=== PATIENT | male | born 1950 | race Caucasian/White ===

== ENCOUNTER → 2017-12-03 09:04 | Outpatient (CLI) | payer MEDICARE, OTHER, SELFPAY ==
[2016-10-19 14:48] VITALS: BMI 30.6
[2017-12-03 10:29] LABS: Anion Gap 6 (5-15); BUN 19 mg/dL (7-18); BUN/Creat Ratio 17.4 RATIO (10-20); Calcium,Total 9.1 mg/dL (8.5-10.1); Chloride 105 mmol/L (98-107); Cholesterol 129 mg/dL (200); Creatinine, Serum 1.09 mg/dL (0.70-1.30); EST Glomerular Filtration Rate 72 mL/min (>60); Est Glom Filt Rate - Afr Amer 87 mL/min (>60); Glucose 88 mg/dL (74-106); High Density Lipoprotein 33 mg/dL; Potassium 3.9 mmol/L (3.5-5.1); Sodium Level 140 mmol/L (136-145); Triglycerides 195 mg/dL; Very Low Density Lipoprotein 39 mg/dL (5-40)
[2017-12-03 10:37] LABS: Vitamin D,25 Hydroxy 19.6 ng/mL (29.95-100.01)
== END ==
PROVIDERS: Family Provider Family Medicine; PCP Family Medicine; Visit Provider Family Medicine
DX: I10 Essential (primary) hypertension (principal); E78.00 Pure hypercholesterolemia, unspecified; E55.9 Vitamin D deficiency, unspecified
CPT/HCPCS: 36415; 80048; 80061; 82306

== ENCOUNTER → 2018-05-27 07:05 | Outpatient (CLI) | payer MEDICARE, OTHER, SELFPAY ==
[2016-10-19 14:48] VITALS: BMI 30.6
--- NOTE | 2018-05-27 07:31 | MRI_ITS ---
STUDY: MRI BRAIN WITH AND WITHOUT CONTRAST (ATTENTION INTERNAL AUDITORY CANALS - I.A.C.'s) REASON FOR EXAM: Male, 68 years old. Left-sided tinnitus TECHNIQUE: Standardized multiplanar fat and water weighted pulse sequences were obtained. 10 ml of Gadavist contrast material was administered intravenously for the contrast portion of the examination. COMPARISON: None. FINDINGS: Normal bilateral temporal bones. Normal bilateral internal auditory canals. There is no demonstrated intracanalicular or cisternal vestibular schwannoma (acoustic neuroma). There is no enhancement of the bilateral VIIth or VIIIth cranial nerves. Normal bilateral cochlea, vestibules and semicircular canals. Normal size of the ventricles and extra-axial spaces for the patient's age. Normal white matter tracts of the supratentorial brain. 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 No acute associated hemorrhage is seen. Normal bilateral basal ganglia. Normal thalami. Normal flow voids within the major intracranial circulation suggesting patency by spin echo criteria. Normal venous enhancement. There is no extra-axial fluid accumulation. Normal sella turcica, pituitary gland, infundibular stalk, optic chiasm and hypothalamus. Normal tectal plate and pineal gland. Normal midbrain, carlos and medulla. Normal cerebellum. Normal basal cisterns. No demonstrated orbital abnormality, within the constraints of a routine brain study. Cyst in the right maxillary sinus. Bilateral sphenoid and ethmoid sinus disease. Normal calvarium and skull base. Normal visualized soft tissue structures. Normal visualized upper cervical spine. MRI/Brain W/WO Contrast IMPRESSION: No evidence of vestibulocochlear schwannoma. No evidence of left temporal bone pathology. No cerebellopontine angle lesions are seen. 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 No acute associated hemorrhage is seen. Electronically Signed: Darwin Laurent MD at 9:31 EST Tel , Service support ,
[2018-05-27 09:36] LABS: CREATININE FINGERSTICK 1.1 mg/dL (0.70-1.30); EGFR FINGERSTICK > 60.0000 mL/min (>60)
== END ==
PROVIDERS: Family Provider Family Medicine; PCP Family Medicine; Referring Provider Otolaryngology Otolaryngology/Facial Plastic Surgery; Visit Provider Otolaryngology Otolaryngology/Facial Plastic Surgery
DX: H93.12 Tinnitus, left ear (principal)
CPT/HCPCS: 70553; A9585

== ENCOUNTER → 2018-06-03 09:52 | Outpatient (CLI) | payer MEDICARE, OTHER, SELFPAY ==
[2016-10-19 14:48] VITALS: BMI 30.6
[2018-06-03 12:12] LABS: Prothrombin Time (Protime)PT. 13.1 SECONDS (11.7-14.9)
[2018-06-03 12:13] LABS: Partial Thromboplast Time 30.5 Seconds (24.1-36.2)
[2018-06-03 12:16] LABS: Absolute Lymphocyte Count 1.49 X10^3/ul (0.83-4.51); Absolute Neutrophil Count 3.1 X10^3/uL (2.0-7.7); Basophil# 0.03 X10^3/uL; Basophil% 0.6 % (0-1); Eosinophil# 0.27 X10^3/uL; Eosinophils% 5.3 % (0-5); Hematocrit 45.1 % (40-54); Lymphocyte # 1.49 X10^3/ul (4.0); Lymphocyte % 29.2 % (19-41); Mean Corp Hgb Conc 33.3 g/gl (32-36); Mean Corpuscular Hgb 29.6 pg (27.0-32.0); Mean Platelet Vol. 9.8 fl (6.2-12.0); Monocyte# 0.27 X10^3/uL; Monocyte% 5.3 % (0-10); Neutrophil # 3.05 X10^3/uL (2.7-7.7); Neutrophil % 59.6 % (47-70); Platelet Count 190 K/mm3 (150-450); RBC Distribution Width CV 12.4 % (11.6-14.6); RBC Distribution Width SD 39.2 fl (35.1-43.9); Red Blood Count 5.07 M/mm3 (4.6-6.2); White Blood Count 5.1 K/mm3 (4.4-11.0)
[2018-06-03 12:26] LABS: POSITIVE COUNT NO; POSITIVE DIFFERENTIAL NO; POSITIVE MORPHOLOGY NO
[2018-06-03 12:36] LABS: Anion Gap 6 (5-15); BUN 21 mg/dL (7-18); BUN/Creat Ratio 19.6 RATIO (10-20); Calcium,Total 8.9 mg/dL (8.5-10.1); Chloride 102 mmol/L (98-107); Creatinine, Serum 1.07 mg/dL (0.70-1.30); EST Glomerular Filtration Rate 74 mL/min (>60); Est Glom Filt Rate - Afr Amer 89 mL/min (>60); Glucose 88 mg/dL (74-106); Potassium 3.9 mmol/L (3.5-5.1); Sodium Level 137 mmol/L (136-145)
[2018-06-03 14:52] LABS: Vitamin D,25 Hydroxy 27.6 ng/mL (29.95-100.01)
== END ==
PROVIDERS: Family Provider Family Medicine; PCP Family Medicine; Visit Provider Family Medicine
DX: R23.8 Other skin changes (principal); E55.9 Vitamin D deficiency, unspecified; E34.9 Endocrine disorder, unspecified; I10 Essential (primary) hypertension
CPT/HCPCS: 36415; 80048; 82306; 84403; 85025; 85610; 85730

== ENCOUNTER → 2018-12-04 | Outpatient (CLI) | payer MEDICARE, OTHER, SELFPAY ==
[2016-10-19 14:48] VITALS: BMI 30.6
[2018-08-06 07:50] VITALS: BMI 31.1
[2018-12-04 12:32] LABS: AST(SGOT) 19 U/L (15-37); Alanine Aminotransfer ALT/SGPT 27 U/L (16-61); Cholesterol 149 mg/dL (200); High Density Lipoprotein 38 mg/dL; Triglycerides 138 mg/dL; Very Low Density Lipoprotein 28 mg/dL (5-40)
== END | disposition home or self-care (01) ==
LOC: MFPLAB 10:01
PROVIDERS: Family Provider Family Medicine; PCP Family Medicine; Referring Provider Family Medicine; Visit Provider Family Medicine
DX: E78.00 Pure hypercholesterolemia, unspecified (principal)
CPT/HCPCS: 36415; 80061; 84450; 84460

== ENCOUNTER 2018-12-17 06:57 | Day surgery (SDC) | payer MEDICARE, OTHER, SELFPAY ==
[2016-10-19 14:48] VITALS: BMI 30.6
--- NOTE | 2018-11-29 11:34 | EKG12_ITS ---
Test Reason : PREOP Blood Pressure : / mmHG Vent. Rate : 054 BPM Atrial Rate : 054 BPM P-R Int : 172 ms QRS Dur : 084 ms QT Int : 422 ms P-R-T Axes : 044 059 040 degrees QTc Int : 400 ms Sinus bradycardia Septal infarct , age undetermined Abnormal ECG Confirmed by HUONG KATHLEEN ([id number]), order editor JUAN JONES ([id number]) on 12/02/2018 2:01:38 PM Referred By: Jhony Romero Confirmed By:HOUNG KATHLEEN
[2018-11-29 11:54] LABS: Hematocrit 43.5 % (40-54); Hemoglobin 14.9 g/dl (13.0-16.5); Mean Corp Hgb Conc 34.3 g/gl (32-36); Mean Corpuscular Hgb 29.7 pg (27.0-32.0); Mean Corpuscular Volume 86.7 fL (80-94); Mean Platelet Vol. 9.6 fl (6.2-12.0); Platelet Count 179 K/mm3 (150-450); RBC Distribution Width CV 12.4 % (11.6-14.6); RBC Distribution Width SD 39.5 fl (35.1-43.9); Red Blood Count 5.02 M/mm3 (4.6-6.2); Scan Indicated on CBC? Y/N NO; White Blood Count 5.6 K/mm3 (4.4-11.0)
[2018-11-29 12:15] LABS: Anion Gap 5 (5-15); BUN 23 mg/dL (7-18); BUN/Creat Ratio 20.5 RATIO (10-20); Chloride 106 mmol/L (98-107); Creatinine, Serum 1.12 mg/dL (0.70-1.30); EST Glomerular Filtration Rate 70 mL/min (>60); Est Glom Filt Rate - Afr Amer 84 mL/min (>60); Glucose 80 mg/dL (74-106); Potassium 3.9 mmol/L (3.5-5.1); Sodium Level 138 mmol/L (136-145)
[2018-12-17 07:13] VITALS: BP 124/78; PULSE 56; RESP 16; TEMP 36.3; O2SAT 97; BMI 31.0
[2018-12-17] MEDS: Ciprofloxacin 0.3% 2.5ml Bottle 1 DRP (08:17)
[2018-12-17] MEDS: Oxymetazoline 0.05% 1 SPRAY SPRAY.BTL 15 SPRAY (08:41)
[2018-12-17] MEDS: BACITRACIN/POLYMYXIN B 15 GM Tube 1 APPLIC (09:20)
--- NOTE | 2018-12-17 09:40 | DCINST_ITS ---
You will use the following diet at home:: No restrictions Your food should be the consistency of: Regular Call your doctor if your incision/area has: Increased Pain/ Swelling Additional Dressing/Incision Instructions:: keep water out of left ear. replace the cotton ball in the left ear as needed for drainage. Allergies/Adverse Reactions: Allergies metoprolol tartrate [From Lopressor] Allergy (Verified 12/10/18 09:58) Nausea WEAKNESS, severe drop in bp propranolol HCl [From Inderal LA] Allergy (Verified 12/10/18 09:58) Nausea venlafaxine HCl [From Effexor] Allergy (Verified 12/10/18 09:58) Unknown does not tolereate well paroxetine HCl [From Paxil] Adverse Reaction (Verified 12/10/18 09:58) Unknown does not tolereate well Medications to take at Discharge Atorvastatin Calcium [Lipitor] 10 mg PO QHS 04/24/13 Lisinopril [Zestril] 10 mg PO BID 04/24/13 Hydrochlorothiazide [Hctz] 25 mg PO DAILY 08/13/14 aspirin 81 mg tablet,delayed release 81 mg PO MOWEFR 07/30/17 Budesonide/Formoterol 160/4.5 [Symbicort 160/4.5 Mcg Inhaler (SP)] 2 puff INHALATION BID 12/10/18 Primary Care Physician: Clinton Buck MD [Primary Care Provider] - Test Results: Test results from this visit will be discussed in further detail at your follow- up appointment, if applicable. Please Follow Up With: Alejandro Romero MD When: 1 month
[2018-12-17 09:44] VITALS: BP 121/80; BP 124/78; PULSE 74; RESP 16; TEMP 36.1; O2SAT 93
[2018-12-17 10:00] VITALS: BP 124/78; BP 125/83; PULSE 70; RESP 18; O2SAT 94
[2018-12-17 10:14] VITALS: BP 124/78; BP 130/88; PULSE 66; RESP 16; O2SAT 96
[2018-12-17 10:16] VITALS: BP 124/78; BP 130/88; PULSE 68; RESP 14; TEMP 36.2; O2SAT 93
[2018-12-17] MEDS: Acetaminophen/Codeine #3 Tablet 1 TABLET PO (10:40)
[2018-12-17 10:50] VITALS: BP 124/78; BP 133/76; PULSE 65; RESP 16; TEMP 36.2; O2SAT 96
--- NOTE | 2018-12-17 14:41 | PCM.OPRPT ---
Problem List (1) Eustachian tube dysfunction Status: Chronic Qualifiers: Laterality: bilateral Qualified Code(s): H69.83 - Other specified disorders of Eustachian tube, bilateral (2) Tympanic membrane perforation Status: Chronic Qualifiers: Laterality: left Qualified Code(s): H72.92 - Unspecified perforation of tympanic membrane, left ear Report of Operation Date of Procedure: 12/17/18 Pre-Operative Diagnosis: 1. eustachian tube dysfunction. 2. tympanic membrane perforation, left Post-Operative Diagnosis: 1. eustachian tube dysfunction. 2. tympanic membrane perforation, left Surgery/Procedure Performed:: 1. eustachian tube dilation, right and left. 2. cartilage tympanoplasty, left ear. 3. cartilage graft harvest, left ear cartilage Type of Anesthesia:: General Description of Procedure: on the day of the procedure, after appropriate informed consent was obtained, the patient was brought to the operating room and placed in supine position on the operating table. he was placed under general endotracheal anesthesia by the anesthesiologist. the endotracheal tube was secured, the eyes were taped. the bilateral nasal cavities were decongested with oxymetazoline soaked pledgets. the 30 degree endoscope was inserted into the left nasal cavity. the eustachian tube orifice was visualized. taking care to advance the AERA system to avoid a soft tissue false passage and risk injury to the eustachian tube or internal carotid artery, the catheter was advanced to a soft stop. the balloon was dilated to 12 berenice for 2 minutes and removed. the 30 degree endoscope was inserted into the right nasal cavity. the eustachian tube orifice was visualized. taking care to advance the AERA system to avoid a soft tissue false passage and risk injury to the eustachian tube or internal carotid artery, the catheter was advanced to a soft stop. the balloon was dilated to 12 berenice for 2 minutes and removed. the table was rotated 90 degrees toward the surgeon. the ear canal and postauricular areas were injected with lidocaine/epinephrine. the ear was prepped and draped in sterile fashion. a speculum was placed and the ear canal was examined with the microscope. the tympanic membrane defect was measured to be 4x4 mm. the defect was postage-stamped. an incision was made posteriorly along the tragus with a 15 blade. the tragal cartilage was dissected and the graft was removed using an iris scizzor. the graft site was bipolared and closed with 5-0 fast gut. the graft was meticulously shaped into a butterfly cartilage graft. this was inset into the defect. gelfoam was placed lateral to the graft, and bacitracin lateral to that. the table was rotated 90 degrees toward the anesthesiologist and subsequently extubated. he was transferred to the PACU in stable condition.
== END 2018-12-17 11:24 | disposition home or self-care (01) ==
LOC: SDC 06:57 → AC 06:57
PROVIDERS: Family Provider Family Medicine; PCP Family Medicine; Referring Provider Otolaryngology; Visit Provider Otolaryngology
PROC: (CPT 21235; principal; 2018-12-17 08:00)
PROC: (CPT 21235; 2018-12-17 08:00)
DX: H69.83 Other specified disorders of Eustachian tube, bilateral (principal); H72.92 Unspecified perforation of tympanic membrane, left ear; H90.0 Conductive hearing loss, bilateral; E78.00 Pure hypercholesterolemia, unspecified; Z79.899 Other long term (current) drug therapy; Z79.82 Long term (current) use of aspirin; I10 Essential (primary) hypertension; R00.1 Bradycardia, unspecified
CPT/HCPCS: 00120; 21235; 69631; C9745; 36415; 80048; 85027; 93005; J7120; J2405

== ENCOUNTER → 2019-08-21 09:43 | Outpatient (CLI) | payer MEDICARE, OTHER, SELFPAY ==
[2016-10-19 14:48] VITALS: BMI 30.6
[2019-08-06 06:07] VITALS: BMI 31.9
[2019-08-21 12:22] LABS: Absolute Lymphocyte Count 1.27 X10^3/uL (0.83-4.51); Absolute Neutrophil Count 3.7 X10^3/uL (2.0-7.7); Basophil# 0.03 X10^3/uL; Basophil% 0.5 % (0-1); Eosinophil# 0.23 X10^3/uL; Eosinophils% 4.1 % (0-5); Hemoglobin 15.1 g/dL (13.0-16.5); Lymphocyte # 1.27 X10^3/ul (4.0); Lymphocyte % 22.6 % (19-41); Mean Corp Hgb Conc 33.6 g/dL (32-36); Mean Corpuscular Volume 86.5 fL (80-94); Mean Platelet Vol. 9.9 fl (6.2-12.0); Monocyte% 7.1 % (0-10); NRBC Flagged by Analyzer 0 % (0-5); Neutrophil # 3.69 X10^3/uL (2.7-7.7); Neutrophil % 65.5 % (47-70); Platelet Count 198 K/mm3 (150-450); RBC Distribution Width SD 37.9 fl (35.1-43.9); White Blood Count 5.6 K/mm3 (4.4-11.0)
[2019-08-23 12:07] LABS: Alternaria alternata <0.10 kU/L (Class 0); Aspergillus fumigatus <0.10 kU/L (Class 0); Bahia Grass <0.10 kU/L (Class 0); Bermuda Grass <0.10 kU/L (Class 0); Bluegrass, Kentucky <0.10 kU/L (Class 0); Cat Hair/Dander, Standard <0.10 kU/L (Class 0); Cedar, Mountain <0.10 kU/L (Class 0); Cladosporium herbarum <0.10 kU/L (Class 0); Cockroach, American <0.10 kU/L (Class 0); D farinae Mite <0.10 kU/L (Class 0); D pteronyssinus <0.10 kU/L (Class 0); Dog Epithelia <0.10 kU/L (Class 0); Elm, American White <0.10 kU/L (Class 0); Hazelnut Tree <0.10 kU/L (Class 0); Hickory, White <0.10 kU/L (Class 0); Johnson Grass <0.10 kU/L (Class 0); Maple/Box Elder <0.10 kU/L (Class 0); Mucor racemosus <0.10 kU/L (Class 0); Mugwort <0.10 kU/L (Class 0); Mulberry, White <0.10 kU/L (Class 0); Oak, White <0.10 kU/L (Class 0); Penicillium chrysogen <0.10 kU/L (Class 0); Pigweed, Rough <0.10 kU/L (Class 0); Plantain, English <0.10 kU/L (Class 0); Ragweed, Short/Common <0.10 kU/L (Class 0); Sheep Sorrel(Dock) <0.10 kU/L (Class 0); Stemphylium herbarum <0.10 kU/L (Class 0); Sweet Gum <0.10 kU/L (Class 0); Sycamore, American <0.10 kU/L (Class 0)
[2019-08-23 17:44] LABS: Nettle <0.10 kU/L (Class 0)
[2019-08-24 12:07] LABS: Aspirgillus flavus Negative (Neg:<1:1); Aspirgillus fumigatus Negative (Neg:<1:1); Aspirgillus niger Negative (Neg:<1:1)
[2019-08-24 15:10] LABS: Immunoglobulin E 49 IU/mL (6-495)
== END ==
PROVIDERS: PCP Family Medicine; Referring Provider Internal Medicine Critical Care Medicine; Visit Provider Internal Medicine Critical Care Medicine
DX: J45.909 Unspecified asthma, uncomplicated (principal)
CPT/HCPCS: 36415; 82785; 85025; 86003; 86606

== ENCOUNTER → 2019-09-05 14:00 | Outpatient (CLI) | payer MEDICARE, OTHER, SELFPAY ==
[2016-10-19 14:48] VITALS: BMI 30.6
[2019-08-06 06:07] VITALS: BMI 31.9
--- NOTE | 2019-09-05 14:04 | RAD_ITS ---
HISTORY: back ache TECHNIQUE: Lumbar spine 5 views Number of images including paperwork: 5 COMPARISON: None FINDINGS: VERTEBRAE: No acute fracture. VERTEBRAL ALIGNMENT: No traumatic subluxation. DISKS AND JOINTS: Minimal lumbar discogenic degenerative changes. Facet arthropathy. SOFT TISSUES: Unremarkable paraspinous soft tissues. Moderate to large amount of colonic stool. RAD/L/S Spine Min 4 Views IMPRESSION: No acute osseous abnormality. Lumbar spondylosis. at 0407 Reported and signed by: Anita Avina MD Electronically Signed: Anita Avina MD at 4:06 EST Tel , Service support ,
== END ==
PROVIDERS: PCP Family Medicine; Referring Provider Family Medicine; Visit Provider Family Medicine
DX: M54.9 Dorsalgia, unspecified (principal)
CPT/HCPCS: 72110

== ENCOUNTER → 2019-09-30 12:50 | Outpatient (CLI) | payer MEDICARE, OTHER, SELFPAY ==
[2016-10-19 14:48] VITALS: BMI 30.6
[2019-08-06 06:07] VITALS: BMI 31.9
[2019-09-30] MEDS: Benralizumab 30 MG/ML Syringe SQ (13:07)
[2019-09-30 13:11] VITALS: BP 157/77; PULSE 64; RESP 16; TEMP 36.6; O2SAT 99; BMI 30.9
== END ==
PROVIDERS: PCP Family Medicine; Referring Provider Internal Medicine Critical Care Medicine; Visit Provider Internal Medicine Critical Care Medicine
DX: J45.50 Severe persistent asthma, uncomplicated (principal)
CPT/HCPCS: 96372; J0517

== ENCOUNTER 2019-10-10 12:00 | Outpatient (RCR) | payer MEDICARE, OTHER, SELFPAY ==
[2016-10-19 14:48] VITALS: BMI 30.6
[2019-08-06 06:07] VITALS: BMI 31.9
--- NOTE | 2019-09-11 10:55 | HP.PTEVAL_ITS ---
Patient's Visit Information HUONG LOVING is a 69 year old M referred to Physical Therapy by Duarte Mitchell MD with a diagnosis of BACK PAIN. Date of Evaluation: 09/11/19 Physical Therapist: Komal Mejia PT, Cert MDT - Visit Plan Frequency: 2-3x /Week Duration: 4-6 Weeks Plan: AQUATIC THERAPY FOR PAIN RELIEF, POSTURE CORRECTION/STRENGTHENING, INSTRUCTION IN APPROPRIATE BODY MECHANICS AND ACTIVITY MODIFICATIONS. DLS STARTING WITH A NEUTRAL SPINE PROGRESSING ROM TOLERATED. RYLAN LE ROM, STRETCHING AND STRENGTHENING. WRITTEN HEP INSTRUCTION. WRITTEN GYM EX PROGRAM IF APPROPRIATE. - Subjective Findings: Work/Leisure: RETIRED. Disability: NO. Present symptoms: RIGHT LOW BACK PAIN AND PAIN AT THE TOP OF THE RIGHT PELVIS. RYLAN THIGH PAIN WITH PROLONGED WALKING. NO SX'S BELOW THE KNEES RYLAN. Present since: ABOUT 30 YEARS AGO. Pain Scale: WORST 7/10, LEAST 2/10. Currently: 4/10 - GETTING WORSE. Commenced as a result of: NO APPARENT REASON FOR WORSENING. Symptoms at onset: RIGHT LOW BACK. Worse: SITTING, WALKING ON TREADMIL, LIFTING HEAVY OBJECTS OFF THE FLOOR. Better: STANDING, LYING FLAT ON BACK, MOTRIN/MALOXACAM. Disturbed sleep: NO. Previous history/Previous treatment: NO LOW BACK SURGERY. NO INJECTIONS. NO PHYSICAL THERAPY. NO CHIROPRACTIC. Treatment this episode: MALOXACAM, PT CONSULT. Coughing/sneezing/straining: NEGATIVE. Gait: VERY TIME LIMITED DUE TO LOW BACK PAIN. TOPS OF THIGHS GET HOT AND FEEL LIKE 10,000 NEEDLES IN THEM. Difficulty initiating urinatin: NO. Accidents: NO. Unexplained weight loss: NO. Imaging: RECENT LOW BACK X-RAY NORMAL PER [facility] REPORT. [facility] EMR: Minimal lumbar discogenic degenerative changes. Facet. arthropathy. PMH: HTN. H/O NECK SURGERY. Recent major surgery: LEFT EAR DRUM REPLACEMENT. - Objective Sitting/Standing Posture: POOR. PATIENT VERY SLOUCHED THROUGHOUT SUBJECTIVE PORTION OF EVAL. Lordosis: REDUCED. Lateral shift: NO. Relevant shift: N/A. Other Observations: INDEP GAIT AND TRANSFERS. Motor deficit: RYLAN LE'S 5/5 WITH MMT'ING EXCEPT RIGHT HIP 4-/5 AND LEFT 4/5. Sensory deficit: RYLAN LE LIGHT TOUCH SENSATION INTACT AND SYMMETRICAL. ROM deficit: TIGHT AND PAINFUL RIGHT HIP FLEX, EXT, IR AND ER. RYLAN HIP ROM TESTING RESULTS IN C/O INCREASED LOW BACK PAIN. Reflexes: NT. Dural Signs: NEGATIVE RYLAN LE'S. Lumbar mvmt loss: flex - NIL. ext - KELLY. R SG - KELLY. L SG - MOD. PATIENT WITH C/O INCREASED LOW BACK PAIN WITH LUMBAR ROM TESTING ALL PLANES BUT ESPECIALLY LEFT SG TESTING. Core strength: POOR. Palpation: TENDERNESS WITH PALPATION OF THE L345S1 R EGIONS AND OVER THE SACRUM. NO ACUTE PARASPINAL, HIP OR PELVIC TENDERNESS. TREATMENT: NEUROMUSCULAR REEDUCATION - RETRAINING OF MVMT AND POSTURE FOR SITTING, LYING AND STANDING ACTIVITIES. OTHER: POSITIVE RIGHT VANESSA TEST. - Goals Goal 1:: DECREASE C/O LOW BACK PAIN Goal Time Frame: 4-6 Weeks Goal 2:: IMPROVE LIFTING, WALKING, SITTING, STANDING, SOCIAL LIFE, TRAVEL AND WORK FUNCTION Goal Time Frame: 4-6 Weeks Goal 3:: INSTRUCT IN PROPHYLAXIS Goal Time Frame: 4-6 Weeks - Rehabilitation Potential Rehabilitation Potential: Fair - Anticipated Interventions Patient/Client Instruction: Educate patient on: Condition, Plan of Care, Risk Factors, Benefits of Fitness Program For the Purpose of:: To improve self management Therapeutic Exercise to Include: Strength training, Body mechanics, Postural training, Flexibilty training, Neuromotor development, In an aquatic setting, Dynamic Lumbar Stabilization For the Purpose of:: To decrease pain, To improve muscle performance and motor function, To increase tolerance to activity/condition/position, To improve ability of physical actions for home/community/work/leisure Cryotherapy (ice pack, ice massage): Yes Thermo therapy (hot pack): Yes Ultrasound (thermal/non thermal): Yes For the Purpose of:: To decrease pain, To increase ROM, To improve nutrient delivery to tissue Thank you for the opportunity to evaluate your patient. For Medicare and Medicare HMO plans, please review the plan of care and approve it. It will need to be FAXED BACK to us at [phone] for Medicare purposes. For Medicare only, by signing this I certify the plan of care. Please let me know if there are questions or concerns regarding this plan of care. Physician Signature: Date:
--- NOTE | 2019-10-06 12:09 | HP.PTREVAL ---
Duarte Mitchell MD, It has been my pleasure to treat HUONG LOVING over the last 8 visits for BACK PAIN. Please see the progress note below for an update on the physical therapy plan of care! Subjective: MY LOWER BACK AND MY HIP ARE BETTER. PATIENT REPORTS HE CAN WALK BETTER AND SIT BETTER. ABOUT EVERYTHING IS BETTER. PATIENT REPORTS HE IS STILL HAVING NUMBNESS IN THE BOTTOM OF HIS FEET WHEN HE SITS TOO LONG AND WHEN HE STANDS TOO LONG. PATIENT REPORTS THE NUMBNESS COMES AND GOES AND HASN'T CHANGED MUCH. PATIENT REPORTS HE IS REALLY GLAD HE DID THE POOL. PATIENT REPORTS HE IS STILL GETING NAUSEATED AFTER THE POOL SESSIONS - SOMETIMES WORSE THAN OTHERS. Objective/Function: PATIENT WAS SEEN TODAY FOR RE-ASSESSMENT OF PROGRESS TOWARD THE SET PT GOALS AND THE NEED FOR FURTHER PHYSICAL THERAPY VS READINESS FOR DISCHARGE. PATIENT HAS MADE GREAT PROGRESS WITH PHYSICAL THERAPY IN TERMS OF PAIN REDUCTION AND FUNCTION. UPON EXAM TODAY: THIS PATIENT AMBULATES INDEP'LY INTO PT WITHOUT ANY ASSISTIVE DEVICES OR LOB. HE IS ABLE TO TRANSFER INDEP'LY FROM SIT TO STAND WITHOUT UE ASSIST. Motor deficit: RYLAN LE'S 5/5 WITH MMT'ING AND PATIENT DENIES PAIN WITH TESTING. Sensory deficit: RYLAN LE LIGHT TOUCH SENSATION INTACT AND SYMMETRICAL. ROM deficit: RYLAN LE'S WFL. HIP ROM TESTING IS NO LONGER PAINFUL. Reflexes: NT. Dural Signs: NEGATIVE RYLAN LE'S. Lumbar mvmt loss: flex - NIL. ext - MOD. R SG - MOD. L SG - MIN. PATIENT DENIES INCREASED PAIN WITH LUMBAR ROM TESTING ALL PLANES TODAY. Core strength: POOR. Palpation: MILD TENDERNESS WITH PALPATION OF THE L345S1 REGIONS. NO ACUTE PARASPINAL, HIP OR PELVIC TENDERNESS. OTHER: RYLAN LE VANESSA TESTING IS NEGATIVE TODAY. Plan Plan: CONT DLS INCREASING ROM TOLERATED AND RYLAN LE ROM, STRETCHING AND STRENGTHENING TOLERATED ONE TIME A WK IN THE POOL AND TWO TIMES A WEEK ON LAND. PLEASE GIVE WRITTEN POOL, GYM AND HEP'S. PATIENT IS PLANNING TO RE-NEW HIS [employer] PT. Goals Goal 1:: DECREASE C/O LOW BACK PAIN Goal Time Frame: 4-6 Weeks Goal Progress: Progressing Goal 2:: IMPROVE LIFTING, WALKING, SITTING, STANDING, SOCIAL LIFE, TRAVEL AND WORK FUNCTION Goal Time Frame: 4-6 Weeks Goal Progress: Progressing Goal 3:: INSTRUCT IN PROPHYLAXIS Goal Time Frame: 4-6 Weeks Goal Progress: Progressing Anticipated Interventions Patient/Client Instruction: Educate patient on: Condition, Plan of Care, Risk Factors, Benefits of Fitness Program For the Purpose of:: To improve self management Therapeutic Exercise to Include: Strength training, Body mechanics, Postural training, Flexibilty training, Neuromotor development, In an aquatic setting, Dynamic Lumbar Stabilization For the Purpose of:: To decrease pain, To improve muscle performance and motor function, To increase tolerance to activity/condition/position, To improve ability of physical actions for home/community/work/leisure Cryotherapy (ice pack, ice massage): Yes Thermo therapy (hot pack): Yes Ultrasound (thermal/non thermal): Yes For the Purpose of:: To decrease pain, To increase ROM, To improve nutrient delivery to tissue Please do not hesitate to contact me at [phone] by phone or if you have questions or concerns regarding this new plan of care! Sincerely, Komal Mejia, PT, Cert MDT
== END 2019-10-10 17:00 | disposition home or self-care (01) ==
LOC: PT 12:00
PROVIDERS: PCP Family Medicine; Visit Provider Family Medicine
DX: M54.9 Dorsalgia, unspecified (principal)
CPT/HCPCS: 97110; 97112; 97113; 97162; 97164

== ENCOUNTER → 2019-10-28 12:53 | Outpatient (CLI) | payer MEDICARE, OTHER, SELFPAY ==
[2016-10-19 14:48] VITALS: BMI 30.6
[2019-08-06 06:07] VITALS: BMI 31.9
[2019-09-30 13:11] VITALS: BMI 30.9
[2019-10-28 13:30] VITALS: BP 138/81; PULSE 61; RESP 16; TEMP 36.4; O2SAT 96; BMI 30.9
[2019-10-28] MEDS: Benralizumab 30 MG/ML Syringe SQ (13:35)
[2019-10-28 14:12] VITALS: BP 126/75; PULSE 78; RESP 16; TEMP 36.6; O2SAT 98
== END ==
PROVIDERS: PCP Family Medicine; Referring Provider Internal Medicine Critical Care Medicine; Visit Provider Internal Medicine Critical Care Medicine
DX: J45.50 Severe persistent asthma, uncomplicated (principal)
CPT/HCPCS: 96372; J0517

== ENCOUNTER → 2019-11-25 12:48 | Outpatient (CLI) | payer MEDICARE, OTHER, SELFPAY ==
[2016-10-19 14:48] VITALS: BMI 30.6
[2019-09-30 13:11] VITALS: BMI 30.9
[2019-11-13 07:49] VITALS: BMI 30.9
[2019-11-25 13:06] VITALS: BP 116/80; PULSE 59; RESP 18; TEMP 36.3; O2SAT 97; BMI 30.4
[2019-11-25] MEDS: Benralizumab 30 MG/ML Syringe SQ (13:08)
[2019-11-25 13:37] VITALS: BP 136/81; PULSE 66; RESP 16; O2SAT 98
== END ==
PROVIDERS: PCP Family Medicine; Referring Provider Internal Medicine Critical Care Medicine; Visit Provider Internal Medicine Critical Care Medicine
DX: J45.50 Severe persistent asthma, uncomplicated (principal)
CPT/HCPCS: 96372; J0517

== ENCOUNTER → 2019-12-01 10:21 | Outpatient (CLI) | payer MEDICARE, OTHER, SELFPAY ==
[2016-10-19 14:48] VITALS: BMI 30.6
[2019-11-25 13:06] VITALS: BMI 30.4
[2019-12-01 12:25] LABS: Anion Gap 6 (5-15); BUN 19 mg/dL (7-18); BUN/Creat Ratio 17.8 RATIO (10-20); Chloride 106 mmol/L (98-107); Cholesterol 125 mg/dL (200); Creatinine, Serum 1.07 mg/dL (0.70-1.30); EST Glomerular Filtration Rate 73 mL/min (>60); Est Glom Filt Rate - Afr Amer 89 mL/min (>60); Glucose 87 mg/dL (74-106); High Density Lipoprotein 35 mg/dL; Potassium 3.9 mmol/L (3.5-5.1); Sodium Level 139 mmol/L (136-145); Triglycerides 98 mg/dL; Very Low Density Lipoprotein 20 mg/dL (5-40)
== END ==
PROVIDERS: PCP Family Medicine; Referring Provider Family Medicine; Visit Provider Family Medicine
DX: I10 Essential (primary) hypertension (principal)
CPT/HCPCS: 36415; 80048; 80061

== ENCOUNTER → 2020-01-20 12:54 | Outpatient (CLI) | payer MEDICARE, OTHER, SELFPAY ==
[2016-10-19 14:48] VITALS: BMI 30.6
[2019-11-13 07:49] VITALS: BMI 30.9
[2019-11-25 13:06] VITALS: BMI 30.4
[2020-01-20 13:02] VITALS: BP 126/76; PULSE 59; RESP 16; TEMP 36.2; O2SAT 100; BMI 28.0
[2020-01-20] MEDS: Benralizumab 30 MG/ML Syringe SQ (13:12)
== END ==
PROVIDERS: PCP Family Medicine; Referring Provider Internal Medicine Critical Care Medicine; Visit Provider Internal Medicine Critical Care Medicine
DX: J45.50 Severe persistent asthma, uncomplicated (principal)
CPT/HCPCS: 96372; J0517

== ENCOUNTER → 2020-03-01 09:49 | Outpatient (CLI) | payer MEDICARE, OTHER, SELFPAY ==
[2016-10-19 14:48] VITALS: BMI 30.6
[2020-03-01 09:06] VITALS: BMI 28.0
[2020-03-01 13:28] LABS: Anion Gap 9 (5-15); BUN 25 mg/dL (7-18); BUN/Creat Ratio 22.7 RATIO (10-20); Calcium,Total 9.5 mg/dL (8.5-10.1); Chloride 101 mmol/L (98-107); EST Glomerular Filtration Rate 71 mL/min (>60); Est Glom Filt Rate - Afr Amer 86 mL/min (>60); Glucose 82 mg/dL (74-106); PSA,Total - Annual Screen 1.21 ng/mL (0.00-4.00); Potassium 3.5 mmol/L (3.5-5.1); Sodium Level 138 mmol/L (136-145)
== END ==
PROVIDERS: PCP Family Medicine; Referring Provider Family Medicine; Visit Provider Family Medicine
DX: Z00.00 Encounter for general adult medical examination without abnormal findings (principal); I10 Essential (primary) hypertension
CPT/HCPCS: 36415; 80048; 84153; G0103

== ENCOUNTER → 2020-03-16 12:49 | Outpatient (CLI) | payer MEDICARE, OTHER, SELFPAY ==
[2016-10-19 14:48] VITALS: BMI 30.6
[2019-11-25 13:06] VITALS: BMI 30.4
[2020-03-01 11:38] VITALS: BMI 27.3
[2020-03-16] MEDS: Benralizumab 30 MG/ML Syringe SQ (13:18)
[2020-03-16 13:26] VITALS: BP 135/71; PULSE 57; RESP 16; TEMP 36.2; O2SAT 99; BMI 27.0
[2020-03-16 14:01] VITALS: BP 131/69; PULSE 57; RESP 16; TEMP 36.4
== END ==
PROVIDERS: PCP Family Medicine; Referring Provider Internal Medicine Critical Care Medicine; Visit Provider Internal Medicine Critical Care Medicine
DX: J45.50 Severe persistent asthma, uncomplicated (principal)
CPT/HCPCS: 96372; J0517

== ENCOUNTER → 2020-05-11 07:54 | Outpatient (CLI) | payer MEDICARE, OTHER, SELFPAY ==
[2016-10-19 14:48] VITALS: BMI 30.6
[2020-03-01 11:38] VITALS: BMI 27.3
[2020-03-16 13:26] VITALS: BMI 27.0
[2020-05-11 08:03] VITALS: BP 130/76; PULSE 60; RESP 18; TEMP 36.1; O2SAT 98; BMI 26.9
[2020-05-11] MEDS: Benralizumab 30 MG/ML Syringe SQ (08:07)
[2020-05-11 08:46] VITALS: BP 118/81; PULSE 55; RESP 18; TEMP 36.2
== END ==
PROVIDERS: PCP Family Medicine; Referring Provider Internal Medicine Critical Care Medicine; Visit Provider Internal Medicine Critical Care Medicine
DX: J45.50 Severe persistent asthma, uncomplicated (principal)
CPT/HCPCS: 96372; J0517

== ENCOUNTER → 2020-07-06 07:57 | Outpatient (CLI) | payer MEDICARE, OTHER, SELFPAY ==
[2016-10-19 14:48] VITALS: BMI 30.6
[2020-03-16 13:26] VITALS: BMI 27.0
[2020-05-26 07:33] VITALS: BMI 26.9
[2020-07-06 08:09] VITALS: BP 135/74; PULSE 58; RESP 16; TEMP 35.8; O2SAT 100; BMI 12.2
[2020-07-06] MEDS: Benralizumab 30 MG/ML Syringe SQ (08:19)
[2020-07-06 08:50] VITALS: BP 133/77; PULSE 63
== END ==
PROVIDERS: PCP Family Medicine; Referring Provider Internal Medicine Critical Care Medicine; Visit Provider Internal Medicine Critical Care Medicine
DX: J45.50 Severe persistent asthma, uncomplicated (principal)
CPT/HCPCS: 96372; J0517

== ENCOUNTER → 2020-08-10 11:03 | Outpatient (CLI) | payer MEDICARE, OTHER, SELFPAY ==
[2016-10-19 14:48] VITALS: BMI 30.6
[2020-07-06 08:09] VITALS: BMI 12.2
--- NOTE | 2020-08-10 11:07 | RAD_ITS ---
STUDY: X-RAY - THORACIC SPINE REASON FOR EXAM: Male, 70 years old. pain between shoulder blades TECHNIQUE: 3 view(s) of the thoracic spine were obtained. COMPARISON: None. FINDINGS: Normal kyphosis of the thoracic spine. Mild S-shaped scoliosis with mild levoscoliosis of the upper thoracic spine and mild dextroscoliosis of the lower thoracic spine. There is multilevel endplate spondylosis of the thoracic vertebrae. There is multilevel disc space narrowing of the thoracic spine. The soft tissue structures are unremarkable. RAD/Thoracic Spine 3 Views IMPRESSION: Mild S-shaped scoliosis with mild degenerative disc disease per Electronically Signed: Torsten Cummings MD at 16:49 EST Tel , Service support ,
--- NOTE | 2020-08-10 11:07 | RAD_ITS ---
STUDY: X-RAY - LUMBAR SPINE REASON FOR EXAM: Male, 70 years old. strain of thoracic back region, sometimes pain in low back TECHNIQUE: 5 view(s) of the lumbar spine were obtained. COMPARISON: FINDINGS: Normal lumbar lordosis. There is no substantial scoliosis. There is a normal alignment of the vertebrae. There is multilevel endplate spondylosis of the lumbar vertebrae. Normal disc space heights. The soft tissue structures are unremarkable. RAD/L/S Spine Min 4 Views IMPRESSION: Mild degenerative disc disease. Electronically Signed: Torsten Cummings MD at 16:53 EST Tel , Service support ,
== END ==
PROVIDERS: PCP Family Medicine; Referring Provider Family Medicine; Visit Provider Family Medicine
DX: S29.012A Strain of muscle and tendon of back wall of thorax, initial encounter (principal); X58.XXXA Exposure to other specified factors, initial encounter; Y93.9 Activity, unspecified; Y92.9 Unspecified place or not applicable; Y99.9 Unspecified external cause status
CPT/HCPCS: 72072; 72110

== ENCOUNTER 2020-08-12 09:00 | Outpatient (RCR) | payer MEDICARE, OTHER, SELFPAY ==
[2016-10-19 14:48] VITALS: BMI 30.6
[2020-07-06 08:09] VITALS: BMI 12.2
== END 2020-08-12 23:59 ==
LOC: IMMUN 09:00
PROVIDERS: PCP Family Medicine; Visit Provider Family Medicine
DX: Z23 Encounter for immunization (principal)
CPT/HCPCS: 0011A; 0012A; 91301

== ENCOUNTER 2020-08-16 09:30 | Outpatient (RCR) | payer MEDICARE, OTHER, SELFPAY ==
[2016-10-19 14:48] VITALS: BMI 30.6
[2020-07-06 08:09] VITALS: BMI 12.2
--- NOTE | 2020-08-11 15:05 | HP.PTEVAL ---
Patient's Visit Information HUONG LOVING is a 70 year old M referred to Physical Therapy by Dr. Trinh Vogt MD with a diagnosis of Thoracic spine pain. Date of Evaluation: 08/11/20 Physical Therapist: Francisco Escobar, PT, ATC - Visit Plan Frequency: 1x/Week Duration: 1 Week Plan: Referred pt for a consult with Komal Mejia PT, T next Rx. - Subjective DOI: 07/27/19. Pt reports he was taking down [place] lights. When he picked up his extension ladder, he suddenly experienced severe mid thoracic spine pain. Pt reports the pain has progressively become worse since that injury. Pt reports no tingling or nmbness throughout his body. Pt reports he is unable to sleep secondary to pain. Pt reports moist heat helps with his back. Pt reports he has attempted taking pain meds to decrease his pain, but they have not helped at all. Pt reports turning his head increases his pain. Pt notes he is unable to bend forwaud secondary to pain. Pt reports he has had pain like this in the past, but only in his LB. Pt currently rates his pain at 8/10 at rest, but notes his pain increases to 10/10 at worst. - Pain T/S Pain Intensity (Out of 10): 8 Pain Intensity Range: 10 - Objective Neuro: B UE sensation is WNL to light touch. B bicepital reflex= 1/3. Palpation: Mild pain inferior to the scapulae bilaterally. No obvious deformity. MMT: B UE is grossly 3+/5 throughout and limited by pain in the spine. ROM: C/S is moderately to severely limited in all planes. Repeated movements: Both flex and ext peripheralized sx's into L back and flank - Goals Goal 1:: Decrease T/S pain x 50% to aid with sleep Goal Time Frame: 4-6 Weeks Goal 2:: Decrease the frequency and intensity of T/s radiculopathy x 50% to aid with IADL's Goal Time Frame: 4-6 Weeks Goal 3:: I with HEP Goal Time Frame: 4-6 Weeks - Rehabilitation Potential Physical Therapy Diagnosis: Pt has thoracic spine pain, limited ROM, and difficulty with IADL's secondary to T/S pathology Rehabilitation Potential: Good - Anticipated Interventions Patient/Client Instruction: Educate patient on: Condition, Plan of Care For the Purpose of:: To decrease pain, To increase ROM, To improve muscle performance and motor function Therapeutic Exercise to Include: Body mechanics, Postural training, Dynamic Lumbar Stabilization, Tomi Exercises For the Purpose of:: To decrease pain, To increase ROM, To improve muscle performance and motor function IF ES: Yes Thermo therapy (hot pack): Yes Ultrasound (thermal/non thermal): Yes For the Purpose of:: To decrease pain, To increase ROM, To improve muscle performance and motor function Thank you for the opportunity to evaluate your patient. For Medicare and Medicare HMO plans, please review the plan of care and approve it. It will need to be FAXED BACK to us at [phone] for Medicare purposes. For Medicare only, by signing this I certify the plan of care. Please let me know if there are questions or concerns regarding this plan of care. Physician Signature: Date:
--- NOTE | 2020-10-13 09:44 | HP.PT.NRP ---
HUONG LOVING was seen in my office for initial evaluation on 08/11/20. The following Plan of Care was established for this patient: Initial Frequency: 1x/Week Initial Duration: 1 Week Patient/Client Instruction: Educate patient on: Condition, Plan of Care For the Purpose of:: To decrease pain, To increase ROM, To improve muscle performance and motor function Therapeutic Exercise to Include: Body mechanics, Postural training, Dynamic Lumbar Stabilization, Tomi Exercises For the Purpose of:: To decrease pain, To increase ROM, To improve muscle performance and motor function IF ES: Yes Thermo therapy (hot pack): Yes Ultrasound (thermal/non thermal): Yes For the Purpose of:: To decrease pain, To increase ROM, To improve muscle performance and motor function This patient was last seen in our office . Pertinent comments regarding their Physical therapy will appear below: Pt was treated for 3 PT visits for back pain through the date of 08/16/20. Pt did not return after that date and is discontinued at this time. At this point I will be discontinuing this patient from physical therapy. I would be happy to see this patient again in the future if found appropriate by the physician. Thank you! Francisco Escobar, PT, ATC
== END 2020-08-16 19:00 | disposition home or self-care (01) ==
LOC: PT 09:30
PROVIDERS: PCP Family Medicine; Referring Provider Family Medicine; Visit Provider Family Medicine
DX: S29.012A Strain of muscle and tendon of back wall of thorax, initial encounter (principal)
CPT/HCPCS: 97035; 97161; 97530

== ENCOUNTER → 2020-08-24 13:44 | Outpatient (CLI) | payer MEDICARE, OTHER, SELFPAY ==
[2016-10-19 14:48] VITALS: BMI 30.6
[2020-07-06 08:09] VITALS: BMI 12.2
--- NOTE | 2020-08-24 13:58 | MRI_ITS ---
STUDY: MRI THORACIC SPINE WITHOUT CONTRAST REASON FOR EXAM: Male, 70 years old. back pain, mid thoracic x 1 month, injury TECHNIQUE: Standardized fat and water weighted pulse sequences were obtained in the sagittal and axial planes. COMPARISON: X-ray 08/10/2020 FINDINGS: Normal kyphosis of the thoracic spine. Mild levoscoliosis of the upper thoracic spine and mild dextroscoliosis lower thoracic spine. T1-2, T2-3, T3-4, T4-5, T5-6, T6-7, T7-8, T8-9, T9-10, T10-11, T11-12: At T8/T9, there is a small (4 mm) of the right paracentral disc extrusion which produces mild spinal stenosis but no cord compression. Normal visualized thoracic cord. Normal conus medullaris that terminates at the L1.. The soft tissue structures are unremarkable. MRI/Spine Thoracic (Routine) IMPRESSION: Mild S-shaped scoliosis with a small right paracentral disc extrusion at T8/T9 producing mild spinal stenosis but no cord compression. Electronically Signed: Torsten Cummings MD at 14:52 EST Tel , Service support ,
== END ==
PROVIDERS: PCP Family Medicine; Referring Provider Family Medicine; Visit Provider Family Medicine
DX: M54.9 Dorsalgia, unspecified (principal)
CPT/HCPCS: 72146

== ENCOUNTER → 2020-08-31 07:52 | Outpatient (CLI) | payer MEDICARE, OTHER, SELFPAY ==
[2016-10-19 14:48] VITALS: BMI 30.6
[2020-05-26 07:33] VITALS: BMI 26.9
[2020-08-30 14:13] VITALS: BMI 27.8
[2020-08-31] MEDS: Benralizumab 30 MG/ML Syringe SQ (08:03)
[2020-08-31 08:06] VITALS: BP 151/90; PULSE 68; RESP 16; TEMP 35.7; O2SAT 99; BMI 27.8
== END ==
PROVIDERS: PCP Family Medicine; Referring Provider Internal Medicine Critical Care Medicine; Visit Provider Internal Medicine Critical Care Medicine
DX: J45.50 Severe persistent asthma, uncomplicated (principal)
CPT/HCPCS: 96372; J0517

== ENCOUNTER 2020-10-26 07:30 | Outpatient (CLI) | payer MEDICARE, OTHER, SELFPAY ==
[2016-10-19 14:48] VITALS: BMI 30.6
[2020-08-26 08:36] VITALS: BMI 28.8
[2020-08-31 08:06] VITALS: BMI 27.8
[2020-10-26 07:48] VITALS: BP 141/78; PULSE 59; RESP 16; TEMP 36.3; O2SAT 99; BMI 28.8
[2020-10-26] MEDS: Benralizumab 30 MG/ML Syringe SC (07:59)
== END 2020-10-26 09:00 | disposition home or self-care (01) ==
LOC: MEDOUTP 07:31
PROVIDERS: PCP Family Medicine; Referring Provider Internal Medicine Critical Care Medicine; Visit Provider Internal Medicine Critical Care Medicine
DX: J45.50 Severe persistent asthma, uncomplicated (principal)
CPT/HCPCS: 96372; J0517

== ENCOUNTER → 2020-12-21 07:57 | Outpatient (CLI) | payer MEDICARE, OTHER, SELFPAY ==
[2016-10-19 14:48] VITALS: BMI 30.6
[2020-08-31 08:06] VITALS: BMI 27.8
[2020-12-21 08:06] VITALS: BP 137/81; PULSE 60; RESP 16; TEMP 36.6; O2SAT 98; BMI 29.0
== END ==
PROVIDERS: PCP Family Medicine; Referring Provider Internal Medicine Critical Care Medicine; Visit Provider Internal Medicine Critical Care Medicine
DX: J45.50 Severe persistent asthma, uncomplicated (principal)

== ENCOUNTER → 2021-01-10 16:31 | Outpatient (CLI) | payer MEDICARE, OTHER, SELFPAY ==
[2016-10-19 14:48] VITALS: BMI 30.6
[2020-12-21 08:41] VITALS: BMI 29.0
--- NOTE | 2021-01-10 16:34 | RAD_ITS ---
STUDY: X-RAY - RIGHT WRIST REASON FOR EXAM: Male, 70 years old. Wrist pain. TECHNIQUE: 3 view(s) of the wrist were obtained. COMPARISON: None. FINDINGS: Mild generalized osteopenia. Mild arthrosis of the radiocarpal articulation. Mild arthrosis of the radial carpal row. Mild arthrosis of the first CMC joint. The soft tissue structures are unremarkable. RAD/Wrist min 3 Views IMPRESSION: Osteopenia with mild osteoarthritic changes. Electronically Signed: Martell Herrera MD at 12:26 EDT , Service support ,
== END ==
PROVIDERS: PCP Family Medicine; Referring Provider Family Medicine; Visit Provider Family Medicine
DX: M25.531 Pain in right wrist (principal)
CPT/HCPCS: 73110

== ENCOUNTER → 2021-01-26 08:57 | Outpatient (CLI) | payer MEDICARE, OTHER, SELFPAY ==
[2016-10-19 14:48] VITALS: BMI 30.6
[2020-12-21 08:41] VITALS: BMI 29.0
[2021-01-26 10:52] LABS: Uric Acid 4.5 mg/dL (3.5-7.2)
== END ==
PROVIDERS: PCP Family Medicine; Visit Provider Family Medicine
DX: M25.539 Pain in unspecified wrist (principal)
CPT/HCPCS: 36415; 84550

== ENCOUNTER → 2021-02-08 07:13 | Outpatient (CLI) | payer MEDICARE, OTHER, SELFPAY ==
[2016-10-19 14:48] VITALS: BMI 30.6
[2020-12-21 08:41] VITALS: BMI 29.0
--- NOTE | 2021-02-08 07:24 | MRI_ITS ---
STUDY: MRI RIGHT WRIST WITHOUT CONTRAST REASON FOR EXAM: Right wrist pain for 2.5 months. TECHNIQUE: Standardized fat and water weighted pulse sequences were obtained in all 3 orthogonal planes. COMPARISON: Radiographs 01/10/2021. FINDINGS: Normal visualized distal radius. There is mild arthrosis of the distal radioulnar joint with mild chondral thinning and mild subchondral cystic change/bone edema of the ulna (inversion recovery axial image 23). Normal triangular fibrocartilaginous complex (TFCC). There is mild arthrosis of the radiocarpal compartment of the wrist with chondral thinning (gradient coronal image 22). There is arthrosis of the lunate-capitate articulation with chondral thinning (T2 sagittal image 18). There is bone edema of the lunate, capitate and hamate (inversion recovery coronal images 10-13). There are small effusions of the radiocarpal and midcarpal compartments of the wrist (inversion recovery axial images 15-19). There are intra-articular bodies in the proximal recess of the pisotriquetral articulation (T2 sagittal images 7-9; inversion recovery coronal images 15-17). Normal visualized interosseous scapholunate ligament. Normal extensor tendons. Normal flexor tendons. Normal carpal tunnel with a normal median nerve. There is arthrosis of the carpometacarpal articulation of the thumb with chondral thinning (gradient coronal image 29). Normal second through fifth carpometacarpal articulations. There is a small cyst in the third metacarpal head (inversion recovery coronal images 8, 9). There is no demonstrated soft tissue abnormality. 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 Mild arthrosis of the radiocarpal compartment of the wrist and distal radioulnar joint. Intra-articular bodies in the proximal recess of the pisotriquetral articulation. Bone edema in the lunate, capitate and hamate. Small effusions of the radiocarpal and midcarpal compartments of the wrist. Electronically Signed: Bran Fairbanks MD at 13:00 EDT Tel , Service support ,
== END ==
PROVIDERS: PCP Family Medicine; Referring Provider Family Medicine; Visit Provider Family Medicine
DX: M25.532 Pain in left wrist (principal)
CPT/HCPCS: 73221

== ENCOUNTER → 2021-02-15 07:47 | Outpatient (CLI) | payer MEDICARE, OTHER, SELFPAY ==
[2016-10-19 14:48] VITALS: BMI 30.6
[2020-12-21 08:41] VITALS: BMI 29.0
[2021-02-15] MEDS: Benralizumab 30 MG/ML Syringe SC (07:55)
[2021-02-15 07:58] VITALS: BP 154/85; PULSE 62; RESP 16; TEMP 36.2; O2SAT 98
== END ==
PROVIDERS: PCP Family Medicine; Referring Provider Internal Medicine Critical Care Medicine; Visit Provider Internal Medicine Critical Care Medicine
DX: J45.50 Severe persistent asthma, uncomplicated (principal)
CPT/HCPCS: 96372; J0517

== ENCOUNTER → 2021-03-01 07:41 | Outpatient (CLI) | payer MEDICARE, OTHER, SELFPAY ==
[2016-10-19 14:48] VITALS: BMI 30.6
[2021-03-01 05:31] VITALS: BMI 30.4
[2021-03-01 08:07] LABS: Erythrocyte Sedimentation Rate 18 mm/hr (0-20)
[2021-03-01 08:24] LABS: CRP 6.13 mg/L (0.0-3.0); Rheumatoid Factor < 10.0 IU/mL (<15)
[2021-03-03 03:07] LABS: Cytoplasmic Ab (C-ANCA) <1:20 titer (Neg:<1:20)
[2021-03-03 07:49] LABS: CCP IgG Antibodies 6 units (0-19); Perinuclear Ab (P-ANCA) <1:20 titer (Neg:<1:20)
[2021-03-03 13:28] LABS: ANTINUCLEAR ANTIBODIES DIRECT Negative (Negative)
== END ==
PROVIDERS: PCP Family Medicine; Referring Provider Internal Medicine Critical Care Medicine; Visit Provider Internal Medicine Critical Care Medicine
DX: M25.439 Effusion, unspecified wrist (principal)
CPT/HCPCS: 36415; 85652; 86038; 86140; 86200; 86225; 86235; 86256; 86431

== ENCOUNTER → 2021-03-02 09:11 | Outpatient (CLI) | payer MEDICARE, OTHER, SELFPAY ==
[2016-10-19 14:48] VITALS: BMI 30.6
[2021-03-01 05:31] VITALS: BMI 30.4
[2021-03-02 10:47] LABS: Anion Gap 7 (5-15); BUN 24 mg/dL (7-18); BUN/Creat Ratio 26.6 RATIO (10-20); Calcium,Total 8.8 mg/dL (8.5-10.1); Chloride 105 mmol/L (98-107); Cholesterol 187 mg/dL (200); EST Glomerular Filtration Rate 89 mL/min (>60); Est Glom Filt Rate - Afr Amer 107 mL/min (>60); Glucose 87 mg/dL (74-106); High Density Lipoprotein 45 mg/dL; Potassium 3.8 mmol/L (3.5-5.1); Sodium Level 139 mmol/L (136-145); Triglycerides 129 mg/dL; Very Low Density Lipoprotein 26 mg/dL (5-40)
== END ==
PROVIDERS: PCP Family Medicine; Referring Provider Family Medicine; Visit Provider Family Medicine
DX: I10 Essential (primary) hypertension (principal)
CPT/HCPCS: 36415; 80048; 80061

== ENCOUNTER 2021-03-10 09:00 | Outpatient (RCR) | payer MEDICARE, OTHER, SELFPAY ==
[2016-10-19 14:48] VITALS: BMI 30.6
[2020-12-21 08:41] VITALS: BMI 29.0
--- NOTE | 2021-01-19 13:45 | HP.OTEVAL ---
Patient's Visit Information HUONG LOVING is a 70 year old M, referred to Occupational Therapy by Dr. 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 Date of Evaluation: 01/14/21 Occupational Therapist: Carmen Resendiz, OTR/L, CHT - Subjective This 70/M was seen today for OT evaluation for R wrist pain, arthritis, and wrist osteopenia. 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 He stated that his ADLs are going well, but certain movements exacerbate his thumb pain. - Pain R wrist/thumb 6 Pain Intensity Range: 5, 8 - Objective Pt arrived wearing a commercial splint prescribed by his doctor. - ROM Forearm: Right sup/pro 20/WFL left sup/pro WFL/WFL Wrist: Right 35/20 Left 50/50 ROM Comments: Unable to oppose thumb to fingers due to pain. - Strength Railroad Watchman: Right unable Left 90# Lateral Pinch: Right 8# Left 20# Tripod Pinch: Right 4# Left 12# Strength Comments: Pt experienced pain with lateral and 3-jaw esperanza pinch. - Quick DASH-Disab of Arm,Shoulder& Hand Quick DASH Score: 54.5450 - Goals Goal:: pt will demonstrate an increase in R fresh meat grader strength without pain by 75# or greater by d/c. pt will demonstrate an increase in R lateral/3-jaw esperanza pinch strength without pain by 10#/6# or greater by d/c. Goal:: pt will demonstrate an increase in R wrist ext/flex by 20*/20* to be more independent in ADLs and IADLs by d/c. pt will demonstrate R wrist supination without pain WFL to accept change and take care of pets by d/c. Goal:: pt will self-report pain with use of R wrist a 0/10 by d/c. pt will self-report pain during the night a 0/10 by d/c. - Rehabilitation General Assessment: Pt demonstrated a limited ROM, strength and pain in his R wrist, thumb CMC joint and center of the palm. Pt would benefit from skilled OT services 2-3 x a week for 4 weeks to decrease pain and increase strength and ROM to return to PLOF in ADLs and IADLs. Today therapist performed US to on CMC joint and palm to decrease pain, educated pt on joint protection and fabricated orthosis to stabilize R thumb. Pt demonstrated understanding and agrees with POC. Therapy session was directly supervised and doc. approved by Carmen LE/Emmanuel, CHT. Rehabilitation Potential: Good - Anticipated Interventions A/AAROM/PROM, Strengthening, Triggerpoint Release, Modalities, Orthoses, Joint Protection/Energy Conservation - Visit Plan Frequency: 2-3x /Week Duration: 4 Weeks General Plan: Educating pt on joint protection, use of new orthosis, strengthening/ROM exercises, and US to decrease pain. TEXT: Thank you for the opportunity to evaluate your patient. For Medicare and Medicare HMO plans, please review the plan of care and approve it. It will need to be FAXED BACK to us at [phone] for Medicare purposes. Please let me know if there are questions or concerns regarding this plan of care. Physician Signature: Date:
--- NOTE | 2021-01-25 13:50 | OTREVAL_ITS ---
Dr. 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 Please see the progress note below for an update on the occupational therapy plan of care! Subjective: Pt arrived stating he hasn't done much over the long weekend. Fingers are stiff today d/t increased pain all weekend. Took pain meds which helps. waking pt up at night. Objective/Function: US causing zapping over carpal bones ulnar arnold side, increased pain having to end US 5 min early Plan Plan: contact Dr for further evaluation , no improvement, getting worse. Cancel last appt Goals - Goals Patient Goals: Regain Mobility, Regain Strength, Decrease Pain, Use Hand/Wrist/Arm Normally Again, Sleep Better, Increase ROM, Be More Independent in ADLS Goal:: pt will demonstrate an increase in R wellness program coordinator strength without pain by 75# or greater by d/c. pt will demonstrate an increase in R lateral/3-jaw esperanza pinch strength without pain by 10#/6# or greater by d/c. Goal:: pt will demonstrate an increase in R wrist ext/flex by 20*/20* to be more independent in ADLs and IADLs by d/c. pt will demonstrate R wrist supination without pain WFL to accept change and take care of pets by d/c. Goal:: pt will self-report pain with use of R wrist a 0/10 by d/c. pt will self-report pain during the night a 0/10 by d/c. Anticipated Interventions Anticipated Interventions: A/AAROM/PROM, Strengthening, Triggerpoint Release, Modalities, Orthoses, Joint Protection/Energy Conservation Please do not hesitate to contact me at [phone] by phone or if you have questions or concerns regarding this new plan of care! Sincerely, Carmen Resendiz, OTR/L, CHT
--- NOTE | 2021-03-11 09:18 | HP.OTDCSUM ---
It has been my pleasure to treat HUNOG LOVING under orders from Dr. 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 Please see the following information for a summary of their discharge status. % Improvement: 0 Objective/Function: US causing zapping over carpal bones ulnar arnold side, increased pain having to end US 5 min early Patient Goals: Regain Mobility, Regain Strength, Decrease Pain, Use Hand/Wrist/Arm Normally Again, Sleep Better, Increase ROM, Be More Independent in ADLS Goal:: pt will demonstrate an increase in R studio data analyst strength without pain by 75# or greater by d/c. pt will demonstrate an increase in R lateral/3-jaw esperanza pinch strength without pain by 10#/6# or greater by d/c. Goal:: pt will demonstrate an increase in R wrist ext/flex by 20*/20* to be more independent in ADLs and IADLs by d/c. pt will demonstrate R wrist supination without pain WFL to accept change and take care of pets by d/c. Goal:: pt will self-report pain with use of R wrist a 0/10 by d/c. pt will self-report pain during the night a 0/10 by d/c. Plan: D/c Discharge Comments: This pt was seen for 6 visit for R thumb and wrist pain. This pt has made no changes and has gotten worse, so he is seeking hand surgery at this time. Pt agrees and understands d/c. Therapy session was directly supervised and doc. approved by Carmen LE/DEDRA Benitez If there are questions or concerns regarding this patient's occupational therapy, please fell free to call me at [phone]. Thank you for the referral of this patient. Sincerely, MIMI Allan/Emmanuel, DEDRA
== END 2021-03-11 15:25 | disposition home or self-care (01) ==
LOC: OT 09:00
PROVIDERS: PCP Family Medicine; Referring Provider Family Medicine; Visit Provider Family Medicine
DX: M19.039 Primary osteoarthritis, unspecified wrist (principal); M85.88 Other specified disorders of bone density and structure, other site
CPT/HCPCS: 97035; 97110; 97140; 97166; 97530; 97763

== ENCOUNTER 2021-04-05 15:35 | Observation (INO) | payer MEDICARE, OTHER, SELFPAY ==
[2016-10-19 14:48] VITALS: BMI 30.6
[2021-04-05] VITALS (12 sets, daily range): BP systolic 120–150; BP diastolic 74–91; PULSE 60–72; RESP 15–20; TEMP 36.5–37.1; O2SAT 96–100; BMI 30.4
--- NOTE | 2021-04-05 15:44 | CT_ITS ---
We are attempting to reach an attending provider to discuss findings. An addendum with communication details will be sent when the communication is complete. STUDY: CT HEAD STROKE PROTOCOL W/O CONTRAST INJECTION REASON FOR EXAM: Male, 70 years old. Neuro deficit, acute, stroke suspected RADIATION DOSAGE (If Supplied By Facility): CTDIvol = ( ) mGy, DLP = ( ) mGycm TECHNIQUE: Transaxial CT imaging of the brain was performed without administration of intravenous contrast material. Individualized dose optimization techniques were used for this CT. COMPARISON: No relevant priors. FINDINGS: Normal soft tissue structures. Normal calvarium. Normal size ventricles and extra-axial spaces for the patient''s age. Normal white matter tracts of the cerebral hemispheres. Normal basal ganglia and thalami. Normal brainstem. Normal cerebellum. 1 cm area of increased attenuation within the paravertebral white matter of the right occipital lobe corresponds to the cavernous angioma seen on MRI from 05/27/2018. There are no findings of an acute ischemic infarction. Normal visualized paranasal sinuses. ASPECT score: CT/STROKE Brain/Head without Cont IMPRESSION: No acute abnormality. 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 Electronically Signed: Torsten Cummings MD at 16:18 EDT Tel , Service support ,
--- NOTE | 2021-04-05 15:44 | EKG12_ITS ---
Test Reason : DIZZINESS Blood Pressure : / mmHG Vent. Rate : 063 BPM Atrial Rate : 063 BPM P-R Int : 190 ms QRS Dur : 070 ms QT Int : 394 ms P-R-T Axes : 047 046 041 degrees QTc Int : 403 ms Normal sinus rhythm Septal infarct , age undetermined Abnormal ECG Confirmed by NIKOS WILLARD, CON ([id number]), commercial production editor JUAN JONES ([id number]) on 04/06/2021 1:23:25 PM Referred By: MR Confirmed By:CON KNOTT MD
--- NOTE | 2021-04-05 15:49 | RAD_ITS ---
STUDY: X-RAY CHEST REASON FOR EXAM: Male, 70 years old. Neuro deficit, acute, stroke suspected TECHNIQUE: Single AP portable view of the chest. COMPARISON: 04/01/2013 FINDINGS: The lungs are clear and expanded. There is no demonstrated pleural abnormality. Normal size heart. Normal mediastinum and iona. Normal visualized pulmonary arteries. Normal visualized aortic arch and descending thoracic aorta. Normal visualized thoracic spine. Normal visualized ribs, clavicles, and shoulders. There is no demonstrated abnormality of the visualized soft tissue structures of the upper abdomen. RAD/Chest 1 View IMPRESSION: Normal x-ray examination of the chest. Electronically Signed: Torsten Cummings MD at 16:08 EDT Tel , Service support ,
[2021-04-05 15:54] LABS: Absolute Lymphocyte Count 1.59 X10^3/uL (0.83-4.51); Absolute Neutrophil Count 4.6 X10^3/uL (2.0-7.7); Basophil# 0.02 X10^3/uL; Basophil% 0.3 % (0-1); Hematocrit 45.9 % (40-54); Hemoglobin 15.7 g/dL (13.0-16.5); Lymphocyte # 1.59 X10^3/ul (0.83-4.51); Lymphocyte % 23.4 % (19-41); Mean Corp Hgb Conc 34.2 g/dL (32-36); Mean Corpuscular Hgb 29.9 pg (27.0-32.0); Mean Corpuscular Volume 87.4 fL (80-94); Mean Platelet Vol. 9.2 fl (6.2-12.0); Monocyte# 0.58 X10^3/uL; Monocyte% 8.5 % (0-10); NRBC Flagged by Analyzer 0 % (0-5); Neutrophil # 4.59 X10^3/uL (2.7-7.7); Neutrophil % 67.5 % (47-70); Platelet Count 243 K/mm3 (150-450); RBC Distribution Width CV 12.5 % (11.6-14.6); RBC Distribution Width SD 39.8 fl (35.1-43.9); Red Blood Count 5.25 M/mm3 (4.6-6.2); White Blood Count 6.8 K/mm3 (4.4-11.0)
[2021-04-05 15:59] LABS: Prothrombin Time (Protime)PT. 12.3 SECONDS (11.7-14.9)
[2021-04-05 16:00] LABS: Partial Thromboplast Time 29.8 Seconds (24.1-36.2)
[2021-04-05] MEDS: Ondansetron 4 MG/2 ML Vial IV ×2 (16:01→22:43)
[2021-04-05 16:23] LABS: Anion Gap 8 (5-15); BUN 28 mg/dL (7-18); BUN/Creat Ratio 23.7 RATIO (10-20); Chloride 103 mmol/L (98-107); Creatinine, Serum 1.18 mg/dL (0.70-1.30); EST Glomerular Filtration Rate 65 mL/min (>60); Est Glom Filt Rate - Afr Amer 79 mL/min (>60); Estimated Creatinine Clearance 69.66 ml/min; Glucose 85 mg/dL (74-106); Potassium 4.1 mmol/L (3.5-5.1); Sodium Level 139 mmol/L (136-145); Troponin-I HS 8 pg/mL (3.0-78.0)
--- NOTE | 2021-04-05 17:04 | PCM.HP.STD ---
HPI - General HPI Narrative HUONG LOVING, is a 70 M who presents [facility] Medical History (Updated 03/01/21 @ 07:[address] Norm Duenas MD) Asthma blood transfusion at [facility] (dyspnea on exertion) HTN (hypertension) Hyperlipidemia nonhealing surgical wound right frontal temporal scalp CIERA (obstructive sleep apnea) Severe persistent asthma, uncomplicated Tinnitus, left ear Home Medications atorvastatin 10 mg PO QHS 04/24/13 [History Last Taken 08/26/14] lisinopril 10 mg PO BID 04/24/13 [History Last Taken 12/17/18 06:00] linaclotide 145 mcg capsule 145 mcg PO DAILY 03/01/20 [History Last Taken Unknown] budesonide-formoterol HFA 80 mcg-4.5 mcg/actuation aerosol inhaler 2 puff INHALATION Q12H #10.2 g 05/26/20 [Rx Last Taken Unknown] benralizumab 30 mg/mL subcutaneous syringe 30 mg SC Q8W 08/26/20 [History Last Taken Unknown] amlodipine 5 mg PO DAILY 04/05/21 [History Last Taken Unknown] meloxicam 15 mg PO DAILY 04/05/21 [History Last Taken Unknown] Allergy/AdvReac Type Severity Reaction Status Date / Time metoprolol tartrate Allergy Nausea Verified 04/05/21 15:42 [From Lopressor] propranolol HCl Allergy Nausea Verified 04/05/21 15:42 [From Inderal LA] venlafaxine HCl Allergy Unknown Verified 04/05/21 15:42 [From Effexor] paroxetine HCl [From Paxil] AdvReac Unknown Verified 04/05/21 15:42 Family History Mother Hypertension emphysema Father emphysema Alcoholic Surgical History Bilateral ear tubes cervical disectomy with bone graft H/O inguinal hernia repair History of carpal tunnel surgery of right wrist History of cholecystectomy Social History household members: spouse housing: house Smoking Status: Never smoker second hand exposure: No alcohol intake: never substance use type: does not use what type of physical activity do you participate in: walking frequency: 3-4 times per week do you feel safe at home: Yes Vital Signs Vital Signs Vital Signs: 04/05/21 15:36 04/05/21 15:40 04/05/21 15:59 Temperature 98.7 F Temperature Source Oral Pulse Rate 72 70 Respiratory Rate 20 H 18 Blood Pressure 150/74 H 150/74 H Blood Pressure Mean 99 99 Pulse Ox 100 98 Oxygen Delivery Method Room Air Room Air Room Air 04/05/21 16:10 04/05/21 16:30 04/05/21 16:36 Temperature Temperature Source Pulse Rate 61 62 64 Respiratory Rate 18 15 Blood Pressure 139/81 H 122/77 H Blood Pressure Mean 100 92 Pulse Ox 98 96 Oxygen Delivery Method Room Air Room Air Weight Weight: 107.8 kg Body Mass Index (BMI) 30.4 Results Lab / Micro Data Result Diagrams: 04/05/21 15:40 04/05/21 15:40 Labs: Laboratory Results - last 24 hr 04/05/21 15:40: WBC 6.8, RBC 5.25, Hgb 15.7, Hct 45.9, MCV 87.4, MCH 29.9, MCHC 34.2, RDW Std Deviation 39.8, RDW Coeff of Maribell 12.5, Plt Count 243, MPV 9.2, Immature Gran % (Auto) 0.300, Neut % (Auto) 67.5, Lymph % (Auto) 23.4, [place] % (Auto) 8.5, Eos % (Auto) 0.0, Baso % (Auto) 0.3, Absolute Neuts (auto) 4.6, Absolute Lymphs (auto) 1.59, Nucleated RBC % 0 04/05/21 15:40: PT 12.3, INR 1.0, APTT 29.8 04/05/21 15:40: Sodium 139, Potassium 4.1, Chloride 103, Carbon Dioxide 28.0, Anion Gap 8, BUN 28 H, Creatinine 1.18, Estim Creat Clear Calc 69.66, Est GFR (MDRD) Af Amer 79, Est GFR (MDRD) Non-Af 65, BUN/Creatinine Ratio 23.7 H, Glucose 85, Calcium 10.0, Troponin I High Sens [address] 04/05/21 15:44 IMPRESSION: No acute abnormality. 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 Electronically Signed: Torsten Cummings MD at 16:18 EDT Tel , Service support , ADDENDUM: 04/05/21 1626 IMPRESSION: No acute abnormality. 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 N.B. : The above Results were Read Back by Torsten Cummings MD to Dr. Henri Santoro MD, and understanding confirmed on 04/05/2021 16:19:09 (ET). Electronically Signed: Torsten Cummings MD at 16:18 EDT Tel , Service support , Chest X-Ray 04/05/21 15:49 IMPRESSION: Normal x-ray examination of the chest. Electronically Signed: Torsten Cummings MD at 16:08 EDT Tel , Service support ,
--- NOTE | 2021-04-05 17:07 | ED.VIS.STROK ---
HPI History of Present Illness Chief Complaint: Neuro S/Sx Narrative Narrative: Patient presenting for evaluation due to concern for altered sensorium and altered mental status. Patient states that he was outdoors at a baseball game today, had been drinking water and eating normally. He was driving home had been in the car for around 15 to 20 minutes and had a sudden onset of abnormal symptoms. He tells me that the buildings seemed tilted and he felt generally weak. He denies that there is any laterality to his weakness. No vision changes. No numbness associated with this. No speech difficulty associated with this. His got him up and got him out of the car, he was basically a full assist while he was walking. He was then brought to the emergency department. Patient denies that there is any sort of chest pain or palpitations associated with this. No recent illnesses associated with it. Patient states that he has had some issues with heat intolerance recently, but he was not overheated at the time and had been in the car for around 20 minutes. He does have a history of some hypertension hyperlipidemia. [facility] Medical History Asthma blood transfusion at [facility] (dyspnea on exertion) HTN (hypertension) Hyperlipidemia nonhealing surgical wound right frontal temporal scalp CIERA (obstructive sleep apnea) Severe persistent asthma, uncomplicated Tinnitus, left ear Home Medications atorvastatin 10 mg PO QHS 04/24/13 [History Last Taken 08/26/14] lisinopril 10 mg PO BID 04/24/13 [History Last Taken 12/17/18 06:00] linaclotide 145 mcg capsule 145 mcg PO DAILY 03/01/20 [History Last Taken Unknown] budesonide-formoterol HFA 80 mcg-4.5 mcg/actuation aerosol inhaler 2 puff INHALATION Q12H #10.2 g 05/26/20 [Rx Last Taken Unknown] benralizumab 30 mg/mL subcutaneous syringe 30 mg SC Q8W 08/26/20 [History Last Taken Unknown] amlodipine 5 mg PO DAILY 04/05/21 [History Last Taken Unknown] meloxicam 15 mg PO DAILY 04/05/21 [History Last Taken Unknown] Allergy/AdvReac Type Severity Reaction Status Date / Time metoprolol tartrate Allergy Nausea Verified 04/05/21 15:42 [From Lopressor] propranolol HCl Allergy Nausea Verified 04/05/21 15:42 [From Inderal LA] venlafaxine HCl Allergy Unknown Verified 04/05/21 15:42 [From Effexor] paroxetine HCl [From Paxil] AdvReac Unknown Verified 04/05/21 15:42 Family History Mother Hypertension emphysema Father emphysema Alcoholic Surgical History Bilateral ear tubes cervical disectomy with bone graft H/O inguinal hernia repair History of carpal tunnel surgery of right wrist History of cholecystectomy Social History household members: spouse housing: house Smoking Status: Never smoker second hand exposure: No alcohol intake: never substance use type: does not use what type of physical activity do you participate in: walking frequency: 3-4 times per week do you feel safe at home: Yes ROS ROS ED Constitutional Constitutional ED: Reports weakness Eyes Eyes: Reports change in vision ENT ENT ED: Denies rhinorrhea Cardiovascular Cardiovascular: Denies chest pain Respiratory/Chest Respiratory/Chest: Denies cough or dyspnea Gastrointestinal Gastrointestinal: Denies abdominal pain, diarrhea, nausea or vomiting Genitourinary Genitourinary ED: Denies dysuria or hematuria Musculoskeletal Musculoskeletal: Denies back pain Integumentary Denies rash Neurologic Neurologic: Denies paresthesias or weakness Psychiatric Psychiatric: Denies depression Endocrine Endocrinology: Denies fatigue Allergic/Immunologic Allergic/Immunologic ED: Denies urticaria EXAM Physical Exam Const Vital Signs: 04/05/21 15:36 04/05/21 15:40 04/05/21 15:59 Temperature 98.7 F Temperature Source Oral Pulse Rate 72 70 Respiratory Rate 20 H 18 Blood Pressure 150/74 H 150/74 H Blood Pressure Mean 99 99 Pulse Ox 100 98 Oxygen Delivery Method Room Air Room Air Room Air 04/05/21 16:10 04/05/21 16:30 04/05/21 16:36 Temperature Temperature Source Pulse Rate 61 62 64 Respiratory Rate 18 15 Blood Pressure 139/81 H 122/77 H Blood Pressure Mean 100 92 Pulse Ox 98 96 Oxygen Delivery Method Room Air Room Air Positive well nourished and well developed General Appearance ED: well developed and NAD HEENT Reports moist mucous membranes Negative for trauma or tenderness Eyes Eyes Narrative: Patient has disconjugate gaze at baseline. The visual an are normal on testing Neck no lymphadenopathy, supple and no JVD Chest Wall inspection of chest normal Resp normal respiratory effort and clear to auscultation bilaterally Cardio regular rate, regular rhythm, no murmurs and peripheral pulses 2+ throughout GI normal to inspection, nondistended, normoactive bowel sounds, non-tender and no masses Palpation: soft Back/Spine normal to inspection Extremity normal to inspection General Extremety ED: Negative for tenderness Neuro oriented x3 Neuro Narrative: Of numbness isolated to his right foot. NIH stroke scale is 1 Sensorium / Orientation: alert Motor Exam: strength 5/5 throughout Psych mental status grossly normal Skin no rashes or lesions noted Skin Narrative: Diaphoretic STROKE Vital Signs/Narrative: Vital Signs Temp Pulse Resp BP Pulse Ox 04/05/21 16:36 64 04/05/21 16:30 62 15 122/77 H 96 04/05/21 16:10 61 18 139/81 H 98 04/05/21 15:40 70 18 150/74 H 98 04/05/21 15:36 98.7 F 72 20 H 150/74 H 100 MDM MDM MDM Narrative Medical decision making narrative: Patient presented secondary to altered mental status. His exam upon arrival showed only some isolated numbness of his right foot, his NIH stroke scale was 1 I did not feel that he met stroke team criteria as isolated foot numbness really does not seem to be consistent with that of a stroke. Stroke team was not activated. CT imaging the patient's brain was obtained which demonstrates a known angioma that is unchanged. Chest x-ray by my personal review was unremarkable. CBC chemistry and troponin were unremarkable, EKG shows no abnormal signs. Repeat evaluation of the patient he has improvement of his diaphoresis and resolution of his symptoms completely. This point patient potentially had an element of a TIA versus a syncopal or presyncopal event. I do believe that he requires admission for further work-up. I discussed with the hospitalist. Lab Data Labs: Laboratory Results - last 24 hr 04/05/21 04/05/21 04/05/21 15:40 15:40 15:40 WBC 6.8 RBC 5.25 Hgb 15.7 Hct 45.9 MCV 87.4 MCH 29.9 MCHC 34.2 RDW Std Deviation 39.8 RDW Coeff of Maribell 12.5 Plt Count 243 MPV 9.2 Immature Gran % (Auto) 0.300 Neut % (Auto) 67.5 Lymph % (Auto) 23.4 [place] % (Auto) 8.5 Eos % (Auto) 0.0 Baso % (Auto) 0.3 Absolute Neuts (auto) 4.6 Absolute Lymphs (auto) 1.59 Nucleated RBC % 0 PT 12.3 INR 1.0 APTT 29.8 Sodium 139 Potassium 4.1 Chloride 103 Carbon Dioxide 28.0 Anion Gap 8 BUN 28 H Creatinine 1.18 Estim Creat Clear Calc 69.66 Est GFR (MDRD) Af Amer 79 Est GFR (MDRD) Non-Af 65 BUN/Creatinine Ratio 23.7 H Glucose 85 Calcium 10.0 Troponin I High Sens 8 Radiography Diagnostic Testing: Radiology Impression Brain CT 04/05/21 15:44 IMPRESSION: No acute abnormality. 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 Electronically Signed: Torsten Cummings MD at 16:18 EDT Tel , Service support , ADDENDUM: 04/05/21 1626 IMPRESSION: No acute abnormality. 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 N.B. : The above Results were Read Back by Torsten Cummings MD to Dr. Henri Santoro MD, and understanding confirmed on 04/05/2021 16:19:09 (ET). Electronically Signed: Torsten Cummings MD at 16:18 EDT Tel , Service support , Chest X-Ray 04/05/21 15:49 IMPRESSION: Normal x-ray examination of the chest. Electronically Signed: Torsten Cummings MD at 16:08 EDT Tel , Service support , EKG Initial EKG: Attestation: I personally reviewed and interpreted this EKG as follows: (Sinus rhythm at [address] segments normal T waves normal [place] and QTc intervals no evidence acute ischemia or arrhythmia) Stroke Documentation Questions Stroke Team Activated: No Discharge Plan Triage Chief Complaint: Neuro S/Sx ED Provider: Henri Santoro Dx/Rx/DC Orders Clinical Impression: Brain TIA Prescriptions: No Action Linzess 145 mcg capsule 145 mcg PO DAILY RF: 0 budesonide-formoterol [Symbicort] 80-4.5 mcg/actuation HFA aerosol inhaler 2 puff INHALATION Q12H Qty: 10.2 RF: 5 Fasenra 30 mg/mL syringe 30 mg SC Q8W RF: 0 atorvastatin 10 MG tablet 10 mg PO QHS RF: 0 lisinopril 10 MG tablet 10 mg PO BID RF: 0 meloxicam 15 mg tablet 15 mg PO DAILY RF: 0 amlodipine 5 mg tablet 5 mg PO DAILY RF: 0 Primary Care Provider: Duarte Mitchell Referrals: Duarte Mitchell MD [Primary Care Provider] - Disposition Disposition: Acute Care Hospital [facility]
--- NOTE | 2021-04-05 17:21 | NURSING ---
pcu tia counts include 234 beds at the [facility]
--- NOTE | 2021-04-05 17:29 | HP.PCM.HOS_ITS ---
Documented by User: Lian Costa NP, STRUCTURAL IRON WORKER-C 04/05/21 17:47 HPI - General HPI Narrative HUONG LOVING, is a 70 M who presents to the emergency room due to transient episode of weakness and confusion. Patient states he and his went to a baseball game in [place]. He was driving on the way home when he developed sudden onset weakness and felt like both cars and buildings were crooked. He told his he needed to harness puller as something was wrong. His helped him get out of the car and states he required significant assistance and could not remember how to walk or had to sit down in the passenger seat. She states she had to direct him on what to do. He denies unilateral weakness. Denies speech changes. He states he felt disoriented. He denies chest pain, shortness of breath, palpitations during that time. He does report some blurred vision during that time. After a few minutes, he states symptoms subsided however he intermittently felt terrible on the way to [facility] emergency room. Upon arrival to the emergency room he states he felt nauseated and diaphoretic, felt like he was going to pass out. His symptoms have since resolved. He reports a past medical history of hypertension, hyperlipidemia, asthma, CIERA. FORMERLY [facility], 1928–1983 Medical History Asthma blood transfusion at [facility] (dyspnea on exertion) HTN (hypertension) Hyperlipidemia nonhealing surgical wound right frontal temporal scalp CIERA (obstructive sleep apnea) Severe persistent asthma, uncomplicated Tinnitus, left ear Home Medications atorvastatin 10 mg PO QHS 04/24/13 [History Last Taken 08/26/14] lisinopril 10 mg PO BID 04/24/13 [History Last Taken 12/17/18 06:00] linaclotide 145 mcg capsule 290 mcg PO DAILY 03/01/20 [History Last Taken Unknown] budesonide-formoterol HFA 80 mcg-4.5 mcg/actuation aerosol inhaler 2 puff INHALATION Q12H #10.2 g 05/26/20 [Rx Last Taken Unknown] benralizumab 30 mg/mL subcutaneous syringe 30 mg SC Q8W 08/26/20 [History Last Taken Unknown] amlodipine 5 mg PO DAILY 04/05/21 [History Last Taken Unknown] meloxicam 15 mg PO DAILY 04/05/21 [History Last Taken Unknown] Allergy/AdvReac Type Severity Reaction Status Date / Time metoprolol tartrate Allergy Nausea Verified 04/05/21 15:42 [From Lopressor] propranolol HCl Allergy Nausea Verified 04/05/21 15:42 [From Inderal LA] venlafaxine HCl Allergy Unknown Verified 04/05/21 15:42 [From Effexor] paroxetine HCl [From Paxil] AdvReac Unknown Verified 04/05/21 15:42 Family History Mother Hypertension emphysema Father emphysema Alcoholic Surgical History Bilateral ear tubes cervical disectomy with bone graft H/O inguinal hernia repair History of carpal tunnel surgery of right wrist History of cholecystectomy History of surgical removal of skin lesion Social History household members: spouse housing: house Smoking Status: Never smoker second hand exposure: No alcohol intake: never substance use type: does not use what type of physical activity do you participate in: walking frequency: 3-4 times per week do you feel safe at home: Yes ROS Constitutional Constitutional: Reports weakness and other Details: Diaphoretic ; Denies change in weight, chills, fatigue or fever(s) Eyes Eyes: Reports blurry vision bilateral (Transient) Cardiovascular Cardiovascular: Denies chest pain, edema, lightheadedness, palpitations or syncope Respiratory/Chest Respiratory/Chest: Denies cough, dyspnea, productive cough, shortness of breath at rest, shortness of breath with exertion or wheezing Gastrointestinal Gastrointestinal: Reports nausea; Denies abdominal pain, constipation, diarrhea or vomiting Genitourinary Genitourinary: Denies burning urination, difficulty urinating, dysuria, hematuria, urinary frequency, urinary incontinence or urinary urgency Musculoskeletal Musculoskeletal: Denies back pain, joint pain or muscle weakness Integumentary Integumentary: Denies erythema, lesions, rash or wounds Neurologic Neurologic: Reports confusion; Denies abnormal speech, dizziness, focal weakness, numbness, paresthesias, seizure-like activity or syncope Psychiatric Psychiatric: Denies anxiety or depression Hematologic/Lymphatic Hematologic/Lymphatic: Denies anemia, easy bleeding or easy bruising Allergic/Immunologic Allergic/Immunologic: Denies hives or asthma Vital Signs Vital Signs Vital Signs: 04/05/21 15:36 04/05/21 15:40 04/05/21 15:59 Temperature 98.7 F Temperature Source Oral Pulse Rate 72 70 Respiratory Rate 20 H 18 Blood Pressure 150/74 H 150/74 H Blood Pressure Mean 99 99 Pulse Ox 100 98 Oxygen Delivery Method Room Air Room Air Room Air 04/05/21 16:10 04/05/21 16:30 04/05/21 16:36 Temperature Temperature Source Pulse Rate 61 62 64 Respiratory Rate 18 15 Blood Pressure 139/81 H 122/77 H Blood Pressure Mean 100 92 Pulse Ox 98 96 Oxygen Delivery Method Room Air Room Air Weight Weight: 237 lb 10.533 oz Body Mass Index (BMI) 30.4 Physical Exam Const alert, oriented x3 and no apparent distress Orientation / Consciousness: awake, oriented to person, oriented to place and oriented to time HEENT normocephalic and moist oral mucous membranes Eyes PERRL, EOMs intact bilaterally and conjunctivae normal Neck no lymphadenopathy Resp normal respiratory effort and clear to auscultation bilaterally Cardio regular rate, regular rhythm and no murmurs Peripheral Pulses: pulses 2+ throughout GI normal to inspection, nondistended, normoactive bowel sounds, non-tender and non-distended Extremity normal to inspection Skin no rashes or lesions noted Lesions: no lesions Rashes: no rashes Trauma: no lacerations or abrasions Neuro CN's II-XII intact bilaterally, no focal motor deficits, no sensory deficits noted and deep tendon reflexes 2+ bilaterally Psych mental status grossly normal and affect normal Results Lab / Micro Data Result Diagrams: 04/05/21 15:40 04/05/21 15:40 Labs: Laboratory Results - last 24 hr 04/05/21 15:40: WBC 6.8, RBC 5.25, Hgb 15.7, Hct 45.9, MCV 87.4, MCH 29.9, MCHC 34.2, RDW Std Deviation 39.8, RDW Coeff of Maribell 12.5, Plt Count 243, MPV 9.2, Immature Gran % (Auto) 0.300, Neut % (Auto) 67.5, Lymph % (Auto) 23.4, Bureau % (Auto) 8.5, Eos % (Auto) 0.0, Baso % (Auto) 0.3, Absolute Neuts (auto) 4.6, Absolute Lymphs (auto) 1.59, Nucleated RBC % 0 04/05/21 15:40: PT 12.3, INR 1.0, APTT 29.8 04/05/21 15:40: Sodium 139, Potassium 4.1, Chloride 103, Carbon Dioxide 28.0, Anion Gap 8, BUN 28 H, Creatinine 1.18, Estim Creat Clear Calc 69.66, Est GFR (MDRD) Af Amer 79, Est GFR (MDRD) Non-Af 65, BUN/Creatinine Ratio 23.7 H, Glucose 85, Calcium 10.0, Troponin I High Sens [address] 04/05/21 15:44 IMPRESSION: No acute abnormality. 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 Electronically Signed: Torsten Cummings MD at 16:18 EDT Tel , Service support , ADDENDUM: 04/05/21 1626 IMPRESSION: No acute abnormality. 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 N.B. : The above Results were Read Back by Torsten Cummings MD to Dr. Henri Santoro MD, and understanding confirmed on 04/05/2021 16:19:09 (ET). Electronically Signed: Torsten Cummings MD at 16:18 EDT Tel , Service support , Chest X-Ray 04/05/21 15:49 IMPRESSION: Normal x-ray examination of the chest. Electronically Signed: Torsten Cummings MD at 16:08 EDT Tel , Service support , Assessment & Plan Assessment/Plan (1) Brain TIA: PLAN: 1. Transient weakness, confusion-concerning for TIA. Brain CT unremarkable. MRI of brain, MRA of head and neck. PT/OT/ST. Aspirin, statin. Obtain echo. Monitor telemetry. Trend enzymes. 2. Hypertension-stable, on amlodipine, lisinopril. 3. Hyperlipidemia-continue statin. Patient had recent lipid profile, will not r epeat. 4. CIERA-on BiPAP. 5. Chronic asthma-no exacerbation. 6. IBS-on Linzess. DVT prophylaxis-Lovenox subcu This patient was seen by COLIN Larkin under the supervision of Dr. Nayak. Documented by User: Dr. Katia Nayak MD 04/05/21 20:38 HPI - General General Date of Admission: 04/05/21 PFSH Medical History Asthma blood transfusion at [facility] (dyspnea on exertion) HTN (hypertension) Hyperlipidemia nonhealing surgical wound right frontal temporal scalp CIERA (obstructive sleep apnea) Severe persistent asthma, uncomplicated Tinnitus, left ear Home Medications atorvastatin 10 mg PO QHS 04/24/13 [History Last Taken 08/26/14] lisinopril 10 mg PO BID 04/24/13 [History Last Taken 12/17/18 06:00] linaclotide 145 mcg capsule 290 mcg PO DAILY 03/01/20 [History Last Taken Unknown] budesonide-formoterol HFA 80 mcg-4.5 mcg/actuation aerosol inhaler 2 puff INHALATION Q12H #10.2 g 05/26/20 [Rx Last Taken Unknown] benralizumab 30 mg/mL subcutaneous syringe 30 mg SC Q8W 08/26/20 [History Last Taken Unknown] amlodipine 5 mg PO DAILY 04/05/21 [History Last Taken Unknown] meloxicam 15 mg PO DAILY 04/05/21 [History Last Taken Unknown] Allergy/AdvReac Type Severity Reaction Status Date / Time metoprolol tartrate Allergy Nausea Verified 04/05/21 15:42 [From Lopressor] propranolol HCl Allergy Nausea Verified 04/05/21 15:42 [From Inderal LA] venlafaxine HCl Allergy Unknown Verified 04/05/21 15:42 [From Effexor] paroxetine HCl [From Paxil] AdvReac Unknown Verified 04/05/21 15:42 Family History Mother Hypertension emphysema Father emphysema Alcoholic Surgical History Bilateral ear tubes cervical disectomy with bone graft H/O inguinal hernia repair History of carpal tunnel surgery of right wrist History of cholecystectomy History of surgical removal of skin lesion Social History household members: spouse housing: house Smoking Status: Never smoker second hand exposure: No alcohol intake: never substance use type: does not use what type of physical activity do you participate in: walking frequency: 3-4 times per week do you feel safe at home: Yes Results Lab / Micro Data Result Diagrams: 04/05/21 15:40 04/05/21 15:40 Charges/Coding Addendum Addendum: This patient was seen in conjunction with Lian Costa. I have independently interviewed and examined the patient and reviewed pertinent h istorical, laboratory, and other data. I have reviewed her note and concur with her documentation 70-year-old male past medical history of hypertension, hyperlipidemia who comes in with complaints of weakness and confusion that was transient. Patient was on his way home driving for baseball game when he developed sudden onset of weakness and felt like passing buildings around him with tilted. Patient did not seem to be able to coordinate and walk or sit down the passenger seat. This lasted for few minutes. He was resolved by the time he got to the emergency room. At the time of being seen, he denied any new complaint. Denied any weakness in her extremity. Denied any numbness or tingling. He has right eye deviation at baseline. 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 Acute TIA versus CVA 2. Hypertension 3. Hyperlipidemia 4. CIERA 5. Asthma not in acute exacerbation 6. IBS Plan: Admit to PCU for stroke work-up Continue on aspirin, statin MRI brain, MRA head and neck Visit Charges Inpatient E&M: 98334 Init Hosp L3 Procedures Hospitalists Procedures: 00839 Advncd Care Plan 30 Min
--- NOTE | 2021-04-05 18:35 | ECHOD_ITS ---
Reason For Study: TIA/CVA Procedure This was a 2D Doppler, Color Flow transthoracic echocardiogram. Bubble study defferred due to previous Negative Bubble on echo in 2010. Exam performed portable in patient room. Left Ventricle Normal LV size. Left ventricular systolic function is normal. The estimated ejection fraction is 65 %. Stage 1 diastolic dysfunction. No regional wall motion abnormalities noted. Right Ventricle Normal RV size. Normal systolic function. Atria Normal left atrium. Normal right atrium. Mitral Valve Normal mitral valve. Mild (1+) eccentric mitral valve insufficiency. Tricuspid Valve Normal tricuspid valve. Unable to estimate RV systolic pressure due to insufficient tricuspid regurgitant envelope. Aortic Valve Trisinus/trileaflet aortic valve. Mild (1+) aortic valve insufficiency. Pulmonic Valve Normal pulmonic valve. Great Vessels Normal aortic root. The pulmonary artery is normal size. Normal inferior vena cava. Pericardium/Pleural No pericardial effusion. MMode/2D Measurements & Calculations LVIDd: 4.8 cm IVSd: 0.99 cm Ao root diam: 4.3 cm LVIDs: 2.5 cm LVPWd: 1.0 cm LA dimension: 3.4 cm FS: 47.1 % LAV(MOD-bp): 42.6 ml LA A4 area: 13.9 cm2 RA A4 area: 14.9 cm2 LAV(MOD-bp) Indexed: 18.6 ml/m2 LAV(MOD-sp2): 42.2 ml LAV(MOD-sp4): 36.6 ml Time Measurements MV dec time: 0.34 sec Doppler Measurements & Calculations MV E max donte: 49.8 cm/sec Lat Peak E' Donte: 7.7 cm/sec Med Peak E' Donte: 5.8 cm/sec MV A max donte: 82.3 cm/sec E/E' lat: 6.4 E/E' med: 8.6 MV E/A: 0.61 MV V2 max: 91.2 cm/sec MV P1/2t max donte: 80.9 cm/sec Ao V2 max: 115.6 cm/sec MV max P.3 mmHg MV P1/2t: 57.3 msec Ao max P.3 mmHg MV V2 mean: 44.6 cm/sec MV dec slope: 413.5 cm/sec2 MV mean P.96 mmHg MVA(P1/2t): 3.8 cm2 MV V2 VTI: 26.8 cm AI max donte: 389.6 cm/sec LV V1 max: 107.3 cm/sec PA V2 max: 90.5 cm/sec AI max P.7 mmHg LV V1 max P.6 mmHg AI dec slope: 190.7 cm/sec2 AI P1/2t: 598.4 msec ECHO/Echo Complete Interpretation Summary Normal LV size. Left ventricular systolic function is normal. The estimated ejection fraction is 65 %. Mild (1+) aortic valve insufficiency. Mild (1+) eccentric mitral valve insufficiency. Stage 1 diastolic dysfunction. Ordering Physician: Lian Costa Referring Physician: Duarte Mitchell Performed By: Channing Gerard RCS
--- NOTE | 2021-04-05 18:35 | MRI_ITS ---
STUDY: MRA NECK WITH AND WITHOUT CONTRAST REASON FOR EXAM: Male, 70 years old. Neurodeficits, acute stroke TECHNIQUE: 3-D hjol-sx-ziyopt (TOF) imaging was performed in an 1.5 T MRI scanner. 20ml DOtarem via IV was administered for the contrast enhanced images. COMPARISON: None. FINDINGS: RIGHT CAROTID ARTERIES: Normal right common carotid artery (CCA). Normal right common carotid bulb. Normal origin of the right internal carotid (ICA) artery without a hemodynamically significant stenosis. Normal visualized cervical portion of the right internal carotid artery. Normal origin of the right external carotid artery (ECA). LEFT CAROTID ARTERIES: Normal left common carotid artery (CCA). Normal left common carotid bulb. Normal origin of the left internal carotid (ICA) artery without a hemodynamically significant stenosis. Normal visualized cervical portion of the left internal carotid artery. Normal origin of the left external carotid artery (ECA). VERTEBRAL ARTERIES: Normal antegrade flow within the bilateral vertebral artery without a hemodynamically significant stenosis. MRI/MRA Neck WITH and W/O Contrast IMPRESSION: Normal bilateral cervical carotid and vertebral arteries. Electronically Signed: Randal Waters MD at 23:00 EDT , Service support ,
--- NOTE | 2021-04-05 18:35 | MRI_ITS ---
STUDY: MRI BRAIN WITH AND WITHOUT CONTRAST REASON FOR EXAM: Male, 70 years old. neurodeficits, acute stroke TECHNIQUE: Standardized multiplanar fat and water weighted pulse sequences were obtained. 20ml DOtarem was administered for the contrast portion of the examination. COMPARISON: CT of the brain 04/05/2021 FINDINGS: Normal size of the ventricles and extra-axial spaces for the patient''s age. Normal white matter tracts of the supratentorial brain. Normal bilateral basal ganglia. Normal thalami. There is no extra-axial fluid accumulation. There is a small focus of hemosiderin in the right occipital lobe which demonstrates vascular enhancement following contrast administration may be on the basis of cavernous angioma which has previously bled Normal flow voids within the major intracranial circulation suggesting patency by spin echo criteria. Normal venous enhancement. There is no enhancing intra-axial or extra-axial abnormality. Normal sella turcica, pituitary gland, infundibular stalk, optic chiasm and hypothalamus. Normal tectal plate and pineal gland. Normal midbrain, carlos and medulla. Normal cerebellum. Normal basal cisterns. Normal bilateral temporal bones. Normal bilateral internal auditory canals. No demonstrated orbital abnormality, within the constraints of a routine brain study. Large mucous retention cyst in right maxillary sinus and smaller in the left. Mild mucosal thickening in the ethmoid air cells and sphenoid sinuses. Normal calvarium and skull base. Normal visualized soft tissue structures. Normal visualized upper cervical spine. MRI/Brain W/WO Contrast IMPRESSION: Probable cavernous angioma in the right occipital lobe which has previously bled. Electronically Signed: Randal Waters MD at 22:58 EDT , Service support ,
--- NOTE | 2021-04-05 18:35 | MRI_ITS ---
STUDY: MRA OF THE HEAD WITHOUT CONTRAST REASON FOR EXAM: Male, 70 years old. neurodeficits, acute stroke recommended TECHNIQUE: 3-D dque-rs-nwomku (TOF) imaging was performed with MIPs. The study was performed unenhanced. COMPARISON: None. FINDINGS: Normal bilateral petrous carotid arteries. Normal right cavernous carotid artery with a normal supraclinoid bifurcation. Normal left cavernous carotid artery with a normal supraclinoid bifurcation. Normal right A1 segments of the anterior cerebral artery. Normal left A1 segments of the anterior cerebral artery. Anterior communicating artery not visualized consistent with normal variant.). Normal bilateral A2 segments of the anterior cerebral arteries. Normal right M1 and M2 segments of the middle cerebral arteries, with a normal M1 bifurcation. Normal left M1 and M2 segments of the middle cerebral arteries, with a normal M1 bifurcation. Normal right posterior communicating artery (PCOM). Left posterior communicating artery not visualized consistent with normal variant. Normal bilateral vertebral arteries. Normal basilar artery with a normal basilar bifurcation. The visualized bilateral superior cerebellar (SCA) arteries are normal. Normal left posterior cerebral artery. The right posterior cerebral artery is hypoplastic and the bulk of the vascular distribution is supplied by the posterior communicating artery There is no demonstrated aneurysm of the [place]. There is no major vessel occlusion or hemodynamically significant stenosis. There is no demonstrated abnormality of the visualized brain. MRI/MRA Head ONLY without Contrast IMPRESSION: Normal MRA of the head Electronically Signed: Randal Waters MD at 23:00 EDT , Service support ,
--- NOTE | 2021-04-05 19:33 | PCS.PANDOC ---
PANDEMIC DOCUMENTATION INITIATED: Date: 03/07/2021 Time: 190
[2021-04-05 19:48] LABS: Troponin-I HS 10 pg/mL (3.0-78.0)
[2021-04-05] MEDS: 0.9% Normal Saline 1,000 ML 75 ML IV (20:52)
[2021-04-05] MEDS: Enoxaparin 40 MG/0.4 ML Syringe SC (20:53)
[2021-04-05] MEDS: Atorvastatin Calcium 80 MG Tablet PO (21:01)
[2021-04-05] MEDS: Famotidine 20 MG Tablet PO (21:01)
[2021-04-05 21:20] LABS: Bedside Glucose 84 mg/dL (70-110)
[2021-04-05 22:08] LABS: Troponin-I HS 10 pg/mL (3.0-78.0)
[2021-04-05] MEDS: Budesonide Respules 0.5 MG/2 ML AMPUL.NEB. INHALATION (22:15)
[2021-04-05] MEDS: Albuterol 2.5 MG/3 ML VIAL.NEB. INHALATION (22:16)
--- NOTE | 2021-04-05 22:44 | CPS ---
Pt has own bipap and it is hooked up and ready to go.
[2021-04-06] VITALS (11 sets, daily range): BP systolic 126–137; BP diastolic 79–86; PULSE 56–78; RESP 16–18; TEMP 36.6; O2SAT 96–98
[2021-04-06 05:56] LABS: Absolute Lymphocyte Count 1.24 X10^3/uL (0.83-4.51); Absolute Neutrophil Count 3.4 X10^3/uL (2.0-7.7); Basophil# 0.01 X10^3/uL; Basophil% 0.2 % (0-1); Hematocrit 42.5 % (40-54); Lymphocyte # 1.24 X10^3/ul (0.83-4.51); Lymphocyte % 24.6 % (19-41); Mean Corp Hgb Conc 32.9 g/dL (32-36); Mean Corpuscular Hgb 29.1 pg (27.0-32.0); Mean Corpuscular Volume 88.4 fL (80-94); Mean Platelet Vol. 9.5 fl (6.2-12.0); Monocyte# 0.37 X10^3/uL; Monocyte% 7.3 % (0-10); NRBC Flagged by Analyzer 0 % (0-5); Neutrophil # 3.42 X10^3/uL (2.7-7.7); Neutrophil % 67.7 % (47-70); Platelet Count 204 K/mm3 (150-450); RBC Distribution Width CV 12.5 % (11.6-14.6); RBC Distribution Width SD 40.5 fl (35.1-43.9); Red Blood Count 4.81 M/mm3 (4.6-6.2); White Blood Count 5.1 K/mm3 (4.4-11.0)
[2021-04-06 06:28] LABS: ALB/GLOB Ratio 1.1 RATIO (0.9-2.4); AST(SGOT) 20 U/L (15-37); Alanine Aminotransfer ALT/SGPT 24 U/L (16-61); Albumin, Serum 3.5 g/dL (3.2-5.0); Alkaline Phosphatase 77 U/L (45-117); Anion Gap 6 (5-15); BUN 23 mg/dL (7-18); BUN/Creat Ratio 24.4 RATIO (10-20); Calcium,Total 8.6 mg/dL (8.5-10.1); Chloride 107 mmol/L (98-107); Creatinine, Serum 0.94 mg/dL (0.70-1.30); EST Glomerular Filtration Rate 84 mL/min (>60); Est Glom Filt Rate - Afr Amer 102 mL/min (>60); Globulin 3.3 g/dL (2.2-4.2); Glucose 93 mg/dL (74-106); Potassium 3.7 mmol/L (3.5-5.1); Protein, Total 6.8 g/dL (6.4-8.2); Sodium Level 139 mmol/L (136-145)
[2021-04-06 07:16] LABS: Bedside Glucose 97 mg/dL (70-110)
[2021-04-06] MEDS: Albuterol 2.5 MG/3 ML VIAL.NEB. INHALATION ×2 (07:26→13:13)
[2021-04-06] MEDS: Budesonide Respules 0.5 MG/2 ML AMPUL.NEB. INHALATION (07:26)
[2021-04-06] MEDS: Aspirin E.C. 81 MG Tablet PO (08:23)
[2021-04-06] MEDS: Famotidine 20 MG Tablet PO (08:23)
[2021-04-06] MEDS: Enoxaparin 40 MG/0.4 ML Syringe SC (08:23)
--- NOTE | 2021-04-06 11:21 | CASEMGMT ---
SW completed a PHQ9 with patient as he may have had a TIA. He scored a 1 which indicates minimal depression. Melody NATHAN
--- NOTE | 2021-04-06 11:56 | PCM.DC ---
Discharge Instructions Diet Discharge Diet: No restrictions Activity Discharge Activity: Return to Normal Activity Dressing / Incision Call your doctor if you observe: Shortness of breath, Dizziness and Chest pain Follow Up Care Test Results: Test results from this visit will be discussed in further detail at your follow-up appointment, if applicable. Discharge Plan Admission Admit Date/Time: 04/05/21 17:00 Primary Reason for Your Visit: Suspected TIA Attending Provider: Katia Nayak Primary Care Provider: Duarte Mitchell Discharge Orders/Prescriptions Prescriptions: New aspirin 81 mg Tablet,Delayed Release (Dr/Ec) 81 mg PO BREAKFAST Qty: 30 RF: 0 Continued Linzess 145 mcg capsule 290 mcg PO DAILY RF: 0 budesonide-formoterol [Symbicort] 80-4.5 mcg/actuation HFA aerosol inhaler 2 puff INHALATION Q12H Qty: 10.2 RF: 5 Fasenra 30 mg/mL syringe 30 mg SC Q8W RF: 0 atorvastatin 10 MG tablet 10 mg PO QHS RF: 0 lisinopril 10 MG tablet 10 mg PO BID RF: 0 meloxicam 15 mg tablet 15 mg PO DAILY RF: 0 amlodipine 5 mg tablet 5 mg PO DAILY RF: 0 Referrals / Follow Up: Duarte Mitchell MD [Primary Care Provider] - In 1 Week Wes Hallman MD [STAFF PHYSICIAN] - Within 1 Month (Follow up for TIA and routine monitoring of cavernous angioma) Disposition Disposition (needs filled in before D/C Order can be placed): Home, Self Care
--- NOTE | 2021-04-06 13:25 | DS.PCM_ITS ---
Documented by User: Lian Costa NP, PULP SCREEN OPERATOR-C 04/06/21 13:43 Providers Date of Admission: 04/05/21 Date of Discharge: 04/06/21 Primary Care Physician: Dr. Duarte Mitchell MD Reason For Visit: TIA/CVA Diagnosis Discharge Diagnosis (1) Brain TIA: Status: Acute Code(s): G45.9 - Transient cerebral ischemic attack, unspecified Medications at Discharge Home Medications atorvastatin 10 mg PO QHS 04/24/13 lisinopril 10 mg PO BID 04/24/13 linaclotide 145 mcg capsule 290 mcg PO DAILY 03/01/20 budesonide-formoterol HFA 80 mcg-4.5 mcg/actuation aerosol inhaler 2 puff INHALATION Q12H #10.2 g 05/26/20 benralizumab 30 mg/mL subcutaneous syringe 30 mg SC Q8W 08/26/20 amlodipine 5 mg PO DAILY 04/05/21 meloxicam 15 mg PO DAILY 04/05/21 aspirin 81 mg PO BREAKFAST #30 tab 04/06/21 Hospital Course Operations None Procedures 2-D Echocardiogram Summary of Care Provided Minutes Spent on Discharge: 35 Hospital Course: Patient is a 70-year-old male admitted 04/05/2021 due to transient episode of weakness, confusion. 1. Transient weakness, confusion-probable TIA. Brain CT unremarkable. 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 Telemetry with mild bradycardia overnight. No evidence of A. fib or other arrhythmia. Echocardiogram demonstrates an EF of 65%, mild aortic valve insufficiency, mild mitral valve insufficiency, stage I diastolic dysfunction. EKG without ST-T changes. Troponin negative. Continue aspirin, statin at discharge. Recommend routine follow-up with neurology for surveillance of cavernous angioma. Follow-up with PCP in 1 week. 2. Hypertension-stable, on amlodipine, lisinopril. 3. Hyperlipidemia-continue statin. Patient had recent lipid profile, will not repeat. 4. CIERA-on BiPAP. 5. Chronic asthma-no exacerbation. 6. IBS-on Linzess. Physical Exam Const alert, oriented x3 and no apparent distress Orientation / Consciousness: awake, oriented to person, oriented to place and oriented to time HEENT normocephalic and moist oral mucous membranes Eyes PERRL, EOMs intact bilaterally and conjunctivae normal Neck no lymphadenopathy Resp normal respiratory effort and clear to auscultation bilaterally Cardio regular rate, regular rhythm and no murmurs Peripheral Pulses: pulses 2+ throughout GI normal to inspection, nondistended, normoactive bowel sounds, non-tender and non-distended Extremity normal to inspection Skin no rashes or lesions noted Lesions: no lesions Rashes: no rashes Trauma: no lacerations or abrasions Neuro CN's II-XII intact bilaterally, no focal motor deficits, no sensory deficits noted and deep tendon reflexes 2+ bilaterally Psych mental status grossly normal and affect normal Patient seen and examined prior to discharge. Physical assessment as noted above. Patient is stable for discharge with follow up recommendations as noted above. This patient was seen by COLIN Larkin under the supervision of Dr. Nayak. Weight / BMI Weight Weight: 229 lb 0.964 oz Body Mass Index (BMI) 30.0 ABG / Lab / Microbiology Data Result Diagrams: 04/06/21 05:26 04/06/21 05:26 Laboratory: Laboratory Results - last 24 hr 04/05/21 15:35: POC Glucose 97 04/05/21 15:40: WBC 6.8, RBC 5.25, Hgb 15.7, Hct 45.9, MCV 87.4, MCH 29.9, MCHC 34.2, RDW Std Deviation 39.8, RDW Coeff of Maribell 12.5, Plt Count 243, MPV 9.2, Immature Gran % (Auto) 0.300, Neut % (Auto) 67.5, Lymph % (Auto) 23.4, [place] % (Auto) 8.5, Eos % (Auto) 0.0, Baso % (Auto) 0.3, Absolute Neuts (auto) 4.6, Absolute Lymphs (auto) 1.59, Nucleated RBC % 0 04/05/21 15:40: PT 12.3, INR 1.0, APTT 29.8 04/05/21 15:40: Sodium 139, Potassium 4.1, Chloride 103, Carbon Dioxide 28.0, Anion Gap 8, BUN 28 H, Creatinine 1.18, Estim Creat Clear Calc 69.66, Est GFR (MDRD) Af Amer 79, Est GFR (MDRD) Non-Af 65, BUN/Creatinine Ratio 23.7 H, Glucose 85, Calcium 10.0, Troponin I High Sens 8 04/05/21 19:16: Troponin I High Sens 10 04/05/21 21:14: POC Glucose 84 04/05/21 21:33: Troponin I High Sens 10 04/06/21 05:26: WBC 5.1, RBC 4.81, Hgb 14.0, Hct 42.5, MCV 88.4, MCH 29.1, MCHC 32.9, RDW Std Deviation 40.5, RDW Coeff of Maribell 12.5, Plt Count 204, MPV 9.5, Immature Gran % (Auto) 0.200, Neut % (Auto) 67.7, Lymph % (Auto) 24.6, [place] % (Auto) 7.3, Eos % (Auto) 0.0, Baso % (Auto) 0.2, Absolute Neuts (auto) 3.4, Absolute Lymphs (auto) 1.24, Nucleated RBC % 0 04/06/21 05:26: Sodium 139, Potassium 3.7, Chloride 107, Carbon Dioxide 26.0, Anion Gap 6, BUN 23 H, Creatinine 0.94, Estim Creat Clear Calc 85.00, Est GFR (MDRD) Af Amer 102, Est GFR (MDRD) Non-Af 84, BUN/Creatinine Ratio 24.4 H, Glucose 93, Calcium 8.6, Total Bilirubin 0.60, AST 20, ALT 24, Alkaline Phosphatase 77, Total Protein 6.8, Albumin 3.5, Globulin 3.3, Albumin/Globulin Ratio 1.1 Radiography Diagnostic Testing: Radiology Impression Brain CT 04/05/21 15:44 IMPRESSION: No acute abnormality. 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 Electronically Signed: Torsten Cummings MD at 16:18 EDT Tel , Service support , ADDENDUM: 04/05/21 1808 IMPRESSION: No acute abnormality. 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 N.B. : The above Results were Read Back by Torsten Cummings MD to Dr. Henri Santoro MD, and understanding confirmed on 04/05/2021 16:19:09 (ET). Electronically Signed: Torsten Cummings MD at 16:18 EDT Tel , Service support , Chest X-Ray 04/05/21 15:49 IMPRESSION: Normal x-ray examination of the chest. Electronically Signed: Torsten Cummings MD at 16:08 EDT Tel , Service support , Brain MRI 04/05/21 18:35 IMPRESSION: Probable cavernous angioma in the right occipital lobe which has previously bled. Electronically Signed: Randal Waters MD at 22:58 EDT , Service support , Echocardiogram 04/05/21 18:35 Interpretation Summary Normal LV size. Left ventricular systolic function is normal. The estimated ejection fraction is 65 %. Mild (1+) aortic valve insufficiency. Mild (1+) eccentric mitral valve insufficiency. Stage 1 diastolic dysfunction. Ordering Physician: Lian Costa Referring Physician: Duarte Mitchell Performed By: Channing Gerard RCS Head MRA 04/05/21 18:35 IMPRESSION: Normal MRA of the head Electronically Signed: Randal Waters MD at 23:00 EDT , Service support , Neck MRA 04/05/21 18:35 IMPRESSION: Normal bilateral cervical carotid and vertebral arteries. Electronically Signed: Randal Waters MD at 23:00 EDT , Service support , D/C Instructions Discharge Diet: No restrictions Call your doctor if you observe: Shortness of breath, Dizziness and Chest pain Meaningful Use Info Meaningful Use Diagnoses (Choose all that apply): None applicable Discharge Plan Admission Admit Date/Time: 04/05/21 17:00 Primary Reason for Your Visit: Suspected TIA Attending Provider: Katia Nayak Primary Care Provider: Duarte Mitchell Discharge Orders/Prescriptions Prescriptions: New aspirin 81 mg Tablet,Delayed Release (Dr/Ec) 81 mg PO BREAKFAST Qty: 30 RF: 0 Continued Linzess 145 mcg capsule 290 mcg PO DAILY RF: 0 budesonide-formoterol [Symbicort] 80-4.5 mcg/actuation HFA aerosol inhaler 2 puff INHALATION Q12H Qty: 10.2 RF: 5 Fasenra 30 mg/mL syringe 30 mg SC Q8W RF: 0 atorvastatin 10 MG tablet 10 mg PO QHS RF: 0 lisinopril 10 MG tablet 10 mg PO BID RF: 0 meloxicam 15 mg tablet 15 mg PO DAILY RF: 0 amlodipine 5 mg tablet 5 mg PO DAILY RF: 0 Referrals / Follow Up: Duarte Mitchell MD [Primary Care Provider] - In 1 Week Wes Hallman MD [STAFF PHYSICIAN] - Within 1 Month (Follow up for TIA and routine monitoring of cavernous angioma) Disposition Disposition (needs filled in before D/C Order can be placed): Home, Self Care Documented by User: Dr. Katia Nayak MD 04/06/21 16:02 Providers Date of Admission: 04/05/21 Reason For Visit: TIA/CVA Medications at Discharge Home Medications atorvastatin 10 mg PO QHS 04/24/13 lisinopril 10 mg PO BID 04/24/13 linaclotide 145 mcg capsule 290 mcg PO DAILY 03/01/20 budesonide-formoterol HFA 80 mcg-4.5 mcg/actuation aerosol inhaler 2 puff INHALATION Q12H #10.2 g 05/26/20 benralizumab 30 mg/mL subcutaneous syringe 30 mg SC Q8W 08/26/20 amlodipine 5 mg PO DAILY 04/05/21 meloxicam 15 mg PO DAILY 04/05/21 aspirin 81 mg PO BREAKFAST #30 tab 04/06/21 ABG / Lab / Microbiology Data Result Diagrams: 04/06/21 05:26 04/06/21 05:26 Discharge Plan Admission Admit Date/Time: 04/05/21 17:00 Primary Reason for Your Visit: Suspected TIA Attending Provider: Katia Nayak Primary Care Provider: Duarte Mitchell Discharge Orders/Prescriptions Prescriptions: New aspirin 81 mg Tablet,Delayed Release (Dr/Ec) 81 mg PO BREAKFAST Qty: 30 RF: 0 Continued Linzess 145 mcg capsule 290 mcg PO DAILY RF: 0 budesonide-formoterol [Symbicort] 80-4.5 mcg/actuation HFA aerosol inhaler 2 puff INHALATION Q12H Qty: 10.2 RF: 5 Fasenra 30 mg/mL syringe 30 mg SC Q8W RF: 0 atorvastatin 10 MG tablet 10 mg PO QHS RF: 0 lisinopril 10 MG tablet 10 mg PO BID RF: 0 meloxicam 15 mg tablet 15 mg PO DAILY RF: 0 amlodipine 5 mg tablet 5 mg PO DAILY RF: 0 Referrals / Follow Up: Duarte Mitchell MD [Primary Care Provider] - In 1 Week Wes Hallman MD [STAFF PHYSICIAN] - Within 1 Month (Follow up for TIA and routine monitoring of cavernous angioma) Disposition Disposition (needs filled in before D/C Order can be placed): Home, Self Care Charges/Coding Addendum Addendum: This patient was seen in conjunction with Lian Costa. I have independently interviewed and examined the patient and reviewed pertinent historical, laboratory, and other data. I have reviewed her note and concur with her documentation 70-year-old male past medical history of hypertension, hyperlipidemia who comes in with complaints of weakness and confusion that was transient. Patient was on his way home driving for baseball game when he developed sudden onset of weakness and felt like passing buildings around him with tilted. Patient did not seem to be able to coordinate and walk or sit down the passenger seat. This lasted for few minutes. He was resolved by the time he got to the emergency room. At the time of being seen, he denied any new complaint. Denied any weakness in her extremity. Denied any numbness or tingling. He has right eye deviation at baseline. Patient was admitted to telemetry floor. MRI of the brain did not show acute stroke, showed probable cavernous angioma in the right occipital lobe which has previously bled. MRA of the head and neck was unremarkable. 2D echo shows EF of 55%, stage I diastolic dysfunction. Patient had no acute events overnight. He was discharged to follow-up with his primary care doctor as well as neurology. Physical Exam: Gen: Comfortable, not pale, not jaundiced CVS:HS I +II, regular, no murmurs RESP: Diminished at lung bases GI: BS present and normal, soft, nontender, no palpable organs EXT:No edema TECHNICAL DOCUMENT WRITER: Right eye deviation to the lateral aspect, otherwise no other cranial abnormality, power in both extremities 5/5, normal tone, no loss of sensation ASSESSMENT: 1. Acute TIA versus CVA 2. Hypertension 3. Hyperlipidemia 4. CIERA 5. Asthma not in acute exacerbation 6. IBS Visit Charges OBSV E&M: 12677 Observation care discharge
--- NOTE | 2021-04-06 13:30 | CASEMGMT ---
Per therapy, pt is independent in room and no further therapy needed. SStaten RN CM
--- NOTE | 2021-04-06 14:20 | PHA.DC.MC ---
Pharmacy Service has performed discharge medication reconciliation and counseling for this patient. 1. ASPIRIN 81MG PO BREAKFAST The patient's discharge medication list was reviewed for discrepancies and discrepancies were resolved. Home Medications atorvastatin 10 mg PO QHS 04/24/13 lisinopril 10 mg PO BID 04/24/13 linaclotide 145 mcg capsule 290 mcg PO DAILY 03/01/20 budesonide-formoterol HFA 80 mcg-4.5 mcg/actuation aerosol inhaler 2 puff INHALATION Q12H #10.2 g 05/26/20 benralizumab 30 mg/mL subcutaneous syringe 30 mg SC Q8W 08/26/20 amlodipine 5 mg PO DAILY 04/05/21 meloxicam 15 mg PO DAILY 04/05/21 aspirin 81 mg PO BREAKFAST #30 tab 04/06/21 The patient was counseled on the following discharge medications and changes in medications for homegoing were reviewed. The Reason for Use, instructions for use, and potential side effects were reviewed for all new medications. The patient's questions regarding all of their medications were answered. The patient was able to verbally demonstrate an understanding of their discharge medications.
== END 2021-04-06 11:56 | disposition home or self-care (01) ==
LOC: ED 17:11 → PCU 18:02
PROVIDERS: Admitting Provider Internal Medicine; Emergency Provider Emergency Medicine; PCP Family Medicine; Visit Provider Internal Medicine
DX: G45.9 Transient cerebral ischemic attack, unspecified (principal); I10 Essential (primary) hypertension; E78.5 Hyperlipidemia, unspecified; J45.50 Severe persistent asthma, uncomplicated; G47.33 Obstructive sleep apnea (adult) (pediatric); H93.12 Tinnitus, left ear; Z79.899 Other long term (current) drug therapy; R29.701 NIHSS score 1; R53.1 Weakness; H53.8 Other visual disturbances; K58.9 Irritable bowel syndrome, unspecified; I08.0 Rheumatic disorders of both mitral and aortic valves; D18.09 Hemangioma of other sites
CPT/HCPCS: 36415; 70450; 70544; 70549; 70553; 71045; 80048; 80053; 82962; 84484; 85025; 85610; 85730; 92610; 93005; 93306; 94640; 96361; 96372; 96374; 96376; 99218; 99284; A9575; J7030; A4216; G0378; J2405

== ENCOUNTER → 2021-04-12 09:13 | Outpatient (CLI) | payer MEDICARE, OTHER, SELFPAY ==
[2016-10-19 14:48] VITALS: BMI 30.6
[2020-12-21 08:41] VITALS: BMI 29.0
[2021-04-12 09:20] VITALS: BP 148/86; PULSE 65; RESP 16; O2SAT 99
[2021-04-12] MEDS: Benralizumab 30 MG/ML Syringe SC (09:23)
== END ==
PROVIDERS: PCP Family Medicine; Referring Provider Internal Medicine Critical Care Medicine; Visit Provider Internal Medicine Critical Care Medicine
DX: J45.50 Severe persistent asthma, uncomplicated (principal)
CPT/HCPCS: 96372; J0517

== ENCOUNTER → 2021-06-07 | Outpatient (CLI) | payer MEDICARE, OTHER, SELFPAY ==
[2016-10-19 14:48] VITALS: BMI 30.6
[2021-06-07] MEDS: Benralizumab 30 MG/ML Syringe SC (08:00)
[2021-06-07 08:05] VITALS: BP 140/85; PULSE 59; RESP 16; TEMP 36.6; O2SAT 100
== END | disposition home or self-care (01) ==
LOC: MEDOUTP 07:54
PROVIDERS: PCP Family Medicine; Referring Provider Internal Medicine Critical Care Medicine; Visit Provider Internal Medicine Critical Care Medicine
DX: J45.50 Severe persistent asthma, uncomplicated (principal)
CPT/HCPCS: 96372; J0517

== ENCOUNTER 2021-08-02 07:56 | Outpatient (CLI) | payer MEDICARE, OTHER, SELFPAY ==
[2016-10-19 14:48] VITALS: BMI 30.6
[2021-08-02 08:04] VITALS: BP 148/77; PULSE 56; RESP 16; TEMP 36.5; O2SAT 98
[2021-08-02] MEDS: Benralizumab 30 MG/ML Syringe SC (08:19)
== END 2021-08-02 23:59 | disposition short-term general hospital (02) ==
PROVIDERS: PCP Family Medicine; Referring Provider Internal Medicine Critical Care Medicine; Visit Provider Internal Medicine Critical Care Medicine
DX: J45.50 Severe persistent asthma, uncomplicated (principal)
CPT/HCPCS: 96372; J0517

== ENCOUNTER 2021-08-03 15:00 | Outpatient (RCR) | payer MEDICARE, OTHER, SELFPAY ==
[2016-10-19 14:48] VITALS: BMI 30.6
--- NOTE | 2021-06-09 08:52 | HP.OTEVAL_ITS ---
Patient's Visit Information HUONG LOVING is a 71 year old M, referred to Occupational Therapy by Dr. Gretta Martinez MD, with a diagnosis of bilateral primary OA 1st cmcJ. OA right wrist [place]. 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 IN neuroma excision and burying of nerve and muscle; caphoid excision 4 corner fusion with autograft. pt arrives to session to establish therapy and initiate rehabilitation. - Pain right wrist/hand 6 Pain Intensity Range: 4, 6 - ROM Forearm: right N Wrist: right 15/0 left left 75/ 65 CMC: right 0 left 5 MP: right 30 left 50 IP: right 50 left 65 - Strength Coil Winding Machines Set Up Mechanic: right NT left 80# Lateral Pinch: right NT left 16# Tripod Pinch: right NT left 12# - Sensation Sensation Comments: slight distal to thumb incision but denies any sensation changed to finger or thumb tips. - Quick DASH-Disab of Arm,Shoulder& Hand Quick DASH Score: 59.0900 - Goals Goal:100% adherence to protocol: Yes Comment: 4 corner fusion/ Dr. Martinez CMC arthroplasty protocol Goal:Daily scar massage when approriate: Yes Goal:ROM equal to unaffected hand: Yes Comment: 60% or unaffected side Goal:Coil Winding Machines Set Up Mechanic/Pinch strength at least 75% of unaffected hand: Yes Comment: 40# checkout operator at 50% less than unaffected side Goal:No pain with affected hand use: Yes Goal:Full use of affected hand in daily activities including: Yes - Rehabilitation General Assessment: pt arrives to OT 3 weeks s/p right cmc thumb arthroplasty ligament reconstruction tendon interposition - DeQuervain's Tenosynovectomy- Thumb adductor release. IN neuroma excision and burying of nerve and muscle; caphoid excision 4 corner fusion with autograft. Pt demo with healing structures and limited ability to use right hand/wrist at this time. Pt demo need for skilled OT services 1x week for 6 weeks to return pt to PLOF. Rehabilitation Potential: Excellent - Anticipated Interventions A/AAROM/PROM, Strengthening, Scar Care, Modalities, Orthoses, Joint Protection/Energy Conservation, Ergonomic Education, Fine Motor Coord/Josue, Education re assistive Equipment, Education re Diagnosis - Visit Plan Frequency: 1x/Week Duration: 6 Weeks TEXT: Thank you for the opportunity to evaluate your patient. For Medicare and Medicare HMO plans, please review the plan of care and approve it. It will need to be FAXED BACK to us at [phone] for Medicare purposes. Please let me know if there are questions or concerns regarding this plan of care. Physician Signature: Date:
--- NOTE | 2021-08-03 15:22 | HP.OTREVAL ---
Dr. Gretta Martinez MD, It has been my pleasure to treat HUONG LOVING over the last 8 visits for bilateral primary OA 1st cmcJ. OA right wrist [place]. Please see the progress note below for an update on the occupational therapy plan of care! Subjective: pt states he has returned to performing his bathing and dressing and has returned to cooking without pain. pt states he does drop items that are to heavy. pt states he does use his orthosis for outside task- pt does have comfort cool thumb brace but this does cause wrist to be painful. pt continues to sleep in orthosis as if he sleeps wrong his wrist will hurt. Objective/Function: right wrist 50/30. right RD 0. right UD 25. right fishing tackle repairer strength 50#. right lateral pinch 6#. right tripod pinch 6#. pt is making gains with his strength and has returned to using his hand with ADLs and IADLs. pt reports no pain when he is performing his bathing/ dressing. Plan Plan: strengthen as pt tolerates and return to ADLs and IADls as gianluca. let pain limit use. Goals - Goals Patient Goals: Decrease Pain, Use Hand/Wrist/Arm Normally Again Goal:100% adherence to protocol: Yes Goal:Daily scar massage when approriate: Yes Goal:ROM equal to unaffected hand: Yes Goal:Casting Machine Operator/Pinch strength at least 75% of unaffected hand: Yes Goal:No pain with affected hand use: Yes Goal:Full use of affected hand in daily activities including: Yes Anticipated Interventions Anticipated Interventions: A/AAROM/PROM, Strengthening, Scar Care, Modalities, Orthoses, Joint Protection/Energy Conservation, Ergonomic Education, Fine Motor Coord/Josue, Education re assistive Equipment, Education re Diagnosis Please do not hesitate to contact me at [phone] by phone or if you have questions or concerns regarding this new plan of care! Sincerely, Carmen Resendiz, AMYR/L, CHT
--- NOTE | 2021-12-01 16:03 | HP.OT.NRP ---
HUONG LOVING was seen in my office for initial evaluation on 06/09/21. The following Plan of Care was established for this patient: Initial Frequency: 1x/Week Initial Duration: 6 Weeks Plan: strengthen as pt tolerates and return to ADLs and IADls as gianluca. let pain limit use. Anticipated Interventions: A/AAROM/PROM, Strengthening, Scar Care, Modalities, Orthoses, Joint Protection/Energy Conservation, Ergonomic Education, Fine Motor Coord/Josue, Education re assistive Equipment, Education re Diagnosis This patient was last seen in our office 08/03/21. Pertinent comments regarding their Occupational therapy will appear below: pt was last seen 08/03/21 and due to time laps in services pt d/c at this time. At this point I will be discontinuing this patient from occupational therapy. I would be happy to see this patient again in the future if found appropriate by the physician. Thank you! Carmen Resendiz, OTR/L, CHT
== END 2021-08-03 19:00 | disposition home or self-care (01) ==
LOC: OT 15:00
PROVIDERS: PCP Family Medicine; Referring Provider Orthopaedic Surgery Hand Surgery; Visit Provider Orthopaedic Surgery Hand Surgery
DX: M18.0 Bilateral primary osteoarthritis of first carpometacarpal joints (principal); M19.031 Primary osteoarthritis, right wrist
CPT/HCPCS: 97110; 97140; 97166; 97530

== ENCOUNTER 2021-09-05 08:38 | Outpatient (CLI) | payer MEDICARE, OTHER, SELFPAY ==
[2016-10-19 14:48] VITALS: BMI 30.6
[2021-09-05 15:33] LABS: Anion Gap 9 (5-15); BUN 25 mg/dL (7-18); BUN/Creat Ratio 26.5 RATIO (10-20); Calcium,Total 9.3 mg/dL (8.5-10.1); Chloride 105 mmol/L (98-107); Cholesterol 151 mg/dL (200); Creatinine, Serum 0.94 mg/dL (0.70-1.30); EST Glomerular Filtration Rate 84 mL/min (>60); Est Glom Filt Rate - Afr Amer 102 mL/min (>60); Glucose 84 mg/dL (74-106); High Density Lipoprotein 37 mg/dL; PSA,Total - Annual Screen 1.42 ng/mL (0.00-4.00); Potassium 3.7 mmol/L (3.5-5.1); Sodium Level 138 mmol/L (136-145); Triglycerides 173 mg/dL; Very Low Density Lipoprotein 35 mg/dL (5-40)
== END 2021-09-05 23:59 | disposition home or self-care (01) ==
LOC: MFPLAB 08:39
PROVIDERS: PCP Family Medicine; Visit Provider Family Medicine
DX: Z00.00 Encounter for general adult medical examination without abnormal findings (principal); E78.00 Pure hypercholesterolemia, unspecified; E66.9 Obesity, unspecified; N52.9 Male erectile dysfunction, unspecified; Z12.5 Encounter for screening for malignant neoplasm of prostate
CPT/HCPCS: 36415; 80048; 80061; 84153; 84443; G0103

== ENCOUNTER 2021-09-14 08:50 | Outpatient (CLI) | payer MEDICARE, OTHER, SELFPAY ==
[2016-10-19 14:48] VITALS: BMI 30.6
--- NOTE | 2021-09-14 08:58 | BD_ITS ---
STUDY: DUAL ENERGY X-RAY ABSORPTIOMETRY / DXA REASON FOR EXAM: Male, 71 years old. E55.9. TECHNIQUE: Bone Mineral Density (BMD) measurements of lumbar spine and bilateral hips were obtained. COMPARISON: None. FINDINGS: Lumbar Spine (L1-L4): g/cm2 (1.035) / T-score (-0.5) / Z-score (0.4) Findings are suggestive of normal bone density with a low fracture risk. Left Femur Total: g/cm2 (1.039) / T-score (0.0) / Z-score (0.7) Left Femoral Neck: g/cm2 (0.737) / T-score (-1.4) / Z-score (-0.3) Right Femur Total: g/cm2 (1.035) / T-score (0.0) / Z-score (0.6) Right Femoral Neck: g/cm2 (0.765) / T-score (-1.2) / Z-score (-0.1) BD/Dexa Bone Density Study IMPRESSION: The patient is considered osteopenic as outlined below according to World [place] Organization (WHO) criteria with a low fracture risk. Reference Information: The T-score is the number of standard deviations above or below the standard which is normal for young adults at their peak bone mineral density. The World Health Organization (WHO) interprets the T-scores as follows: Above -1 Normal bone density Between -1 and -2.5 Osteopenia Equal to / or below -2.5 Osteoporosis As a practical clinical guideline, osteopenia may be graded as follows: Mild -1 through -1.5 Moderate -1.6 through -2.0 Severe -2.1 through -2.4 The Z-score is the number of standard deviations above or below age-matched controls. A Z-score of less than -1.5 would be considered abnormal. References: 1. NIH Osteoporosis and Related Bone Diseases www osteo.org 2. International Society for Clinical Densitometry www iscd.org 3. National Osteoporosis Foundation www nof.org Electronically Signed: Malcom Reno MD at 15:01 EST ,
== END 2021-09-14 23:59 | disposition home or self-care (01) ==
LOC: OPBD 08:50
PROVIDERS: PCP Family Medicine; Visit Provider Family Medicine
DX: M85.88 Other specified disorders of bone density and structure, other site (principal); E55.9 Vitamin D deficiency, unspecified
CPT/HCPCS: 77080

== ENCOUNTER 2021-09-27 07:54 | Outpatient (CLI) | payer MEDICARE, OTHER, SELFPAY ==
[2016-10-19 14:48] VITALS: BMI 30.6
[2021-09-27 08:12] VITALS: BP 136/77; PULSE 58; RESP 16; TEMP 36; O2SAT 100; BMI 30.6
[2021-09-27] MEDS: Benralizumab 30 MG/ML Syringe SC (08:21)
== END 2021-09-27 23:59 | disposition home or self-care (01) ==
LOC: MEDOUTP 07:54
PROVIDERS: PCP Family Medicine; Referring Provider Internal Medicine Critical Care Medicine; Visit Provider Internal Medicine Critical Care Medicine
DX: J45.50 Severe persistent asthma, uncomplicated (principal)
CPT/HCPCS: 96372; J0517

== ENCOUNTER → 2021-11-25 | Outpatient (CLI) | payer MEDICARE, OTHER, SELFPAY ==
[2016-10-19 14:48] VITALS: BMI 30.6
[2021-11-25 08:01] VITALS: BP 134/80; PULSE 65; RESP 16; TEMP 36.1; O2SAT 98
[2021-11-25] MEDS: Benralizumab 30 MG/ML Syringe SC (08:02)
== END | disposition home or self-care (01) ==
LOC: MEDOUTP 07:53
PROVIDERS: PCP Family Medicine; Referring Provider Internal Medicine Critical Care Medicine; Visit Provider Internal Medicine Critical Care Medicine
DX: J45.50 Severe persistent asthma, uncomplicated (principal)
CPT/HCPCS: 96372; J0517

== ENCOUNTER → 2022-01-20 | Outpatient (CLI) | payer MEDICARE, OTHER, SELFPAY ==
[2016-10-19 14:48] VITALS: BMI 30.6
[2022-01-20 08:04] VITALS: BP 143/84; PULSE 60; RESP 16; TEMP 35.9; O2SAT 98; BMI 29.7
[2022-01-20] MEDS: Benralizumab 30 MG/ML Syringe SC (08:10)
== END | disposition home or self-care (01) ==
LOC: MEDOUTP 07:58
PROVIDERS: PCP Family Medicine; Referring Provider Internal Medicine Critical Care Medicine; Visit Provider Internal Medicine Critical Care Medicine
DX: J45.50 Severe persistent asthma, uncomplicated (principal)
CPT/HCPCS: 96372; J0517

== ENCOUNTER → 2022-02-23 | Outpatient (CLI) | payer MEDICARE, OTHER, SELFPAY ==
[2016-10-19 14:48] VITALS: BMI 30.6
== END | disposition home or self-care (01) ==
LOC: SL 21:35
PROVIDERS: PCP Family Medicine; Referring Provider Internal Medicine Critical Care Medicine; Visit Provider Internal Medicine Critical Care Medicine
DX: G47.33 Obstructive sleep apnea (adult) (pediatric) (principal)
CPT/HCPCS: 95811

== ENCOUNTER → 2022-03-17 | Outpatient (CLI) | payer MEDICARE, OTHER, SELFPAY ==
[2016-10-19 14:48] VITALS: BMI 30.6
[2022-03-17 08:49] VITALS: BP 144/70; PULSE 69; RESP 16; TEMP 35.5; O2SAT 98; BMI 30.3
[2022-03-17] MEDS: Benralizumab 30 MG/ML Syringe SC (08:59)
== END | disposition home or self-care (01) ==
LOC: MEDOUTP 08:39
PROVIDERS: PCP Family Medicine; Referring Provider Internal Medicine Critical Care Medicine; Visit Provider Internal Medicine Critical Care Medicine
DX: J45.50 Severe persistent asthma, uncomplicated (principal)
CPT/HCPCS: 96372; J0517

== ENCOUNTER → 2022-05-26 | Outpatient (CLI) | payer MEDICARE, OTHER, SELFPAY ==
[2016-10-19 14:48] VITALS: BMI 30.6
[2022-05-26 08:06] VITALS: BP 137/78; PULSE 59; O2SAT 99
[2022-05-26] MEDS: Benralizumab 30 MG/ML Syringe SC (08:09)
== END | disposition home or self-care (01) ==
LOC: MEDOUTP 07:58
PROVIDERS: PCP Family Medicine; Referring Provider Internal Medicine Critical Care Medicine; Visit Provider Internal Medicine Critical Care Medicine
DX: J45.50 Severe persistent asthma, uncomplicated (principal)
CPT/HCPCS: 96372; J0517

== ENCOUNTER → 2022-06-21 | Outpatient (CLI) | payer MEDICARE, OTHER, SELFPAY ==
[2016-10-19 14:48] VITALS: BMI 30.6
--- NOTE | 2022-06-21 11:58 | EKG12_ITS ---
Test Reason : PRE-OP Blood Pressure : / mmHG Vent. Rate : 057 BPM Atrial Rate : 057 BPM P-R Int : 190 ms QRS Dur : 074 ms QT Int : 416 ms P-R-T Axes : 051 053 058 degrees QTc Int : 404 ms Sinus bradycardia Nonspecific ST abnormality Abnormal ECG Confirmed by TRACY WILLARD, LEANNA ([id number]), order editor JUAN JONES ([id number]) on 06/22/2022 10:05:25 AM Referred By: ORLY Confirmed By:LEANNA MOLINA MD
[2022-06-21 12:30] LABS: Hematocrit 43.3 % (40-54); Hemoglobin 14.7 g/dL (13.0-16.5); Mean Corp Hgb Conc 33.9 g/dL (32-36); Mean Corpuscular Hgb 30.4 pg (27.0-32.0); Mean Corpuscular Volume 89.5 fL (80-94); Mean Platelet Vol. 8.8 fl (6.2-12.0); Platelet Count 187 K/mm3 (150-450); RBC Distribution Width CV 11.9 % (11.6-14.6); RBC Distribution Width SD 39.6 fl (35.1-43.9); Red Blood Count 4.84 M/mm3 (4.6-6.2); White Blood Count 5.1 K/mm3 (4.4-11.0)
[2022-06-21 13:03] LABS: Glucose 90 mg/dL (74-106)
[2022-06-21 13:04] LABS: Anion Gap 4 (5-15); BUN 16 mg/dL (7-18); BUN/Creat Ratio 16.8 RATIO (10-20); Calcium,Total 8.8 mg/dL (8.5-10.1); Chloride 107 mmol/L (98-107); Creatinine, Serum 0.95 mg/dL (0.70-1.30); EST Glomerular Filtration Rate 83 mL/min (>60); Est Glom Filt Rate - Afr Amer 101 mL/min (>60); Potassium 3.9 mmol/L (3.5-5.1); Sodium Level 140 mmol/L (136-145)
== END | disposition home or self-care (01) ==
LOC: PSN 11:57
PROVIDERS: PCP Family Medicine; Visit Provider Otolaryngology
DX: Z01.818 Encounter for other preprocedural examination (principal); R00.1 Bradycardia, unspecified
CPT/HCPCS: 36415; 80048; 85027; 93005

== ENCOUNTER → 2022-07-21 | Outpatient (CLI) | payer MEDICARE, OTHER, SELFPAY ==
[2016-10-19 14:48] VITALS: BMI 30.6
[2022-07-21 08:03] VITALS: BP 136/83; PULSE 61; TEMP 36.2; O2SAT 96
[2022-07-21] MEDS: Benralizumab 30 MG/ML Syringe SC (08:12)
== END | disposition home or self-care (01) ==
LOC: MEDOUTP 07:53
PROVIDERS: PCP Family Medicine; Referring Provider Internal Medicine Critical Care Medicine; Visit Provider Internal Medicine Critical Care Medicine
DX: J45.50 Severe persistent asthma, uncomplicated (principal)
CPT/HCPCS: 96372; J0517

== ENCOUNTER → 2022-09-15 | Outpatient (CLI) | payer MEDICARE, OTHER, SELFPAY ==
[2016-10-19 14:48] VITALS: BMI 30.6
[2022-09-15 09:39] VITALS: BP 127/71; PULSE 62; RESP 16; TEMP 36.2; O2SAT 97; BMI 30.3
[2022-09-15] MEDS: Benralizumab 30 MG/ML Syringe SC (09:44)
== END | disposition home or self-care (01) ==
LOC: MEDOUTP 09:17
PROVIDERS: PCP Family Medicine; Referring Provider Internal Medicine Critical Care Medicine; Visit Provider Internal Medicine Critical Care Medicine
DX: J45.50 Severe persistent asthma, uncomplicated (principal)
CPT/HCPCS: 96372; J0517

== ENCOUNTER → 2022-10-02 | Outpatient (CLI) | payer MEDICARE, OTHER, SELFPAY ==
[2016-10-19 14:48] VITALS: BMI 30.6
[2022-10-02 18:30] LABS: Anion Gap 6 (5-15); BUN 26 mg/dL (7-18); BUN/Creat Ratio 23.9 RATIO (10-20); Calcium,Total 9.3 mg/dL (8.5-10.1); Chloride 103 mmol/L (98-107); Cholesterol 139 mg/dL (200); Creatinine, Serum 1.09 mg/dL (0.70-1.30); EST Glomerular Filtration Rate 71 mL/min (>60); Est Glom Filt Rate - Afr Amer 86 mL/min (>60); Glucose 83 mg/dL (74-106); High Density Lipoprotein 34 mg/dL; PSA,Total - Annual Screen 1.94 ng/mL (0.00-4.00); Sodium Level 138 mmol/L (136-145); Triglycerides 153 mg/dL; Very Low Density Lipoprotein 31 mg/dL (5-40)
== END | disposition home or self-care (01) ==
LOC: MFPLAB 15:28
PROVIDERS: PCP Family Medicine; Visit Provider Family Medicine
DX: I10 Essential (primary) hypertension (principal); Z12.5 Encounter for screening for malignant neoplasm of prostate
CPT/HCPCS: 36415; 80048; 80061; 84153; G0103

== ENCOUNTER 2022-11-17 07:59 | Outpatient (CLI) | payer MEDICARE, OTHER, SELFPAY ==
[2016-10-19 14:48] VITALS: BMI 30.6
[2022-11-17 08:04] VITALS: BP 132/75; PULSE 55; RESP 16; TEMP 36.2; O2SAT 99
[2022-11-17] MEDS: Benralizumab 30 MG/ML Syringe SC (08:26)
== END 2022-11-17 08:00 | disposition home or self-care (01) ==
PROVIDERS: PCP Family Medicine; Referring Provider Internal Medicine Critical Care Medicine; Visit Provider Internal Medicine Critical Care Medicine
DX: J45.50 Severe persistent asthma, uncomplicated (principal)
CPT/HCPCS: 96372; J0517

== ENCOUNTER → 2022-11-20 | Outpatient (CLI) | payer MEDICARE, OTHER, SELFPAY ==
[2016-10-19 14:48] VITALS: BMI 30.6
== END | disposition home or self-care (01) ==
LOC: LABSPEC 15:54
PROVIDERS: PCP Family Medicine; Referring Provider Otolaryngology; Visit Provider Otolaryngology
DX: L03.811 Cellulitis of head [any part, except face] (principal)
CPT/HCPCS: 87070; 87077; 87186; 87205

== ENCOUNTER 2023-01-19 10:48 | Outpatient (CLI) | payer MEDICARE, OTHER, SELFPAY ==
[2016-10-19 14:48] VITALS: BMI 30.6
[2023-01-19 11:00] VITALS: BP 139/80; PULSE 64; RESP 16; TEMP 36.1; O2SAT 98
[2023-01-19] MEDS: Benralizumab 30 MG/ML Syringe SC (11:01)
== END 2023-01-19 10:49 | disposition home or self-care (01) ==
LOC: MEDOUTP 10:48
PROVIDERS: PCP Family Medicine; Referring Provider Internal Medicine Critical Care Medicine; Visit Provider Internal Medicine Critical Care Medicine
DX: J45.50 Severe persistent asthma, uncomplicated (principal)
CPT/HCPCS: 96372; J0517

== ENCOUNTER 2023-03-16 11:10 | Outpatient (CLI) | payer MEDICARE, OTHER, SELFPAY ==
[2016-10-19 14:48] VITALS: BMI 30.6
[2023-03-16 11:21] VITALS: BP 145/79; PULSE 60; RESP 16; TEMP 36.4; O2SAT 99; BMI 30.3
[2023-03-16] MEDS: Benralizumab 30 MG/ML Syringe SC (11:28)
== END 2023-03-16 11:11 | disposition home or self-care (01) ==
LOC: MEDOUTP 11:11
PROVIDERS: PCP Family Medicine; Referring Provider Internal Medicine Critical Care Medicine; Visit Provider Internal Medicine Critical Care Medicine
DX: J45.50 Severe persistent asthma, uncomplicated (principal)
CPT/HCPCS: 96372; J0517

== ENCOUNTER → 2023-04-04 | Outpatient (CLI) | payer MEDICARE, OTHER, SELFPAY ==
[2016-10-19 14:48] VITALS: BMI 30.6
[2023-04-04 18:21] LABS: Anion Gap 5 (5-15); BUN 20 mg/dL (7-18); Calcium,Total 8.9 mg/dL (8.5-10.1); Chloride 105 mmol/L (98-107); Cholesterol 147 mg/dL (200); EST Glomerular Filtration Rate 78 mL/min (>60); Est Glom Filt Rate - Afr Amer 95 mL/min (>60); Glucose 88 mg/dL (74-106); High Density Lipoprotein 33 mg/dL; Potassium 3.9 mmol/L (3.5-5.1); Sodium Level 138 mmol/L (136-145); Triglycerides 176 mg/dL; Very Low Density Lipoprotein 35 mg/dL (5-40)
== END | disposition home or self-care (01) ==
LOC: MFPLAB 14:29
PROVIDERS: PCP Family Medicine; Visit Provider Family Medicine
DX: I10 Essential (primary) hypertension (principal)
CPT/HCPCS: 36415; 80048; 80061

== ENCOUNTER 2023-05-18 10:55 | Outpatient (CLI) | payer MEDICARE, OTHER, SELFPAY ==
[2016-10-19 14:48] VITALS: BMI 30.6
[2023-05-18 11:08] VITALS: BP 143/84; PULSE 69; RESP 16; TEMP 36.3; O2SAT 99
[2023-05-18] MEDS: Benralizumab 30 MG/ML Syringe SC (11:12)
== END 2023-05-18 10:56 | disposition home or self-care (01) ==
LOC: MEDOUTP 10:55
PROVIDERS: PCP Family Medicine; Referring Provider Internal Medicine Critical Care Medicine; Visit Provider Internal Medicine Critical Care Medicine
DX: J45.50 Severe persistent asthma, uncomplicated (principal)
CPT/HCPCS: 96372; J0517

== ENCOUNTER 2023-07-13 10:49 | Outpatient (CLI) | payer MEDICARE, OTHER, SELFPAY ==
[2016-10-19 14:48] VITALS: BMI 30.6
[2023-07-13 11:14] VITALS: BP 142/81; PULSE 57; RESP 16; TEMP 36.1; O2SAT 99; BMI 30.3
[2023-07-13] MEDS: Benralizumab 30 MG/ML Syringe SC (11:16)
== END 2023-07-13 10:50 | disposition home or self-care (01) ==
LOC: MEDOUTP 10:50
PROVIDERS: PCP Family Medicine; Referring Provider Internal Medicine Critical Care Medicine; Visit Provider Internal Medicine Critical Care Medicine
DX: J45.50 Severe persistent asthma, uncomplicated (principal)
CPT/HCPCS: 96372; J0517

== ENCOUNTER 2023-09-07 10:58 | Outpatient (CLI) | payer MEDICARE, OTHER, SELFPAY ==
[2016-10-19 14:48] VITALS: BMI 30.6
[2023-09-07 11:07] VITALS: BP 154/89; PULSE 53; RESP 16; TEMP 35.9; O2SAT 100
[2023-09-07] MEDS: Benralizumab 30 MG/ML Syringe SC (11:11)
== END 2023-09-07 10:59 | disposition home or self-care (01) ==
LOC: MEDOUTP 10:59
PROVIDERS: PCP Family Medicine; Referring Provider Internal Medicine Critical Care Medicine; Visit Provider Internal Medicine Critical Care Medicine
DX: J45.50 Severe persistent asthma, uncomplicated (principal)
CPT/HCPCS: 96372; J0517

== ENCOUNTER 2023-11-02 10:53 | Outpatient (CLI) | payer MEDICARE, OTHER, SELFPAY ==
[2016-10-19 14:48] VITALS: BMI 30.6
[2023-11-02 11:11] VITALS: BP 150/84; PULSE 61; RESP 16; TEMP 36; O2SAT 98
[2023-11-02] MEDS: Benralizumab 30 MG/ML Syringe SC (11:44)
== END 2023-11-02 10:54 | disposition home or self-care (01) ==
PROVIDERS: PCP Family Medicine; Referring Provider Nurse Practitioner Acute Care; Visit Provider Nurse Practitioner Acute Care
DX: J45.50 Severe persistent asthma, uncomplicated (principal)
CPT/HCPCS: 96372; J0517

== ENCOUNTER 2023-12-28 10:53 | Outpatient (CLI) | payer MEDICARE, OTHER, SELFPAY ==
[2016-10-19 14:48] VITALS: BMI 30.6
[2023-12-28 11:00] VITALS: BP 139/83; PULSE 62; RESP 16; TEMP 36.4; O2SAT 98
[2023-12-28] MEDS: Benralizumab 30 MG/ML Syringe SC (11:03)
== END 2023-12-28 23:59 | disposition home or self-care (01) ==
LOC: MEDOUTP 10:53
PROVIDERS: PCP Family Medicine; Referring Provider Nurse Practitioner Acute Care; Visit Provider Nurse Practitioner Acute Care
DX: J45.50 Severe persistent asthma, uncomplicated (principal)
CPT/HCPCS: 96372; J0517

== ENCOUNTER 2024-02-22 08:56 | Outpatient (CLI) | payer MEDICARE, OTHER, SELFPAY ==
[2016-10-19 14:48] VITALS: BMI 30.6
[2024-02-22 09:03] VITALS: BP 143/76; PULSE 66; RESP 16; TEMP 35.7; O2SAT 97
[2024-02-22] MEDS: Benralizumab 30 MG/ML Syringe SC (09:07)
== END 2024-02-22 23:59 | disposition home or self-care (01) ==
LOC: MEDOUTP 08:57
PROVIDERS: PCP Family Medicine; Referring Provider Nurse Practitioner Acute Care; Visit Provider Nurse Practitioner Acute Care
DX: J45.50 Severe persistent asthma, uncomplicated (principal)
CPT/HCPCS: 96372; J0517

== ENCOUNTER → 2024-04-28 | Outpatient (CLI) | payer MEDICARE, OTHER, SELFPAY ==
[2016-10-19 14:48] VITALS: BMI 30.6
[2024-04-28 12:35] LABS: ALB/GLOB Ratio 1.5 RATIO (0.9-2.4); AST(SGOT) 20 U/L (15-37); Alanine Aminotransfer ALT/SGPT 28 U/L (16-61); Albumin, Serum 4.3 g/dL (3.2-5.0); Alkaline Phosphatase 102 U/L (45-117); Anion Gap 8 (5-15); BUN 19 mg/dL (7-18); BUN/Creat Ratio 18.6 RATIO (10-20); Calcium,Total 9.9 mg/dL (8.5-10.1); Chloride 105 mmol/L (98-107); Cholesterol 176 mg/dL (200); Creatinine, Serum 1.02 mg/dL (0.70-1.30); EST Glomerular Filtration Rate 76 mL/min (>60); Est Glom Filt Rate - Afr Amer 92 mL/min (>60); Globulin 2.8 g/dL (2.2-4.2); Glucose 83 mg/dL (74-106); High Density Lipoprotein 41 mg/dL; PSA,Total - Annual Screen 5.13 ng/mL (0.00-4.00); Potassium 3.8 mmol/L (3.5-5.1); Protein, Total 7.1 g/dL (6.4-8.2); Sodium Level 139 mmol/L (136-145); Triglycerides 144 mg/dL; Very Low Density Lipoprotein 29 mg/dL (5-40)
== END | disposition home or self-care (01) ==
PROVIDERS: PCP Family Medicine; Referring Provider Family Medicine; Visit Provider Family Medicine
DX: Z12.5 Encounter for screening for malignant neoplasm of prostate (principal); I10 Essential (primary) hypertension
CPT/HCPCS: 36415; 80053; 80061; 84153; G0103

== ENCOUNTER 2024-05-02 08:46 | Outpatient (CLI) | payer MEDICARE, OTHER, SELFPAY ==
[2016-10-19 14:48] VITALS: BMI 30.6
[2024-05-02 08:55] VITALS: BP 146/76; PULSE 61; RESP 16; TEMP 36; O2SAT 99; BMI 31.8
[2024-05-02] MEDS: Benralizumab 30 MG/ML Syringe SC (09:03)
== END 2024-05-02 23:59 | disposition home or self-care (01) ==
LOC: MEDOUTP 08:46
PROVIDERS: PCP Family Medicine; Referring Provider Internal Medicine Critical Care Medicine; Visit Provider Internal Medicine Critical Care Medicine
DX: J45.50 Severe persistent asthma, uncomplicated (principal)
CPT/HCPCS: 96372; J0517

== ENCOUNTER 2024-06-27 08:55 | Outpatient (CLI) | payer MEDICARE, OTHER, SELFPAY ==
[2016-10-19 14:48] VITALS: BMI 30.6
[2024-06-27 09:10] VITALS: BP 118/67; PULSE 55; RESP 16; TEMP 35.9; O2SAT 98; BMI 30.3
[2024-06-27] MEDS: Benralizumab 30 MG/ML Syringe SC (09:32)
== END 2024-06-27 23:59 | disposition home or self-care (01) ==
LOC: MEDOUTP 08:55
PROVIDERS: PCP Family Medicine; Referring Provider Internal Medicine Critical Care Medicine; Visit Provider Internal Medicine Critical Care Medicine
DX: J45.50 Severe persistent asthma, uncomplicated (principal)
CPT/HCPCS: 96372; J0517

== ENCOUNTER 2024-08-22 09:01 | Outpatient (CLI) | payer MEDICARE, OTHER, SELFPAY ==
[2016-10-19 14:48] VITALS: BMI 30.6
[2024-08-22 09:00] VITALS: BP 128/70; PULSE 65; RESP 16; TEMP 36.2; O2SAT 98
[2024-08-22] MEDS: Benralizumab 30 MG/ML Syringe SC (09:16)
== END 2024-08-22 23:59 | disposition home or self-care (01) ==
LOC: MEDOUTP 09:02
PROVIDERS: PCP Family Medicine; Referring Provider Internal Medicine Critical Care Medicine; Visit Provider Internal Medicine Critical Care Medicine
DX: J45.50 Severe persistent asthma, uncomplicated (principal)
CPT/HCPCS: 96372; J0517

== ENCOUNTER 2024-10-17 08:54 | Outpatient (CLI) | payer MEDICARE, OTHER, SELFPAY ==
[2016-10-19 14:48] VITALS: BMI 30.6
[2024-10-17 09:01] VITALS: BP 128/73; PULSE 65; RESP 16; TEMP 36.1; O2SAT 97; BMI 30.9
[2024-10-17] MEDS: Benralizumab 30 MG/ML Syringe SC (09:15)
== END 2024-10-17 23:59 | disposition home or self-care (01) ==
PROVIDERS: PCP Family Medicine; Referring Provider Internal Medicine Critical Care Medicine; Visit Provider Internal Medicine Critical Care Medicine
DX: J45.50 Severe persistent asthma, uncomplicated (principal)
CPT/HCPCS: 96372; J0517

== ENCOUNTER → 2024-11-07 | Outpatient (CLI) | payer MEDICARE, OTHER, SELFPAY ==
[2016-10-19 14:48] VITALS: BMI 30.6
[2024-11-07 10:31] LABS: ALB/GLOB Ratio 1.7 RATIO (0.9-2.4); AST(SGOT) 19 U/L (<=37); Alanine Aminotransfer ALT/SGPT 16 U/L (<=46); Albumin, Serum 4.3 g/dL (3.4-4.8); Alkaline Phosphatase 93 U/L (40-129); Anion Gap 12 (5-15); BUN 19 mg/dL (4-19); BUN/Creat Ratio 19.2 RATIO (10-20); Calcium,Total 9.2 mg/dL (7.6-11.0); Carbon Dioxide 21.6 mmol/L (21.0-32.0); Chloride 106 mmol/L (98-108); Cholesterol 138 mg/dL (<=200); Creatinine, Serum 0.99 mg/dL (0.70-1.20); EST Glomerular Filtration Rate 81 (>60); Globulin 2.6 g/dL (2.2-4.2); Glucose 92 mg/dL (70-99); High Density Lipoprotein 35 mg/dL; Low Density Lipoprotein Calc. 81 mg/dL; PSA,Total- Diagnostic 4.87 ng/mL (0.00-4.00); Potassium 3.7 mmol/L (3.3-5.1); Protein, Total 6.9 g/dL (5.9-8.4); Sodium Level 139 mmol/L (133-145); Total Bilirubin 0.55 mg/dL (0.00-1.30); Triglycerides 113 mg/dL; Very Low Density Lipoprotein 23 mg/dL (5-40); cholesterol:hdl ratio screen 3.97
== END | disposition home or self-care (01) ==
LOC: MTLAB 08:47
PROVIDERS: PCP Family Medicine; Referring Provider Family Medicine; Visit Provider Family Medicine
DX: I10 Essential (primary) hypertension (principal); R97.20 Elevated prostate specific antigen [PSA]
CPT/HCPCS: 36415; 80053; 80061; 84153

== ENCOUNTER 2024-12-12 08:47 | Outpatient (CLI) | payer MEDICARE, OTHER, SELFPAY ==
[2016-10-19 14:48] VITALS: BMI 30.6
[2024-12-12 08:59] VITALS: BP 142/75; PULSE 65; RESP 16; TEMP 35.7; O2SAT 100; BMI 30.3
[2024-12-12] MEDS: Benralizumab 30 MG/ML Syringe SC (09:02)
== END 2024-12-12 23:59 | disposition home or self-care (01) ==
LOC: MEDOUTP 08:48
PROVIDERS: PCP Family Medicine; Referring Provider Internal Medicine Critical Care Medicine; Visit Provider Internal Medicine Critical Care Medicine
DX: J45.50 Severe persistent asthma, uncomplicated (principal)
CPT/HCPCS: 96372; J0517

== ENCOUNTER 2025-02-06 08:56 | Outpatient (CLI) | payer MEDICARE, OTHER, SELFPAY ==
[2016-10-19 14:48] VITALS: BMI 30.6
[2025-02-06 09:01] VITALS: BP 135/87; PULSE 59; RESP 16; TEMP 35.5; O2SAT 98; BMI 30.3
== END 2025-02-06 23:59 | disposition home or self-care (01) ==
LOC: MEDOUTP 08:56
PROVIDERS: PCP Family Medicine; Referring Provider Internal Medicine Critical Care Medicine; Visit Provider Internal Medicine Critical Care Medicine
DX: J45.50 Severe persistent asthma, uncomplicated (principal)
CPT/HCPCS: 96372; J0517

== ENCOUNTER 2025-02-13 06:06 | Emergency (ER) | payer MEDICARE, OTHER, SELFPAY ==
[2016-10-19 14:48] VITALS: BMI 30.6
[2025-02-13 06:07] VITALS: BP 175/96; PULSE 65; RESP 18; TEMP 37.4; O2SAT 99; BMI 31.6
--- NOTE | 2025-02-13 06:35 | CT_ITS ---
PROCEDURE: ABDOMEN/PELVIS W IV CONT ONLY 02/13/2025 REASON FOR EXAM: ABD DISTENSION, CONSTIPATION TECHNIQUE: ABDOMEN/PELVIS W IV CONT ONLY Coronal and Sagittal reconstruction series were provided. CONTRAST: 100 mL of Isovue 370 One or more dose reduction techniques were used (e.g., Automated exposure control, adjustment of the mA and/or kV according to patient size, use of iterative reconstruction technique. RADIATION DOSE SUMMARY: DLP: 1162 mGycm COMPARISON: None FINDINGS: Limited sections of the lung bases demonstrate no focal pulmonary mass or consolidations. The liver, spleen, pancreas, and both adrenal glands demonstrate no acute findings. The gallbladder is surgically removed. Stomach is unremarkable. The small bowel loops are not dilated. The appendix is normal. Diffuse colonic fluid inflammation may reflect colitis. No bowel obstruction. There is no free air or significant free fluid. The kidneys are unremarkable. The urinary bladder is partially distended. The pelvic structures are intact. Prostatomegaly to 6.5 cm in transverse dimension. No significant lymphadenopathy. The aorta and IVC demonstrate no acute findings. Visualized osseous structures demonstrate no acute abnormality. CT/Abdomen/Pelvis W IV Cont ONLY IMPRESSION: Diffuse colonic fluid inflammation may reflect colitis. No bowel obstruction. Prostatomegaly. Reading Location: [id number]
--- OUTSIDE RECORDS SUMMARY | 2025-02-13 06:39 | XMS RPT_ITS | CCD ---
Author Organization [facility] CliniSyct Care Team Providers Care Director Dermatology Name Role Phone Lian Aldana Unavailable Unavailable Yensho ENGINEER THIRD ASSISTANT, Mely A Unavailable Unavailab le Yensho ENGINEER THIRD ASSISTANT, Mely A Unavailable Unavailab le Yensho ENGINEER THIRD ASSISTANT, Mely A Unavailable Unavailab le Yensho ENGINEER THIRD ASSISTANT, Mely A Unavailable Unavailab Norm Borja Unavailable Gustavo CAMERON, Franca Seymour Unavailable [phone] Elizabeth WILLARD, Isacc Easton Unavailable Luna Fitch Unavailable Unavailable Norm Duenas Unavailable Yensho ENGINEER THIRD ASSISTANT, Mely A Unavailable Unavailab le Senior ENGINEER THIRD ASSISTANT, Lian Debra Unavailable Unavaila ble Dr. Duarte Martin Primary Care Provider [phone] Duarte Martin Referring Provider [phone] Mayda SEED PRODUCTION FIELD SUPERVISOR, SEED PRODUCTION FIELD SUPERVISOR-C Carolyn Attending Provider [phone] Dr. Duarte Martin Primary Care Provider [phone] Duarte Martin Referring Provider Dr. Norm Duenas Attending Provider [phone] Duarte Martin Primary Care Provider Dr. Duarte Martin Referring Provider Mayda CAMERON, SEED PRODUCTION FIELD SUPERVISOR-C Carolyn Attending Provider [phone] Dr. Norm Duenas Attending Provider [phone] Duarte Martin Primary Care Provider Dr. Kuldeep Lockwood Attending Provider Dr. Vargas Romero Referring Provider Stephen, Dr. Ramachandran Referring Provider Mayda SEED PRODUCTION FIELD SUPERVISOR, SEED PRODUCTION FIELD SUPERVISOR-C Carolyn Attending Provider [phone] Stephen, Dr. Ramachandran Primary Care Provider Dr. Kuldeep Lockwood Attending Provider Dr. Vargas Romero Referring Provider [phone] Stephen, Dr. Ramachandran Referring Provider Dr. Norm Duenas Attending Provider Mayda SEED PRODUCTION FIELD SUPERVISOR, SEED PRODUCTION FIELD SUPERVISOR-C Carolyn Attending Provider [phone] Stephen, Dr. Ramachandran Primary Care Provider Stephen, Dr. Ramachandran Referring Provider Stephen, Dr. Ramachandran Primary Care Provider Stephen, Dr. Ramachandran Referring Provider Mayda SEED PRODUCTION FIELD SUPERVISOR, SEED PRODUCTION FIELD SUPERVISOR-C Carolyn Attending Provider [phone] Unknown, Referring Provider Unavailable Unav ailable Unavailable Unavailable Dr. Adam Rodriguez Attending Unav ailable UNKNOWN, UNKNOWN Referring Unavailable UNKNOWN, PCP Primary Care Unavailable Dr. Adam Rodriguez Attending Unav ailable UNKNOWN, PCP Primary Care Unavailable Self, Referral Referring Unavailable Duarte Martin MD Primary Care Provider Duarte Martin MD Primary Care Provider Un available Dr. Duarte Martin Primary Care Provider Dr. Duarte Martin Referring Provider Wade ROSS PAIsabella Nixon Attending Provider Dr. Norm Duenas Attending Provider Duarte Martin MD Primary Care Provider [phone] THANH HERNANDEZ Attending Unavailable DUARTE MARTIN Primary Care Unavailable Dr. Duarte Martin Primary Care Provider Dr. Duarte Martin Referring Provider Dr. Norm Duenas Attending Provider RUTHANN SAL Attending Unavailable ALONSO, MAROUN T Referring Unavailable MARTIN, DUARTE XIONG Primary Care Unavailable MARTIN, DUARTE XIONG Primary Care Unavailable DEBBIE CHRISTENSEN Attending Unavailable MARTIN, DUARTE XIONG Primary Care Unavailable STRANGE-BREONNAERTHALIA SERNA Attending Unavai lable ALONSO, MAROUN T Referring Unavailable MARTIN, DUARTE XIONG Primary Care Unavailable SAMANTHAE-SHAMA, THALIA Seymoru Attending Unavai lable MARTIN, DUARTE XIONG Primary Care Unavailable ALONSO, MAROUN T Admitting Unavailable ALONSO, MAROUN T Attending Unavailable MARTIN, DUARTE XIONG Primary Care Unavailable MARTIN, DUARTE XIONG Primary Care Unavailable ALONSO, MAROUN T Admitting Unavailable ALONSO, MAROUN T Attending Unavailable MARTIN, DUARTE XIONG Primary Care Unavailable DUBOIS, DARRIN Montiel Referring Unavailable MARTIN, DUARTE XIONG Primary Care Unavailable Stephen WILLARD, Duarte Xiong Primary Care Provider [phone] ALONSO, MAROUN T Attending Unavailable MARTIN, DUARTE XIONG Primary Care Unavailable ALONSO, MAROUN T Attending Unavailable MARTIN, DUARTE XIONG Primary Care Unavailable ALONSO, MAROUN T Attending Unavailable MARTIN, DUARTE XIONG Primary Care Unavailable ALONSO, MAROUN T Attending Unavailable MARTIN, DUARTE XIONG Primary Care Unavailable DUBOIS, DARRIN Montiel Attending Unavailable MARTIN, DUARTE XIONG Primary Care Unavailable DUBOIS, DARRIN Montiel Attending Unavailable MARTIN, DUARTE XIONG Primary Care Unavailable Martin , Dr. Ramachandran Primary Care Provider Dr. Gibson Torrez DO Attending Provider [phone] Dr. Gibson Torrez DO Referring Provider Dr. Duarte Martin MD Primary Care Provider Dr. Gibson Torrez DO Attending Provider Dr. Gibson Torrez DO Referring Provider Dr. Duarte Martin MD Attending Provider Dr. Duarte Martin MD Referring Provider Stephen WILLARD, Dr. Ramachandran Primary Care Provider Dr. Gibson Torrez DO Attending Provider Dr. Gibson Torrez DO Referring Provider Mayda CAMERON-Carolyn Smith Attending Provider Martin, Duarte Primary Care Unavailable Brown, Gibson Referring Unavailable Brown, Gibson Attending Unavailable Martin, Duarte Primary Care Unavailable Brown, Gibson Referring Unavailable Brown, Gibson Attending Unavailable Martin, Duarte Primary Care Unavailable Brown, Gibson Referring Unavailable Brown, Gibson Attending Unavailable Ohara SEED PRODUCTION FIELD SUPERVISOR, Carolyn Attending Unavailable Mayda SEED PRODUCTION FIELD SUPERVISOR, Carolyn Referring Unavailable Martin, Duarte Primary Care Unavailable Martin, Duarte Primary Care Unavailable Brown, Gibson Attending Unavailable Brown, Gibson Referring Unavailable Martin, Duarte Primary Care Unavailable Martin, Duarte Attending Unavailable Martin, Duarte Referring Unavailable Brown, Gibson Attending Unavailable Martin, Duarte Primary Care Unavailable Brown, Gibson Referring Unavailable Ohara SEED PRODUCTION FIELD SUPERVISOR, Carolyn Attending Unavailable Martin, Duarte Primary Care Unavailable Martin, Udarte Referring Unavailable Ohara SEED PRODUCTION FIELD SUPERVISOR, Carolyn Attending Unavailable Martin, Duarte Referring Unavailable Martin, Duarte Primary Care Unavailable Martin, Duarte Primary Care Unavailable Brown, Gibson Referring Unavailable Brown, Gibson Attending Unavailable Martin, Duarte Attending Unavailable Martin, Duarte Referring Unavailable Martin, Duarte Primary Care Unavailable Allergies Allergy Classification Reported Allergen(s) Allergy Type Date of Onset Reaction(s) Facility (20 sources) metoprolol drug allergy 3 vomitting [facility] Work Phone: (20 sources) PARoxetine drug allergy 3 made him "spacey" [facility] Work Phone: (14 sources) propranolol drug allergy 3 vomitting [facility] Work Phone: (14 sources) propranolol drug allergy 3 [facility] Work Phone: (14 sources) venlafaxine drug allergy 3 unknown [facility] Work Phone: (14 sources) venlafaxine drug allergy 3 [facility] Work Phone: (20 sources) Metoprolol; Translations: [metoprolol tartrate] Drug Allergy 2 Nausea [facility] [place] Comment on above: WEAKNESS, severe shikha p in bp (20 sources) PARoxetine; Translations: [paroxetine HCl] Drug Allergy 2 Unknown [facility] [place] Comment on above: does not tolereate w ell (20 sources) Propranolol; Translations: [propranolol HCl] Drug Allergy 2 Nausea [facility] [place] (20 sources) venlafaxine; Translations: [venlafaxine HCl] Drug Allergy 2 Unknown [facility] [place] Comment on above: does not tolereate w ell (13 sources) fluticasone; Translations: [fluticasone furoate] Drug Allergy 3 Other [facility] [place] Comment on above: Thrush (20 sources) vilanterol; Translations: [VILANTEROL] Drug Allergy 3 Other [facility] [place] Comment on above: Thrush (8 sources) fluticasone; Translations: [FLUTICASONE] Drug Allergy 3 Other [facility] (8 sources) PARoxetine; Translations: [PAROXETINE] Drug Allergy 3 Hallucinations, Unknown [facility] Work Phone: (8 sources) Propranolol; Translations: [PROPRANOLOL] Drug Allergy 3 Nausea/vomiting [facility] Work Phone: (8 sources) venlafaxine; Translations: [VENLAFAXINE] Drug Allergy 3 Unknown [facility] Work Phone: (1 source) ALLERGIES NOT ON FILE; Translations: [ALLERGIES NOT ON FILE] Propensity to adverse reactions (disorder) [facility] Repository (1 source) vilanterol Drug Allergy 5 [facility] [place] Repository Medications Current Medications Medication Drug Class(es) Dates Sig (Normalized) Sig (Original) acetaminophen 325 mg oral tablet (1 source) Start: 06-07-2023 take 2 tablets by mouth every six hours for pain acetaminophen (Tylenol) 325 mg tablet Indications: BAHA cochlear implant bone infection (CMS/HCC) Take 2 tablets (650 mg) by mouth every 6 hours if needed for mild pain (1 - 3) for up to 20 doses. 20 tablet 0 06/07/2023 Active Start: 06-07-2023 take 2 tablets by mo ut every six hours for pain acetaminophen (Tylenol) 325 mg tablet Indications: BAHA cochlear implant bone infection (CMS/HCC) Take 2 tablets (650 mg) by mouth every 6 hours if needed for mild pain (1 - 3) for up to 20 doses. 20 tablet 0 06/07/2023 Active [id number] actuat albuterol 0.09 mg/actuat metered dose inhaler (20 sources) beta2-Adrenergic Agonist Start: 08-31-2021 take 1 puff(s) by inhalation every four hours Albuterol Sulfate (Ventolin Hfa) 90 mcg/actuation HFA aerosol inhaler Active 2 PUFF INHALATION Q4H August 31, 2021 8:57am Start: 08-31-2021 End: 11-19-2024 Albuterol Sulfate (Ventolin Hfa) 90 mcg/actuation HFA aerosol inhaler Active 2 NMA INHALATION Q4H as needed for shortness of breath or wheezing 07 01November 19, 2024 1:07pm Start: 08-31-2021 take 1 puff(s) by in halation every four hours Albuterol Sulfate (Ventolin Hfa) 90 mcg/actuation HFA aerosol inhaler Active 2 PUFF INHALATION Q4H August 31, 2021 1:00am Start: 03-01-2020 End: 08-30-2020 Albuterol Sulfate 90 mcg/act uation HFA aerosol inhaler Discontinued 2 NMA INHALATION EVERY 6 HOURS as needed for shortness of breath or wheezing 18 March 01, 2020 12:00am August 30, 2020 3:22pm Start: 03-01-2020 End: 08-30-2020 take 1 puff(s) by inhalation every six hours Albuterol Sulfate Discontinued 2 PUFF INHALATION EVERY 6 HOURS March 01, 2020 12:00am August 30, 2020 3:22pm amLODIPine 10 mg oral tablet (20 sources) Dihydropyridine Calcium Channel Lisa Start: 05-22-2024 take 1 tablet by mouth once daily Amlodipine 10 mg tablet Active 10 mg PO daily May 22, 2024 12:00am Start: 04-05-2021 End: 05-22-2024 take 2 tablets by mouth once daily Amlodipine 5 mg tablet Discontinued 10 mg PO DAILY April 05, 2021 12:00am May 22, 2024 2:32pm Start: 09-14-2021 amLODIPine (No rvasc) 5 mg tablet 12/27/2022 Active take 1 tablet by destiny th once daily amLODIPine Besylate 10 MG Oral Tablet TAKE 1 TABLET DAILY. Quantity: 30 Refills: 2 Ordered: 20-Mar-2023 DO Active atorvastatin 10 mg oral tablet (20 sources) HMG-CoA Reductase Inhibitor Start: 02-24-2010 End: 05-16-2016 take 1 tablet by mouth at bedtime Atorvastatin 10 MG tablet Active 10 mg PO AT BEDTIME April 24, 2013 12:00am 1 ml benralizumab 30 mg/ml prefilled syringe (20 sources) Interleukin-5 Receptor alpha-directed Cytolytic Antibody Start: 08-26-2020 Benralizumab (Fasenra) 30 mg/mL syringe Active 30 mg SC every 8 weeks August 26, 2020 1:00am Fasenra Pen 30 M G/ML Subcutaneous Solution Auto-injector Inject subcutaneously bimonthy=ly Quantity: 0 Refills: 0 Ordered: 20-Mar-2023 DO Active benralizumab (FASENRA SUBQ) (9 sources) inject 1 dose by subcutaneous injection every month benralizumab (FASENRA SUBQ) Inject under the skin. Pt. States that he receives fasenra bi monthly; last dose 05/24/23 Active inject 1 dose by sub cutaneous injection every month benralizumab (FASENRA SUBQ) Inject under the skin. Pt. States that he receives fasenra bi monthly; last dose 05/24/23 0 Active inject 1 dose by sub cutaneous injection every month benralizumab (FASENRA SUBQ) Inject under the skin. Pt. States that he receives fasenra bi monthly; last dose 05/24/23 0 Suspended cephalexin 500 mg oral capsule (8 sources) Cephalosporin Antibacterial Start: 10-02-2023 End: 10-07-2023 take 1 capsule by mouth four times daily cephalexin (Keflex) 500 mg capsule Indications: Mixed conductive and sensorineural hearing loss, bilateral , BAHA cochlear implant bone infection (CMS/HCC) Take 1 capsule (500 mg) by mouth 4 times a day for 5 days. 20 capsule 0 10/02/2023 10/07/2023 Active Start: 06-07-2023 End: 06-12-2023 take 1 capsule by mouth three times daily cephalexin (Keflex) 500 mg capsule Indications: BAHA cochlear implant bone infection (CMS/HCC) Take 1 capsule (500 mg) by mouth 3 times a day for 5 days. 15 capsule 0 06/07/2023 06/12/2023 Active Start: 05-24-2023 End: 05-29-2023 take 1 capsule by mouth twice daily Cephalexin 500 mg capsule Discontinued 500 mg PO TWICE A DAY 10 5 0 May 24, 2023 12:00am May 28, 2023 1:00am May 29, 2023 1:05am docusate sodium 100 mg oral tablet (1 source) Start: 06-07-2023 End: 06-12-2023 take 1 tablet by mouth twice daily for pain docusate sodium (Colace) 100 mg tablet Indications: BAHA cochlear implant bone infection (CMS/HCC) Take 1 tablet (100 mg) by mouth 2 times a day for 10 doses. Take while using narcotics for pain control 20 tablet 0 06/07/2023 06/12/2023 Active 60 actuat formoterol fumarate 0.005 mg/actuat / mometasone furoate 0.2 mg/actuat metered dose inhaler (7 sources) Corticosteroid, beta2-Adrenergi c Agonist Start: 12-27-2022 End: 09-13-2023 Dulera 200-5 mcg/actuation inhaler take 2 puff(s) by inhalation twi ce daily Dulera 100-5 MCG/ACT Inhalation Aerosol INHALE 2 PUFFS TWICE DAILY. Quantity: 0 Refills: 0 Ordered: 20-Mar-2023 DO Active linaclotide 0.29 mg oral capsule (20 sources) Guanylate Cyclase-C Agonist Start: 01-04-2022 take 1 capsule by mouth once daily as needed Linaclotide (Linzess) 290 mcg capsule Active 290 ug PO DAILY as needed for as needed January 04, 2022 12:00am Start: 03-01-2020 End: 01-04-2022 take 1 capsule by mouth once daily Linaclotide (Linzess) 145 mcg capsule Discontinued 290 ug PO DAILY March 01, 2020 12:00am January 04, 2022 7:10am lisinopril 40 mg oral tablet (20 sources) Angiotensin Converting Enzyme Inhibitor Start: 05-22-2024 take 1 tablet by mouth once daily Lisinopril 40 mg tablet Active 40 mg PO daily May 22, 2024 12:00am Start: 07-18-2023 End: 05-22-2024 take 4 tablets by mouth once daily Lisinopril 10 mg tablet Discontinued 40 mg PO DAILY July 18, 2023 11:41am May 22, 2024 2:32pm Start: 07-18-2023 take 20 mg by mouth once daily Lisinopril Active 20 MG PO DAILY July 18, 2023 11:41am Start: 03-05-2023 lisinopril 20 mg tablet 03/05/2023 Active Start: 02-24-2010 End: 07-18-2023 take 1 tablet by mouth twice daily Lisinopril 10 MG tablet Discontinued 10 mg PO TWICE A DAY April 24, 2013 12:00am July 18, 2023 11:41am Mometasone-Formoterol (Duler a) 200-5 mcg/actuation HFA aerosol inhaler (19 sources) Start: 11-19-2024 Mometasone-For moterol (Dulera) 200-5 mcg/actuation HFA aerosol inhaler Active 2 NMA INHALATION TWICE A DAY 13 November 19, 2024 1:07pm Start: 01-22-2024 End: 11-19-2024 Mometasone-Formoterol (Duler a) 200-5 mcg/actuation HFA aerosol inhaler Discontinued 2 NMA INHALATION TWICE A DAY 13 January 22, 2024 3:10pm November 19, 2024 1:07pm Start: 01-22-2024 Mometasone-For moterol (Dulera) 200-5 mcg/actuation HFA aerosol inhaler Active 2 NMA INHALATION TWICE A DAY January 22, 2024 3:10pm Start: 01-22-2024 End: 01-22-2024 Mometasone-Formoterol (Duler a) 200-5 mcg/actuation HFA aerosol inhaler Discontinued 2 NMA INHALATION TWICE A DAY January 22, 2024 12:00am January 22, 2024 3:11pm Start: 10-02-2022 End: 09-07-2023 Mometasone-Formoterol (Duler a) 200-5 mcg/actuation HFA aerosol inhaler Discontinued 2 NMA INHALATION TWICE A DAY 13 October 02, 2022 12:00am September 07, 2023 12:07pm Start: 10-02-2022 End: 09-07-2023 Mometasone-Formoterol (Duler a) 200-5 mcg/actuation HFA aerosol inhaler Discontinued 2 NMA INHALATION TWICE A DAY October 02, 2022 12:00am September 07, 2023 12:07pm Start: 10-02-2022 End: 09-07-2023 take 1 puff(s) by inhalation twice daily Mometasone-Formoterol (Dulera) 200-5 mcg/actuation HFA aerosol inhaler Discontinued 2 PUFF INHALATION TWICE A DAY October 02, 2022 12:00am September 07, 2023 12:07pm Start: 10-02-2022 End: 09-07-2023 take 1 puff(s) by inhalation twice daily Mometasone-Formoterol (Dulera) 200-5 mcg/actuation HFA aerosol inhaler Discontinued 2 PUFF INHALATION TWICE A DAY October 01, 2022 11:00pm September 07, 2023 11:07am Start: 10-02-2022 take 1 puff(s) by in halation twice daily Mometasone-Formoterol (Dulera) 200-5 mcg/actuation HFA aerosol inhaler Active 2 PUFF INHALATION TWICE A DAY October 01, 2022 11:00pm Start: 10-02-2022 take 1 puff(s) by in halation twice daily Mometasone-Formoterol (Dulera) 200-5 mcg/actuation HFA aerosol inhaler Active 2 PUFF INHALATION TWICE A DAY October 02, 2022 12:00am 2 ml ondansetron 2 mg/ml injection (1 source) Serotonin-3 Receptor Antagonist Start: 06-07-2023 ondansetron (Zofran) injection 4 mg oxygen (O2) therapy (1 source) Start: 06-07-2023 oxygen (O2) th erapy spacer (12 sources) Start: 10-02-2022 spacer Active 0 .ROUTE .MEDSUPPLY 1 0 October 02, 2022 12:00am As directed Start: 10-02-2022 spacer Active 0 .ROUTE .MEDSUPPLY 1 October 01, 2022 11:00pm As directed Start: 10-02-2022 spacer Active 0 .ROUTE .MEDSUPPLY October 02, 2022 12:00am As directed Completed/Discontinued Medications Medication Drug Class(es) Dates Sig (Normalized) Sig (Original) acetaminophen 300 mg / codeine phosphate 30 mg oral tablet (20 sources) Opioid Agonist Start: 12-17-2018 End: 08-30-2020 Acetaminophen-Codei ne 1 TABLET tablet Discontinued 1 {tbl} PO EVERY 6 HOURS NEEDED as needed for Pain December 17, 2018 12:00am August 30, 2020 3:23pm Start: 12-17-2018 End: 08-30-2020 take 1 tablet by mouth every six hours as needed Acetaminophen-Codeine Discontinued 1 TABLET PO EVERY 6 HOURS NEEDED December 17, 2018 12:00am August 30, 2020 3:23pm aspirin 81 mg delayed release oral tablet (20 sources) Nonsteroidal Anti-inflammatory Drug Start: 04-06-2021 End: 07-13-2023 take 1 tablet by mouth at breakfast Aspirin 81 mg Tablet,Delayed Release (Dr/Ec) Discontinued 81 mg PO WITH BREAKFAST 30 April 06, 2021 12:00am July 13, 2023 12:13pm Start: 07-30-2017 End: 08-30-2020 Aspirin 81 mg tablet,delayed release (DR/EC) Discontinued 81 mg PO MOWEJuly 30, 2017 1:00am August 30, 2020 3:22pm Start: 09-06-2016 ASPIRIN LOW DO SE 81 MG [facility] ASPIRIN [id number] Laura Morales Start: 04-24-2013 End: 10-31-2016 take 1 tablet by mouth once daily Aspirin 81 MG Tab.Chew Discontinued 81 mg PO DAILY@0800 April 24, 2013 12:00am October 31, 2016 12:47pm Start: 04-23-2013 End: 05-16-2016 take 1 tablet by mouth once daily ASPIRIN 81 MG TABS One tablet by mouth daily ASPIRIN [id number] Raven Robertson RN Start: 04-23-2013 End: 05-16-2016 take 1 tablet by mouth once daily ASPIRIN 81 MG TABS One tablet by mouth daily ASPIRIN [id number] Mely A Yensho ENGINEER THIRD ASSISTANT bisacodyl 5 mg rectal suppository (20 sources) Stimulant Laxative Start: 10-17-2016 End: 11-16-2016 DULCOLAX 5 MG TBEC 1-2 tabs daily as needed BISACODYL [id number] Lian Senior ENGINEER THIRD ASSISTANT Start: 10-17-2016 End: 11-16-2016 DULCOLAX 5 MG TBEC 1-2 tabs daily as needed BISACODYL [id number] Anabel Quispe Budesonide-Formoterol (20 sources) Corticosteroid, beta2-Adrenergic Agonist Start: 05-03-2022 End: 09-22-2022 Budesonide-Formoterol (Symbicort) 160-4.5 mcg/actuation HFA aerosol inhaler Discontinued 2 NMA INHALATION TWICE A DAY 07 25May 03, 2022 12:00am September 22, 2022 11:29am administer with spacer, rinse mouth after each use Start: 05-03-2022 End: 09-22-2022 Budesonide-Formoterol (Symbi moe) 160-4.5 mcg/actuation HFA aerosol inhaler Discontinued 2 NMA INHALATION TWICE A DAY May 03, 2022 12:00am September 22, 2022 11:29am administer with spacer, rinse mouth after each use Start: 05-03-2022 End: 09-22-2022 take 1 puff(s) by mouth twice daily Budesonide-Formoterol (Symbicort) 160-4.5 mcg/actuation HFA aerosol inhaler Discontinued 2 PUFF INHALATION TWICE A DAY May 03, 2022 12:00am September 22, 2022 11:29am administer with spacer, rinse mouth after each use Start: 05-03-2022 End: 09-22-2022 take 1 puff(s) by mouth twice daily Budesonide-Formoterol (Symbicort) 160-4.5 mcg/actuation HFA aerosol inhaler Discontinued 2 PUFF INHALATION TWICE A DAY May 02, 2022 11:00pm September 22, 2022 10:29am administer with spacer, rinse mouth after each use Start: 05-03-2022 take 1 puff(s) by mo [facility] twice daily Budesonide-Formoterol (Symbicort) 160-4.5 mcg/actuation HFA aerosol inhaler Active 2 PUFF INHALATION TWICE A DAY 1 May 02, 2022 11:00pm administer with spacer, rinse mouth after each use Start: 06-10-2021 End: 05-03-2022 Budesonide-Formoterol (Symbi moe) 80-4.5 mcg/actuation HFA aerosol inhaler Discontinued 2 NMA INHALATION Q12H 10.2 5 June 10, 2021 1:01pm May 03, 2022 8:32am Start: 06-10-2021 End: 05-03-2022 Budesonide-Formoterol (Symbi moe) 80-4.5 mcg/actuation HFA aerosol inhaler Discontinued 2 NMA INHALATION Q12H 10.2 June 10, 2021 1:01pm May 03, 2022 8:32am Start: 06-10-2021 End: 05-03-2022 take 1 puff(s) by inhalation every twelve hours Budesonide-Formoterol (Symbicort) 80-4.5 mcg/actuation HFA aerosol inhaler Discontinued 2 PUFF INHALATION Q12H 10.2 June 10, 2021 1:01pm May 03, 2022 8:32am Start: 06-10-2021 End: 05-03-2022 take 1 puff(s) by inhalation every twelve hours Budesonide-Formoterol (Symbicort) 80-4.5 mcg/actuation HFA aerosol inhaler Discontinued 2 PUFF INHALATION Q12H 10.2 June 10, 2021 12:01pm May 03, 2022 7:32am Start: 06-10-2021 take 1 puff(s) by in halation every twelve hours Budesonide-Formoterol (Symbicort) 80-4.5 mcg/actuation HFA aerosol inhaler Active 2 PUFF INHALATION Q12H 10.2 June 10, 2021 1:01pm Start: 05-26-2020 End: 06-10-2021 take 1 puff(s) by inhalation every twelve hours Budesonide-Formoterol (Symbicort) 80-4.5 mcg/actuation HFA aerosol inhaler Discontinued 2 PUFF INHALATION Q12H 10.2 May 26, 2020 8:57am June 10, 2021 1:01pm Start: 05-26-2020 End: 05-26-2020 take 1 puff(s) by inhalation twice daily Budesonide-Formoterol (Symbicort) 160-4.5 mcg/actuation HFA aerosol inhaler Discontinued 2 PUFF INHALATION TWICE A DAY May 26, 2020 8:49am May 26, 2020 8:57am Start: 05-26-2020 End: 06-10-2021 Budesonide-Formoterol (Symbi moe) 80-4.5 mcg/actuation HFA aerosol inhaler Discontinued 2 NMA INHALATION Q12H 10.2 5 May 26, 2020 1:00am June 10, 2021 1:01pm Start: 05-26-2020 End: 05-26-2020 Budesonide-Formoterol (Symbi moe) 160-4.5 mcg/actuation HFA aerosol inhaler Discontinued 2 NMA INHALATION TWICE A DAY May 26, 2020 1:00am May 26, 2020 8:57am Start: 05-26-2020 End: 06-10-2021 Budesonide-Formoterol (Symbi moe) 80-4.5 mcg/actuation HFA aerosol inhaler Discontinued 2 NMA INHALATION Q12H 10.2 May 26, 2020 1:00am June 10, 2021 1:01pm Start: 05-26-2020 End: 05-26-2020 take 1 puff(s) by inhalation twice daily Budesonide-Formoterol (Symbicort) 160-4.5 mcg/actuation HFA aerosol inhaler Discontinued 2 PUFF INHALATION TWICE A DAY May 26, 2020 12:00am May 26, 2020 7:57am Start: 05-26-2020 End: 06-10-2021 take 1 puff(s) by inhalation every twelve hours Budesonide-Formoterol (Symbicort) 80-4.5 mcg/actuation HFA aerosol inhaler Discontinued 2 PUFF INHALATION Q12H 10.2 May 26, 2020 12:00am June 10, 2021 12:01pm Start: 05-26-2020 End: 05-26-2020 take 1 puff(s) by inhalation twice daily Budesonide-Formoterol (Symbicort) 160-4.5 mcg/actuation HFA aerosol inhaler Discontinued 2 PUFF INHALATION TWICE A DAY May 26, 2020 1:00am May 26, 2020 8:57am Start: 05-26-2020 End: 06-10-2021 take 1 puff(s) by inhalation every twelve hours Budesonide-Formoterol (Symbicort) 80-4.5 mcg/actuation HFA aerosol inhaler Discontinued 2 PUFF INHALATION Q12H 10.2 May 26, 2020 1:00am June 10, 2021 1:01pm Start: 11-13-2019 End: 03-01-2020 Budesonide-Formoterol (Symbi moe) 80-4.5 mcg/actuation HFA aerosol inhaler Discontinued 2 NMA INHALATION TWICE A DAY 10.2 6 November 13, 2019 12:00am March 01, 2020 10:47am Start: 11-13-2019 End: 03-01-2020 take 1 puff(s) by inhalation twice daily Budesonide-Formoterol (Symbicort) 80-4.5 mcg/actuation HFA aerosol inhaler Discontinued 2 PUFF INHALATION TWICE A DAY 10.2 November 13, 2019 12:00am March 01, 2020 10:47am Start: 10-09-2019 End: 11-13-2019 Budesonide-Formoterol (Symbi moe) 160-4.5 mcg/actuation HFA aerosol inhaler Discontinued 2 NMA INHALATION TWICE A DAY 1 3 October 09, 2019 12:00am November 13, 2019 9:08am administer with spacer, rinse mouth after each use Start: 10-09-2019 End: 11-13-2019 take 1 puff(s) by mouth twice daily Budesonide-Formoterol (Symbicort) 160-4.5 mcg/actuation HFA aerosol inhaler Discontinued 2 PUFF INHALATION TWICE A DAY 1 October 09, 2019 12:00am November 13, 2019 9:08am administer with spacer, rinse mouth after each use Start: 12-10-2018 End: 08-06-2019 Budesonide-Formoterol 1 INHA LER inhaler Discontinued 2 NMA INHALATION TWICE A DAY December 10, 2018 9:59am August 06, 2019 11:39am Start: 12-10-2018 End: 08-06-2019 take 1 puff(s) by inhalation twice daily Budesonide-Formoterol Discontinued 2 PUFF INHALATION TWICE A DAY December 10, 2018 9:59am August 06, 2019 11:39am Start: 07-30-2017 End: 12-10-2018 Budesonide-Formoterol (Symbi moe) 160-4.5 mcg/actuation HFA aerosol inhaler Discontinued 2 NMA INHALATION Q12H 10.2 5 January 28, 2018 1:41pm December 10, 2018 9:59am Unspecified asthma, uncomplicated Start: 07-30-2017 End: 12-10-2018 take 1 puff(s) by inhalation every twelve hours Budesonide-Formoterol (Symbicort) 160-4.5 mcg/actuation HFA aerosol inhaler Discontinued 2 PUFF INHALATION Q12H 10.2 January 28, 2018 1:41pm December 10, 2018 9:59am Start: 03-02-2017 take 2 puff(s) by in halation twice daily SYMBICORT 160-4.5 MCG/ACT AERO 2 puffs INH Twice daily BUDESONIDE-FORMOTEROL FUMARATE [id number] Carolyn Ohara CNP calcium chloride 0.0014 meq/ ml / potassium chloride 0.004 meq/ml / sodium chloride 0.103 meq/ml / sodium lactate 0.028 meq/ml injectable solution (2 sources) Start: 10-02-2023 End: 10-02-2023 lactated Ringer's infusion Start: 06-07-2023 lactated Ringe r's infusion cholecalciferol 2000 unt oral tablet (20 sources) Vitamin D Start: 05-16-2016 End: 11-16-2016 take 1 tablet by mouth once daily VITAMIN D 2000 UNIT TABS One tablet by mouth daily CHOLECALCIFEROL [id number] Mely Shetty LPN ciprofloxacin 500 mg oral tablet (20 sources) Quinolone Antimicrobial Start: 12-17-2018 End: 08-26-2020 take 1 tablet by mouth twice daily Ciprofloxacin Hcl 500 MG tablet Discontinued 500 mg PO TWICE A DAY 6 0 December 17, 2018 12:00am August 26, 2020 9:29am doxycycline hyclate 100 mg oral capsule (16 sources) Tetracycline-class Drug Start: 03-20-2023 take 1 capsule by mouth twice daily Doxycycline Hyclate 100 MG Oral Capsule Take 1 capsule twice daily Quantity: 42 Refills: 1 Ordered: 20-Mar-2023 Adam Rodriguez MD Start : 20-Mar-2023 Active Start: 09-05-2022 End: 01-10-2023 take 1 tablet by mouth once daily Doxycycline Hyclate 100 mg tablet Discontinued 100 mg PO DAILY September 05, 2022 1:00am January 10, 2023 10:11am flunisolide (20 sources) Corticosteroid Start: 04-23-2013 FLUNISOLIDE 29 MCG/ACT SOLN Take as directed FLUNISOLIDE [id number] Raven Robertson RN Start: 04-23-2013 End: 04-23-2013 FLUNISOLIDE 29 MCG/ACT SOLN Take as directed FLUNISOLIDE [id number] Raven Robertson RN 30 actuat fluticasone furoate 0.2 mg/actuat / vilanterol 0.025 mg/actuat dry powder inhaler (20 sources) Corticosteroid, beta2-Adrenergic Agonist Start: 09-22-2022 End: 10-02-2022 Fluticasone Furoate-Vilanterol (Breo Ellipta) 200-25 mcg/dose blister with device Discontinued 1 NMA INHALATION daily 60 September 22, 2022 1:00am October 02, 2022 9:27am after inhalation, rinse mouth with water and spit out; do not swallow Start: 09-22-2022 End: 10-02-2022 Fluticasone Furoate-Vilanter ol (Breo Ellipta) 200-25 mcg/dose blister with device Discontinued 1 INH INHALATION daily September 22, 2022 1:00am October 02, 2022 9:27am after inhalation, rinse mouth with water and spit out; do not swallow Start: 10-27-2016 End: 01-28-2018 Fluticasone Furoate-Vilanter ol Discontinued 1 EACH IH DAILY October 27, 2016 1:04pm January 28, 2018 1:41pm Start: 10-27-2016 End: 01-28-2018 take 1 dose by inhalation once daily Fluticasone Furoate-Vilanterol 1 EACH blister with device Discontinued 1 NMA IH DAILY October 27, 2016 12:00am January 28, 2018 1:41pm Start: 10-27-2016 End: 01-28-2018 Fluticasone Furoate-Vilanter ol Discontinued 1 EACH IH DAILY October 26, 2016 11:00pm January 28, 2018 12:41pm Start: 10-27-2016 End: 01-28-2018 Fluticasone Furoate-Vilanter ol Discontinued 1 EACH IH DAILY October 27, 2016 12:00am January 28, 2018 1:41pm Start: 05-18-2016 take 1 puff(s) by in halation once daily BREO ELLIPTA 200-25 MCG/INH AEPB One puff INH every day FLUTICASONE FUROATE-VILANTEROL [id number] Norm Duenas Start: 05-18-2016 take 1 puff(s) by in halation once daily BREO ELLIPTA 200-25 MCG/INH AEPB One puff INH every day FLUTICASONE FUROATE-VILANTEROL [id number] Norm Duenas gadoterate meglumine (Dotarem) 0.5 mmol/mL contrast injection 20 mL (1 source) Start: 05-28-2024 End: 05-28-2024 inject 20 mL intravenously once 20 mL, intravenous, Once in imaging, Starting on Sun05/28/24 at 0933, For 1 dose, Administer undiluted as rapid I.V. bolus injection hydroCHLOROthiazide 25 mg oral tablet (20 sources) Thiazide Diuretic Start: 08-01-2013 End: 08-06-2019 take 1 tablet by mouth once daily Hydrochlorothiazide 25 MG tablet Discontinued 25 mg PO DAILY August 13, 2014 1:00am August 06, 2019 10:00am hydrocortisone (11 sources) Corticosteroid Start: 09-06-2016 ASPIRIN LOW DOSE 81 MG [facility] ASPIRIN [id number] Laura Morales lactobacillus (14 sources) Start: 11-16-2016 take 1 tablet by mouth once daily ACIDOPHILUS 100 MG CAPS One tablet by mouth daily LACTOBACILLUS [id number] Lian Senior LPN levoFLOXacin 750 mg oral tablet (3 sources) Quinolone Antimicrobial Start: 12-06-2022 End: 06-07-2023 levoFLOXacin (Levaquin) 750 mg tablet meloxicam 15 mg oral tablet (20 sources) Nonsteroidal Anti-inflammator y Drug Start: 04-05-2021 End: 05-02-2024 take 1 tablet by mouth once daily Meloxicam 15 mg tablet Discontinued 15 mg PO DAILY April 05, 2021 12:00am May 02, 2024 9:09am predniSONE 20 mg oral tablet (19 sources) Corticosteroid Start: 09-05-2022 End: 01-10-2023 take 3 tablets by mouth once daily at mealtime Prednisone 20 mg tablet Discontinued 60 mg PO daily September 05, 2022 1:00am January 10, 2023 10:10am administer with food or milk Start: 09-05-2022 End: 01-10-2023 take 60 mg by mouth once daily at mealtime Prednisone Discontinued 60 MG PO daily September 05, 2022 1:00am January 10, 2023 10:10am administer with food or milk Start: 02-07-2017 End: 02-12-2017 take 3 tablets by mouth once daily PREDNISONE 20 MG TABS Take 3 tablets by mouth daily for 5 days. PREDNISONE [id number] Norm Duenas psyllium (20 sources) Start: 10-17-2016 End: 11-16-2016 METAMUCIL POWD 2 tsp every m orning in 8 oz of liquid PSYLLIUM POWD [id number] Lian Senior LPN Start: 10-17-2016 METAMUCIL POWD 2 tsp every morning in 8 oz of liquid PSYLLIUM POWD [id number] Anabel Quispe rifAMPin 300 mg oral capsule (3 sources) Rifamycin Antibacterial Start: 03-20-2023 take 2 capsules by mouth once daily rifAMPin 300 MG Oral Capsule TAKE 2 CAPSULES DAILY. Quantity: 42 Refills: 1 Ordered: 20-Mar-2023 Adam Rodriguez MD Start : 20-Mar-2023 Active rOPINIRole 0.5 mg oral tablet (20 sources) Nonergot Dopamine Agonist Start: 10-17-2016 End: 12-19-2016 REQUIP 0.5 MG TABS 1 tab every night for 2 nights, may increase to 2 tabs every night if needed. ROPINIROLE HCL [id number] Franca Chen NP Start: 10-17-2016 End: 12-19-2016 REQUIP 0.5 MG TABS 1 tab gail ry night for 2 nights, may increase to 2 tabs every night if needed. ROPINIROLE HCL [id number] Carolyn Ohara CNP traMADol hydrochloride 50 mg oral tablet (4 sources) Opioid Agonist Start: 06-07-2023 End: 10-11-2023 take 1 tablet by mouth every four hours for pain traMADol (Ultram) 50 mg tablet Indications: BAHA cochlear implant bone infection (CMS/HCC) Take 1 tablet (50 mg) by mouth every 4 hours if needed for severe pain (7 - 10) (pain unrelieved by tylenol/ibuprofen) for up to 10 doses. 10 tablet 0 06/07/2023 10/11/2023 Discontinued (Therapy completed) Problems Active Problems Problem Classification Problem Date Documented Date Episodic/Chronic Asthma (20 sources) Moderate persistent asthma; Translations: [Uncomplicated severe persistent asthma] Onset: 02-07-2017 02-07-2017 Chronic Comment on above: Fasenra On Fasenra Disorders of lipid metabolism (20 sources) Hyperlipidemia; Translations: [Hyperlipidemia, unspecified] Onset: 04-15-2013 04-15-2013 Chronic Essential hypertension (20 sources) Hypertensive disorder; Translations: [Essential (primary) hypertension] Onset: 04-15-2013 04-15-2013 Chronic Genitourinary symptoms and ill-defined conditions (4 sources) Nocturia; Translations: [Nocturia] Onset: 05-07-2024 05-07-2024 Episodic Hyperplasia of prostate (4 sources) Benign prostatic hyperplasia; Translations: [Benign prostatic hyperplasia without lower urinary tract symptoms] Onset: 05-07-2024 05-07-2024 Chronic Other aftercare (1 source) Postoperative visit; Translations: [Encounter for other specified surgical aftercare] 10-11-2023 Episodic Other ear and sense organ disorders (18 sources) Mixed conductive and sensorineural hearing loss, bilateral; Translations: [Mixed conductive and sensorineural hearing loss, bilateral] Onset: 05-17-2023 05-17-2023 Chronic Other ear and sense organ disorders (2 sources) Mixed conductive and sensorineural hearing loss, bilateral; Translations: [Mixed conductive and sensorineural hearing loss, bilateral] Onset: 05-17-2023 Chronic Other ear and sense organ disorders (3 sources) Bone conduction deafness; Translations: [Conductive hearing loss, unspecified] 01-22-2024 Chronic Other ear and sense organ disorders (20 sources) Tinnitus; Translations: [Tinnitus, left ear] 08-06-2019 Episodic Other lower respiratory disease (20 sources) Dyspnea on exertion; Translations: [Dyspnea] Onset: 04-15-2013 04-23-2013 Episodic Other non-traumatic joint disorders (20 sources) Swelling of upper limb; Translations: [Effusion, unspecified wrist] 03-01-2021 Episodic Other nutritional; endocrine; and metabolic disorders (4 sources) Obesity; Translations: [Obesity, unspecified] 05-22-2024 Chronic Other nutritional; endocrine; and metabolic disorders (1 source) Other obesity due to excess calories; Translations: [Other obesity due to excess calories] Onset: 11-26-2024 Chronic Other nutritional; endocrine; and metabolic disorders (1 source) Body mass index (BMI) 32.0-32.9, adult; Translations: [Body mass index [BMI] 32.0-32.9, adult] Onset: 11-26-2024 Chronic Other skin disorders (6 sources) Folliculitis; Translations: [Follicular disorder, unspecified] 05-24-2023 Episodic Other skin disorders (2 sources) Follicular disorder, unspecified; Translations: [Other specified diseases of hair and hair follicles] 05-24-2023 Episodic Otitis media and related conditions (20 sources) Dysfunction of eustachian tube; Translations: [Other specified disorders of Eustachian tube, unspecified ear] 12-17-2018 Episodic Residual codes; unclassified (20 sources) Obstructive sleep apnea (adult) (pediatric); Translations: [Obstructive sleep apnea (adult)(pediatric)] Onset: 11-26-2024 Chronic Residual codes; unclassified (20 sources) Contact with and (suspected) exposure to other hazardous, chiefly nonmedicinal, chemicals; Translations: [Chlorine gas exposure] 03-01-2020 Episodic Skin and subcutaneous tissue infections (3 sources) Cellulitis; Translations: [Cellulitis and abscess of unspecified sites] Episodic Transient cerebral ischemia (20 sources) Transient cerebral ischemia; Translations: [Transient cerebral ischemic attack, unspecified] 04-14-2021 Chronic Unclassified (20 sources) Obstructive sleep apnea syndrome; Translations: [Obstructive sleep apnea (adult) (pediatric)] Onset: 08-11-2016 08-11-2016 Chronic Comment on above: BiPAP 06/29 Unclassified (14 sources) Aftercare ; Translations: [Encounter for other specified surgical aftercare] Onset: 11-08-2016 11-22-2016 Unclassified (2 sources) Post-op Visit; Translations: [Post-op Visit] Onset: 10-26-2023 Unclassified (1 source) Obesity, class 1; Translations: [Obesity, class 1] Onset: 11-26-2024 Past or Other Problems Problem Classification Problem Date Documented Date Episodic/Chronic Complication of device; implant or graft (19 sources) Infection associated with device; Translations: [Infection and inflammatory reaction due to other internal prosthetic device, implant, and graft] Onset: 05-17-2023 05-17-2023 Episodic Complications of surgical procedures or medical care (16 sources) Other complications of procedures, not elsewhere classified, initial encounter; Translations: [Other complications of procedures, not elsewhere classified, subsequent encounter] Onset: 11-22-2016 11-22-2016 Episodic Neoplasms of unspecified nature or uncertain behavior (14 sources) Neoplasm of face; Translations: [Neoplasm of unspecified behavior of bone, soft tissue, and skin] Onset: 09-06-2016 09-17-2016 Episodic Other aftercare (6 sources) Other complications of procedures, not elsewhere classified, subsequent encounter; Translations: [Other complications of procedures, not elsewhere classified, subsequent encounter] Onset: 11-29-2016 01-28-2017 Episodic Other lower respiratory disease (3 sources) Dyspnea; Translations: [Shortness of breath] Onset: 04-15-2013 04-15-2013 Episodic Other nutritional; endocrine; and metabolic disorders (14 sources) Body mass index (BMI) 29.0-29.9, adult; Translations: [Body mass index (BMI) 29.0-29.9, adult] Onset: 04-23-2013 04-23-2013 Episodic Other screening for suspected conditions (not mental disorders or infectious disease) (10 sources) Raised prostate specific antigen; Translations: [Elevated prostate specific antigen [PSA]] Onset: 05-07-2024 05-07-2024 Episodic Other skin disorders (14 sources) Trichilemmal cyst; Translations: [Trichodermal cyst] Onset: 11-08-2016 11-22-2016 Episodic Residual codes; unclassified (6 sources) Hypersomnia; Translations: [Hypersomnia, unspecified] Onset: 05-18-2016 Resolved: 08-11-2016 05-18-2016 Episodic Unclassified (20 sources) Family history of malignant neoplasm of skin; Translations: [Hypersomnia] Onset: 05-18-2016 Resolved: 08-11-2016 09-17-2016 Episodic Unclassified (20 sources) Bilateral ear tubes 02-08-2022 Unclassified (20 sources) cervical disectomy with bone graft 02-08-2022 Unclassified (20 sources) nonhealing surgical wound right frontal temporal scalp 02-08-2022 Unclassified (18 sources) blood transfusion at 02-08-2022 Unclassified (11 sources) Onset: 05-17-2023 Resolved: 03-07-2024 05-17-2023 Results Test Name Value Interpretation Reference Range Facility Pulmonary Visit Reporton Pulmonary Visit Report [facility] [address] [place] [address] OFFICE VISIT Date of Service: 11/19/24 MR#: [id number] Acct: [id number] Name: THANH LOVING Rep #: [id number] : 1950 Provider: COLIN Ohara Age/Sex: 74/M Location: [facility] Status: Signed Assessment and Plan Assessment and Plan (1) CIERA (obstructive sleep apnea): Status: Chronic Comment: BiPAP 06/29 Plan: Recent compliance report noted an AHI that is improved, he is using and benefiting from Pap therapy. No indication for titration study at this time. Contact the office for any new or worsening symptoms in the meantime. Follow-up in 6 months. (2) Asthma: Status: Chronic Qualifiers: Asthma severity: moderate Asthma persistence: unspecified Asthma complication type: uncomplicated Qualified Code(s): J45.909 - Unspecified asthma, uncomplicated Comment: On Fasenra Plan: Stable, no signs of exacerbation of asthma today. No change in maintenance medications, continue Dulera and Fasenra. No additional testing at this time. Contact the office with any signs of new or worsening symptoms. Follow-up in 6 months. (3) Obesity: Status: Chronic Qualifiers: Obesity type: due to excess calories Obesity classification: adult class 1 (BMI 30 - 34.9) Serious obesity comorbidity presence: with serious comorbidity Body mass index: BMI 32.0-32.9 Qualified Code(s): E66.811 - Obesity, class 1; E66.09 - Other obesity due to excess calories; Z68.32 - Body mass index [BMI] 32.0-32.9, adult Plan: Complicates exam, plan, care and prognosis. Continue to encourage weight loss. Medications: Refilled albuterol sulfate 90 mcg/actuation (Ventolin HFA) 2 puffs inhalation Q4H PRN 18 grams 6RF shortness of breath or wheezing mometasone-formoterol 200-5 mcg/actuation (Dulera) 2 puffs inhalation BID 13 grams 11RF Plan Details Additional Comments: This note was generated with [employer] dictation software. It may contain incorrect words, spelling, and punctuation that were not noted in checking the note before signing. Follow Up: 6 Months HPI HPI Comments Details: This patient presents the office today for follow-up of his severe persistent asthma and obstructive sleep apnea. He is ambulatory and currently on room air. He has not recently been seen in the ED or urgent care for any respiratory illness. He has not required any antibiotics or prednisone for any breathing problems. He is compliant with use of Dulera 2 puffs twice daily. He reports rinsing his mouth out after each use. He denies any medication side effect such as sore throat or thrush. He is also compliant with allergy injections. He has not recently used his albuterol rescue inhaler. He continues with Fasenra bimonthly injections. He is having shortness of breath on exertion. He denies any cough, sputum production or hemoptysis. He has not had any wheezing, chest tightness, chest pain or palpitations. He also denies any fever, chills or body aches. Patient reports excellent compliance with his PAP device. He wakes up feeling rested and refreshed. He is not requiring naps. He is not having difficulty with morning headaches or dry mouth. He also denies excessive nocturia. Compliance report for the past 30 days shows 100% compliance with average use of 7 hours and 32 minutes per night. Current setting is BiPAP 12/8 cmH2O with residual AHI of 5.4 events per hour. Leaks do not appear to be problematic. Intake Vital Signs 05/22/24 08:13 11/19/24 07:59 Height 6 ft 6 ft 1 in Weight: 243 lb BMI 32.0 BP 136/85 H Blood Pressure Location Lt brachial Position Sitting Respiration 18 Pulse 66 Pulse Source Monitor Temp 97.3 F L Temperature Source Temporal Artery Pulse Oximetry (%) 97 Oxygen Delivery Method room air Intake Visit Reasons: 6 M FU Chief Complaint: stephanien Kst Operator Required: No DME Vendor: Matilda Accompanied by: Self Allergies metoprolol tartrate (From Lopressor) Allergy (Verified 11/19/24 12:47) Nausea propranolol HCl (From Inderal LA) Allergy (Verified 11/19/24 12:47) Nausea venlafaxine HCl (From Effexor) Allergy (Verified 11/19/24 12:47) Unknown fluticasone furoate (From Breo Ellipta) Adverse Reaction (Verified 11/19/24 12:47) Other paroxetine HCl (From Paxil) Adverse Reaction (Verified 11/19/24 12:47) Unknown vilanterol (From Breo Ellipta) Adverse Reaction (Verified 11/19/24 12:47) Other Medications ???Medication ???Instructions ???Recorded ???Confirmed ???Type atorvastatin 10 mg tablet 10 mg PO QHS 04/24/13 11/19/24 His tory benralizumab 30 mg/mL subcutaneous 30 mg subcut Q8W 08/26/20 History syringe (Blu) linaclotide 290 mcg capsule 290 mcg PO DAILY PRN as needed 11/19/24 History ( (more content not included)... Normal [facility] Anion gap in Serum or Plasma Ordered By: Duarte Martin on 11-07-2024 Anion gap [Moles/Vol] 12 mmol/L - [facility] BUN/creatinine ratioOrdered By: Duarte Martin on 11-07-2024 Urea nitrogen/Creatinine [Mass ratio] 19.2 mg/mg - [facility] Bilirubin, totalOrdered By: Duarte Martin on 11-07-2024 Bilirubin [Mass/Vol] 0.55 mg/dL 0.00-1.30 [facility] Calculated very low density lipoprotein (VLDL) cholesterol measurementOrdered By: Duarte Martin on 11-07-2024 Calculated very low density lipoprotein (VLDL) cholesterol measurement 23 mg/dL 5-40 [facility] VLDL Cholesterol 23 mg/dL -40 [facility] Carbon dioxide, total [Moles /volume] in Central venous bloodOrdered By: Duarte Martin on 11-07-2024 CO2 [Moles/Vol] 21.6 mmol/L 21.0-32.0 [facility] Chloride assayOrdered By: Dimitri Martin on 11-07-2024 Chloride [Moles/Vol] 106 mmol/L 98-108 [facility] Comprehensive Metabolic Prof ilon 11-07-2024 Albumin [Mass/Vol] 4.3 g/dL Normal 3.4-4.8 [facility] Comment on above: Performed By: #### L 501.9940, L500.4050, L500.4100 #### [facility] [address] [place], [address] Albumin/Globulin [Mass ratio] 1.7 {ratio} Normal 0.9-2.4 [facility] Comment on above: Performed By: #### L 501.9940, L500.4050, L500.4100 #### [facility] [address] [place], [address] ALK PHOS 93 U/L Normal 40-129 [facility] Comment on above: Performed By: #### L [id number], [id number], L500.4100 #### [facility] [address] [place], [address] ALT [Catalytic activity/Vol] 16 U/L Normal <=46 [facility] Comment on above: Performed By: #### L [id number], L500.4050, L500.4100 #### [facility] [address] [place], [address] AST [Catalytic activity/Vol] 19 U/L Normal <=37 [facility] Comment on above: Performed By: #### L [id number], [id number], L500.4100 #### [facility] [address] [place], [address] Bilirubin [Mass/Vol] 0.55 mg/dL Normal 0.00-1.30 [facility] Comment on above: Performed By: #### L [id number], [id number], L500.4100 #### [facility] [address] [place], [address] BUN/CRE 19.2 RATIO Normal 10-20 [facility] Comment on above: Performed By: #### L [id number], [id number], L500.4100 #### [facility] [address] [place], [address] Calcium [Mass/Vol] 9.2 mg/dL Normal 7.6-11.0 [facility] Comment on above: Performed By: #### L [id number], [id number], L500.4100 #### [facility] [address] [place], [address] Chloride [Moles/Vol] 106 mmol/L Normal 98-108 [facility] Comment on above: Performed By: #### L [id number], [id number], L500.4100 #### [facility] [address] [place], [address] CO2 [Moles/Vol] 21.6 mmol/L Normal 21.0-32.0 [facility] Comment on above: Performed By: #### L [id number], [id number], L500.4100 #### [facility] [address] [place], [address] Creatinine [Mass/Vol] 0.99 mg/dL Normal 0.70-1.20 [facility] Comment on above: Performed By: #### L 501.9940, L500.4050, L500.4100 #### [facility] [address] [place], [address] GAP 12 Normal 5-15 [facility] Comment on above: Performed By: #### L 501.9940, L500.4050, L500.4100 #### [facility] [address] [place], [address] GFR/1.73 sq M.predicted among non-blacks MDRD (S/P/Bld) [Vol rate/Area] 81 mL/min/{1.73_m2} Normal >60 [facility] Comment on above: Result Comment: mL/m in/1.73m2 CKD-EPI Creatinine Equation (2020) Performed By: #### L 501.9940, L500.4050, L500.4100 #### [facility] [address] [place], [address] Globulin (S) [Mass/Vol] 2.6 g/dL Normal 2.2-4.2 [facility] Comment on above: Performed By: #### L 501.9940, L500.4050, L500.4100 #### [facility] [address] [place], [address] Glucose [Mass/Vol] 92 mg/dL Normal 70-99 [facility] Comment on above: Performed By: #### L 501.9940, L500.4050, L500.4100 #### [facility] [address] [place], [address] Potassium [Moles/Vol] 3.7 mmol/L Normal 3.3-5.1 [facility] Comment on above: Performed By: #### L 501.9940, L500.4050, L500.4100 #### [facility] [address] [place], [address] Sodium [Moles/Vol] 139 mmol/L Normal 133-145 [facility] Comment on above: Performed By: #### L 501.9940, L500.4050, L500.4100 #### [facility] [address] [place], [address] T PROT 6.9 g/dL Normal 5.9-8.4 [facility] Comment on above: Performed By: #### L 501.9940, L500.4050, L500.4100 #### [facility] [address] [place], [address] Urea nitrogen [Mass/Vol] 19 mg/dL Normal 4-19 [facility] Comment on above: Performed By: #### L 501.9940, L500.4050, L500.4100 #### [facility] [address] [place], [address] Diagnostic total prostate sp ecific antigen (PSA) measurementOrdered By: Duarte Martin on 11-07-2024 Prostate Specific Antigen Total 4.87 ng/mL High 0.00-4.00 [facility] Comment on above: This test was perfor med using the [employer] tPSA method. Measured values of a patient sample can vary depending on the testing procedure used. PSA values determined on patient samples by different testing procedures cannot be used interchangeably. If there is a change in PSA assays while monitoring therapy, sequential testing should be performed to confirm baseline values. GFR/1.73 sq M.predicted duyen g non-blacks MDRD (S/P/Bld) [Vol rate/Area]Ordered By: Duarte Martni on 11-07-2024 Estimated GFR (MDRD) Non-Af Amer 81 >60 [facility] Comment on above: mL/min/1.73m2 CKD-EP I Creatinine Equation (2020) Glomerular filtration rate ( GFR) estimation/1.73 sq m using serum, plasma, or whole bOrdered By: Duarte Martin on 11-07-2024 GFR/1.73 sq M.predicted among non-blacks MDRD (S/P/Bld) [Vol rate/Area] 81 mL/min/{1.73_m2} >60 [facility] Comment on above: mL/min/1.73m2 CKD-EP I Creatinine Equation (2020) LDL calc ser/plasOrdered By: Duarte Martin on 11-07-2024 Cholesterol in LDL [Mass/Vol] 81 mg/dL [facility] Comment on above: Lsmetjlzvd=747-275 m g/dL & Higher Ytee=192 mg/dL or greater LDL Cholesterol, Calculated 81 mg/dL [facility] Comment on above: Igkquwgeur=461-564 m g/dL & Higher Mtwr=713 mg/dL or greater Laboratory - Chemistry and C hemistry - challengeOrdered By: Duarte Martin on 11-07-2024 AST [Catalytic activity/Vol] 19 U/L <38 [facility] Lipid Profileon 11-07-2024 CHOL:HDL 3.97 Normal [facility] Comment on above: Performed By: #### L 501.9940, L500.4050, L500.4100 #### [facility] [address] [place], [place], [id number] Cholesterol [Mass/Vol] 138 mg/dL Normal <=200 [facility] Comment on above: Result Comment: Chol esterol level, Desirable <200 mg/dL Borderline high cholesterol 200-239 mg/dL High cholesterol >=240 mg/dL Recommendations of the NCEP Adult Treatment Panel for the following risk-cutoff thresholds for the [place] population. Performed By: #### L 501.9940, L500.4050, L500.4100 #### [facility] [address] [place], [place], [address] Cholesterol in HDL [Mass/Vol] 35 mg/dL Low [facility] Comment on above: Result Comment: Nikole onal Cholesterol Education Program (NCEP) guidelines: <40 mg/dL: Low HDL-cholesterol (major risk factor for CHD) >= 60 mg/dL: High HDL-cholesterol (negative risk factor for CHD) HDL-cholesterol is affected by a number of factors, e.g. smoking, exercise, hormones, sex and age. Performed By: #### L 501.9940, L500.4050, L500.4100 #### [facility] [address] [place], [address] Cholesterol in LDL [Mass/Vol] 81 mg/dL Normal [facility] Comment on above: Result Comment: Bord boeghz=007-952 mg/dL Higher Xdcr=381 mg/dL or greater Performed By: #### L 501.9940, L500.4050, L500.4100 #### [facility] [address] [place], [address] Cholesterol in VLDL [Mass/Vol] 23 mg/dL Normal 5-40 [facility] Comment on above: Performed By: #### L 501.9940, L500.4050, L500.4100 #### [facility] [address] [place], [address] Triglyceride [Mass/Vol] 113 mg/dL Normal [facility] Comment on above: Result Comment: The drugs N-Acetylcysteine and Metamizole may falsely depress this assay. Normal range: <150 mg/dL Borderline High: 150-199 mg/dL High: 200-499 mg/dL Very High: >500 mg/dL Performed By: #### L 501.9940, L500.4050, L500.4100 #### [facility] [address] [place], [address] PSA,Total- Diagnosticon 10-21 PSA, DIAGNOSTIC 4.87 ng/mL High 0.00-4.00 [facility] Comment on above: Result Comment: This test was performed using the [employer] tPSA method. Measured values of a patient??sample can vary depending on the testing procedure used. PSA values determined on patient samples by different testing procedures cannot be used interchangeably. If there is a change in PSA assays while monitoring therapy, sequential testing should be performed to confirm baseline values. Performed By: #### L 501.9940, L500.4050, L500.4100 #### [facility] [address] [place], [address] Potassium (Unsp spec) [Mass/ Vol]Ordered By: Duarte Martin on 11-07-2024 Potassium [Moles/Vol] 3.7 mmol/L 3.3-5.1 [facility] Potassium measurement (mass/ volume)Ordered By: Duarte Martin on 11-07-2024 Potassium (Unsp spec) [Mass/Vol] 3.7 mmol/L 3.3-5.1 [facility] Screening total cholesterol/ high density lipoprotein (HDL) cholesterol ratioOrdered By: Duarte Martin on 11-07-2024 Cholesterol.total/Chol esterol in HDL [Mass ratio] 3.97 {ratio} [facility] Serum creatinine measurement (mass/volume)Ordered By: Duarte Martin on 11-07-2024 Creatinine [Mass/Vol] 0.99 mg/dL 0.70-1.20 [facility] Serum globulin measurementOr dered By: Duarte Martin on 11-07-2024 Globulin (S) [Mass/Vol] 2.6 g/dL 2.2-4.2 [facility] Serum glucose measurement (m ass/volume)Ordered By: Duarte Martin on 11-07-2024 Glucose [Mass/Vol] 92 mg/dL 70-99 [facility] Serum or plasma alanine fowler otransferase (ALT) measurementOrdered By: Duarte Martin on 11-07-2024 ALT [Catalytic activity/Vol] 16 U/L <47 [facility] Serum or plasma albumin juan urement (mass/volume)Ordered By: Duarte Martin on 11-07-2024 Albumin [Mass/Vol] 4.3 g/dL 3.4-4.8 [facility] Serum or plasma albumin/glob ulin mass ratioOrdered By: Duarte Martin on 11-07-2024 Albumin/Globulin [Mass ratio] 1.7 {ratio} 0.9-2.4 [facility] Serum or plasma alkaline suhas sphatase measurementOrdered By: Duarte Martin on 11-07-2024 ALP [Catalytic activity/Vol] 93 U/L 40-129 [facility] Serum or plasma calcium juan urement (mass/volume)Ordered By: Duarte Martin on 11-07-2024 Calcium [Mass/Vol] 9.2 mg/dL 7.6-11.0 [facility] Serum or plasma cholesterol in HDL measurement (mass/volume)Ordered By: Duarte Martin on 11-07-2024 Cholesterol in HDL [Mass/Vol] 35 mg/dL Low >40 [facility] Comment on above: National Cholesterol Education Program (NCEP) guidelines:<40 mg/dL: Low HDL-cholesterol (major risk factor for CHD)>= 60 mg/dL: High HDL-cholesterol (negative risk factor for CHD)HDL-cholesterol is affected by a number of factors, e.g. smoking, exercise, hormones, sex and age. Serum or plasma cholesterol measurement (mass/volume)Ordered By: Duarte Martin on 11-07-2024 Cholesterol [Mass/Vol] 138 mg/dL <201 [facility] Comment on above: Cholesterol level, D esirable <200 mg/dLBorderline high cholesterol 200-239 mg/dLHigh cholesterol >=240 mg/dLRecommendations of the NCEP Adult Treatment Panel for the following risk-cutoff thresholds for the [place] population. Serum or plasma urea nitroge n measurement (mass/volume)Ordered By: Duarte Martin on 11-07-2024 Urea nitrogen [Mass/Vol] 19 mg/dL 4-19 [facility] Sodium levelOrdered By: Duarte Martin on 11-07-2024 Sodium [Moles/Vol] 139 mmol/L 133-145 [facility] Total proteinOrdered By: Roxy Martin on 11-07-2024 Protein [Mass/Vol] 6.9 g/dL 5.9-8.4 [facility] Triglycerides measurementOrd ered By: Duarte Martin on 11-07-2024 Triglyceride [Mass/Vol] 113 mg/dL <199 [facility] Comment on above: The drugs N-Acetylcy steine and Metamizole may falsely depress this assay. Normal range: <150 mg/dLBorderline High: 150-199 mg/dLHigh: 200-499 mg/dLVery High: >500 mg/dL MR PROSTATE WITH JEFE BOUNDAR IES IF PIRADS 3 OR ABOVEon 05-28-2024 MR PROSTATE WITH JEFE BOUNDARIES IF PIRADS 3 OR ABOVE Interpreted By: Darryl Leslie and Ravi Shweta STUDY: MR PROSTATE WITH JEFE BOUNDARIES IF PIRADS 3 OR ABOVE; 05/28/2024 9:32 am INDICATION: Signs/Symptoms:ELEVAT ED PSA. PSA: 5.13 (04/28/2024) ,R97.20 Elevated prostate specific antigen (PSA) COMPARISON: None. ACCESSION NUMBER(S): [id number] ORDERING CLINICIAN: DARRIN DUBOIS TECHNIQUE: Multiplanar MRI of the pelvis was obtained including axial, sagittal and coronal T2 weighted SSFSE, axial and sagittal T2 FSE, axial DWI, pre and post gadolinium dynamic T1 GRE sequences. Multiparametric analysis was performed. 20 ML of Dotarem was administered intravenously without immediate complications. FINDINGS: PROSTATE VOLUME: The prostate measures 5.8 x 4.2 x 5.6 cm in onusy-yl-ipel, anterior-posterior and craniocaudal dimension. Prostate weight is estimated at 71g. PSA density is 0.07 ng/mL/g. PROSTATE PARENCHYMA: There is heterogeneous enlargement of the transition zone, consistent with benign prostatic hyperplasia. The peripheral zone is diffusely heterogenous on T2WI, with bilateral polygonal and wedge-shaped T2-hypointense areas, that show no signs of abnormally restricted diffusion (PI-RADS 2). EXTRACAPSULAR EXTENSION: None. SEMINAL VESICLES: Within normal limits. PELVIC LYMPH NODES: No abnormally enlarged pelvic lymph nodes are identified. PERITONEUM: No free or loculated fluid collections are evident in the pelvis. OTHER ORGANS: Right inguinal hernia repair. The bladder is decompressed, limited for evaluation. BONES: No focal lesions are noted in the bone. Exam Quality: Is T2WI weighted imaging of diagnostic quality: Yes. T2WI assessment: Optimal. Is DWI of diagnostic quality: Yes. DWI assessment: Optimal. Is DCE of diagnostic quality: Yes. DCE assessment: Optimal. PI-QUAL score: All sequences are of optimal diagnostic quality Comments: IMPRESSION: 1. BPH changes of the transition zone. Diffuse non nodular hypointensities within the peripheral zone, without evidence of focally restricted diffusion ( PI-RADS 2). PI-RADS 2 - Low (clinically significant cancer is unlikely to be present). I personally reviewed the images/study and I agree with the findings as stated. This study was interpreted at [place], [place]. MACRO: None Signed by: Darryl Brock 06/04/2024 8:40 PM Dictation workstation: [id number] [facility] Pulmonary Visit Reporton Pulmonary Visit Report [facility] [address] [place] [address] OFFICE VISIT Date of Service: 05/22/24 MR#: [id number] Acct: [id number] Name: THANH LOVING Rep #: [id number] : 1950 Provider: COLIN Ohara Age/Sex: 74/M Location: [facility] Status: Signed Assessment and Plan Assessment and Plan (1) CIERA (obstructive sleep apnea): Status: Chronic Comment: BiPAP 06/29 Plan: Improved, he is using and benefiting from Pap therapy. No indication for titration study at this time. Contact the office for any new or worsening symptoms in the meantime. Follow-up in 6 months. (2) Asthma: Status: Chronic Qualifiers: Asthma severity: moderate Asthma persistence: unspecified Asthma complication type: uncomplicated Qualified Code(s): J45.909 - Unspecified asthma, uncomplicated Comment: On Fasenra Plan: Stable, no signs of exacerbation of asthma today. No change in maintenance medications, continue Dulera and Fasenra. No additional testing at this time. Contact the office with any signs of new or worsening symptoms. Follow-up in 6 months. (3) Obesity: Status: Chronic Qualifiers: Obesity type: due to excess calories Obesity classification: adult class 1 (BMI 30 - 34.9) Serious obesity comorbidity presence: with serious comorbidity Body mass index: BMI 32.0-32.9 Qualified Code(s): E66.811 - Obesity, class 1; E66.09 - Other obesity due to excess calories; Z68.32 - Body mass index [BMI] 32.0-32.9, adult Plan: Continue to encourage weight loss. HPI HPI Comments Details: This patient presents the office today for follow-up of his severe persistent asthma and obstructive sleep apnea. He is ambulatory and currently on room air. He has not recently been seen in the ED or urgent care for any respiratory illness. He has not required any antibiotics or prednisone for any breathing problems. He is compliant with use of Dulera 2 puffs twice daily. He reports rinsing his mouth out after each use. He denies any medication side effect such as sore throat or thrush. He is also compliant with allergy injections. He has not recently used his albuterol rescue inhaler. He continues with Fasenra bimonthly injections. He is having shortness of breath on exertion. He denies any cough, sputum production or hemoptysis. He has not had any wheezing, chest tightness, chest pain or palpitations. He also denies any fever, chills or body aches. Patient reports excellent compliance with his PAP device. He wakes up feeling rested and refreshed. He is not requiring naps. He is not having difficulty with morning headaches or dry mouth. He also denies excessive nocturia. Compliance report for the past 30 days shows 100% compliance with average use of 8 hours and 40 minutes per night. Current setting is BiPAP 12/8 cmH2O with residual AHI of 6.0 events per hour. It is noted that the majority of the AHI is of central nature. Leaks do not appear to be problematic. Intake Vital Signs 01/22/24 11:12 02/22/24 09:03 05/02/24 08:55 05/22/24 08:13 Height 6 ft 1 in 6 ft 1 in 6 ft 6 ft Weight: 240 lb BMI 32.5 BP 133/79 H Blood Pressure Location Lt brachial Position Sitting Respiration 18 Pulse 64 Pulse Source Monitor Temp 97.4 F L Temperature Source Temporal Artery Pulse Oximetry (%) 93 Oxygen Delivery Method room air Intake Visit Reasons: 3 M FU Chief Complaint: CIERA, asthma Kst Operator Required: No DME Vendor: [email or web address] Accompanied by: Self Is patient in pain?: No Allergies metoprolol tartrate (From Lopressor) Allergy (Verified 05/22/24 14:31) Nausea propranolol HCl (From Inderal LA) Allergy (Verified 05/22/24 14:31) Nausea venlafaxine HCl (From Effexor) Allergy (Verified 05/22/24 14:31) Unknown fluticasone furoate (From Breo Ellipta) Adverse Reaction (Verified 05/22/24 14:31) Other paroxetine HCl (From Paxil) Adverse Reaction (Verified 05/22/24 14:31) Unknown vilanterol (From Breo Ellipta) Adverse Reaction (Verified 05/22/24 14:31) Other Medications ???Medication ???Instructions ???Recorded ???Confirmed ???Type atorvastatin 10 mg tablet 10 mg PO QHS 04/24/13 05/22/24 History benralizumab 30 mg/mL subcutaneous 30 mg subcut Q8W 08/26/20 05/22/24 History syringe (Fasenra) albuterol sulfate 90 mcg/actuation 2 puff inhalation Q4H PRN 08/31/21 05/22/24 Rx aerosol inhaler (Ventolin HFA) shortness of breath or wheezing #18 grams linaclotide 290 mcg capsule 290 mcg PO DAILY 01/04/22 05/22/24 History (Linzess) spacer #1 ea 10/02/22 05/22/24 Rx mometasone-formoterol HFA 200 2 puff inhalation BID #13 grams 01/22/24 05/22/24 Rx mcg-5 mcg/actuation aerosol inhaler (Dulera) amlodipine 10 mg tablet 10 mg PO QDAY 05/22/24 05/22/24 History lisinopril 40 mg tablet 4 (more content not included)... Normal [facility] Comprehensive Metabolic Prof ilon 04-28-2024 Albumin [Mass/Vol] 4.3 g/dL Normal 3.2-5.0 [facility] Comment on above: Performed By: #### L 500.4050, L501.9910, L500.4100 #### [facility] [address] [place], [address] Albumin/Globulin [Mass ratio] 1.5 {ratio} Normal 0.9-2.4 [facility] Comment on above: Performed By: #### L 500.4050, L501.9910, L500.4100 #### [facility] [address] [place], [address] ALK P 102 U/L Normal 45-117 [facility] Comment on above: Performed By: #### L 500.4050, L501.9910, L500.4100 #### [facility] [address] [place], [address] ALT [Catalytic activity/Vol] 28 U/L Normal 16-61 [facility] Comment on above: Performed By: #### L 500.4050, L501.9910, L500.4100 #### [facility] [address] [place], [address] AST [Catalytic activity/Vol] 20 U/L Normal 15-37 [facility] Comment on above: Performed By: #### L 500.4050, L501.9910, L500.4100 #### [facility] [address] [place], [address] Bilirubin [Mass/Vol] 1.20 mg/dL High 0.20-1.00 [facility] Comment on above: Result Comment: For patients on eltrombopag therapy, use of Dimension [place] TBIL is not recommended. Performed By: #### L 500.4050, L501.9910, L500.4100 #### [facility] [address] [place], [address] BUN/CRE 18.6 RATIO Normal 10-20 [facility] Comment on above: Performed By: #### L 500.4050, L501.9910, L500.4100 #### [facility] [address] [place], [address] CA,Total 9.9 mg/dL Normal 8.5-10.1 [facility] Comment on above: Performed By: #### L 500.4050, L501.9910, L500.4100 #### [facility] [address] [place], [address] Chloride [Moles/Vol] 105 mmol/L Normal 98-107 [facility] Comment on above: Performed By: #### L 500.4050, L501.9910, L500.4100 #### [facility] [address] [place], [address] CO2 [Moles/Vol] 26.0 mmol/L Normal 21.0-32.0 [facility] Comment on above: Performed By: #### L 500.4050, L501.9910, L500.4100 #### [facility] [address] [place], [address] Creatinine [Mass/Vol] 1.02 mg/dL Normal 0.70-1.30 [facility] Comment on above: Result Comment: The validity of the calculated GFR GFRAA in patients over 70 years has not been determined. Clinical correlation is essential. Performed By: #### L 500.4050, L501.9910, L500.4100 #### [facility] [address] [place], [address] EST GFR - AA 92 mL/min Normal >60 [facility] Comment on above: Result Comment: Afri can English GFR Calc Performed By: #### L 500.4050, L501.9910, L500.4100 #### [facility] [address] [place], [address] GAP 8 Normal 5-15 [facility] Comment on above: Performed By: #### L 500.4050, L501.9910, L500.4100 #### [facility] [address] [place], [address] GFR/1.73 sq M.predicted among non-blacks MDRD (S/P/Bld) [Vol rate/Area] 76 mL/min/{1.73_m2} Normal >60 [facility] Comment on above: Result Comment: Non- GFR Calc Performed By: #### L 500.4050, L501.9910, L500.4100 #### [facility] [address] [place], [address] Globulin (S) [Mass/Vol] 2.8 g/dL Normal 2.2-4.2 [facility] Comment on above: Performed By: #### L 500.4050, L501.9910, L500.4100 #### [facility] [address] [place], [address] Glucose [Mass/Vol] 83 mg/dL Normal 74-106 [facility] Comment on above: Performed By: #### L 500.4050, L501.9910, L500.4100 #### [facility] [address] [place], [address] Potassium [Moles/Vol] 3.8 mmol/L Normal 3.5-5.1 [facility] Comment on above: Performed By: #### L 500.4050, L501.9910, L500.4100 #### [facility] [address] [place], [address] Sodium [Moles/Vol] 139 mmol/L Normal 136-145 [facility] Comment on above: Performed By: #### L 500.4050, L501.9910, L500.4100 #### [facility] [address] [place], [address] T PROT 7.1 g/dL Normal 6.4-8.2 [facility] Comment on above: Performed By: #### L 500.4050, L501.9910, L500.4100 #### [facility] [address] [place], [address] Urea nitrogen [Mass/Vol] 19 mg/dL High 7-18 [facility] Comment on above: Performed By: #### L 500.4050, L501.9910, L500.4100 #### [facility] [address] [place], [address] Lipid Profileon 04-28-2024 Cholesterol [Mass/Vol] 176 mg/dL Normal 200 [facility] Comment on above: Result Comment: <200 mg/dL Desirable 200-240 mg/dL Borderline >240 mg/dL High Risk Performed By: #### L 500.4050, L501.9910, L500.4100 #### [facility] [address] [place], [address] Cholesterol in HDL [Mass/Vol] 41 mg/dL Normal [facility] Comment on above: Result Comment: The drugs N-Acetylcysteine and Metamizole may falsely depress this assay. Reference Range HDL <40 mg/dL Low HDL Cholesterol HDL >or= 60 mg/dL High HDL Cholesterol Performed By: #### L 500.4050, L501.9910, L500.4100 #### [facility] [address] [place], [address] Cholesterol in LDL [Mass/Vol] 106 mg/dL Normal 0-130 [facility] Comment on above: Performed By: #### L 500.4050, L501.9910, L500.4100 #### [facility] [address] [place], [address] Cholesterol in VLDL [Mass/Vol] 29 mg/dL Normal 5-40 [facility] Comment on above: Performed By: #### L 500.4050, L501.9910, L500.4100 #### [facility] [address] [place], [address] Triglyceride [Mass/Vol] 144 mg/dL Normal [facility] Comment on above: Result Comment: The drugs N-Acetylcysteine and Metamizole may falsely depress this assay. Serum Triglycerides Reference Interval Normal <150 mg/dL Borderline high 150 - 199 mg/dL High 200 - 499 mg/dL Very High > or = 500 mg/dL Performed By: #### L 500.4050, L501.9910, L500.4100 #### [facility] [address] [place], [address] PSA,Total - Annual Screenon 04-28-2024 PSA,TOT SCREEN 5.13 ng/mL High 0.00-4.00 [facility] Comment on above: Result Comment: This test was performed using the TPSA assay method for the Net[employer] chemistry system. Values obtained with different assay methods cannot be used interchangably. When changing PSA assays in the course of monitoring a patient, additional sequential testing should be carried out to confirm baseline values. Performed By: #### L 500.4050, L501.9910, L500.4100 #### [facility] [address] [place], [address] CBC panel Auto (Bld)on 09-13 Erythrocyte distribution width (RBC) [Ratio] 12.4 % Normal 11.5-14.5 [facility] Comment on above: Performed By: #### 5 8410-2 #### THANH Benitez ([id number]) [facility] ([facility]) [address] [place] [address] Hematocrit (Bld) [Volume fraction] 46.0 % Normal 41.0-52.0 [facility] Comment on above: Performed By: #### 5 8410-2 #### THANH Benitez ([id number]) [facility] ([facility]) [address] [place] [address] Hemoglobin (Bld) [Mass/Vol] 15.2 g/dL Normal 13.5-17.5 [facility] Comment on above: Performed By: #### 5 8410-2 #### THANH Benitez ([id number]) [facility] ([facility]) [address] [place] [address] 045[address] MCH (RBC) [Entitic mass] 29.3 pg Normal 26.0-34.0 [facility] Comment on above: Performed By: #### 5 8410-2 #### THANH Benitez ([id number]) [facility] ([facility]) [address] [place] [address]46[address] MCHC (RBC) [Mass/Vol] 33.0 g/dL Normal 32.0-36.0 [facility] Comment on above: Performed By: #### 5 8410-2 #### THANH Benitez ([id number]) [facility] ([facility]) [address] [place] [address] MCV (RBC) [Entitic vol] 89 fL Normal 80-100 [facility] Comment on above: Performed By: #### 5 8410-2 #### THANH Benitez ([id number]) [facility] ([facility]) [address] [place] [address] 71416 Nucleated RBC/100 WBC (Bld) [Ratio] 0.0 /100 WBCs Normal 0.0-0.0 [facility] Comment on above: Performed By: #### 5 8410-2 #### THANH Benitez ([id number]) [facility] ([facility]) [address] [place] [address]73 Platelets (Bld) [#/Vol] 192 x10*3/uL Normal 150-450 [facility] Comment on above: Performed By: #### 5 8410-2 #### THANH Benitez ([id number]) [facility] ([facility]) [address] [place] [address] RBC (Bld) [#/Vol] 5.18 x10*6/uL Normal 4.50-5.90 [facility] Comment on above: Performed By: #### 5 8410-2 #### THANH Benitez ([id number]) [facility] ([facility]) [address] [place] [address] 93003 WBC (Bld) [#/Vol] 5.3 x10*3/uL Normal 4.4-11.3 [facility] Comment on above: Performed By: #### 5 8410-2 #### THANH Benitez ([id number]) [facility] ([facility]) [address] [place] [address]287 Comprehensive metabolic 2000 panelon 09-13-2023 Albumin BCP dye [Mass/Vol] 4.2 g/dL Normal 3.4-5.0 [facility] Comment on above: Performed By: #### 2 4323-8 #### THANH Benitez ([id number]) [facility] ([facility]) [address] [place] [address] ALP [Catalytic activity/Vol] 72 U/L Normal 33-136 [facility] Comment on above: Performed By: #### 2 4323-8 #### THANH Benitez ([id number]) [facility] ([facility]) [address] [place] [address] ALT With P-5'-P [Catalytic activity/Vol] 16 U/L Normal 10-52 [facility] Comment on above: Result Comment: Gita ents treated with Sulfasalazine may generate falsely decreased results for ALT. Performed By: #### 2 4323-8 #### THANH Benitez ([id number]) [facility] ([facility]) [address] [place] [address] Anion gap [Moles/Vol] 13 mmol/L Normal 10-20 [facility] Comment on above: Performed By: #### 2 4323-8 #### THANH Bentiez ([id number]) [facility] ([facility]) [address] [place] [address] AST With P-5'-P [Catalytic activity/Vol] 15 U/L Normal 9-39 [facility] Comment on above: Performed By: #### 2 4323-8 #### THANH Benitez ([id number]) [facility] ([facility]) [address] [place] [address] Bilirubin [Mass/Vol] 0.7 mg/dL Normal 0.0-1.2 [facility] Comment on above: Performed By: #### 2 4323-8 #### THANH Benitez ([id number]) [facility] ([facility]) [address] [place] [address] Calcium [Mass/Vol] 9.4 mg/dL Normal 8.6-10.6 [facility] Comment on above: Performed By: #### 2 4323-8 #### THANH Benitez ([id number]) [facility] ([facility]) [address] [place] [address] Chloride [Moles/Vol] 105 mmol/L Normal 98-107 [facility] Comment on above: Performed By: #### 2 4323-8 #### THANH Benitez ([id number]) [facility] ([facility]) [address] [place] [address] CO2 [Moles/Vol] 27 mmol/L Normal 21-32 [facility] Comment on above: Performed By: #### 2 4323-8 #### THANH Benitez ([id number]) [facility] ([facility]) [address] [place] [address] Creatinine [Mass/Vol] 0.95 mg/dL Normal 0.50-1.30 [facility] Comment on above: Performed By: #### 2 4323-8 #### THANH Benitez ([id number]) [facility] ([facility]) [address] [place] [address] Glomerular filtration rate/1.73 sq M.predicted 86 mL/min/1.73m*2 Normal >60 [facility] Comment on above: Result Comment: Calc ulations of estimated GFR are performed using the 2020 CKD-EPI Study Refit equation without the race variable for the IDMS-Traceable creatinine methods. https://jasn.asnjournals.org/content//ASN.77585 54494 Performed By: #### 2 4323-8 #### THANH Benitez ([id number]) [facility] ([facility]) [address] [place] [address]305 Glucose [Mass/Vol] 72 mg/dL Low 74-99 [facility] Comment on above: Performed By: #### 2 4323-8 #### THANH Benitez ([id number]) [facility] ([facility]) [address] [place] [address] Potassium [Moles/Vol] 4.2 mmol/L Normal 3.5-5.3 [facility] Comment on above: Performed By: #### 2 4323-8 #### THANH Benitez ([id number]) [facility] ([facility]) [address] [place] [address] Protein [Mass/Vol] 6.4 g/dL Normal 6.4-8.2 [facility] Comment on above: Performed By: #### 2 4323-8 #### THANH Benitez ([id number]) [facility] ([facility]) [address] [place], [place] [address] Sodium [Moles/Vol] 141 mmol/L Normal 136-145 [facility] Comment on above: Performed By: #### 2 4323-8 #### THANH Benitez ([id number]) [facility] ([facility]) [address] [place], [place] [address] Urea nitrogen [Mass/Vol] 28 mg/dL High 6-23 [facility] Comment on above: Performed By: #### 2 4323-8 #### THANH Benitez ([id number]) [facility] ([facility]) [address] [place], [place] [address] Bacteria identifiedon 2022 Bacteria identified Cx Nom (Unsp spec) Test: Tissue/Wound Culture/Smear Specimen Source: EAR RIGHT Specimen Type: Swab Specimen Date: 06/07/2023 1:08 PM Result Date: 06/10/2023 11:14 AM Result Status: Final result Resulting Lab: [facility] [address] [place] [address] CULTURE (1+) Rare Mixed Skin Microorganisms STAIN No polymorphonuclear leukocytes seen No organisms seen Normal [facility] Comment on above: Performed By: #### 6 463-4 #### THANH Benitez ([id number]) [facility] ([facility]) [address] [place] [address] 15094 ECG 12 LeadOrdered By: Joey Buck on 05-28-2023 Atrial Rate 64 BPM [facility] Work Phone: [phone] P [place] 45 degrees [facility] Work Phone: [phone] P Offset 193 ms [facility] Work Phone: [phone] P Onset 138 ms [facility] Work Phone: [phone] PA Interval 164 ms [facility] Work Phone: [phone] Q Onset 220 ms [facility] Work Phone: [phone] QRS Count 10 beats [facility] Work Phone: [phone] QRS Duration 86 ms [facility] Work Phone: [phone] QT Interval 408 ms [facility] Work Phone: [phone] QTC Calculation(Bazett) 420 ms [facility] Work Phone: [phone] QTC Fredericia 416 ms [facility] Work Phone: [phone] R [place] 53 degrees [facility] Work Phone: [phone] T [place] 25 degrees [facility] Work Phone: [phone] T Offset 424 ms [facility] Work Phone: [phone] Ventricular Rate 64 BPM [facility] Work Phone: [phone] [facility] Work Phone: [phone] ECG 12 Leadon 05-28-2023 Normal sinus rhythm Normal ECG When compared with ECG of 21-MAY-2023 08:53, (unconfirmed) No significant change was found Confirmed by Gilmer Buck ([id number]) on 05/28/2023 2:38:34 PM Gilmer Cunningham MD - 05/28/2023 Normal sinus rhythm Normal ECG When compared with ECG of 21-MAY-2023 08:53, (unconfirmed) No significant change was found Confirmed by Gilmer Buck ([id number]) on 05/28/2023 2:38:34 PM [facility] Work Phone: Basic metabolic 2000 panelon 05-21-2023 Anion gap [Moles/Vol] 11 mmol/L Normal 10-20 [facility] Comment on above: Performed By: #### 2 4321-2 #### JEFFREY PERRY ([id number]) [facility] ([facility]) [address] [place] [address] Calcium [Mass/Vol] 8.7 mg/dL Normal 8.6-10.3 [facility] Comment on above: Performed By: #### 2 4321-2 #### JEFFREY PERRY ([id number]) [facility] ([facility]) [address] [place] [address] 74766 Chloride [Moles/Vol] 107 mmol/L Normal 98-107 [facility] Comment on above: Performed By: #### 2 4321-2 #### JEFFREY PERRY ([id number]) [facility] ([facility]) [address] [place] [address] 42871 CO2 [Moles/Vol] 26 mmol/L Normal 21-32 [facility] Comment on above: Performed By: #### 2 4321-2 #### JEFFREY PERRY ([id number]) [facility] ([facility]) [address] [place] [address] 50081 Creatinine [Mass/Vol] 0.86 mg/dL Normal 0.50-1.30 [facility] Comment on above: Performed By: #### 2 4321-2 #### JEFFREY PERRY ([id number]) [facility] ([facility]) [address] [place] [address] 56110 GFR/1.73 sq M.predicted MDRD (S/P/Bld) [Vol rate/Area] mL/min/{1.73_m2} Normal >60 [facility] Comment on above: Result Comment: Calc ulations of estimated GFR are performed using the 2020 CKD-EPI Study Refit equation without the race variable for the IDMS-Traceable creatinine methods. https://jasn.asnjournals.org/content//ASN.12846 31426 Performed By: #### 2 4321-2 #### JEFFREY PERRY ([id number]) [facility] ([facility]) [address] [place] [address] 57840 Glucose [Mass/Vol] 96 mg/dL Normal 74-99 [facility] Comment on above: Performed By: #### 2 4321-2 #### JEFFREY PERRY ([id number]) [facility] ([facility]) [address] [place] [address] 65113 Potassium [Moles/Vol] 3.8 mmol/L Normal 3.5-5.3 [facility] Comment on above: Performed By: #### 2 4321-2 #### JEFFREY PERRY ([id number]) [facility] ([facility]) [address] [place] [address] 45538 Sodium [Moles/Vol] 140 mmol/L Normal 136-145 [facility] Comment on above: Performed By: #### 2 4321-2 #### JEFFREY PERRY ([id number]) [facility] ([facility]) [address] [place] [address] 93104 Urea nitrogen [Mass/Vol] 25 mg/dL High 6-23 [facility] Comment on above: Performed By: #### 2 4321-2 #### JEFFREY PERRY ([id number]) [facility] ([facility]) [address] [place] [address] 64342 CBC W Auto Differential pane l (Bld)on 05-21-2023 Basophils (Bld) [#/Vol] 0.00 x10*3/uL Normal 0.00-0.10 [facility] Comment on above: Performed By: #### 5 7021-8 #### JEFFREY PERRY ([id number]) [facility] ([facility]) [address] [place] [address] 99744 Basophils/100 WBC (Bld) 0.0 % Normal 0.0-2.0 [facility] Comment on above: Performed By: #### 5 7021-8 #### JEFFREY PERRY ([id number]) [facility] ([facility]) [address] [place] [address] 72116 Eosinophils (Bld) [#/Vol] 0.00 x10*3/uL Normal 0.00-0.40 [facility] Comment on above: Performed By: #### 5 7021-8 #### JEFFREY PERRY ([id number]) [facility] ([facility]) [address] [place] [address] 12448 Eosinophils/100 WBC (Bld) 0.0 % Normal 0.0-6.0 [facility] Comment on above: Performed By: #### 5 7021-8 #### JEFFREY PERRY ([id number]) [facility] ([facility]) [address] [place] [address] 47896 Erythrocyte distribution width (RBC) [Ratio] 12.3 % Normal 11.5-14.5 [facility] Comment on above: Performed By: #### 5 7021-8 #### JEFFREY PERRY ([id number]) [facility] ([facility]) [address] [place] [address] 08646 Hematocrit (Bld) [Volume fraction] 44.4 % Normal 41.0-52.0 [facility] Comment on above: Performed By: #### 5 7021-8 #### JEFFREY PERRY ([id number]) [facility] ([facility]) [address] [place] [address] 52573 Hemoglobin (Bld) [Mass/Vol] 14.8 g/dL Normal 13.5-17.5 [facility] Comment on above: Performed By: #### 5 7021-8 #### JEFFREY PERRY ([id number]) [facility] ([facility]) [address] [place] [address] 14521 Immature granulocytes (Bld) [#/Vol] 0.02 x10*3/uL Normal 0.00-0.50 [facility] Comment on above: Performed By: #### 5 7021-8 #### JEFFREY PERRY ([id number]) [facility] ([facility]) [address] [place] [address] 36410 Immature granulocytes/100 WBC (Bld) 0.3 % Normal 0.0-0.9 [facility] Comment on above: Result Comment: Carolin ture Granulocyte Count (IG) includes promyelocytes, myelocytes and metamyelocytes but does not include bands. Percent differential counts (%) should be interpreted in the context of the absolute cell counts (cells/UL). Performed By: #### 5 7021-8 #### JEFFREY PERRY ([id number]) [facility] ([facility]) [address] [place] [address] 79686 Lymphocytes (Bld) [#/Vol] 1.37 x10*3/uL Normal 0.80-3.00 [facility] Comment on above: Performed By: #### 5 7021-8 #### JEFFREY PERRY ([id number]) [facility] ([facility]) [address] [place], [place] [address] Lymphocytes/100 WBC (Bld) 18.8 % Normal 13.0-44.0 [facility] Comment on above: Performed By: #### 5 7021-8 #### JEFFREY PERRY ([id number]) [facility] ([facility]) [address] [place] [address] 51454 MCH (RBC) [Entitic mass] 29.5 pg Normal 26.0-34.0 [facility] Comment on above: Performed By: #### 5 7021-8 #### JEFFREY PERRY ([id number]) [facility] ([facility]) [address] [place] [address] 37958 MCHC (RBC) [Mass/Vol] 33.3 g/dL Normal 32.0-36.0 [facility] Comment on above: Performed By: #### 5 7021-8 #### JEFFREY PERRY ([id number]) [facility] ([facility]) [address] [place] [address] 67415 MCV (RBC) [Entitic vol] 89 fL Normal 80-100 [facility] Comment on above: Performed By: #### 5 7021-8 #### JEFFREY PERRY ([id number]) [facility] ([facility]) [address] [place] [address] 93512 Monocytes (Bld) [#/Vol] 0.53 x10*3/uL Normal 0.05-0.80 [facility] Comment on above: Performed By: #### 5 7021-8 #### JEFFREY PERRY ([id number]) [facility] ([facility]) [address] [place] [address] 92842 Monocytes/100 WBC (Bld) 7.3 % Normal 2.0-10.0 [facility] Comment on above: Performed By: #### 5 7021-8 #### JEFFREY PERRY ([id number]) [facility] ([facility]) [address] [place] [address] 42751 Neutrophils (Bld) [#/Vol] 5.38 x10*3/uL Normal 1.60-5.50 [facility] Comment on above: Result Comment: Perc ent differential counts (%) should be interpreted in the context of the absolute cell counts (cells/uL). Performed By: #### 5 7021-8 #### JEFFREY PERRY ([id number]) [facility] ([facility]) [address] [place] [address] 29700 Neutrophils/100 WBC (Bld) 73.6 % Normal 40.0-80.0 [facility] Comment on above: Performed By: #### 5 7021-8 #### JEFFREY PERRY ([id number]) [facility] ([facility]) [address] [place] [address] 36549 Nucleated RBC/100 WBC (Bld) [Ratio] 0.0 /100 WBCs Normal 0.0-0.0 [facility] Comment on above: Performed By: #### 5 7021-8 #### JEFFREY PERRY ([id number]) [facility] ([facility]) [address] [place] [address] 71916 Platelet mean volume (Bld) [Entitic vol] 10.0 fL Normal 7.5-11.5 [facility] Comment on above: Performed By: #### 5 7021-8 #### JEFFREY PERRY ([id number]) [facility] ([facility]) [address] [place] [address] 70299 Platelets (Bld) [#/Vol] 191 x10*3/uL Normal 150-450 [facility] Comment on above: Performed By: #### 5 7021-8 #### JEFFREY PERRY ([id number]) [facility] ([facility]) [facility] [place] [address] RBC (Bld) [#/Vol] 5.01 x10*6/uL Normal 4.50-5.90 [facility] Comment on above: Performed By: #### 5 7021-8 #### JEFFREY PERRY ([id number]) [facility] ([facility]) [facility] [place] [address] WBC (Bld) [#/Vol] 7.3 x10*3/uL Normal 4.4-11.3 [facility] Comment on above: Performed By: #### 5 7021-8 #### JEFFREY PERRY ([id number]) [facility] ([facility]) [address] [place] [address] 37582 ID - Follow Upon 04-10-2023 ID - Follow Up Chief Complaint Visit For: Other An interactive audio and video telecommunication system which permits real time communications between the patient (at the originating site) and provider (at the distant site) was utilized to provide this telehealth service. Verbal consent was requested and obtained from THANH LOVING on this date, 04/10/2023 11:20 AM , for a telehealth visit. New patient visit s/p BAHA stud removal. History of Present Illnessupdate April 10, 2023 Patient reports some GI intolerance of rifampin and doxycycline. Otherwise he tolerated medications but is not been easy in terms of GI side effects. He reports no difference in the area of the device behind his ear. Same amount of pain in tenderness. He feels like the medications did not make any difference at all. from 02/2023 Prior to seeing the patient we reviewed data faxed from his ENT physician in [facility]. 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 He has been on a number of antibiotics including cefdinir doxycycline clindamycin and 2 recent courses of levofloxacin. No antibiotics since November. The cyst the episodes are associate with headache and malaise but not fever or chills. 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) Family History Family history of Family history of emphysema (V17.6) (Z82.5) Family history of Family history of emphysema (V17.6) (Z82.5) Family history of colon cancer (V16.0) (Z80.0) Family history of cardiac disorder (V17.49) (Z82.49) Social History Never a smoker Allergies No Known Drug Allergies Recorded By: Crystal Rosa; 03/20/2023 7:51:52 AM Current Meds Doxycycline Hyclate 100 MG Oral Capsule; Take 1 capsule twice daily; Therapy: [id number] to (Evaluate:[id number]) Requested for: [id number]; Last Rx:[id number] Ordered Rx By: Adam Rodriguez; Dispense: 21 Days ; #:42 Capsule; Refill: 1;For: Cellulitis; [place] = N; Verified Transmission to [facility]; Last Updated By: Ministerio [employer]; 03/20/2023 9:12:55 AM rifAMPin 300 MG Oral Capsule; TAKE 2 CAPSULES DAILY; Therapy: [id number] to (Evaluate:05Iez7303) Requested for: [id number]; Last Rx:[id number] Ordered Rx By: Adam Rodriguez; Dispense: 21 Days ; #:42 Capsule; Refill: 1;For: Cellulitis; [place] = N; Verified Transmission to [facility]; Last Updated By: [employer]inMobi; 03/20/2023 9:12:55 AM amLODIPine Besylate 10 MG Oral Tablet; TAKE 1 TABLET DAILY; Therapy: (Recorded:[id number]) to Recorded Dispense: 30 Days ; #:30 Tablet; Refill: 2; [place] = N; Record; Last Updated By: Crystal Rosa; 03/20/2023 7:51:52 AM Atorvastatin Calcium 10 MG Oral Tablet; TAKE 1 TABLET DAILY AT BEDTIME; Therapy: (Recorded:[id number]) to Recorded Dispense: 0 Days ; #:90 Tablet; Refill: 3; [place] = N; Record; Last Updated By: Crystal Rosa; 03/20/2023 7:51:52 AM Dulera 100-5 MCG/ACT Inhalation Aerosol; INHALE 2 PUFFS TWICE DAILY; Therapy: (Recorded:20Mar2023) to Recorded Dispense: 0 Days ; #: Sufficient X 8.8 GM Inhaler; Refill: 0; [place] = N; Record; Last Updated By: Crystal Rosa; 03/20/2023 7:51:52 AM Fasenra Pen 30 MG/ML Subcutaneous Solution Auto-injector; Inject subcutaneously bimonthy=ly; Therapy: (Recorded:20Mar2023) to Recorded Dispense: 0 Days ; #: Sufficient X Milliliter; Refill: 0; [place] = N; Record; Last Updated By: Crystal Rosa; 03/20/2023 7:51:52 AM Lisinopril 20 MG Oral Tablet; TAKE 1 TABLET DAILY DIRECTED; Therapy: (Recorded:20Mar2023) to Recorded Dispense: 90 Days ; #:90 Tablet; Refill: 3; [place] = N; Record; Last Updated By: Crystal Rosa; 03/20/2023 7:51:52 AM Physical Exam Looks well normal mentation normal mood and affect. 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 Patient had already discussed this with his PCP who indicated he thought the device needed to come out. I told him I thought that the doxycycline rifampin would be the ideal antibiotic combination to treat the 1 bacteria that was isolated which of course might of been contaminant we discussed device infections and the role of rifampin and combined therapy with rifampin. At this point there is no other culture data to suggest another antimicrobial approach. He is already leaning toward getting the device out and we recomme (more content not included)... 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) Family History Family history of Family history of emphysema (V17.6) (Z82.5) Family history of Family history of emphysema (V17.6) (Z82.5) Family history of colon cancer (V16.0) (Z80.0) Family history of cardiac disorder (V17.49) (Z82.49) Social History Never a smoker Allergies No Known Drug Allergies Recorded By: Crystal Rosa; 03/20/2023 7:51:52 AM Current Meds Doxycycline Hyclate 100 MG Oral Capsule; Take 1 capsule twice daily; Therapy: [id number] to (Evaluate:[id number]) Requested for: [id number]; Last Rx:[id number] Ordered Rx By: Adam Rodriguez; Dispense: 21 Days ; #:42 Capsule; Refill: 1;For: Cellulitis; [place] = N; Verified Transmission to [facility]; Last Updated By: [employer]; 03/20/2023 9:12:55 AM rifAMPin 300 MG Oral Capsule; TAKE 2 CAPSULES DAILY; Therapy: [id number] to (Evaluate:88Hhz6738) Requested for: [id number]; Last Rx:[id number] Ordered Rx By: Adam Rodriguez; Dispense: 21 Days ; #:42 Capsule; Refill: 1;For: Cellulitis; [place] = N; Verified Transmission to [facility]; Last Updated By: ZinMobi; 03/20/2023 9:12:55 AM amLODIPine Besylate 10 MG Oral Tablet; TAKE 1 TABLET DAILY; Therapy: (Recorded:[id number]) to Recorded Dispense: 30 Days ; #:30 Tablet; Refill: 2; [place] = N; Record; Last Updated By: Crystal Rosa; 03/20/2023 7:51:52 AM Atorvastatin Calcium 10 MG Oral Tablet; TAKE 1 TABLET DAILY AT BEDTIME; Therapy: (Recorded:[id number]) to Recorded Dispense: 0 Days ; #:90 Tablet; Refill: 3; [place] = N; Record; Last Updated By: Crystal Rosa; 03/20/2023 7:51:52 AM Dulera 100-5 MCG/ACT Inhalation Aerosol; INHALE 2 PUFFS TWICE DAILY; Therapy: (Recorded:[id number]) to Recorded Dispense: 0 Days ; #: Sufficient X 8.8 GM Inhaler; Refill: 0; [place] = N; Record; Last Updated By: Crystal Rosa; 03/20/2023 7:51:52 AM Fasenra Pen 30 MG/ML Subcutaneous Solution Auto-injector; Inject subcutaneously bimonthy=ly; Therapy: (Recorded:[id number]) to Recorded Dispense: 0 Days ; #: Sufficient X Milliliter; Refill: 0; [place] = N; Record; Last Updated By: Crystal Rosa; 03/20/2023 7:51:52 AM Lisinopril 20 MG Oral Tablet; TAKE 1 TABLET DAILY DIRECTED; Therapy: (Recorded:[id number]) to Recorded Dispense: 90 Days ; #:90 Tablet; Refill: 3; [place] = N; Record; Last Updated By: Crystal Rosa; 03/20/2023 7:51:52 AM Diagnoses/Problems 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) Signatures Electronically signed by : Adam Rodriguez MD; Apr 10 2023 1:22PM EST (Author) Normal Touchworks Basophil percentageOrdered B y: Duarte Martin on 04-04-2023 Chloride [Moles/Vol] 105 mmol/L 98-107 [facility] Cholesterol [Mass/Vol] 147 mg/dL <200 [facility] Comment on above: <200 mg/dL Desirable 200-240 mg/dL Borderline >240 mg/dL High Risk Glucose [Mass/Vol] 88 mg/dL 74-106 [facility] Potassium [Moles/Vol] 3.9 mmol/L 3.5-5.1 [facility] Sodium [Moles/Vol] 138 mmol/L 136-145 [facility] Triglyceride [Mass/Vol] 176 mg/dL <199 [facility] Comment on above: The drugs N-Acetylcy steine and Metamizole may falsely depress this assay.Serum Triglycerides Reference Interval Normal <150 mg/dL Borderline high 150 - 199 mg/dL High 200 - 499 mg/dL Very High > or = 500 mg/dL Laboratory - Chemistry and C hemistry - challengeOrdered By: Duarte Martin on 09-13-2023 CO2 [Moles/Vol] 28.0 mmol/L 21.0-32.0 [facility] Urea nitrogen/Creatinine [Mass ratio] 20.0 mg/mg 10-20 [facility] No Panel InformationOrdered By: Duarte Martin on 04-04-2023 Estimated GFR (MDRD) Amer 95 mL/min >60 [facility] Comment on above: GFR Calc Estimated GFR (MDRD) Non-Af Amer 78 mL/min >60 [facility] Comment on above: Non- GFR Calc Serum or plasma calcium juan urement (mass/volume)Ordered By: Duarte Martin on 04-04-2023 Calcium [Mass/Vol] 8.9 mg/dL 8.5-10.1 [facility] Serum or plasma cholesterol in HDL measurement (mass/volume)Ordered By: Duarte Martin on 04-04-2023 Cholesterol in HDL [Mass/Vol] 33 mg/dL >40 [facility] Comment on above: The drugs N-Acetylcy steine and Metamizole may falsely depress this assay. Reference Range HDL <40 mg/dL Low HDL Cholesterol HDL >or= 60 mg/dL High HDL Cholesterol Serum or plasma cholesterol in VLDL measurement (mass/volume)Ordered By: Duarte Martin on 04-04-2023 Cholesterol in VLDL [Mass/Vol] 35 mg/dL 5-40 [facility] Serum or plasma creatinine m easurement (mass/volume)Ordered By: Duarte Martin on 04-04-2023 Creatinine [Mass/Vol] 1.00 mg/dL 0.70-1.30 [facility] Comment on above: The validity of the calculated GFR & GFRAA in patients over 70 years has not been determined. Clinical correlation is essential. Serum or plasma low density lipoprotein (LDL) cholesterol measurement (mass/volume)Ordered By: Duarte Martin on 04-04-2023 Cholesterol in LDL [Mass/Vol] 79 mg/dL 0-130 [facility] Serum or plasma urea nitroge n measurement (mass/volume)Ordered By: Duarte Martin on 04-04-2023 Urea nitrogen [Mass/Vol] 20 mg/dL 7-18 [facility] Thin prep Papanicolaou smear with manual screeningOrdered By: Duarte Martin on 04-04-2023 Thin prep Papanicolaou smear with manual screening 5 5-15 [facility] Blood Pressure Cuff Sizeon 0 03-20-2023 Fall risk assessment a) No falls within the last year [facility] [employer] Work Phone: Tobacco use status [facility] b) No [facility] [employer] Work Phone: Blood Pressure Cuff Size Large [facility] [employer] Work Phone: C Reactive Protein, Serumon 03-20-2023 CRP [Mass/Vol] 0.27 mg/dL [facility] ous [facility] [employer] Work Phone: Comment on above: REF VALUE< 1.00 C-REACTIVE PROTEINon 023 C-REACTIVE PROTEIN 0.27 mg/dL Normal [facility] Comment on above: Result Comment: REF VALUE < 1.00 Performed By: #### C #### [facility] [id number] [place] [address] ID - Initial/Consulton 03-20 ID - Initial/Consult Chief Complaint Visit For: Other New patient visit s/p BAHA stud removal. History of Present IllnessPrior to seeing the patient we reviewed data faxed from his ENT physician in [facility]. 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 He has been on a number of antibiotics including cefdinir doxycycline clindamycin and 2 recent courses of levofloxacin. No antibiotics since November. The cyst the episodes are associate with headache and malaise but not fever or chills. No antibiotics for last couple months with small amounts of intermittent drainage but persistent soreness around the device on the right side of his skullA culture of drainage device November 20 grew coagulase-negative staph Active Problems Cellulitis (682.9) (L03.90) Family History Family history of Family history of emphysema (V17.6) (Z82.5) Family history of Family history of emphysema (V17.6) (Z82.5) Family history of colon cancer (V16.0) (Z80.0) Family history of cardiac disorder (V17.49) (Z82.49) Social History Never a smoker Allergies No Known Drug Allergies Recorded By: Crystal Rosa; 03/20/2023 7:51:52 AM Current Meds amLODIPine Besylate 10 MG Oral Tablet; TAKE 1 TABLET DAILY; Therapy: (Recorded:20Mar2023) to Recorded Dispense: 30 Days ; #:30 Tablet; Refill: 2; [place] = N; Record; Last Updated By: Crystal Rosa; 03/20/2023 7:51:52 AM Atorvastatin Calcium 10 MG Oral Tablet; TAKE 1 TABLET DAILY AT BEDTIME; Therapy: (Recorded:20Mar2023) to Recorded Dispense: 0 Days ; #:90 Tablet; Refill: 3; [place] = N; Record; Last Updated By: Crystal Rosa; 03/20/2023 7:51:52 AM Dulera 100-5 MCG/ACT Inhalation Aerosol; INHALE 2 PUFFS TWICE DAILY; Therapy: (Recorded:20Mar2023) to Recorded Dispense: 0 Days ; #: Sufficient X 8.8 GM Inhaler; Refill: 0; [place] = N; Record; Last Updated By: Crystal Rosa; 03/20/2023 7:51:52 AM Fasenra Pen 30 MG/ML Subcutaneous Solution Auto-injector; Inject subcutaneously bimonthy=ly; Therapy: (Recorded:20Mar2023) to Recorded Dispense: 0 Days ; #: Sufficient X Milliliter; Refill: 0; [place] = N; Record; Last Updated By: Crystal Rosa; 03/20/2023 7:51:52 AM Lisinopril 20 MG Oral Tablet; TAKE 1 TABLET DAILY DIRECTED; Therapy: (Recorded:20Mar2023) to Recorded Dispense: 90 Days ; #:90 Tablet; Refill: 3; [place] = N; Record; Last Updated By: Crystal Rosa; 03/20/2023 7:51:52 AM Vitals Vital Signs Recorded: 20Mar2023 07:51AM Xtughwfngbm62.6 F Heart Rate64 Cvnuhnqf980, RUE, Sitting Rhuusghmq16, RUE, Sitting Blood Pressure Cuff SizeLarge Height6 ft 1 in Yxbtyz100 lb BMI Sjikhtopyu68.93 kg/m2 BSA Calculated2.33 Tobacco Useb) No Falls Screening (Age 18+)a) No falls within the last year Pain Scale1 Physical Exam Looks well normal mentation normal mood and affect. Device noted at the approximate 10 PM position about an inch from his right ear. Protruding out as expected. The area between the device and the ear was slightly red and moderately tender no drainage was noted. No adenopathy. 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) Orders Start: Doxycycline Hyclate 100 MG Oral Capsule; Take 1 capsule twice daily Rx By: Adam Rodriguez; Dispense: 21 Days ; #:42 Capsule; Refill: 1;For: Cellulitis; [place] = N; Sent To: [facility]; Last Updated By: Transmit; 03/20/2023 8:32:10 AM C Reactive Protein, Serum; Status:Active; Requested for:[id number]; Perform:Lab Services - Lab To Draw (Blood Test); Due:87Gwh0735;Ordered ; For:Cellulitis; Ordered By:Adam Rodriguez; Start: rifAMPin 300 MG Oral Capsule; TAKE 2 CAPSULES DAILY Rx By: Adam Rodriguez; Dispense: 21 Days ; #:42 Capsule; Refill: 1;For: Cellulitis; [place] = N; Sent To: [facility]; Last Updated By: Transmit; 03/20/2023 8:32:09 AM Tobacco Use Screening; Status:Complete; Done: [id number] Perform:Not Applicable;Ordered; For:SocHx: Never a smoker; Ordered By:Crystal Rosa; Provider Impressions I 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 I explained how biofilm associated infections can be very difficult to eradicate. I indicated the culture result from May could reflect skin contamination but this bacteria is also associated with persistent indolent device infections. We discussed options including an attempted eradication with a rifampin based regimen versus device removal versus chronic suppression. We will attempt eradication with a combination of doxycycline and rifampin. I noted rifampin is the best antibiotic at to eliminat (more content not included)... Normal [facility] Bacteria identified Cx Nom ( Wound)Ordered By: Dr. Romero on 11-23-2022 Wound Culture Negative [facility] Gram stain for investigation of transfusion reactionOrdered By: Dr. Romero on 11-21-2022 Microscopic observation Gram stain Nom (Unsp spec) [facility] Bacteria identified Cx Nom ( Wound)Ordered By: Vargas Romero on 11-20-2022 Wound Culture Negative [facility] Gram stain for investigation of transfusion reactionOrdered By: Vargas Romero on 11-20-2022 Microscopic observation Gram stain Nom (Unsp spec) [facility] Basophil percentageOrdered B y: Dr. Martin on 10-02-2022 Chloride [Moles/Vol] 103 mmol/L 98-107 [facility] Cholesterol [Mass/Vol] 139 mg/dL <200 [facility] Comment on above: <200 mg/dL Desirable 200-240 mg/dL Borderline >240 mg/dL High Risk Glucose [Mass/Vol] 83 mg/dL 74-106 [facility] Potassium [Moles/Vol] 4.0 mmol/L 3.5-5.1 [facility] Sodium [Moles/Vol] 138 mmol/L 136-145 [facility] Triglyceride [Mass/Vol] 153 mg/dL <199 [facility] Comment on above: The drugs N-Acetylcy steine and Metamizole may falsely depress this assay.Serum Triglycerides Reference Interval Normal <150 mg/dL Borderline high 150 - 199 mg/dL High 200 - 499 mg/dL Very High > or = 500 mg/dL Laboratory - Chemistry and C hemistry - challengeOrdered By: Dr. Martin on 10-02-2022 CO2 [Moles/Vol] 29.0 mmol/L 21.0-32.0 [facility] Urea nitrogen/Creatinine [Mass ratio] 23.9 mg/mg 10-20 [facility] No Panel InformationOrdered By: Dr. Martin on 10-02-2022 Estimated GFR (MDRD) Amer 86 mL/min >60 [facility] Comment on above: GFR Calc Estimated GFR (MDRD) Non-Af Amer 71 mL/min >60 [facility] Comment on above: Non- GFR Calc Prostate Specific Antigen Screen 1.94 ng/mL 0.00-4.00 [facility] Comment on above: This test was perfor med using the TPSA assay method for [employer] chemistry system. Values obtained with differentassay methods cannot be used interchangably.When changing PSA assays in the course of monitoring apatient, additional sequential testing should be carriedout to confirm baseline values. Serum or plasma calcium juan urement (mass/volume)Ordered By: Dr. Martin on 10-02-2022 Calcium [Mass/Vol] 9.3 mg/dL 8.5-10.1 [facility] Serum or plasma cholesterol in HDL measurement (mass/volume)Ordered By: Dr. Martin on 10-02-2022 Cholesterol in HDL [Mass/Vol] 34 mg/dL >40 [facility] [place] Comment on above: The drugs N-Acetylcy steine and Metamizole may falsely depress this assay. Reference Range HDL <40 mg/dL Low HDL Cholesterol HDL >or= 60 mg/dL High HDL Cholesterol Serum or plasma cholesterol in VLDL measurement (mass/volume)Ordered By: Dr. Martin on 10-02-2022 Cholesterol in VLDL [Mass/Vol] 31 mg/dL 5-40 [facility] [place] Serum or plasma creatinine m easurement (mass/volume)Ordered By: Dr. Martin on 10-02-2022 Creatinine [Mass/Vol] 1.09 mg/dL 0.70-1.30 [facility] Comment on above: The validity of the calculated GFR & GFRAA in patients over 70 years has not been determined. Clinical correlation is essential. Serum or plasma low density lipoprotein (LDL) cholesterol measurement (mass/volume)Ordered By: Dr. Martin on 10-02-2022 Cholesterol in LDL [Mass/Vol] 74 mg/dL 0-130 [facility] Serum or plasma urea nitroge n measurement (mass/volume)Ordered By: Dr. Martin on 10-02-2022 Urea nitrogen [Mass/Vol] 26 mg/dL 7-18 [facility] Thin prep Papanicolaou smear with manual screeningOrdered By: Dr. Martin on 10-02-2022 Thin prep Papanicolaou smear with manual screening 6 5-15 [facility] Basophil percentageOrdered B y: Dr. Romero on 06-21-2022 Chloride [Moles/Vol] 107 mmol/L 98-107 [facility] Glucose [Mass/Vol] 90 mg/dL 74-106 [facility] Potassium [Moles/Vol] 3.9 mmol/L 3.5-5.1 [facility] Sodium [Moles/Vol] 140 mmol/L 136-145 [facility] WBC (Bld) [#/Vol] 5.1 10*3/uL 4.4-11.0 [facility] Blood erythrocytes count (nu mber/volume)Ordered By: Dr. Romero on 06-21-2022 RBC (Bld) [#/Vol] 4.84 10*6/uL 4.6-6.2 [facility] Blood hemoglobin measurement (mass/volume)Ordered By: Dr. Romero on 06-21-2022 Hemoglobin (Bld) [Mass/Vol] 14.7 g/dL 13.0-16.5 [facility] Blood platelet mean volumeOr dered By: Dr. Romero on 06-21-2022 Platelet mean volume (Bld) [Entitic vol] 8.8 fL 6.2-12.0 [facility] Determination of erythrocyte mean corpuscular volume (MCV)Ordered By: Dr. Romero on 06-21-2022 MCV (RBC) [Entitic vol] 89.5 fL 80-94 [facility] Hematocrit Auto (Bld) [Volum e fraction]Ordered By: Dr. Romero on 06-21-2022 Hematocrit (Bld) [Volume fraction] 43.3 % 40-54 [facility] Laboratory - Chemistry and C hemistry - challengeOrdered By: Dr. Romero on 06-21-2022 CO2 [Moles/Vol] 29.0 mmol/L 21.0-32.0 [facility] Urea nitrogen/Creatinine [Mass ratio] 16.8 mg/mg 10-20 [facility] Laboratory - Hematology and Cell countsOrdered By: Dr. Romero on 06-21-2022 Erythrocyte distribution width (RBC) [Entitic vol] 39.6 fL 35.1-43.9 [facility] Erythrocyte distribution width (RBC) [Ratio] 11.9 % 11.6-14.6 [facility] MCH (RBC) [Entitic mass] 30.4 pg 27.0-[facility].[address] [facility] [address] (RBC) [Mass/Vol]Or dered By: Dr. Romero on 06-21-2022 MCHC (RBC) [Mass/Vol] 33.9 g/dL 32-36 [facility] No Panel InformationOrdered By: Dr. Romero on 06-21-2022 Estimated GFR (MDRD) Amer 101 mL/min >60 [facility] [place] Comment on above: GFR Calc Estimated GFR (MDRD) Non-Af Amer 83 mL/min >60 [facility] [place] Comment on above: Non- GFR Calc Platelets bldOrdered By: Dr. Romero on 06-21-2022 Platelets (Bld) [#/Vol] 187 10*3/uL 150-450 [facility] [place] Serum or plasma calcium juan urement (mass/volume)Ordered By: Dr. Romero on 06-21-2022 Calcium [Mass/Vol] 8.8 mg/dL 8.5-10.1 [facility] Serum or plasma creatinine m easurement (mass/volume)Ordered By: Dr. Romero on 06-21-2022 Creatinine [Mass/Vol] 0.95 mg/dL 0.70-1.30 [facility] Comment on above: The validity of the calculated GFR & GFRAA in patients over 70 years has not been determined. Clinical correlation is essential. Serum or plasma urea nitroge n measurement (mass/volume)Ordered By: Dr. Romero on 06-21-2022 Urea nitrogen [Mass/Vol] 16 mg/dL 7-18 [facility] Thin prep Papanicolaou smear with manual screeningOrdered By: Dr. Romero on 06-21-2022 Thin prep Papanicolaou smear with manual screening 4 5-15 [facility] Basophil percentageon 2021 Chloride [Moles/Vol] 105 mmol/L 98-107 [facility] Work Phone: Cholesterol [Mass/Vol] 151 mg/dL <200 [facility] Work Phone: Comment on above: <200 mg/dL Desirable 200-240 mg/dL Borderline >240 mg/dL High Risk Glucose [Mass/Vol] 84 mg/dL 74-106 [facility] Work Phone: Potassium [Moles/Vol] 3.7 mmol/L 3.5-5.1 [facility] Work Phone: Sodium [Moles/Vol] 138 mmol/L 136-145 [facility] Work Phone: Triglyceride [Mass/Vol] 173 mg/dL [facility] Work Phone: Comment on above: The drugs N-Acetylcy steine and Metamizole may falsely depress this assay.Serum Triglycerides Reference Interval Normal <150 mg/dL Borderline high 150 - 199 mg/dL High 200 - 499 mg/dL Very High > or = 500 mg/dL Laboratory - Chemistry and C hemistry - challengeon 09-05-2021 CO2 [Moles/Vol] 24.0 mmol/L 21.0-32.0 [facility] Work Phone: Urea nitrogen/Creatinine [Mass ratio] 26.5 mg/mg 10-20 [facility] Work Phone: No Panel Informationon 09-05 Estimated GFR (MDRD) Amer 102 mL/min >60 [facility] [facility] [place] Work Phone: Comment on above: GFR Calc Estimated GFR (MDRD) Non-Af Amer 84 mL/min >60 [facility] [place] Work Phone: Comment on above: Non- GFR Calc Prostate Specific Antigen Screen 1.42 ng/mL 0.00-4.00 [facility] [place] Work Phone: Comment on above: This test was perfor med using the TPSA assay method for the[employer] chemistry system. Values obtained with differentassay methods cannot be used interchangably.When changing PSA assays in the course of monitoring apatient, additional sequential testing should be carriedout to confirm baseline values. Thyroid Stimulating Hormone (TSH) 3.20 uIU/mL 0.358-3.74 [facility] [place] Work Phone: Serum or plasma calcium juan urement (mass/volume)on 09-05-2021 Calcium [Mass/Vol] 9.3 mg/dL 8.5-10.1 [facility] Work Phone: Serum or plasma cholesterol in HDL measurement (mass/volume)on 09-05-2021 Cholesterol in HDL [Mass/Vol] 37 mg/dL [facility] [place] Work Phone: Comment on above: The drugs N-Acetylcy steine and Metamizole may falsely depress this assay. Reference Range HDL <40 mg/dL Low HDL Cholesterol HDL >or= 60 mg/dL High HDL Cholesterol Serum or plasma cholesterol in VLDL measurement (mass/volume)on 09-05-2021 Cholesterol in VLDL [Mass/Vol] 35 mg/dL 5-40 [facility] [place] Work Phone: Serum or plasma creatinine m easurement (mass/volume)on 09-05-2021 Creatinine [Mass/Vol] 0.94 mg/dL 0.70-1.30 [facility] Work Phone: Comment on above: The validity of the calculated GFR & GFRAA in patients over 70 years has not been determined. Clinical correlation is essential. Serum or plasma low density lipoprotein (LDL) cholesterol measurement (mass/volume)on 09-05-2021 Cholesterol in LDL [Mass/Vol] 79 mg/dL 0-130 [facility] [place] Work Phone: Serum or plasma urea nitroge n measurement (mass/volume)on 09-05-2021 Urea nitrogen [Mass/Vol] 25 mg/dL 7-18 [facility] [place] Work Phone: Thin prep Papanicolaou smear with manual screeningon 09-05-2021 Thin prep Papanicolaou smear with manual screening 9 5-15 [facility] [place] Work Phone: Office Visit: CIERA, new diagn osis of asthmaon 02-07-2017 Dietary management education, guidance, and counseling (procedure) yes Invalid Interpretation Code [facility] Work Phone: Documentation of current medications (procedure) Done Invalid Interpretation Code [facility] Work Phone: Fall risk assessment No Invalid Interpretation Code [facility] Work Phone: Protein mass conc Done [facility] Work Phone: Tobacco smoking status NHIS Never Invalid Interpretation Code [facility] Work Phone: Tobacco smoking status NHIS Never smoker [facility] Work Phone: Tobacco use [facility] Never smoker Invalid Interpretation Code [facility] Work Phone: Office Visit: OSAon 12-20-19 Dietary management education, guidance, and counseling (procedure) yes Invalid Interpretation Code [facility] Work Phone: Documentation of current medications (procedure) Done Invalid Interpretation Code [facility] Work Phone: Protein mass conc Done [facility] Work Phone: Tobacco smoking status NHIS Never Invalid Interpretation Code [facility] Work Phone: Tobacco smoking status MNIS Never smoker [facility] Work Phone: Tobacco use [facility] Never smoker Invalid Interpretation Code [facility] Work Phone: Office Visit: eval nonhealin g surgical wound right scalp -surgery 10/31/1611-29-2016 Fall risk assessment No Invalid Interpretation Code [facility] Work Phone: Microbiology: Culture, Wound on 11-25-2016 CUW . [facility] Work Phone: wound culture . Invalid Interpretation Code [facility] Work Phone: Microbiology: (P) Culture, W oundon 11-23-2016 wound culture . Invalid Interpretation Code [facility] Work Phone: Office Visit: postop surgery 10/31/1611-22-2016 Dietary management education, guidance, and counseling (procedure) yes Invalid Interpretation Code [facility] Work Phone: Documentation of current medications (procedure) Done Invalid Interpretation Code [facility] Work Phone: [phone] Fall risk assessment No [facility] Work Phone: [phone] Tobacco smoking status NHIS Never Invalid Interpretation Code [facility] Work Phone: [phone] Tobacco use [facility] Never smoker Invalid Interpretation Code [facility] Work Phone: [phone] Lab Report: LBMPon 3 Calcium 9.1 mg/dL Invalid Interpretation Code 8.5-10.1 [facility] Work Phone: [phone] Chloride 105 mmol/L Invalid Interpretation Code 98-107 [facility] Work Phone: [phone] Creatinine 1.0 mg/dL Invalid Interpretation Code 0.8-1.3 [facility] Work Phone: [phone] GE use only - for [employer] import when terms are not otherwise specified 4 Invalid Interpretation Code 5-15 [facility] Work Phone: [phone] Glucose 97 mg/dL Invalid Interpretation Code 70-110 [facility] Work Phone: [phone] Glucose [Mass/Vol] 97 mg/dL 70-110 [facility] Work Phone: LGAP 4 5-15 [facility] Work Phone: Potassium 4.4 mmol/L Invalid Interpretation Code 3.5-5.1 [facility] Work Phone: [phone] Sodium 140 mmol/L Invalid Interpretation Code 136-145 [facility] Work Phone: [phone] Urea nitrogen 19 mg/dL Invalid Interpretation Code 7-18 [facility] Work Phone: [phone] Lab Report: LPTon 04-23-2013 INR Coag (PPP) [Relative time] 1.1 {INR} [facility] Work Phone: INR in blood by coagulation 1.1 {INR} Invalid Interpretation Code [facility] Work Phone: [phone] LPTP 13.5 SECONDS 11.9-14.4 [facility] Work Phone: prothrombin time, actual/normal, ratio 13.5 SECONDS Invalid Interpretation Code 11.9-14.4 [facility] Work Phone: [phone] Replaced Document: Radha Vargas 04-23-2013 EKG QRS axis 42 deg [facility] Work Phone: electrocardiogram interpretation Sinus Bradycardia WITHIN NORMAL LIMITS Invalid Interpretation Code [facility] Work Phone: [phone] Interpretation Sinus Bradycardia WITHIN NORMAL LIMITS [facility] Work Phone: P [place] 30 deg [facility] Work Phone: P wave axis, electrocardiogram 30 deg Invalid Interpretation Code [facility] Work Phone: [phone] PA Interval 164 ms [facility] Work Phone: PA interval, electrocardiogram 164 ms Invalid Interpretation Code [facility] Work Phone: [phone] Pulse (Heart Rate) 57 /min Invalid Interpretation Code [facility] Work Phone: [phone] QRS axis, electrocardiogram 42 deg Invalid Interpretation Code [facility] Work Phone: [phone] QRS Duration 88 ms [facility] Work Phone: QRS duration, electrocardiogram 88 ms Invalid Interpretation Code [facility] Work Phone: [phone] QT Interval new path ms [facility] Work Phone: QT interval, electrocardiogram new path ms Invalid Interpretation Code [facility] Work Phone: [phone] T [place] 40 deg [facility] Work Phone: T wave axis, electrocardiogram 40 deg Invalid Interpretation Code [facility] Work Phone: [phone] Clinical Lists Update: Prelo tailer off 01-19-2010 Alanine aminotransferase (ALT) 39 U/L Invalid Interpretation Code [facility] Work Phone: [phone] Albumin 3.7 g/dL Invalid Interpretation Code [facility] Work Phone: [phone] Alkaline phosphatase (ALP) 116 U/L Invalid Interpretation Code [facility] Work Phone: [phone] ALP (Bld) [Catalytic activity/Vol] 116 U/L [facility] Work Phone: Aspartate aminotransferase (AST) 26 U/L Invalid Interpretation Code [facility] Work Phone: [phone] Bilirubin (direct) 0.18 mg/dL Invalid Interpretation Code [facility] Work Phone: [phone] Bilirubin (total) 0.70 mg/dL Invalid Interpretation Code [facility] Work Phone: [phone] Erythrocyte distribution width (RBC) [Ratio] 15.0 % [facility] Work Phone: Erythrocytes (RBC) 4.57 10*6/mm3 Invalid Interpretation Code [facility] Work Phone: [phone] Hematocrit (Bld) [Volume fraction] 39.8 % [facility] Work Phone: Hematocrit (HCT) 39.8 % Invalid Interpretation Code [facility] Work Phone: [phone] Hemoglobin (HGB) 13.7 g/dL Invalid Interpretation Code [facility] Work Phone: [phone] MCH 30.0 pg Invalid Interpretation Code [facility] Work Phone: [phone] MCH (RBC) [Entitic mass] 30.0 pg [facility] Work Phone: MCHC 34.5 g/dL Invalid Interpretation Code [facility] Work Phone: [phone] MCHC (RBC) [Mass/Vol] 34.5 g/dL [facility] Work Phone: MCV 87.1 fL Invalid Interpretation Code [facility] Work Phone: [phone] MCV (RBC) [Entitic vol] 87.1 fL [facility] Work Phone: Platelet mean volume (Bld) [Entitic vol] 7.1 fL [facility] Work Phone: Platelets 188 10*3/mm3 Invalid Interpretation Code [facility] Work Phone: [phone] Platelets (Bld) [#/Vol] 188 10*3/mm3 [facility] Work Phone: PMV by Elizabeth 7.1 fL Invalid Interpretation Code [facility] Work Phone: [phone] Protein 6.8 g/dL Invalid Interpretation Code [facility] Work Phone: [phone] RBC (Bld) [#/Vol] 4.57 10*6/mm3 [facility] Work Phone: RDW-CA 15.0 % Invalid Interpretation Code [facility] Work Phone: [phone] WBC (Bld) [#/Vol] 4.7 10*3/uL [facility] Work Phone: WBC (Leukocytes) 4.7 10*3/uL Invalid Interpretation Code [facility] Work Phone: [phone] Vital Signs Date Time Vital Sign Value Performing Clinician Facility 02-06-2025 09:01-0400 Body height 185.[address] Duarte Martin MD Work Phone: [facility] [place] 02-06-2025 09:01-0400 Body mass index (BMI) [Ratio] 30.3 kg/m2 Dr. Duarte Martin MD Work Phone: [facility] [place] 02-06-2025 09:01-0400 Body temperature 96 [degF] Dr. Duarte Martin MD Work Phone: [facility] [place] 02-06-2025 09:01-0400 Body weight 104.[address] Duarte Martin MD Work Phone: [facility] [place] 02-06-2025 09:01-0400 Diastolic blood pressure 87 mm[Hg] Dr. Duarte Martin MD Work Phone: [facility] [place] 02-06-2025 09:01-0400 Heart rate 59 /min Dr. Duarte Martin MD Work Phone: [facility] [place] 02-06-2025 09:01-0400 Respiratory rate 16 /min Dr. Duarte Martin MD Work Phone: [facility] [place] 02-06-2025 09:01-0400 SaO2% (BldA) [Mass fraction] 98 % Dr. Duarte Martin MD Work Phone: [facility] [place] 02-06-2025 09:01-0400 Systolic blood pressure 135 mm[Hg] Dr. Duarte Martin MD Work Phone: [facility] [place] 12-12-2024 08:59-0400 Body mass index (BMI) [Ratio] 30.3 kg/m2 Dr. Duarte Martin MD Work Phone: 8(974)251-727437 [address] 12-12-2024 08:59-0400 Body temperature 96.3 [degF] Dr. Duarte Martin MD Work Phone: 1(837)914-169555 [place] [address] 12-12-2024 08:59-0400 Body weight 104.[address] Duarte Martin MD Work Phone: 5(076)787-863155 [place] [address] 12-12-2024 08:59-0400 Diastolic blood pressure 75 mm[Hg] Dr. Duarte Martin MD Work Phone: 5(682)139-890737 [address] 12-12-2024 08:59-0400 Heart rate 65 /min Dr. Duarte Martin MD Work Phone: 8(458)741-623237 [address] 12-12-2024 08:59-0400 Respiratory rate 16 /min Dr. Duarte Martin MD Work Phone: 8(215)752-306555 [place] [address] 12-12-2024 08:59-0400 SaO2% (BldA) [Mass fraction] 100 % Dr. Duarte Martin MD Work Phone: 7(140)049-664537 [place] [address] 12-12-2024 08:59-0400 Systolic blood pressure 142 mm[Hg] Dr. Duarte Martin MD Work Phone: 3(429)691-125637 [address] 11-19-2024 07:59-0400 Body mass index (BMI) [Ratio] 32 kg/m2 Dr. Duarte Martin MD Work Phone: [facility] [place] 11-19-2024 07:59-0400 Body temperature 97.3 [degF] Dr. Duarte Martin MD Work Phone: 3(619)636-351037 [address] 11-19-2024 07:59-0400 Body weight 110.[address] Duarte Martin MD Work Phone: [facility] [place] 11-19-2024 07:59-0400 Diastolic blood pressure 85 mm[Hg] Dr. Duarte Martin MD Work Phone: [facility] [place] 11-19-2024 07:59-0400 Heart rate 66 /min Dr. Duarte Martin MD Work Phone: [facility] [place] 11-19-2024 07:59-0400 Respiratory rate 18 /min Dr. Duarte Martin MD Work Phone: 0(776)601-660637 [place] [address] 11-19-2024 07:59-0400 SaO2% (BldA) [Mass fraction] 97 % Dr. Duarte Martin MD Work Phone: 6(851)498-592637 [place] [address] 11-19-2024 07:59-0400 Systolic blood pressure 136 mm[Hg] Dr. Duarte Martin MD Work Phone: 1(192)208-213237 [place] [address] 10-17-2024 09:01-0400 Body height 185.[address] Duarte Martin MD Work Phone: 6(039)605-603437 [address] 10-17-2024 09:01-0400 Body mass index (BMI) [Ratio] 30.9 kg/m2 Dr. Duarte Martin MD Work Phone: [facility] [place] 10-17-2024 09:01-0400 Body temperature 96.9 [degF] Dr. Duarte Martin MD Work Phone: 6(228)655-975337 [place] [address] 10-17-2024 09:01-0400 Body weight 106.[address] Duarte Martin MD Work Phone: [facility] [place] 10-17-2024 09:01-0400 Diastolic blood pressure 73 mm[Hg] Dr. Duarte Martin MD Work Phone: [facility] [place] 10-17-2024 09:01-0400 Heart rate 65 /min Dr. Duarte Martin MD Work Phone: [facility] [place] 10-17-2024 09:01-0400 Respiratory rate 16 /min Dr. Duarte Martin MD Work Phone: 2(799)189-266137 [place] [address] 10-17-2024 09:01-0400 SaO2% (BldA) [Mass fraction] 97 % Dr. Duarte Martin MD Work Phone: 0(680)395-871155 [place] [address] 10-17-2024 09:01-0400 Systolic blood pressure 128 mm[Hg] Dr. Duarte Martin MD Work Phone: 8(396)726-322755 [place] [address] 08-22-2024 09:00-0500 Body temperature 97.1 [degF] Dr. Duarte Martin MD Work Phone: 1(397)450-866755 [place] [address] 08-22-2024 09:00-0500 Diastolic blood pressure 70 mm[Hg] Dr. Duarte Martin MD Work Phone: 9(683)414-526455 [place] [address] 08-22-2024 09:00-0500 Heart rate 65 /min Dr. Duarte Martin MD Work Phone: 9(049)969-155555 [place] [address] 08-22-2024 09:00-0500 Respiratory rate 16 /min Dr. Duarte Martin MD Work Phone: 0(320)905-587655 [place] [address] 08-22-2024 09:00-0500 SaO2% (BldA) [Mass fraction] 98 % Dr. Duarte Martin MD Work Phone: 7(326)009-379655 [place] [address] 08-22-2024 09:00-0500 Systolic blood pressure 128 mm[Hg] Dr. Duarte Martin MD Work Phone: 4(019)146-921555 [place] [address] 06-27-2024 09:10-0500 Body mass index (BMI) [Ratio] 30.3 kg/m2 Dr. Duarte Martin MD Work Phone: 2(010)075-788055 [place] [address] 06-27-2024 09:10-0500 Body temperature 96.6 [degF] Dr. Duarte Martin MD Work Phone: 4(493)298-729055 [place] [address] 06-27-2024 09:10-0500 Body weight 104.[address] Duarte Martin MD Work Phone: 6(588)888-362655 [place] [address] 06-27-2024 09:10-0500 Diastolic blood pressure 67 mm[Hg] Dr. Duarte Martin MD Work Phone: [facility] [place] 06-27-2024 09:10-0500 Heart rate 55 /min Dr. Duarte Martin MD Work Phone: [facility] [place] 06-27-2024 09:10-0500 Respiratory rate 16 /min Dr. Duarte Martin MD Work Phone: [facility] [place] 06-27-2024 09:10-0500 SaO2% (BldA) [Mass fraction] 98 % Dr. Duarte Martin MD Work Phone: [facility] [place] 06-27-2024 09:10-0500 Systolic blood pressure 118 mm[Hg] Dr. Duarte Martin MD Work Phone: [facility] [place] 06-11-2024 08:56-0500 Body mass index (BMI) [Ratio] 33.23 kg/m2 Darrin Dubois MD Work Phone: 6(371)283-660542 [place] [address] 06-11-2024 08:56-0500 Body weight 111.13 kg Darrin Dubois MD Work Phone: 0(005)897-724942 [place] [address] 06-11-2024 08:56-0500 Diastolic blood pressure 74 mm[Hg] Darrin Dubois MD Work Phone: 6(718)276-759142 [place] [address] 06-11-2024 08:56-0500 Heart rate 65 /min Darrin Dubois MD Work Phone: 4(748)639-130142 [place] [address] 06-11-2024 08:56-0500 Systolic blood pressure 144 mm[Hg] Darrin Dubois MD Work Phone: 9(348)841-768742 [place] [address] 05-07-2024 08:00-0400 Body height 182.9 cm Darrin Dubois MD Work Phone: 1(186)491-280942 [place] [address] 05-07-2024 08:00-0400 Body mass index (BMI) [Ratio] 32.69 kg/m2 Darrin Dubois MD Work Phone: 4(920)582-223142 [place] [address] 05-07-2024 08:00-0400 Body weight 109.32 kg Darrin Dubois MD Work Phone: 4(422)979-047942 [place] [address] 05-07-2024 08:00-0400 Diastolic blood pressure 87 mm[Hg] Darrin Dubois MD Work Phone: [facility] 05-07-2024 08:00-0400 Heart rate 65 /min Darrin Dubois MD Work Phone: [facility] 05-07-2024 08:00-0400 Systolic blood pressure 148 mm[Hg] Darrin Dubois MD Work Phone: [facility] 11-02-2023 11:11-0400 Body height 185.[address] Duarte Martin Work Phone: [facility] [place] 11-02-2023 11:11-0400 Body temperature 96.8 [degF] Dr. Duarte Martin Work Phone: [facility] [place] 11-02-2023 11:11-0400 Diastolic blood pressure 84 mm[Hg] Dr. Duarte Martin Work Phone: [facility] [place] 11-02-2023 11:11-0400 Heart rate 61 /min Dr. Duarte Martin Work Phone: [facility] [place] 11-02-2023 11:11-0400 Respiratory rate 16 /min Dr. Duarte Martin Work Phone: [facility] [place] 11-02-2023 11:11-0400 SaO2% (BldA) [Mass fraction] 98 % Dr. Duarte Martin Work Phone: [facility] [place] 11-02-2023 11:11-0400 Systolic blood pressure 150 mm[Hg] Dr. Duarte Martin Work Phone: [facility] [place] 10-26-2023 11:11-0400 Body height 185.4 cm Gigi Gupta MD Work Phone: [facility] 10-26-2023 11:11-0400 Body mass index (BMI) [Ratio] 30.34 kg/m2 Gigi Gupta MD Work Phone: [facility] 10-26-2023 11:11-0400 Body weight 104.33 kg Gigi Gupta MD Work Phone: [facility] 10-11-2023 11:39-0400 Body height 185.4 cm Thanh Hernandez MD Work Phone: [facility] 10-11-2023 11:39-0400 Body mass index (BMI) [Ratio] 31.66 kg/m2 Thanh Hernandez MD Work Phone: [facility] 10-11-2023 11:39-0400 Body temperature 98.4 [degF] Thanh Hernandez MD Work Phone: [facility] 10-11-2023 11:39-0400 Body weight 108.86 kg Thanh Hernandez MD Work Phone: [facility] 10-11-2023 11:39-0400 Diastolic blood pressure 92 mm[Hg] Thanh Hernandez MD Work Phone: [facility] 10-11-2023 11:39-0400 Heart rate 68 /min Thanh Hernandez MD Work Phone: [facility] 10-11-2023 11:39-0400 Respiratory rate 16 /min Thanh Hernandez MD Work Phone: [facility] 10-11-2023 11:39-0400 Systolic blood pressure 160 mm[Hg] Thanh Hernandez MD Work Phone: [facility] 10-02-2023 11:00-0400 Body temperature 96.8 [degF] Gigi Gupta MD Work Phone: [facility] 10-02-2023 11:00-0400 Diastolic blood pressure 77 mm[Hg] Gigi Gupta MD Work Phone: [facility] 10-02-2023 11:00-0400 Heart rate 68 /min Gigi Gupta MD Work Phone: [facility] 10-02-2023 11:00-0400 Respiratory rate 16 /min Gigi Gupta MD Work Phone: 7(475)487-158188 [place] [address] 10-02-2023 11:00-0400 SaO2% (BldA) [Mass fraction] 95 % Gigi Gupta MD Work Phone: [facility] 10-02-2023 11:00-0400 Systolic blood pressure 141 mm[Hg] Gigi Gupta MD Work Phone: [facility] 10-02-2023 06:59-0400 Body height 185.4 cm Gigi Gupta MD Work Phone: [facility] 10-02-2023 06:59-0400 Body mass index (BMI) [Ratio] 31.3 kg/m2 Gigi Gupta MD Work Phone: [facility] 10-02-2023 06:59-0400 Body weight 107.6 kg Gigi Gupta MD Work Phone: 7(684)908-755888 [place] [address] 09-13-2023 10:44-0500 Body mass index (BMI) [Ratio] 31.16 kg/m2 Gigi Gupta MD Work Phone: [facility] 09-13-2023 10:44-0500 Body weight 107.14 kg Gigi Gupta MD Work Phone: 7(501)614-594988 [place] [address] 09-07-2023 11:07-0500 Body height 185.[address] Duarte Martin Work Phone: [facility] [place] 09-07-2023 11:07-0500 Body mass index (BMI) [Ratio] 30 kg/m2 Dr. Duarte Martin Work Phone: [facility] [place] 09-07-2023 11:07-0500 Body temperature 96.7 [degF] Dr. Duarte Martin Work Phone: [facility] [place] 09-07-2023 11:07-0500 Body weight 103.[address] Duarte Martin Work Phone: [facility] [place] 09-07-2023 11:07-0500 Diastolic blood pressure 89 mm[Hg] Dr. Duarte Martin Work Phone: [facility] [place] 09-07-2023 11:07-0500 Heart rate 53 /min Dr. Duarte Martin Work Phone: [facility] [place] 09-07-2023 11:07-0500 Respiratory rate 16 /min Dr. Duarte Martin Work Phone: [facility] [place] 09-07-2023 11:07-0500 SaO2% (BldA) [Mass fraction] 100 % Dr. Duarte Martin Work Phone: [facility] [place] 09-07-2023 11:07-0500 Systolic blood pressure 154 mm[Hg] Dr. Duarte Martin Work Phone: [facility] [place] 07-18-2023 05:48-0500 Body mass index (BMI) [Ratio] 31.3 kg/m2 Dr. Duarte Martin Work Phone: [facility] [place] 07-18-2023 05:48-0500 Body temperature 97.1 [degF] Dr. Duarte Martin Work Phone: [facility] [place] 07-18-2023 05:48-0500 Body weight 107.[address] Duarte Martin Work Phone: [facility] [place] 07-18-2023 05:48-0500 Diastolic blood pressure 86 mm[Hg] Dr. Duarte Martin Work Phone: [facility] [place] 07-18-2023 05:48-0500 Heart rate 60 /min Dr. Duarte Martin Work Phone: [facility] [place] 07-18-2023 05:48-0500 Respiratory rate 18 /min Dr. Duarte Martin Work Phone: [facility] [place] 07-18-2023 05:48-0500 SaO2% (BldA) [Mass fraction] 98 % Dr. Duarte Martin Work Phone: [facility] [place] 07-18-2023 05:48-0500 Systolic blood pressure 140 mm[Hg] Dr. Duarte Martin Work Phone: [facility] [place] 07-13-2023 11:14-0500 Body height 185.[address] Duarte Martin Work Phone: [facility] [place] 07-13-2023 11:14-0500 Body mass index (BMI) [Ratio] 30.3 kg/m2 Dr. Duarte Martin Work Phone: [facility] [place] 07-13-2023 11:14-0500 Body temperature 96.9 [degF] Dr. Duarte Martin Work Phone: [facility] [place] 07-13-2023 11:14-0500 Body weight 104.[address] Duarte Martin Work Phone: [facility] [place] 07-13-2023 11:14-0500 Diastolic blood pressure 81 mm[Hg] Dr. Duarte Martin Work Phone: [facility] [place] 07-13-2023 11:14-0500 Heart rate 57 /min Dr. Duarte Martin Work Phone: [facility] [place] 07-13-2023 11:14-0500 Respiratory rate 16 /min Dr. Duarte Martin Work Phone: [facility] [place] 07-13-2023 11:14-0500 SaO2% (BldA) [Mass fraction] 99 % Dr. Duarte Martin Work Phone: [facility] [place] 07-13-2023 11:14-0500 Systolic blood pressure 142 mm[Hg] Dr. Duarte Martin Work Phone: [facility] [place] 06-07-2023 13:30-0500 Body temperature 97.2 [degF] Gigi Gupta MD Work Phone: [facility] 06-07-2023 13:30-0500 Diastolic blood pressure 75 mm[Hg] Gigi Gupta MD Work Phone: [facility] 06-07-2023 13:30-0500 Heart rate 52 /min Gigi Gupta MD Work Phone: [facility] 06-07-2023 13:30-0500 Respiratory rate 18 /min Gigi Gupta MD Work Phone: [facility] 06-07-2023 13:30-0500 SaO2% (BldA) [Mass fraction] 98 % Gigi Gupta MD Work Phone: [facility] 06-07-2023 13:30-0500 Systolic blood pressure 146 mm[Hg] Gigi Gupta MD Work Phone: [facility] 06-07-2023 10:48-0500 Body height 185.4 cm Gigi Gupta MD Work Phone: [facility] 06-07-2023 10:48-0500 Body mass index (BMI) [Ratio] 31.21 kg/m2 Gigi Gupta MD Work Phone: [facility] 06-07-2023 10:48-0500 Body weight 107.3 kg Gigi Gupta MD Work Phone: [facility] 05-24-2023 09:27-0400 Body temperature 97.1 [degF] Dr. Duarte Martin Work Phone: [facility] [place] 05-24-2023 09:27-0400 Body weight 108.[address] Duarte Martin Work Phone: [facility] [place] 05-24-2023 09:27-0400 Diastolic blood pressure 73 mm[Hg] Dr. Duarte Martin Work Phone: [facility] [place] 05-24-2023 09:27-0400 Heart rate 67 /min Dr. Duarte Martin Work Phone: [facility] [place] 05-24-2023 09:27-0400 Respiratory rate 18 /min Dr. Duarte Martin Work Phone: [facility] [place] 05-24-2023 09:27-0400 SaO2% (BldA) [Mass fraction] 98 % Dr. Duarte Martin Work Phone: [facility] [place] 05-24-2023 09:27-0400 Systolic blood pressure 143 mm[Hg] Dr. Duarte Martin Work Phone: [facility] [place] 05-18-2023 11:08-0400 Body height 185.42 cm [facility] 05-18-2023 11:08-0400 Body temperature 97.3 [degF] [facility] 05-18-2023 11:08-0400 Diastolic blood pressure 84 mm[Hg] [facility] [place] 05-18-2023 11:08-0400 Heart rate 69 /min [facility] 05-18-2023 11:08-0400 Respiratory rate 16 /min [facility] 05-18-2023 11:08-0400 SaO2% (BldA) [Mass fraction] 99 % [facility] [place] 05-18-2023 11:08-0400 Systolic blood pressure 143 mm[Hg] [facility] [place] 03-20-2023 07:51-0400 Body height 185.42 cm Referring Provider Unknown [facility] [employer] Work Phone: 03-20-2023 07:51-0400 Body mass index (BMI) [Ratio] 31.93 kg/m2 Referring Provider Unknown [facility] [employer] Work Phone: 03-20-2023 07:51-0400 Body surface area Derived from formula 2.33 m2 Referring Provider Unknown [facility] [employer] Work Phone: 03-20-2023 07:51-0400 Body temperature 98.6 [degF] Referring Provider Unknown [facility] [employer] Work Phone: 03-20-2023 07:51-0400 Body weight 109.77 kg Referring Provider Unknown [facility] [employer] Work Phone: 03-20-2023 07:51-0400 Diastolic blood pressure 81 mm[Hg] Referring Provider Unknown [facility] [employer] Work Phone: 03-20-2023 07:51-0400 Heart rate 64 /min Referring Provider Unknown [facility] [employer] Work Phone: 03-20-2023 07:51-0400 Systolic blood pressure 147 mm[Hg] Referring Provider Unknown [facility] Work Phone: 03-20-2023 07:51-0400 1 1 Referring Provider Unknown [facility] Lori Work Phone: Comment on above: [employer] 03-16-2023 11:21-0400 Body height 185.[address] Duarte Martin Work Phone: [facility] [place] 03-16-2023 11:21-0400 Body mass index (BMI) [Ratio] 30.3 kg/m2 Dr. Duarte Martin Work Phone: [facility] [place] 03-16-2023 11:21-0400 Body temperature 97.5 [degF] Dr. Duarte Martin Work Phone: [facility] [place] 03-16-2023 11:21-0400 Body weight 104.[address] Duarte Martin Work Phone: [facility] [place] 03-16-2023 11:21-0400 Diastolic blood pressure 79 mm[Hg] Dr. Duarte Martin Work Phone: [facility] [place] 03-16-2023 11:21-0400 Heart rate 60 /min Dr. Duarte Martin Work Phone: [facility] [place] 03-16-2023 11:21-0400 Respiratory rate 16 /min Dr. Duarte Martin Work Phone: [facility] [place] 03-16-2023 11:21-0400 SaO2% (BldA) [Mass fraction] 99 % Dr. Duarte Martin Work Phone: [facility] [place] 03-16-2023 11:21-0400 Systolic blood pressure 145 mm[Hg] Dr. Duarte Martin Work Phone: [facility] [place] 01-19-2023 11:00-0400 Body height 185.[address] Duarte Martin Work Phone: [facility] [place] 01-19-2023 11:00-0400 Body temperature 97 [degF] Dr. Duarte Martin Work Phone: [facility] [place] 01-19-2023 11:00-0400 Diastolic blood pressure 80 mm[Hg] Dr. Duarte Martin Work Phone: [facility] [place] 01-19-2023 11:00-0400 Heart rate 64 /min Dr. Duarte Martin Work Phone: [facility] [place] 01-19-2023 11:00-0400 Respiratory rate 16 /min Dr. Duarte Martin Work Phone: [facility] [place] 01-19-2023 11:00-0400 SaO2% (BldA) [Mass fraction] 98 % Dr. Duarte Martin Work Phone: [facility] [place] 01-19-2023 11:00-0400 Systolic blood pressure 139 mm[Hg] Dr. Duarte Martin Work Phone: [facility] [place] 01-10-2023 07:48-0400 Body mass index (BMI) [Ratio] 31.2 kg/m2 Dr. Duarte Martin Work Phone: [facility] [place] 01-10-2023 07:48-0400 Body temperature 97.4 [degF] Dr. Duarte Martin Work Phone: [facility] [place] 01-10-2023 07:48-0400 Body weight 107.[address] Duarte Martin Work Phone: [facility] [place] 01-10-2023 07:48-0400 Diastolic blood pressure 81 mm[Hg] Dr. Duarte Martin Work Phone: [facility] [place] 01-10-2023 07:48-0400 Heart rate 67 /min Dr. Duarte Martin Work Phone: [facility] [place] 01-10-2023 07:48-0400 Respiratory rate 18 /min Dr. Duarte Martin Work Phone: [facility] [place] 01-10-2023 07:48-0400 SaO2% (BldA) [Mass fraction] 97 % Dr. Duarte Martin Work Phone: [facility] [place] 01-10-2023 07:48-0400 Systolic blood pressure 153 mm[Hg] Dr. Duarte Martin Work Phone: [facility] [place] 11-17-2022 08:04-0400 Body height 185.[address] Duarte Martin Work Phone: [facility] [place] 11-17-2022 08:04-0400 Body temperature 97.2 [degF] Dr. Duarte Martin Work Phone: [facility] [place] 11-17-2022 08:04-0400 Diastolic blood pressure 75 mm[Hg] Dr. Duarte Martin Work Phone: [facility] [place] 11-17-2022 08:04-0400 Heart rate 55 /min Dr. Duarte Martin Work Phone: [facility] [place] 11-17-2022 08:04-0400 Respiratory rate 16 /min Dr. Duarte Martin Work Phone: [facility] [place] 11-17-2022 08:04-0400 SaO2% (BldA) [Mass fraction] 99 % Dr. Duarte Martin Work Phone: [facility] [place] 11-17-2022 08:04-0400 Systolic blood pressure 132 mm[Hg] Dr. Duarte Martin Work Phone: [facility] [place] 09-15-2022 09:39-0500 Body height 185.[address] Duarte Martin Work Phone: [facility] [place] 09-15-2022 09:39-0500 Body mass index (BMI) [Ratio] 30.3 kg/m2 Dr. Duarte Martin Work Phone: [facility] [place] 09-15-2022 09:39-0500 Body temperature 97.1 [degF] Dr. Duarte Martin Work Phone: [facility] [place] 09-15-2022 09:39-0500 Body weight 104.[address] Duarte Martin Work Phone: [facility] [place] 09-15-2022 09:39-0500 Diastolic blood pressure 71 mm[Hg] Dr. Duarte Martin Work Phone: [facility] [place] 09-15-2022 09:39-0500 Heart rate 62 /min Dr. Duarte Martin Work Phone: [facility] [place] 09-15-2022 09:39-0500 Respiratory rate 16 /min Dr. Duarte Martin Work Phone: [facility] [place] 09-15-2022 09:39-0500 SaO2% (BldA) [Mass fraction] 97 % Dr. Duarte Martin Work Phone: [facility] [place] 09-15-2022 09:39-0500 Systolic blood pressure 127 mm[Hg] Dr. Duarte Martin Work Phone: [facility] [place] 09-05-2022 07:45-0500 Body mass index (BMI) [Ratio] 31.6 kg/m2 Dr. Duarte Martin Work Phone: [facility] [place] 09-05-2022 07:45-0500 Body temperature 97.2 [degF] Dr. Duarte Martin Work Phone: [facility] [place] 09-05-2022 07:45-0500 Body weight 108.[address] Duarte Martin Work Phone: [facility] [place] 09-05-2022 07:45-0500 Diastolic blood pressure 89 mm[Hg] Dr. Duarte Martin Work Phone: [facility] [place] 09-05-2022 07:45-0500 Heart rate 73 /min Dr. Duarte Martin Work Phone: [facility] [place] 09-05-2022 07:45-0500 Respiratory rate 18 /min Dr. Duarte Martin Work Phone: [facility] [place] 09-05-2022 07:45-0500 SaO2% (BldA) [Mass fraction] 98 % Dr. Duarte Martin Work Phone: [facility] [place] 09-05-2022 07:45-0500 Systolic blood pressure 157 mm[Hg] Dr. Duarte Martin Work Phone: [facility] [place] 07-21-2022 08:03-0500 Body temperature 97.1 [degF] Dr. Duarte Martin Work Phone: [facility] [place] 07-21-2022 08:03-0500 Diastolic blood pressure 83 mm[Hg] Dr. Duarte Martin Work Phone: [facility] [place] 07-21-2022 08:03-0500 Heart rate 61 /min Dr. Duarte Martin Work Phone: [facility] [place] 07-21-2022 08:03-0500 SaO2% (BldA) [Mass fraction] 96 % Dr. Duarte Martin Work Phone: [facility] [place] 07-21-2022 08:03-0500 Systolic blood pressure 136 mm[Hg] Dr. Duarte Martin Work Phone: [facility] [place] 07-13-2022 10:42-0500 Body height 185.[address] Duarte Martin Work Phone: [facility] [place] Work Phone: 07-13-2022 10:36-0500 Body mass index (BMI) [Ratio] 31.5 kg/m2 Dr. Duarte Martin Work Phone: [facility] [place] 07-13-2022 10:36-0500 Body temperature 98.6 [degF] Dr. Duarte Martin Work Phone: [facility] [place] 07-13-2022 10:36-0500 Body weight 108.[address] Duarte Martin Work Phone: [facility] [place] 07-13-2022 10:36-0500 Diastolic blood pressure 84 mm[Hg] Dr. Duarte Martin Work Phone: [facility] [place] 07-13-2022 10:36-0500 Heart rate 62 /min Dr. Duarte Martin Work Phone: [facility] [place] 07-13-2022 10:36-0500 Respiratory rate 18 /min Dr. Duarte Martin Work Phone: [facility] [place] 07-13-2022 10:36-0500 SaO2% (BldA) [Mass fraction] 97 % Dr. Duarte Martin Work Phone: [facility] [place] 07-13-2022 10:36-0500 Systolic blood pressure 163 mm[Hg] Dr. Duarte Martin Work Phone: [facility] [place] 05-26-2022 08:06-0400 Diastolic blood pressure 78 mm[Hg] Dr. Duarte Martin Work Phone: [facility] [place] 05-26-2022 08:06-0400 Heart rate 59 /min Dr. Duarte Martin Work Phone: [facility] [place] 05-26-2022 08:06-0400 SaO2% (BldA) [Mass fraction] 99 % Dr. Duarte Martin Work Phone: [facility] [place] 05-26-2022 08:06-0400 Systolic blood pressure 137 mm[Hg] Dr. Duarte Martin Work Phone: [facility] [place] 05-03-2022 08:06-0400 Body height 185.[address] Duarte Martin Work Phone: [facility] [place] Work Phone: 05-03-2022 08:06-0400 Body mass index (BMI) [Ratio] 32 kg/m2 Dr. Duarte Martin Work Phone: [facility] [place] Work Phone: 05-03-2022 08:06-0400 Body temperature 97.2 [degF] Dr. Duarte Martin Work Phone: [facility] [place] Work Phone: 05-03-2022 08:06-0400 Body weight 110.[address] Duarte Martin Work Phone: [facility] [place] Work Phone: 05-03-2022 08:06-0400 Diastolic blood pressure 81 mm[Hg] Dr. Duarte Martin Work Phone: [facility] [place] Work Phone: 05-03-2022 08:06-0400 Heart rate 58 /min Dr. Duarte Martin Work Phone: [facility] [place] Work Phone: 05-03-2022 08:06-0400 Respiratory rate 18 /min Dr. Duarte Martin Work Phone: [facility] [place] Work Phone: 05-03-2022 08:06-0400 SaO2% (BldA) [Mass fraction] 98 % Dr. Duarte Martin Work Phone: [facility] [place] Work Phone: 05-03-2022 08:06-0400 Systolic blood pressure 148 mm[Hg] Dr. Duarte Martin Work Phone: [facility] [place] Work Phone: 03-17-2022 08:49-0400 Body height 185.[address] Duarte Martin Work Phone: [facility] [place] Work Phone: 03-17-2022 08:49-0400 Body mass index (BMI) [Ratio] 30.3 kg/m2 Dr. Duarte Martin Work Phone: [facility] [place] Work Phone: 03-17-2022 08:49-0400 Body temperature 96 [degF] Dr. Duarte Martin Work Phone: [facility] [place] Work Phone: 03-17-2022 08:49-0400 Body weight 104.[address] Duarte Martin Work Phone: [facility] [place] Work Phone: 03-17-2022 08:49-0400 Diastolic blood pressure 70 mm[Hg] Dr. Duarte Martin Work Phone: [facility] [place] Work Phone: 03-17-2022 08:49-0400 Heart rate 69 /min Dr. Duarte Martin Work Phone: [facility] [place] Work Phone: 03-17-2022 08:49-0400 Respiratory rate 16 /min Dr. Duarte Martin Work Phone: [facility] [place] Work Phone: 03-17-2022 08:49-0400 SaO2% (BldA) [Mass fraction] 98 % Dr. Duarte Martin Work Phone: [facility] [place] Work Phone: 03-17-2022 08:49-0400 Systolic blood pressure 144 mm[Hg] Dr. Duarte Martin Work Phone: [facility] [place] Work Phone: 01-20-2022 08:04-0400 Body height 185.[address] Duarte Martin Work Phone: [facility] [place] Work Phone: 01-20-2022 08:04-0400 Body mass index (BMI) [Ratio] 29.7 kg/m2 Dr. Duarte Martin Work Phone: [facility] [place] Work Phone: 01-20-2022 08:04-0400 Body temperature 96.6 [degF] Dr. Duarte Martin Work Phone: [facility] [place] Work Phone: 01-20-2022 08:04-0400 Body weight 102.[address] Duarte Martin Work Phone: [facility] [place] Work Phone: 01-20-2022 08:04-0400 Diastolic blood pressure 84 mm[Hg] Dr. Duarte Martin Work Phone: [facility] [place] Work Phone: 01-20-2022 08:04-0400 Heart rate 60 /min Dr. Duarte Martin Work Phone: [facility] [place] Work Phone: 01-20-2022 08:04-0400 Respiratory rate 16 /min Dr. Duarte Martin Work Phone: [facility] [place] Work Phone: 01-20-2022 08:04-0400 SaO2% (BldA) [Mass fraction] 98 % Dr. Duarte Martin Work Phone: [facility] [place] Work Phone: 01-20-2022 08:04-0400 Systolic blood pressure 143 mm[Hg] Dr. Duarte Martin Work Phone: [facility] [place] Work Phone: 01-04-2022 07:08-0400 Body mass index (BMI) [Ratio] 32.1 kg/m2 Dr. Duarte Martin Work Phone: [facility] [place] Work Phone: 01-04-2022 07:08-0400 Body temperature 97.8 [degF] Dr. Duarte Martin Work Phone: [facility] [place] Work Phone: 01-04-2022 07:08-0400 Body weight 110.[address] Duarte Martin Work Phone: [facility] [place] Work Phone: 01-04-2022 07:08-0400 Diastolic blood pressure 86 mm[Hg] Dr. Duarte Martin Work Phone: [facility] [place] Work Phone: 01-04-2022 07:08-0400 Heart rate 60 /min Dr. Duarte Martin Work Phone: [facility] [place] Work Phone: 01-04-2022 07:08-0400 Respiratory rate 17 /min Dr. Duarte Martin Work Phone: [facility] [place] Work Phone: 01-04-2022 07:08-0400 SaO2% (BldA) [Mass fraction] 96 % Dr. Duarte Martin Work Phone: [facility] [place] Work Phone: 01-04-2022 07:08-0400 Systolic blood pressure 148 mm[Hg] Dr. Duarte Martin Work Phone: [facility] [place] Work Phone: 11-25-2021 08:01-0400 Body height 185.[address] Duarte Martin Work Phone: [facility] [place] Work Phone: 11-25-2021 08:01-0400 Body temperature 96.9 [degF] Dr. Duarte Martin Work Phone: [facility] [place] Work Phone: 11-25-2021 08:01-0400 Diastolic blood pressure 80 mm[Hg] Dr. Duarte Martin Work Phone: [facility] [place] Work Phone: 11-25-2021 08:01-0400 Heart rate 65 /min Dr. Duarte Martin Work Phone: [facility] [place] Work Phone: 11-25-2021 08:01-0400 Respiratory rate 16 /min Dr. Duarte Martin Work Phone: [facility] [place] Work Phone: 11-25-2021 08:01-0400 SaO2% (BldA) [Mass fraction] 98 % Dr. Duarte Martin Work Phone: [facility] [place] Work Phone: 11-25-2021 08:01-0400 Systolic blood pressure 134 mm[Hg] Dr. Duarte Martin Work Phone: [facility] [place] Work Phone: 09-27-2021 08:12-0500 Body mass index (BMI) [Ratio] 30.6 kg/m2 Dr. Duarte Martin Work Phone: [facility] [place] Work Phone: 09-27-2021 08:12-0500 Body temperature 96.8 [degF] Dr. Duarte Martin Work Phone: [facility] [place] Work Phone: 09-27-2021 08:12-0500 Body weight 105.[address] Duarte Martin Work Phone: [facility] [place] Work Phone: 09-27-2021 08:12-0500 Diastolic blood pressure 77 mm[Hg] Dr. Duarte Martin Work Phone: [facility] [place] Work Phone: 09-27-2021 08:12-0500 Heart rate 58 /min Dr. Duarte Martin Work Phone: [facility] [place] Work Phone: 09-27-2021 08:12-0500 Respiratory rate 16 /min Dr. Duarte Martin Work Phone: [facility] [place] Work Phone: 09-27-2021 08:12-0500 SaO2% (BldA) [Mass fraction] 100 % Dr. Duarte Martin Work Phone: [facility] [place] Work Phone: 09-27-2021 08:12-0500 Systolic blood pressure 136 mm[Hg] Dr. Duarte Mratin Work Phone: [facility] [place] Work Phone: 09-27-2021 07:12-0500 Body mass index (BMI) [Ratio] 30.6 kg/m2 Dr. Duarte Martin Work Phone: [facility] [place] Work Phone: 09-27-2021 07:12-0500 Body temperature 96.8 [degF] Dr. Duarte Martin Work Phone: [facility] [place] Work Phone: 09-27-2021 07:12-0500 Body weight 105.[address] Duarte Martin Work Phone: [facility] [place] Work Phone: 09-27-2021 07:12-0500 Diastolic blood pressure 77 mm[Hg] Dr. Duarte Martin Work Phone: [facility] [place] Work Phone: 09-27-2021 07:12-0500 Heart rate 58 /min Dr. Duarte Martin Work Phone: [facility] [place] Work Phone: 09-27-2021 07:12-0500 Respiratory rate 16 /min [facility]. Duarte Martin Work Phone[facility] [facility] [place] Work Phone: 09-27-2021 07:12-0500 SaO2% (BldA) [Mass fraction] 100 % Dr. Duarte Martin Work Phone: [facility] [place] Work Phone: 09-27-2021 07:12-0500 Systolic blood pressure 136 mm[Hg] Dr. Duarte Martin Work Phone: [facility] [place] Work Phone: 08-31-2021 06:40-0500 Body temperature 97.3 [degF] Dr. Duarte Martin Work Phone: [facility] [place] Work Phone: 08-31-2021 06:40-0500 Body weight 109.[address] Duarte Martin Work Phone: [facility] [place] Work Phone: 08-31-2021 06:40-0500 Diastolic blood pressure 78 mm[Hg] Dr. Duarte Martin Work Phone: [facility] [place] Work Phone: 08-31-2021 06:40-0500 Heart rate 61 /min Dr. Duarte Martin Work Phone: [facility] [place] Work Phone: 08-31-2021 06:40-0500 Respiratory rate 16 /min Dr. Duarte Martin Work Phone: [facility] [place] Work Phone: 08-31-2021 06:40-0500 SaO2% (BldA) [Mass fraction] 98 % Dr. Duarte Martin Work Phone: [facility] [place] Work Phone: 08-31-2021 06:40-0500 Systolic blood pressure 135 mm[Hg] Dr. Duarte Martin Work Phone: [facility] [place] Work Phone: 08-02-2021 07:04-0500 Body temperature 97.7 [degF] Dr. Duarte Martin Work Phone: [facility] [place] Work Phone: 08-02-2021 07:04-0500 Diastolic blood pressure 77 mm[Hg] Dr. Duarte Martin Work Phone: [facility] [place] Work Phone: 08-02-2021 07:04-0500 Heart rate 56 /min Dr. Duarte Martin Work Phone: [facility] [place] Work Phone: 08-02-2021 07:04-0500 Respiratory rate 16 /min Dr. Duarte Martin Work Phone: [facility] [place] Work Phone: 08-02-2021 07:04-0500 SaO2% (BldA) [Mass fraction] 98 % Dr. Duarte Martin Work Phone: [facility] [place] Work Phone: 08-02-2021 07:04-0500 Systolic blood pressure 148 mm[Hg] Dr. Duarte Martin Work Phone: [facility] [place] Work Phone: 03-01-2021 05:31-0400 Body mass index (BMI) [Ratio] 30.4 kg/m2 Dr. Duarte Martin Work Phone: [facility] [place] Work Phone: 02-07-2017 08:31-0400 BMI (Body Mass Index) 29.81 kg/m2 Mely Shetty LPN [facility] Work Phone: 02-07-2017 08:31-0400 Body Temperature 97.4 [degF] Mely Yensho ENGINEER THIRD ASSISTANT [facility] Work Phone: 02-07-2017 08:31-0400 BP Diastolic 87 mm[Hg] Mely Yensho ENGINEER THIRD ASSISTANT [facility] Work Phone: 02-07-2017 08:31-0400 BP Systolic 152 mm[Hg] Mely Aryannsho ENGINEER THIRD ASSISTANT [facility] Work Phone: 02-07-2017 08:31-0400 Height 185.42 cm Mely Aryannsho ENGINEER THIRD ASSISTANT [facility] Work Phone: 02-07-2017 08:31-0400 Pulse (Heart Rate) 60 /min Mely Aryannsho ENGINEER THIRD ASSISTANT [facility] Work Phone: 02-07-2017 08:31-0400 Respiratory Rate 18 /min Mely Aryannsho ENGINEER THIRD ASSISTANT [facility] Work Phone: 02-07-2017 08:31-0400 Weight 102.51 kg Mely Meiho ENGINEER THIRD ASSISTANT [facility] Work Phone: 01-03-2017 08:37-0400 BSA (Body Surface Area) 2.27 m2 Mley Ayrannsho ENGINEER THIRD ASSISTANT [facility] Work Phone: 12-19-2016 08:12-0400 BMI (Body Mass Index) 29.29 kg/m2 Franca Chen NP [facility] Work Phone: 12-19-2016 08:12-0400 Body Temperature 96.4 [degF] Franca Chen NP [facility] Work Phone: 12-19-2016 08:12-0400 Body weight 100.7 kg Lian Senior ENGINEER THIRD ASSISTANT [facility] Work Phone: 12-19-2016 08:12-0400 BP Diastolic 77 mm[Hg] Franca Chen NP [facility] Work Phone: 12-19-2016 08:12-0400 BP Systolic 122 mm[Hg] Franca Chen NP [facility] Work Phone: 12-19-2016 08:12-0400 Height 185.42 cm Franca Gustavo SEED PRODUCTION FIELD SUPERVISOR [facility] Work Phone: 12-19-2016 08:12-0400 Pulse (Heart Rate) 61 /min Franca Chen SEED PRODUCTION FIELD SUPERVISOR [facility] Work Phone: 12-19-2016 08:12-0400 Pulse Oximetry 98 % Franca Chen SEED PRODUCTION FIELD SUPERVISOR [facility] Work Phone: 12-19-2016 08:12-0400 Respiratory Rate 18 /min Franca Chen SEED PRODUCTION FIELD SUPERVISOR [facility] Work Phone: 12-19-2016 08:12-0400 Weight 100.7 kg Franca Chen SEED PRODUCTION FIELD SUPERVISOR [facility] Work Phone: 12-15-2016 09:15-0400 BSA (Body Surface Area) 2.27 m2 Mely Shetty LPN [facility] Work Phone: 11-22-2016 08:38-0400 BMI (Body Mass Index) 29.92 kg/m2 Isacc Johnson MD [facility] Work Phone: 11-22-2016 08:38-0400 Body Temperature 97 [degF] Isacc Johnson MD [facility] Work Phone: 11-22-2016 08:38-0400 BP Diastolic 81 mm[Hg] Isacc Johnson MD [facility] Work Phone: 11-22-2016 08:38-0400 BP Systolic 131 mm[Hg] Isacc Johnson MD [facility] Work Phone: 11-22-2016 08:38-0400 BSA (Body Surface Area) 2.27 m2 Isacc Johnson MD [facility] Work Phone: 11-22-2016 08:38-0400 Height 185.42 cm Isacc Johnson MD [facility] Work Phone: 11-22-2016 08:38-0400 Pulse (Heart Rate) 64 /min Isacc Johnson MD [facility] Work Phone: 11-22-2016 08:38-0400 Pulse Oximetry 97 % Isacc Johnson MD [facility] Work Phone: 11-22-2016 08:38-0400 Respiratory Rate 18 /min Isacc Johnson MD [facility] Work Phone: 11-22-2016 08:38-0400 Weight 102.88 kg Isacc Johnson MD [facility] Work Phone: 08-11-2016 12:46-0500 Body Temperature 97.16 [degF] Isacc Johnson MD [facility] Work Phone: 08-11-2016 12:46-0500 Body weight 101.82 kg Lianbenji Senior LPN [facility] Work Phone: 08-11-2016 12:46-0500 Height 185.42 cm Isacc Johnson MD [facility] Work Phone: 08-11-2016 12:46-0500 Weight 101.82 kg Isacc Johnson MD [facility] Work Phone: 04-23-2013 11:08-0400 Heart rate 57 /min Lian Senior LPN [facility] Work Phone: Encounters Encounter Date Encounter Type Care Provider Facility Start: 02-06-2025 End: 02-06-[address] Gibson Torrez DO -[facility] Work Phone: Start: 02-06-2025 End: 02-06-[address] Duarte Martin MD Work Phone: -[facility] Start: 12-12-2024 End: 12-12-[address] Gibson Torrez DO -[facility] Work Phone: Start: 12-12-2024 End: 12-12-2024 ambulatory Duarte Martin Facility:[facility] [place] Start: 11-19-2024 End: 11-19-2024 Patient encounter procedure Carolyn Ohara SEED PRODUCTION FIELD SUPERVISOR-C -[facility] Work Phone: Start: 11-19-2024 End: 11-19-2024 ambulatory Carolyn Ohara NP Facility:[facility] Start: 11-07-2024 End: 11-07-[address] Duarte Martin MD Work Phone: [facility] [place] Work Phone: Start: 11-07-2024 End: 11-07-[address] Duarte Martin MD -Laboratory, [place] Work Phone: Start: 11-07-2024 End: 11-07-2024 ambulatory Duarte Martin Facility:[facility] [place] Start: 10-17-2024 End: 10-17-[address] Gibson Torrez DO -Medical Out Work Phone: Start: 10-17-2024 End: 10-17-[address] Duarte Martin MD Work Phone: [facility] [place] Work Phone: Start: 08-22-2024 End: 08-22-[address] Gibson Torrez DO -[facility] Out Work Phone: Start: 08-22-2024 End: 08-22-2024 ambulatory Duarte Martin Facility:[facility] [place] Start: 06-27-2024 End: 06-27-[address] Gibson Torrez DO -[facility] Out Work Phone: Start: 06-27-2024 End: 06-27-2024 ambulatory Gibson Torrez Facility:[facility] [place] Start: 06-11-2024 End: 06-11-2024 Office outpatient visit 15 minutes Darrin Dubois MD Work Phone: [facility] Comment on above: Nocturia; Benign prostatic hyperplasia without lower urinary tract symptoms; Elevated PSA Start: 06-11-2024 End: 06-11-2024 ambulatory [facility] Start: 05-28-2024 End: 05-28-2024 Subsequent hospital visit by physician [facility] Comment on above: Elevated PSA Start: 05-28-2024 End: 05-28-2024 ambulatory [facility] Start: 05-22-2024 End: 05-22-2024 ambulatory Carolyn Ohara SEED PRODUCTION FIELD SUPERVISOR Facility:[facility] Start: 05-07-2024 End: 05-07-2024 Office outpatient new 45 minutes Darrin Dubois MD Work Phone: [facility] Comment on above: Benign prostatic hyp erplasia without lower urinary tract symptoms; Elevated PSA; Nocturia Start: 05-07-2024 End: 05-07-2024 ambulatory [facility] Start: 05-02-2024 End: 05-02-2024 ambulatory Duarte Martin Facility:[facility] [place] Start: 04-28-2024 End: 04-28-2024 ambulatory Duarte Martin Facility:[facility] [place] Start: 03-07-2024 End: 03-07-2024 Office outpatient visit 15 minutes Gigi Gupta MD Work Phone: 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 Duarte Martin Work Phone: [facility] [place] Work Phone: Start: 11-02-2023 End: 11-02-[address] Duarte Martin Work Phone: [facility] [place]-Medical Out Work Phone: Start: 10-26-2023 End: 10-26-2023 Postop follow up visit related to original px Gigi Gupta MD Work Phone: [facility] Comment on above: Mixed conductive and sensorineural hearing loss, bilateral (Primary Dx) Start: 10-26-2023 End: 10-26[facility] Start: 10-11-2023 End: 10-11-2023 ambulatory THANH HERNANDEZ [facility] Start: 10-11-2023 End: 10-11-2023 Postop follow up visit related to original px Thanh Hernandez MD Work Phone: [facility] Comment on above: Postoperative visit Start: 10-02-2023 End: 10-02-2023 ambulatory GIGI [facility] Start: 10-02-2023 End: 10-02-2023 Subsequent hospital visit by physician Gigi Gupta MD Work Phone: [facility] Comment on above: Mixed conductive and sensorineural hearing loss, bilateral (Primary Dx); BAHA cochlear implant bone infection ([facility]/HCC) Start: 09-13-2023 End: 09-14-2023 ambulatory DUARTE MARTIN [facility] Start: 09-13-2023 End: 09-14-2023 Encounter for other preprocedural examination DUARTE MARTIN [facility] Start: 09-13-2023 End: 09-13-2023 Office outpatient visit 15 minutes Gigi Gupta MD Work Phone: [facility] Comment on above: Mixed conductive and sensorineural hearing loss, bilateral (Primary Dx) Start: 09-13-2023 End: 09-13-2023 ambulatory [facility] Start: 09-07-2023 End: 09-07-[address] Duarte Martin Work Phone: [facility] [place] Work Phone: Start: 09-07-2023 End: 09-07-[address] [facility] Start: 09-04-2023 End: 09-04-2023 ambulatory RUTHANN SAL [facility] Start: 07-18-2023 End: 07-18-[address] Duarte Martin Work Phone: [facility]-Pulmonary Medicine [facility] Work Phone: Start: 07-13-2023 End: 07-13-[address] Duarte Martin Work Phone: [facility] [place] Work Phone: Start: 07-13-2023 End: 07-13-[address] [facility] Martin [facility] Start: 07-05-2023 End: 07-05-2023 ambulatory [facility] Start: 06-07-2023 End: 06-07-2023 ambulatory [facility] Start: 06-07-2023 End: 06-07-2023 Subsequent hospital visit by physician Gigi Gupta MD Work Phone: [facility] [place] Comment on above: BAHA cochlear implan t bone infection (CMS/HCC) Start: 05-24-2023 End: 05-24-[address] Duarte Martin Work Phone: [facility] Work Phone: Start: 05-21-2023 End: 05-22-2023 ambulatory DUARTE MARTIN [facility] Start: 05-21-2023 End: 05-21-2023 Subsequent hospital visit by physician Sarabjit [facility] Comment on above: Arrived Start: 05-18-2023 End: 05-18-2023 ambulatory [facility] [place] Work Phone: Start: 05-18-2023 End: 05-18-2023 Patient encounter procedure [facility] [place]-Medical Out Work Phone: Start: 05-15-2023 End: 05-15-2023 ambulatory [facility] Start: 04-10-2023 Office outpatient vi sit 25 minutes Referring Provider Unknown [facility] [address] Work Phone: Start: 04-10-[address] Adam Stearns [employer] Facility:[id number] Start: 04-04-2023 End: 04-04-[address] Duarte Martin Work Phone: [facility] [place] Work Phone: Start: 04-04-2023 End: 04-04-[address] Duarte Martin Work Phone: [facility] [place] Start: 03-23-2023 Chart Update Referring Prov ider Unknown [facility]-Infectious Disease-[facility] Rudy Work Phone: Start: 03-20-2023 End: 03-21-2023 ambulatory [facility] Start: 03-20-2023 Office outpatient ne w 60 minutes Referring Provider Unknown [facility]Infectious Disease-[facility] Rudy Work Phone: Start: 03-20-[address] Adam Stearns [employer] Facility:[id number] Start: 03-16-2023 End: 03-16-[address] Duarte Martin Work Phone: [facility] [place] Work Phone: Start: 03-16-2023 End: 03-16-[address] Durate Martin Work Phone: [facility] [place]-Medical Out Work Phone: Start: 01-19-2023 End: 01-19-[address] Duarte Martin Work Phone: [facility] [place] Work Phone: Start: 01-19-2023 End: 01-19-[address] Duarte Martin Work Phone: [facility] [place]-Medical Out Work Phone: Start: 01-10-2023 End: 01-10-[address] Duarte Martin Work Phone: [facility]-Pulmonary Medicine [facility] Work Phone: Start: 11-20-2022 End: 11-20-[address] Duarte Martin Work Phone: [facility] [place] Work Phone: Start: 11-20-2022 End: 11-20-[address] Duarte Martin Work Phone: [facility] [place]-Laboratory, Specimen Start: 11-17-2022 End: 11-17-[address] Duarte Martin Work Phone: [facility] [place]-Medical Out Start: 10-02-2022 End: 10-02-[address] Duarte Martin Work Phone: [facility] [place] Work Phone: Start: 10-02-2022 End: 10-02-[address] Duarte Martin Work Phone: [facility] Start: 09-15-2022 End: 09-15-[address] Duarte Martin Work Phone: [facility] [place] Work Phone: Start: 09-15-2022 End: 09-15-[address] Duarte Martin Work Phone: [facility] [place]-Medical Out Start: 09-05-2022 End: 09-05-[address] Duarte Martin Work Phone: [facility] [place]-Pulmonary Medicine [facility] Start: 07-21-2022 End: 07-21-[address] Duarte Martin Work Phone: [facility] [place] Work Phone: Start: 07-21-2022 End: 07-21-[address] [facility] Start: 07-13-2022 End: 07-13-[address] Duarte Martin [facility] Start: 06-21-2022 End: 06-21-2022 Non-patient / Non-visit Dr. Duarte Martin Work Phone: [facility] Start: 06-21-2022 End: 06-21-[address] Duarte Martin Work Phone: [facility] [place] Work Phone: Start: 06-21-2022 End: 06-21-[address] Duarte Martin Work Phone: [facility] [place]-Pulmonary Services/Neurology Start: 05-26-2022 End: 05-26-[address] Duarte Martin Work Phone: [facility] [place] Work Phone: Start: 05-26-2022 End: 05-26-[address] [facility] Start: 05-03-2022 End: 05-03-[address] Du[facility] Work Phone: [facility] Start: 03-17-2022 End: 03-17-[address] Duarte Martin Work Phone: [facility] [place] Work Phone: Start: 03-17-2022 End: 03-17-[address] Duarte Martin [facility] Start: 02-23-2022 End: 02-23-[address] Duarte Martin Work Phone: [facility] [place]-Sleep Lab Start: 01-20-2022 End: 01-20-[address] [facility] Martin [facility] Start: 01-04-2022 End: 01-04-[address] Duarte Martin [facility] Start: 11-25-2021 End: 11-25-[address] Duarte Martin [facility] Start: 09-27-2021 End: 09-27-[address] [facility] Start: 09-14-2021 End: 09-14-[address] Duarte Martin Work Phone: [facility] [place]-Outpatient Bone Densitometry Start: 09-05-2021 End: 09-05-[address] Duarte Martin Work Phone: [facility] [place] Start: 08-31-2021 End: 08-31-[address] Duarte Martin [facility] Start: 08-03-2021 End: 08-03-[address] Duarte Martin [facility] Start: 08-03-[address] Duarte Martin [facility] Start: 08-02-2021 End: 08-02-[address] Duarte Martin [facility] Date Procedure Procedure Detail Performing Clinician Start: 11-07-2024 Assay of prostate specific antigen total Dr. Duarte Martin MD Work Phone: Comment on above: This test was perfor med using the [employer] tPSA method. Measured values of a patient sample can vary depending on the testing procedure used. PSA values determined on patient samples by different testing procedures cannot be used interchangeably. If there is a change in PSA assays while monitoring therapy, sequential testing should be performed to confirm baseline values. Start: 05-28-2024 Mri pelvis w/o & w/contrast material Darrin Dubois MD Work Phone: Start: 03-07-2024 Follow-up visit Follow-up GIGI GUPTA Start: 10-11-2023 Follow-up visit Follow-up THANH HERNANDEZ Start: 10-02-2023 DISCHARGE PATIENT JOHANNA NGUYEN DORON Start: 09-13-2023 CBC panel - Blood by Automated count RUTHANN DORON Start: 09-13-2023 Comprehensive metabo lic 2000 panel - Serum or Plasma RUTHANN DORON Start: 09-04-2023 BONE ANCHOR IMPLANT EVALUATION RUTHANN DORON Start: 06-07-2023 DISCHARGE PATIENT JOHANNA NGUYEN DORON Start: 06-07-2023 ADULT DISCHARGE DIET CH RISTY DORON Start: 06-07-2023 DISCHARGE ACTIVITY CHRI STY DORON Start: 06-07-2023 DISCHARGE DRESSING CHRI STY DORON Start: 06-07-2023 NOTIFY PROVIDER (DO NOT PROMPT FOR PARAMETERS) RUTHANN DORON Start: 06-07-2023 WOUND CARE RUTHANN PA PPAS Start: 06-07-2023 DISCONTINUE IV RUTHANN DORON Start: 06-07-2023 INSERT PERIPHERAL IV CH RISTY DROON Start: 06-07-2023 NURSING COMMUNICATION C HRISTY DORON Start: 06-07-2023 PULSE OXIMETRY, CONTINUOUS RUTHANN DORON Start: 06-07-2023 TISSUE/WOUND CULTURE/SMEAR RUTHANN DORON Start: 06-07-2023 VITAL SIGNS RUTHANN PA PPAS Start: 06-07-2023 PULSE OXIMETRY, CONTINUOUS Carter Fontana MD Work Phone: Start: 05-21-2023 Basic metabolic 2000 panel - Serum or Plasma RUTHANN DORON Start: 05-21-2023 CBC W Auto Different ial panel - Blood RUTHANN DORON Start: 05-21-2023 Ecg routine ecg w/le ast 12 lds trcg only w/o i&r Gigi Gupta MD Work Phone: Start: 05-15-2023 COMPREHENSIVE HEARIN G TEST RUTHANN DORON Start: 11-20-2022 Investigation of transfusion reaction Dr. Duarte Martin Work Phone: Start: 11-20-2022 Microbial culture, routine Dr. Duarte Martin Work Phone: Start: 09-14-2021 Dual energy X-ray absorptiometry Dr. Duarte Martin Work Phone: Start: 02-07-2017 End: 02-07-2017 Dietary management education, guidance, and counseling Mely Shetty LPN Start: 12-19-2016 End: 12-19-2016 Dietary management education, guidance, and counseling Lian Senior LPN Start: 12-19-2016 End: 12-19-2016 Documentation of current medications Lian Senior LPN Start: 11-22-2016 End: 11-22-2016 Follow up Appt 1 week Isacc Johnson MD Start: 11-08-2016 End: 11-22-2016 Follow Up Appt 2 weeks Isacc Johnson MD Start: 09-06-2016 End: 10-31-2016 Follow Up Appt Other Isacc Johnson MD Start: 05-18-2016 End: 08-08-2016 Complete sleep workup (PSG,CPAP as indicated) & Follow up Norm Duenas Work Phone: Start: 05-18-2016 End: 05-19-2016 Evaluate pt use of inhaler Norm Duenas Work Phone: Start: 05-18-2016 End: 08-08-2016 Pulmonary stress test/simple Norm Duenas Work Phone: Start: 08-01-2013 End: 08-01-2013 Follow Up Appt 1 year Kuldeep Lockwood MD Start: 08-01-2013 End: 08-01-2013 MMM Kuldeep Lockwood MD Start: 04-23-2013 End: 04-28-2013 *BMP Kuldeep Lockwood MD Start: 04-23-2013 End: 07-28-2014 CBC W Auto Differential panel - Blood Kuldeep Lockwood MD Start: 04-23-2013 End: 04-28-2013 Coagulation factor induced.INR assay in platelet poor plasma Kuldeep Lockwood MD Start: 04-23-2013 End: 04-23-2013 SENIOR DB2 SYSTEMS PROGRAMMER Kuldeep Lockwood MD Start: 04-23-2013 End: 04-23-2013 Electrocardiogram, complete Kuldeep Lockwood MD Start: 04-23-2013 End: 04-23-2013 Follow Up Appt 3 months Renetta Goncalves Start: 04-23-2013 End: 07-28-2014 Left Heart Cath Kuldeep Lockwood MD History of cholecystectomy History of cholecystectomy Dr. Duarte Martin Work Phone: History of decompres laurita of median nerve History of carpal tunnel surgery of right wrist Dr. Duarte Martin Work Phone: History of repair of inguinal hernia H/O inguinal hernia repair Dr. Duarte Martin Work Phone: Investigation of transfusion reaction Dr. Duarte Martin Work Phone: Microbial culture, routine Dr. Duarte Martin Work Phone: Plan of Treatment Date Care Activity Detail Author Start: 09-01-2030 DTaP/Tdap/Td Vaccine s (2 - Td or Tdap) DTaP/Tdap/Td Vaccines (2 - Td or Tdap) [facility] Start: 06-03-2025 End: 06-03-2025 Patient encounter procedure 06/03/2025 9:30 AM EST Office Visit [facility] [address] [facility] [address] [place] [phone] Darrin Dubois MD [address] [place] [address] [facility] Start: 03-27-2025 End: 03-27-2025 Patient encounter procedure 03/27/2025 2:00 PM EDT Office Visit [facility] [address] [place] [phone] Gigi Gupta MD [address] [facility] [address] [place] [address] [facility] Start: 11-20-2024 End: 06-11-2025 Prostate specific Ag [Mass/volume] in Serum or Plasma Prostate Specific Antigen Lab Routine Elevated PSA Expected: 11/20/2024 (Approximate), Expires: 06/11/2025 [facility] Service Area Work Phone: Comment on above: Expected: 11/20/2024 (Approximate), Expires: 06/11/2025 Start: 07-11-2024 End: 07-11-2024 Patient encounter procedure 07/11/2024 11:00 AM EST Office Visit [facility] [address] [facility] [employer] [facility] [address] [place] [phone] Boom Pennington MD MPH [address] [address] Department of Urology [place], [place] [phone] [facility] 1 Start: 06-20-2024 End: 06-20-2024 Patient encounter procedure 06/20/2024 2:30 PM EST Office Visit [facility] [address] [facility] [address] [place] [phone] Boom Pennington MD MPH [address] [address] [place] [address] [facility] 1 Start: 06-11-2024 End: 06-11-2024 Patient encounter procedure 06/11/2024 9:00 AM EST Office Visit [facility] [address] [facility] [address] [place] [address] Darrin Dubois MD [address] [phone] [facility] Start: 05-28-2024 End: 05-28-2024 Patient encounter procedure 05/28/2024 9:15 AM EST Appointment [id number] [place] [address] [facility] Start: 05-07-2024 End: 05-07-2025 MR Prostate MR prostate with jefe boundaries if pirads 3 or above Imaging Routine Elevated PSA Expected: 05/07/2024 (Approximate), Expires: 05/07/2025 [facility] Service Area Work Phone: Comment on above: Expected: 05/07/2024 (Approximate), Expires: 05/07/2025 Start: 03-23-2024 COVID-19 Vaccine ( season) COVID-19 Vaccine ( season) [facility] Start: 03-23-2024 Influenza vaccination Influenza Vacc ine (#1) [facility] Start: 01-25-2024 End: 01-25-2024 Patient encounter procedure 01/25/2024 9:45 AM EDT Office Visit [facility] [address] [place] [address] Gigi Gupta MD [address] [place], [place] [id number] [facility] Start: 11-22-2023 COVID-19 Vaccine ( season) COVID-19 Vaccine ( season) [facility] Start: 11-06-2023 End: 11-06-2023 Clinical Support 11/06/2023 2:30 PM EDT Clinical Support [facility] [address] [place] [phone] Thalia Rubio, SUSAN, [facility] [address] Audiology Services, [address] [place] [address] [facility] Start: 10-26-2023 End: 10-26-2023 Patient encounter procedure [facility] Start: 10-02-2023 End: 10-02-2023 Admission to same day surgery center 10/02/2023 9:45 AM EDT - 10/02/2023 12:00 PM EDT Surgery [facility] [place] [address] [place] [phone] Gigi Gupta MD [address] [place] [address] right sided osia implant [97806 (CPT )] [facility] [place] Comment on above: right sided osia imp lant [[id number] (CPT )] Start: 10-02-2023 End: 10-02-2023 Insertion Bone Conducting Implant Ear Insertion Bone Conducting Implant Ear Mixed conductive and sensorineural hearing loss, bilateral 10/02/2023 9:45 AM EDT Virtual [facility] Start: 10-02-2023 Subsequent hospital visit by physician 10/02/2023 8:15 AM EDT Hospital Encounter [facility] [place] [address] [place] [phone] Gigi Gupta MD [address] [place] [address] [facility] [place] Start: 07-05-2023 End: 07-05-2023 Patient encounter procedure 07/05/2023 11:15 AM EST Office Visit [facility] [address] [place] [phone] Gigi Gupta MD [address] [place] [address] [facility] Start: 06-07-2023 Subsequent hospital visit by physician 06/07/2023 Hospital Encounter [facility] [place] [address] [place] [address] Gigi Gupta MD [address] [place] [address] [facility] [place] Start: 06-07-2023 End: 06-07-2023 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 Insertion Bone Conducting Implant Ear BAHA cochlear implant bone infection (CMS/HCC) 06/07/2023 12:24 PM EST Virtual [facility] Start: 04-10-2023 CASSANDRA, Provider : Adam Rodriguez, Status: Pen, Time: 11:20 AM CASSANDRA, Provider: Adam Rodriguez, Status: Pen, Time: 11:20 AM [facility] Lori Work Phone: Start: 08-31-2021 COVID-19 Vaccine (4 - Moderna series) COVID-19 Vaccine (4 - Moderna series) [facility] Start: 06-05-2018 Pneumococcal Vaccine : 65+ Years (2 - PCV) Pneumococcal Vaccine: 65+ Years (2 - PCV) [facility] Start: 06-05-2018 Pneumococcal Vaccine : 65+ Years (2 of 2 - PCV) Pneumococcal Vaccine: 65+ Years (2 of 2 - PCV) [facility] Start: 08-06-2017 End: 08-06-2017 Appointment [facility] Work Phone: Start: 02-07-2017 End: 02-07-2017 Appointment Appointment [facility] Work Phone: Start: 02-07-2017 End: 02-07-2017 Appointment Appointment [facility] Work Phone: Start: 02-07-2017 End: 02-07-2017 [facility] Work Phone: Start: 02-07-2017 End: 02-07-2017 Follow Up Appt 6 months Follow Up Appt 6 months [facility] Work Phone: Start: 01-03-2017 End: 01-03-2017 Appointment Appointment [facility] Work Phone: Start: 01-03-2017 End: 01-03-2017 Appointment Appointment [facility] Work Phone: Start: 01-03-2017 End: 02-11-2017 Follow Up Appt Other Follow Up Appt Other [facility] Work Phone: Start: 12-19-2016 End: 12-19-2016 Appointment Appointment [facility] Work Phone: Start: 12-19-2016 End: 12-19-2016 BWA BWA [facility] Work Phone: Start: 12-19-2016 End: 12-19-2016 Follow Up as scheduled Follow Up as scheduled [facility] Work Phone: Start: 12-15-2016 End: 12-15-2016 Appointment Appointment [facility] Work Phone: Start: 12-15-2016 End: 02-11-2017 Follow Up Appt 2 weeks Follow Up Appt 2 weeks [facility] Work Phone: Start: 11-29-2016 End: 11-29-2016 Appointment Appointment [facility] Work Phone: Start: 11-29-2016 End: 01-28-2017 Follow Up Appt 2 weeks Follow Up Appt 2 weeks [facility] Work Phone: Start: 11-22-2016 End: 11-22-2016 Bacterica wound culture *CUW - Culture, Wound (Aerobic) [facility] Work Phone: Start: 11-22-2016 End: 11-22-2016 Follow up Appt 1 week Follow up Appt 1 week [facility] Work Phone: Start: 11-16-2016 End: 11-16-2016 [facility] Work Phone: Start: 11-16-2016 End: 11-16-2016 Follow Up Appt 1 month Follow Up Appt 1 month [facility] Work Phone: Start: 11-08-2016 End: 11-22-2016 Follow Up Appt 2 weeks Follow Up Appt 2 weeks [facility] Work Phone: Start: 10-17-2016 End: 10-17-2016 [facility] Work Phone: Start: 10-17-2016 End: 10-17-2016 Follow Up Appt 1 month Follow Up Appt 1 month [facility] Work Phone: Start: 09-06-2016 End: 10-31-2016 Follow Up Appt Other Follow Up Appt Other [facility] Work Phone: Start: 08-11-2016 End: 08-11-2016 Follow Up Appt 6 months Follow Up Appt 6 months [facility] Work Phone: Start: 08-11-2016 End: 08-11-2016 Pulmonary Function Test - complete Pulmonary Function Test - complete [facility] Work Phone: Start: 05-18-2016 End: 08-08-2016 Complete sleep workup (PSG,CPAP as indicated) & Follow up Complete sleep workup (PSG,CPAP as indicated) & Follow up [facility] Work Phone: Start: 05-18-2016 End: 05-18-2016 Follow Up Appt 3 months Follow Up Appt 3 months [facility] Work Phone: Start: 05-18-2016 End: 08-08-2016 Pulmonary stress test/simple Pulmonary stress testing; simple (eg, 6-minute walk) [facility] Work Phone: Start: 08-01-2013 End: 08-01-2013 Follow Up Appt 1 year Follow Up Appt 1 year [facility] Work Phone: Start: 08-01-2013 End: 08-01-2013 MMM MMM [facility] Work Phone: Start: 04-23-2013 End: 04-28-2013 *BMP *BMP [facility] Work Phone: Start: 04-23-2013 End: 07-28-2014 CBC W Auto Differential panel - Blood *CBC without Diff [facility] Work Phone: Start: 04-23-2013 End: 04-28-2013 Coagulation factor induced.INR assay in platelet poor plasma *PT/INR [facility] Work Phone: Start: 04-23-2013 End: 04-23-2013 SENIOR DB2 SYSTEMS PROGRAMMER SENIOR DB2 SYSTEMS PROGRAMMER [facility] Work Phone: Start: 04-23-2013 End: 04-23-2013 Electrocardiogram, complete EKG (In office) [facility] Work Phone: Start: 04-23-2013 End: 04-23-2013 Follow Up Appt 3 months Follow Up Appt 3 months [facility] Work Phone: Start: 04-23-2013 End: 04-23-2013 Left Heart Cath Left Heart Cath [facility] Work Phone: Start: 1970 Diabetes mellitus screening Diabetes Screening [facility] Start: 1970 Hepatitis C screening Hepatitis C [facility] Start: 1952 Lipid panel Lipid Panel [facility] Start: 1952 Medicare Annual Well ness Visit Medicare Annual Wellness Visit (AWV) [facility] Start: 1952 Screening for malign ant neoplasm of colon [facility] Bacteria identified in Unspecified specimen by Culture Tissue/Wound Culture/Smear Microbiology Routine BAHA cochlear implant bone infection (CMS/HCC) Release Upon Ordering for 1 Occurrences starting 06/07/2023 [facility] Service Area Work Phone: Comment on above: Release Upon Orderin g for 1 Occurrences starting 06/07/2023 End: 10-02-2023 Continuous Pulse oximetry, In Phase 1 Continuous Pulse oximetry, In Phase 1 Respiratory Care Routine Continuous until discontinued starting 10/02/2023 [facility] Service Area Work Phone: Comment on above: Continuous until dis continued starting 10/02/2023 ECG 12 Lead ECG 12 Lead ECG Routine Preoperative testing 05/21/2023 8:47 AM EDT [facility] Service Area Work Phone: MR Prostate MR prostate with jefe boundaries if pirads 3 or above Imaging Routine Elevated PSA 05/28/2024 9:32 AM EST [facility] Service Area Work Phone: 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 Insertion Bone Conducting Implant Ear BAHA cochlear implant bone infection ([facility]/HCC) [facility] Work Phone: Immunizations Immunization Date Immunization Notes Care Provider Fa cili 05-16-2023 influenza virus vacc ine, unspecified formulation Gigi Gupta MD Work Phone: [facility] Work Phone: 04-21-2022 influenza, injectabl e, quadrivalent, preservative free Referring Provider Unknown [facility] [employer] Work Phone: 01-30-2022 zoster vaccine recombinant Referring Provider Unknown [facility] [employer] Work Phone: 11-22-2021 zoster vaccine recombinant Referring Provider Unknown [facility] [employer] Work Phone: 07-23-2021 zoster vaccine recombinant Referring Provider Unknown [facility] [employer] Work Phone: 07-06-2021 Moderna COVID-19 Vac cine 100 MCG/0.5ML Intramuscular Suspension Referring Provider Unknown [facility] [employer] Work Phone: 04-19-2021 influenza, injectabl e, quadrivalent, contains preservative Referring Provider Unknown [facility] [employer] Work Phone: 09-09-2020 Covid (Moderna) Dr. Duarte moreira Work Phone: [facility] 09-01-2020 tetanus toxoid, redu rosemarie diphtheria toxoid, and acellular pertussis vaccine, adsorbed Referring Provider Unknown [facility] Work Phone: 08-12-2020 Giselle (Moderna) Dr. Duarte moreira Work Phone: [facility] 05-10-2020 influenza, seasonal, injectable Referring Provider Unknown [facility] Lori Work Phone: 06-02-2019 influenza, injectabl e, quadrivalent, contains preservative Referring Provider Unknown [facility] Work Phone: 06-06-2018 influenza, seasonal, injectable Referring Provider Unknown [facility]ori Work Phone: 06-05-2017 influenza, injectabl e, quadrivalent, contains preservative Referring Provider Unknown [facility] Work Phone: 06-05-2017 pneumococcal polysaccharide vaccine, 23 valent Referring Provider Unknown [facility] Lori Work Phone: 06-05-2016 pneumococcal polysaccharide vaccine, 23 valent Referring Provider Unknown [facility]ori Work Phone: 05-24-2015 influenza, injectabl e, quadrivalent, preservative free Referring Provider Unknown [facility]ori Work Phone: 01-19-2014 zoster vaccine, live Referri ng Provider Unknown [facility] Rud[employer] Work Phone: 05-26-2013 influenza, injectabl e, quadrivalent, preservative free Referring Provider Unknown [facility] Work Phone: 07-27-2009 novel influenza-H1N1 -09, preservative-free, injectable Referring Provider Unknown [facility] Work Phone: Payers Date Payer Category Payer Medicare [id number] 2024 Self-pay [id number] 2021 Unknown [id number] 93 [id number] 2017 Medicare [id number] 2017 Medicare [id number] 1950 Unknown [id number] 2.16. 840.1.906033.3.579.2.356 1952 Unknown [id number] 2.16. 840.1.712765.3.579.2.356 1952 Unknown [id number] 2.16.84 0.1.688374.3.579.2.1247 1952 Unknown [id number] 2.16.8 40.1.452923.3.579.2.1245 1952 Unknown [id number] 2.16.8 40.1.522315.3.579.2.1245 1952 Unknown [id number] 2.16.8 40.1.151538.3.579.2.1245 1952 Unknown [id number] 2.16.8 40.1.590014.3.579.2.1245 1952 Unknown [id number] 2.16.8 40.1.857242.3.579.2.1245 1952 Unknown [id number] 2.16.8 40.1.802788.3.579.2.1245 1952 Unknown [id number] 2.16.8 40.1.385308.3.579.2.1245 1952 Unknown [id number] 2.16.84 0.1.753382.3.579.2.1245 1952 Unknown [id number] 2.16.8 40.1.804090.3.579.2.1243 1952 Unknown [id number] 2.16. 840.1.218986.3.579.2.1244 1952 Unknown [id number] 2.16. 840.1.274386.3.579.2.1244 1952 Unknown [id number] 2.16.8 40.1.825364.3.579.2.1244 1952 Unknown [id number] 40.1.268936.3.579.2.1244 1952 Unknown [id number] 2.16.8 40.1.767922.3.579.2.1244 1952 Unknown [id number] 40.1.241735.3.579.2.1244 Unknown [id number] Unknown [id number] Unknown Unknown [id number] 2.16.8 40.1.030256.3.579.2.462 Unknown [id number] 2.16.8 40.1.057235.3.579.2.462 Unknown [id number] 2.16.8 40.1.531318.3.579.2.462 Unknown [id number] 2.16.8 40.1.449771.3.579.2.462 Unknown [id number] 2.16.8 40.1.265586.3.579.2.462 Unknown [id number] 2.16.8 40.1.597880.3.579.2.462 Unknown [id number] 2.16.8 40.1.285030.3.579.2.462 Unknown [id number] 2.16.8 40.1.997026.3.579.2.462 Unknown [id number] 2.16.8 40.1.023863.3.579.2.462 Unknown [id number] 2.16.8 40.1.195741.3.579.2.462 Unknown [id number] 2.16.8 40.1.573417.3.579.2.462 Social History Date Type Detail Facility Start: 08-31-2021 End: 07-18-2023 Tobacco smoking status NHIS Unknown if ever smoked [facility] Start: 12-10-2018 Non-smoker [facility] Start: 1950 Sex Assigned At Male [facility] Start: 05-17-2023 End: 10-11-2023 Never a smoker Never a smoker -Infectious Disease-[facility] Work Phone: Start: 05-17-2023 End: 07-18-2023 Tobacco smoking status NHIS Never smoked tobacco [facility] Start: 05-17-2023 Tobacco use and exposure Smokeless tobacco non-user [facility] Work Phone: Start: 05-17-2023 End: 03-07-2024 Alcohol intake Lifetime non-drinker (finding) [facility] Work Phone: Start: 05-17-2023 End: 10-11-2023 Tobacco use panel [facility] Work Phone: Start: 1950 Sex Assigned At Not on file [facility] Work Phone: Start: 05-11-2023 End: 06-11-2024 Exposure to SARS-CoV-2 (event) Not sure [facility] (I/We) worried jodie er (my/our) food would run out before (I/we) got money to buy more. Never true [facility] Work Phone: Start: 10-18-2024 End: 11-12-2024 Sex Male (finding) [facility] Medical Equipment Procedure Code Equipment Code Equipment Origin al Text Equipment Identifier Dates Implnt, Osia, Os [id number] - [id number] - [id number] Start: 10-02-2023 Mental Status Date Assessment Result Facility 02-06-2025 Cognitive function Voice/Name [facility] Work Phone: 12-12-2024 Cognitive function Voice/Name [facility] Work Phone: 10-17-2024 Cognitive function Voice/Name [facility] Work Phone: 08-22-2024 Cognitive function Awake;Alert;A ppropriate;Follow s Commands [facility] Work Phone: 06-27-2024 Cognitive function Voice/Name [facility] Work Phone: 11-02-2023 Cognitive function Awake;Alert;A ppropriate;Follow s Commands [facility] Work Phone: 09-07-2023 Cognitive function Voice/Name [facility] Work Phone: 07-13-2023 Cognitive function Voice/Name [facility] Work Phone: 05-18-2023 Cognitive function Awake;Alert;A ppropriate;Follow s Commands [facility] Work Phone: 03-16-2023 Cognitive function Voice/Name [facility] Work Phone: 01-19-2023 Cognitive function Awake;Alert;A ppropriate;Follow s Commands [facility] Work Phone: 11-17-2022 Cognitive function Awake;Alert;A ppropriate;Follow s Commands [facility] Work Phone: 09-15-2022 Cognitive function Voice/Name [facility] Work Phone: 07-21-2022 Cognitive function Level Of Cons ciousness Awake;Alert;Appropriate;Follow s Commands [facility] Work Phone: 05-26-2022 Cognitive function Level Of Cons ciousness Awake;Alert;Appropriate;Follow s Commands [facility] Work Phone: 03-17-2022 Cognitive function Voice/Name [facility] Work Phone: 11-25-2021 Cognitive function Awake;Alert;A ppropriate;Follow s Commands [facility] Work Phone: 09-27-2021 Cognitive function Awake;Alert;A ppropriate;Follow s Commands [facility] Work Phone: 08-02-2021 Cognitive function Level Of Cons ciousness Awake;Alert;Appropriate;Follow s Commands [facility] Work Phone: Clinical Notes 04-10-2023 to 11-19-2024 Note Date & Type Note Facility 11-19-2024 Evaluation note Diagnosis Onset Date Resolution Asthma chronic November 19 12:28pm Obesity chronic November 19 12:28pm CIERA (obstructive sleep apnea) chronic November 19, 2024 12:28pm [facility] Work Phone: 1(373) 360-419511-20-2024 History of Present illness Narrative* Darrin Dubois MD - 06/11/2024 9:00 AM EST Subjective Patient ID: Thanh Loving is a 74 y.o. male. HPI Patient is here for Prostate MRI results. MRI showed PI-RAD 2. Most recent PSA was 5.1 on 05/15. Prior PSA was 1.94 on 10/13. Prior PSA was 1.42 on 09/15. Prior PSA was 1.21 on 03/11. Fhx of prostate cancer (uncles, 1st cousin) Chronic BPH sx are mild and stable. LUTS are not bothersome. Denies urgency and frequency. Denies dysuria. Denies hematuria. Nocturia x1. No medication for LUT'S. No hx of kidney stones. ED is an issue. He can get a partial erection. Viagra did not help. Review of Systems Constitutional: Negative for chills and fever. HENT: Negative. Eyes: Negative. Respiratory: Negative for cough and shortness of breath. Cardiovascular: Negative for chest pain and leg swelling. Gastrointestinal: Negative for nausea. Endocrine: Negative. Genitourinary: Negative for difficulty urinating. Negative except for documented in HPI Allergic/Immunologic: Negative. Neurological: Alert & oriented X 3 Hematological: Denies blood thinners Psychiatric/Behavioral: Negative. Objective Physical Exam Vitals and nursing note reviewed. Pulmonary: Effort: Pulmonary effort is normal. Abdominal: Palpations: Abdomen is soft. Tenderness: There is no abdominal tenderness. Genitourinary: Comments: Kidneys non palpable bilaterally Bladder non palpable or tender Neurological: Mental Status: He is alert. Assessment/Plan Diagnoses and all orders for this visit: Nocturia Benign prostatic hyperplasia without lower urinary tract symptoms Elevated PSA All available PSA values reviewed, Options discussed. Questions answered. MRI reviewed Pros and cons of prostate biopsy reviewed. Other options discussed. Questions answered Will plan to recheck PSA in 6 months Diet changes for prostate health discussed and educational information given. Pros/Cons of prostatehealth supplements discussed. Treatment options for LUTS reviewed Discussed timed voiding. Discussed fluid and caffeine intake Treatment options for ED reviewed. F/U 6 months with PSA documented in this [facility] Work Phone: 1(752) 666-875310-16-2024 History of Present illness Narrative* Darrin Dubois MD - 05/07/2024 8:15 AM EDT Subjective Patient ID: Thanh Loving is a 73 y.o. male. HPI Patient is here to establish for elevated PSA. Most recent PSA was 5.1 on 05/15. Prior PSA was 1.94on 10/13. Prior PSA was 1.42 on 09/15. Prior PSA was 1.21 on 03/11. Fhx of prostate cancer (uncles, 1st cousin) Chronic BPH sx are mild and stable. LUTS are not bothersome. Denies urgency and frequency.Denies dysuria. Denies hematuria. Nocturia x1. No medication for LUT'S. No hx of kidney stones. ED is an issue. He can get a partial erection. Viagra did not help. Review of Systems Constitutional: Negative for chills and fever. HENT: Negative. Eyes: Negative. Respiratory: Negative for cough and shortness of breath. Cardiovascular: Negative for chest pain and leg swelling. Gastrointestinal: Negative for nausea. Endocrine: Negative. Genitourinary: Negative for difficulty urinating. Negative except for documented in HPI Allergic/Immunologic: Negative. Neurological: Alert & oriented X 3 Hematological: Denies blood thinners Psychiatric/Behavioral: Negative. Objective Physical Exam Vitals and nursing note reviewed. Constitutional: General: He is not in acute distress. Appearance: Normal appearance. Pulmonary: Effort: Pulmonary effort is normal. Abdominal: Tenderness: There is no abdominal tenderness. Genitourinary: Comments: Kidneys non palpable bilaterally Bladder non palpable or tender Scrotum no mass, No hydrocele Epididymis- No spermatocele. Non Tender. Testicles: No mass. WNL Urethra: No discharge Penis within normal limits... No lesions. circumcised Prostate - symmetric, no nodules. BENIGN Seminal Vesicals: No mass. Sphincter tone: normal Neurological: Mental Status: He is alert. Assessment/Plan Diagnoses and all orders for this visit: Benign prostatic hyperplasia without lower urinary tract symptoms Elevated PSA Nocturia All available PSA values reviewed, Options discussed. Questions answered. MRI ordered Pros and cons of prostate biopsy reviewed. Other options discussed. Questions answered Diet changes for prostate health discussed and educational information given. Pros/Cons of prostatehealth supplements discussed. Treatment options for LUTS reviewed Discussed timed voiding. Discussed fluid and caffeine intake Treatment options for ED reviewed. Discussed TriMix or Cialis Lifestyle change to help prevent UTIs discussed. Encouraged fluid intake. F/U after MRI documented in this [facility] Work Phone: [phone] History of Present illness Narrative* Gigi Gupta MD - 03/07/2024 1:00 PM EDT History of present illness: Thanh Loving is a 73 y.o. male presenting today for his follow up visit. He has no complaints and is pleased. He did experience right jaw pain post op and saw his dentist, this was likely due to thepressure from the ET tube. He is back using his CPAP, which seems to be helping his hearing, likelythrough pressurization of the middle ear cleft. RECALL 10/26/2023: Thanh Loving is a 73 y.o. male presenting today for his first post op visit status post right sided OSIA implantation on 10/02/2023. Patient reports left sided tinnitus that is discomforting and states his hearing is worse than it has ever been bilaterally. He reports a past history of ear infections. RECALL 09/13/2023 Thanh Loving is a 73 y.o. male presenting today for review of OSIA evaluation. He reports the Device did not sound as god as the one he has and the BAHA was used on the exterior. However he notes the supervisor stone informed him he did well on it. RECALL 07/05/2023 Thanh Loving is a 73 y.o. male presenting today for for his first post-op visit s/p removal of abutment and placement of screw top cover on 06/07/2023. He denies otalgia and states he is doing well.BAHA site has healed nicely, pain is significantly reduced. The patient's current medications, active allergies and list of medical problems were reviewed in the EHR and confirmed electronically there are as follows; Allergies: Allergies Allergen Reactions Paroxetine Hallucinations and Unknown Propranolol Nausea/vomiting Venlafaxine Unknown Fluticasone Other Vilanterol Other Current list of medications: Current Outpatient Medications Medication Sig Dispense Refill amLODIPine (Norvasc) 5 mg tablet atorvastatin (Lipitor) 10 mg tablet benralizumab (FASENRA SUBQ) Inject under the skin. Pt. States that he receives fasenra bi monthly; last dose 05/24/23 Linzess 290 mcg capsule lisinopril 20 mg tablet No current facility-administered medications for this visit. Problem list: Patient Active Problem List Diagnosis Mixed conductive and sensorineural hearing loss, bilateral BAHA cochlear implant bone infection ([facility]) Physical Examination: CONSTITUTIONAL: No acute distress VOICE: No hoarseness or other abnormality RESPIRATION: Breathing comfortably, no stridor CV: No clubbing/cyanosis/edema in hands EYES: EOM intact, sclera clear NEURO: Alert and oriented times 3, Cranial nerves II-XII grossly intact and symmetric bilaterally HEAD AND FACE: Symmetric facial features, no masses or lesions RIGHT EAR: Incision is well healed, access site looks good. Canals are clear. Graft intact. It appears the middle ear aeration is better. LEFT EAR: Normal canal, tympanic membrane retracted, cartilage graft in place. Improved aeration since last examination. NOSE: Anterior rhinoscopy clear, no significant external deformity. ORAL CAVITY/OROPHARYNX/LIPS: normal lining, mobile tongue. PHARYNGEAL OTT: Moist mucosal lining, good palatal elevation NECK/LYMPH: No LAD, no thyroid masses, trachea midline SKIN: Neck and facial skin is without scar or injury PSYCH: Alert and oriented with appropriate mood and affect . Impression: Status post right sided OSIA implantation Recommendation: Doing well. Follow up in 1 year. I discussed with the patient the complexity of my medical decision making including the treatment and testing rational, indications of their elective procedure and possible adverse effects and/or complications. Based on the provided documentation and my professional assessment of this patient's chronic condition, the complexity of evaluation and treatment is low. This note was created using speech recognition electrical cad technician software. Despite proofreading, several typographical errors might be present that might affect the meaning of the content. Please call with any questions. Scribe Attestation By signing my name below, I, Maribel Yanes , Davis attest that this documentation has been prepared under the direction and in the presence of Gigi Gupta MD. documented in this [facility] Work Phone: [phone] History of Present illness Narrative* Gigi Gupta MD - 10/26/2023 11:15 AM EDT History of present illness: Thanh Loving is a 73 y.o. male presenting today for his first post op visit status post right sided OSIA implantation on 10/02/2023. Patient reports left sided tinnitus that is discomforting and states his hearing is worse than it has ever been bilaterally. He reports a past history of ear infections. RECALL 09/13/2023 Thanh Loving is a 73 y.o. male presenting today for review of OSIA evaluation. He reports the Device did not sound as god as the one he has and the BAHA was used on the exterior. However he notes the supervisor stone informed him he did well on it. RECALL 07/05/2023 Thanh Loving is a 73 y.o. male presenting today for for his first post-op visit s/p removal of abutment and placement of screw top cover on 06/07/2023. He denies otalgia and states he is doing well.BAHA site has healed nicely, pain is significantly reduced. The patient's current medications, active allergies and list of medical problems were reviewed in the EHR and confirmed electronically there are as follows; Allergies: No Known Allergies Current list of medications: Current Outpatient Medications Medication Sig Dispense Refill amLODIPine (Norvasc) 5 mg tablet atorvastatin (Lipitor) 10 mg tablet benralizumab (FASENRA SUBQ) Inject under the skin. Pt. States that he receives fasenra bi monthly; last dose 05/24/23 Linzess 290 mcg capsule lisinopril 20 mg tablet No current facility-administered medications for this visit. 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 Incision site looks good. LEFT EAR: Normal external ear and post auricular area, no visible lesions, external auditory canal patent, tympanic membrane intact, no retraction, no signs of mass, effusion, or infection within themiddle ear NOSE: Anterior rhinoscopy clear, no significant external deformity. ORAL CAVITY/OROPHARYNX/LIPS: normal lining, mobile tongue. PHARYNGEAL OTT: Moist mucosal lining, good palatal elevation NECK/LYMPH: No LAD, no thyroid masses, trachea midline SKIN: Neck and facial skin is without scar or injury PSYCH: Alert and oriented with appropriate mood and affect Impression: Status post right sided OSIA implantation Recommendation: Doing well. Follow-up in 4-5 months. This note was created using speech recognition electrical cad technician software. Despite proofreading, several typographical errors might be present that might affect the meaning of the content. Please call with any questions. Scribe Attestation By signing my name below, I Cherielissette Springer, Scribe attest that this documentation has been prepared under the direction and in the presence of Gigi Gupta MD. documented in this [facility] Work Phone: [phone] Hospital Discharge instructions* Discharge Instructions* Sally Peña RN - 10/02/2023 9:30 AM EDT Images from the original note were not included. May have Tylenol after: 1pm May have Ibuprofen/advil/motrin/aleve after: 3pm Postoperative Care Instructions: Cochlear Implantation Postoperative Care: 24-hours after surgery, remove the large dressing from around your head. Cut the bandage right by the knot. Remove the gauzes and the shiny C shaped gauze. You can shower three days after surgery, but do not completely submerge your ear under water until cleared to do so by Dr. Gupta. You will notice that you have stitches s behind your ear - and should remain in place until your follow up appointment. Observe the incision for any increasing redness, swelling, pain, or foul-smelling drainage. If you have any of these symptoms, please call Dr. Gupta's office immediately. Avoid lifting objects heavier than a jug of milk, or straining for any reason until your follow-up appointment. . Sleep with your head elevated for two days after surgery. Avoid any airplane travel until your follow up appointment. Take your antibiotics as prescribed for fivedays after surgery, andtake your pain medications only as prescribed and only as needed for moderate to severe pain. Please call Dr. Gupta's office at [phone] as soon as possible to make a follow up appointmentin 10-14 days for stitches removal. What to Expect Following Surgery: The following are some symptoms that may follow your recent ear surgery: Hearing - Hearing will not change until the device is activated. Taste disturbance and mouth dryness - These symptoms may occur for a few weeks following ear surgery, and are usually temporary, but can be prolonged in rare cases. Taste disturbance usually presentsas a metallic taste in the mouth, but can come in other forms as well. Tinnitus - Tinnitus (head noise or ringing in the ears), frequently present before surgery, is verycommon after surgery, but is usually temporary. This can persist for one to two months and then maydecrease in intensity as your hearing improves. Jaw symptoms - The front wall of the ear canal is the same as the back wall of the jaw joint, and therefore some temporary discomfort with jaw movement is common after ear surgery. It usually subsides within one to two months. Numbness of the ear - Temporary loss of skin sensation in and/or around the ear is common after earsurgery. This numbness may involve the entire outer ear and may last for six months or more. Dizziness: Common after ear surgery typically gradually resolves over few days. If severe and associated with significant nausea and vomiting, contact the office. documented in this [facility] Work Phone: [phone] Note* Op Note - Gigi Gupta MD - 10/02/2023 8:18 AM EDT right sided osia implant (R) Operative Note Date: 10/02/2023 OR Location: [facility] [place] Name: Thanh Loving, : 1950, Age: 73 y.o., , Sex: male Diagnosis Pre-op Diagnosis * Mixed conductive and sensorineural hearing loss, 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] Post-op Diagnosis * Mixed conductive and sensorineural hearing loss, 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] Procedures right sided osia implant 92401 - PA IMPL OI IMPLT SKULL MAG TC ATTACHMENT LAURA<100 Surgeons * Gigi Gupta - Primary Resident/Fellow/Other Room Service Associate: Surgeon(s) and Role: Procedure Summary Anesthesia: General ASA: II Anesthesia Staff: Anesthesiologist: Carter Fontana MD C-AA: HECTOR Romero Estimated Blood Loss: 5mL Intra-op Medications: Administrations occurring from 0730 to 0945 on 10/02/23: Medication Name Total Dose sodium chloride 0.9 % irrigation solution 500 mL polymyxin B injection 500,000 Units lidocaine-epinephrine (Xylocaine W/EPI) 1 %-1:100,000 injection 10 mL bacitracin ointment 1 Application Anesthesia Record Intraprocedure I/O Totals Intake Propofol Drip 0.00 mL The total shown is the total volume documented since Anesthesia Start was filed. LR infusion 400.00 mL Total Intake 400 mL Output Est. Blood Loss 5 mL Total Output 5 mL Net Net Volume 395 mL Specimen: No specimens collected Staff: Skip Miner: Andi Perdomo RN Scrub Person: Smita Medrano Drains and/or Catheters: * None in log * Tourniquet Times: Implants: Implants Type Name Action Serial No. 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 Procedure: Right-sided implantation of an osia device, a transcutaneous bone conducting cochlear stimulator. Procedure note Preoperative Diagnosis: 1. Right-sided [] hearing loss Postoperative Diagnosis: 1. Right-sided [] hearing loss Procedure Performed: 1. Implantation of right-sided osseointegrated implant into temporal bone, with trancutaneous attachment to external speech processor/cochlear stimulator (Osia 2/ S/N= []). Anesthesia: GETA EBL: 5 ml Clinical Note: The patient presented with right sided mixed hearing loss secondary to chronic otitis media. Hearing rehabilitation options were discussed. He had a BAHA that became infected requiring removal of theabutment. A BCI trial was conducted and the patient demonstrated satisfaction with the auditory benefit which were documented audiometrically. We plan to do an implantation of osseointegrated implantinto temporal bone, with transcutaneous attachment to external speech processor/cochlear stimulator(bone anchored implant). The risks, indications, alternatives and complications of surgery were discussed including, but not limited to pain, bleeding, infection, scarring, skin infection and rarely i mplant extrusion or failure. Informed consent was obtained and the patient and parents elected to proceed. Operative Technique: After informed consent was signed and witnessed, the patient was taken back to the OR. A huddle wasperformed according to protocol. The patient was intubated and general anesthesia was administered.LMA tube was secured. Intravenous intraoperative antibiotics were administered. The patient was supported to the surgical bed and table was tilted 180 degrees. Prior to prepping, hair was clipped, the correct side was exposed and the thickness of the skin flap was measured to ensure it was less than 9 mm and no soft tissue thinning was necessary. Next, hairwas clipped, the area behind the ear was injected, and prepped in the standard fashion. A 4-5 cm J incision was made behind the postauricular sulcus. The incision was carried through the epidermis, all the way down to bone. Hemostasis was obtained. The subcutaneous tissue lateral to theperiosteum and posterior to the incision was then elevated. An incision was made in the superior periosteum surrounding the previous implant site and the periosteum was elevated to create a tight pocket for the magnet. The screw cover top was removedThe bone bed indicator was placed and gently hand tightened to the implant. Then it was rotated clockwise to ensure it did not touch the bone. Additional bone was removed above the implant using a high speed drill. The periosteum was put back over the drilled area andthe OSIA was then placed over the fixture and tightened with the Unigrip screwdriver up to 25Ncm. Once the abutment was tight, the thickness of the flap using the Soft tissue gauge was evaluated. The flap was thinned until it fitted loosely in the Soft tissue gauge. The surgical site was irrigated. Hemostasis was obtained. The skin incision was then closed using a multilayered closure with 3.0 Vicryl and the epidermis was re-approximated using a 3.0 prolene. A mastoid dressing was placed overthe surgical site. All needle and counts were correct. This completed the procedure. The patient was then emerged from anesthesia and extubated without difficulty. The patient was then transported back to PACU. There were no apparent complications. Dr. Gupta was present and participated in all critical portions of the procedure. 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] Procedures right sided osia implant 29921 - PA IMPL OI IMPLT SKULL MAG TC ATTACHMENT LAURA<100 Surgeons * Gigi Gupta - Primary Resident/Fellow/Other Room Service Associate: Surgeon(s) and Role: Procedure Summary Anesthesia: General ASA: II Anesthesia Staff: Anesthesiologist: Carter Fontana MD C-AA: HECTOR Romero Estimated Blood Loss: 5mL Intra-op Medications: Administrations occurring from 0730 to 0945 on 10/02/23: Medication Name Total Dose sodium chloride 0.9 % irrigation solution 500 mL polymyxin B injection 500,000 Units lidocaine-epinephrine (Xylocaine W/EPI) 1 %-1:100,000 injection 10 mL bacitracin ointment 1 Application Anesthesia Record Intraprocedure I/O Totals Intake Propofol Drip 0.00 mL The total shown is the total volume documented since Anesthesia Start was filed. LR infusion 400.00 mL Total Intake 400 mL Output Est. Blood Loss 5 mL Total Output 5 mL Net Net Volume 395 mL Specimen: No specimens collected Staff: Skip Miner: Andi Perdomo RN Scrub Person: Smita Medrano Drains and/or Catheters: * None in log * Tourniquet Times: Implants: Implants Type Name Action Serial No. Implant IMPLNT, OSIA, [id number] - [id number] - [id number] Implanted [id number] Preoperative diagnosis: Right-sided mixed hearing loss Right-sided chronic otitis media Baha site infection requiring explantation of the abutment Postoperative diagnosis: Same. Procedure: Right-sided implantation of an osia device, a transcutaneous bone conducting cochlear stimulator. Procedure note Preoperative Diagnosis: 1. Right-sided [] hearing loss Postoperative Diagnosis: 1. Right-sided [] hearing loss Procedure Performed: 1. Implantation of right-sided osseointegrated implant into temporal bone, with trancutaneous attachment to external speech processor/cochlear stimulator (Osia 2/ S/N= []). Anesthesia: GETA EBL: 5 ml Clinical Note: The patient presented with right sided mixed hearing loss secondary to chronic otitis media. Hearing rehabilitation options were discussed. He had a BAHA that became infected requiring removal of theabutment. A BCI trial was conducted and the patient demonstrated satisfaction with the auditory benefit which were documented audiometrically. We plan to do an implantation of osseointegrated implantinto temporal bone, with transcutaneous attachment to external speech processor/cochlear stimulator(bone anchored implant). The risks, indications, alternatives and complications of surgery were discussed including, but not limited to pain, bleeding, infection, scarring, skin infection and rarely i mplant extrusion or failure. Informed consent was obtained and the patient and parents elected to proceed. Operative Technique: After informed consent was signed and witnessed, the patient was taken back to the OR. A huddle wasperformed according to protocol. The patient was intubated and general anesthesia was administered.LMA tube was secured. Intravenous intraoperative antibiotics were administered. The patient was supported to the surgical bed and table was tilted 180 degrees. Prior to prepping, hair was clipped, the correct side was exposed and the thickness of the skin flap was measured to ensure it was less than 9 mm and no soft tissue thinning was necessary. Next, hairwas clipped, the area behind the ear was injected, and prepped in the standard fashion. A 4-5 cm J incision was made behind the postauricular sulcus. The incision was carried through the epidermis, all the way down to bone. Hemostasis was obtained. The subcutaneous tissue lateral to theperiosteum and posterior to the incision was then elevated. An incision was made in the superior periosteum surrounding the previous implant site and the periosteum was elevated to create a tight pocket for the magnet. The screw cover top was removedThe bone bed indicator was placed and gently hand tightened to the implant. Then it was rotated clockwise to ensure it did not touch the bone. Additional bone was removed above the implant using a high speed drill. The periosteum was put back over the drilled area andthe OSIA was then placed over the fixture and tightened with the Unigrip screwdriver up to 25Ncm. Once the abutment was tight, the thickness of the flap using the Soft tissue gauge was evaluated. The flap was thinned until it fitted loosely in the Soft tissue gauge. The surgical site was irrigated. Hemostasis was obtained. The skin incision was then closed using a multilayered closure with 3.0 Vicryl and the epidermis was re-approximated using a 3.0 prolene. A mastoid dressing was placed overthe surgical site. All needle and counts were correct. This completed the procedure. The patient was then emerged from anesthesia and extubated without difficulty. The patient was then transported back to PACU. There were no apparent complications. Dr. Gupta was present and participated in all critical portions of the procedure. Gigi Gupta documented in this [facility] Work Phone: [phone] History of Present illness Narrative* Gigi Gupta MD - 09/13/2023 10:45 AM EST History of present illness: Thanh Loving is a 73 y.o. male presenting today for review of OSIA evaluation. He reports the Device did not sound as god as the one he has and the BAHA was used on the exterior. However he notes the supervisor stone informed him he did well on it. RECALL 07/05/2023 Thanh Loving is a 73 y.o. male presenting today for for his first post-op visit s/p removal of abutment and placement of screw top cover on 06/07/2023. He denies otalgia and states he is doing well.BAHA site has healed nicely, pain is significantly reduced. The patient's current medications, active allergies and list of medical problems were reviewed in the EHR and confirmed electronically there are as follows; Allergies: No Known Allergies Current list of medications: Current Outpatient Medications Medication Sig Dispense Refill amLODIPine (Norvasc) 5 mg tablet atorvastatin (Lipitor) 10 mg tablet benralizumab (FASENRA SUBQ) Inject under the skin. Pt. States that he receives fasenra bi monthly; last dose 05/24/23 Dulera 200-5 mcg/actuation inhaler Linzess 290 mcg capsule lisinopril 20 mg tablet traMADol (Ultram) 50 mg tablet Take 1 tablet (50 mg) by mouth every 4 hours if needed for severe pain (7 - 10) (pain unrelieved by tylenol/ibuprofen) for up to 10 doses. 10 tablet 0 No current facility-administered medications for this visit. 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) Physical Examination: CONSTITUTIONAL: No acute distress VOICE: No hoarseness or other abnormality RESPIRATION: Breathing comfortably, no stridor CV: No clubbing/cyanosis/edema in hands EYES: EOM intact, sclera clear NEURO: Alert and oriented times 3, Cranial nerves II-XII grossly intact and symmetric bilaterally HEAD AND FACE: Symmetric facial features, no masses or lesions RIGHT EAR: Normal external ear and post auricular area, no visible lesions, external auditory canalpatent, tympanic membrane intact, no retraction, no signs of mass, effusion, or infection within the middle ear LEFT EAR: Normal external ear and post auricular area, no visible lesions, external auditory canal patent, tympanic membrane intact, no retraction, no signs of mass, effusion, or infection within themiddle ear NOSE: Anterior rhinoscopy clear, no significant external deformity. ORAL CAVITY/OROPHARYNX/LIPS: normal lining, mobile tongue. PHARYNGEAL OTT: Moist mucosal lining, good palatal elevation NECK/LYMPH: No LAD, no thyroid masses, trachea midline SKIN: Neck and facial skin is without scar or injury PSYCH: Alert and oriented with appropriate mood and affect Diagnostic testing: Audiometry: BAHA Evaluation performed on 09/04/2023 showed: Testing was completed using the NU6 50-word list presented with a bbzlow-yd-tbttp ratio (S/N) of 50/40. In the unaided situation a score of 28% was obtained, and while using the BAHA coupled to the rightside a score of 44% was obtained. The score for the AZBIO was 53% unaided and 75% aided. I personally reviewed the available patient's external record and independently reviewed their audiometric testing [and] radiographic imaging through the appropriate viewing software as detailed in my note and agree with the detailed report. Impression: BAHA Cochlear Implant Bone Infection Recommendation: I reviewed the results of the BAHA evaluation with the patient and his . OSIA implantation has been scheduled for 10/02/2023 at [place]. He will bring his CPAP machine on the day of surgery to assist with implant positioning. All questions and concerns were answered and addressed. The patient expressed understanding and agrees with the plan. Scribe Attestation By signing my name below, ICherie, Davis attest that this documentation has been prepared under the direction and in the presence of Gigi Gupta MD. documented in this [facility] Work Phone: [phone] 916-108509-19-2023 History of Present illness Narrative* update April 10, 2023 * Patient reports some GI intolerance of rifampin and doxycycline. Otherwise he tolerated medicationsbut is not been easy in terms of GI side effects. He reports no difference in the area of the device behind his ear. Same amount of pain in tenderness. He feels like the medications did not make any difference at all. * from 02/2023 * Prior to seeing the patient we reviewed data faxed from his ENT physician in [facility]. As well as notes in HIE including labs cultures imaging family history social history and past medical history * Patient was referred for infection infection related to a BAHA procedure to enhance his hearing in his right ear * The procedure was done in June and has been associated with intermittent drainage and inflammation since that time. He has been on a number of antibiotics including cefdinir doxycycline clindamycin and 2 recent courses of levofloxacin. No antibiotics since November. The cyst the episodes are associate with headache and malaise but not fever or chills. No antibiotics for last couple months with small amounts of intermittent drainage but persistent soreness around the device on the right side of his skullA culture of drainage device November 20 grew coagulase-negative staph [facility] [address] Work Phone: [phone] Chief complaint Narrative - Reported* An interactive audio and video telecommunication system which permits real time communications between the patient (at the originating site) and provider (at the distant site) was utilized to providethis telehealth service. * Verbal consent was requested and obtained from THANH LOVING on this date, 04/10/2023 11:20 AM , for a telehealth visit. * New patient visit s/p BAHA stud removal. [facility] [address] Work Phone: Evaluation note* Diagnosis Onset Date Resolution Status CIERA (obstructive sleep apnea) chronic Severe persistent asthma, uncomplicated chronic [facility] Work Phone: Evaluation note* Diagnosis Onset Date Resolution Status Asthma chronic CIERA (obstructive sleep apnea) chronic [facility] Work Phone: Evaluation note* Diagnosis Onset Date Resolution Status Asthma chronic CIERA (obstructive sleep apnea) chronic CIERA (obstructive sleep apnea) chronic Severe persistent asthma, uncomplicated chronic [facility] Work Phone: Evaluation note* Diagnosis Onset Date Resolution Status CIERA (obstructive sleep apnea) chronic Severe persistent asthma, uncomplicated chronic Asthma chronic CIERA (obstructive sleep apnea) chronic [facility] Work Phone: Evaluation noteNo assessment information available [facility] Work Phone: Evaluation note* Diagnosis BAHA cochlear implant bone infection (CMS/HCC)- Primary documented in this encounter [facility] Work Phone: Evaluation note* Diagnosis Onset Date Resolution Status Folliculitis acute [facility] Work Phone: Evaluation note* Diagnosis Onset Date Resolution Status Folliculitis acute CIERA (obstructive sleep apnea) chronic Severe persistent asthma, uncomplicated chronic [facility] Work Phone: Evaluation note* Diagnosis Mixed conductive and sensorineural hearing loss, bilateral- Primary Mixed hearing loss, 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, bilateral- Primary Mixed hearing loss, 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, bilateral Mixed hearing loss, bilateral documented in this encounter [facility] Work Phone: Evaluation note* Diagnosis Mixed conductive and sensorineural hearing loss, bilateral- Primary Mixed hearing loss, 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, bilateral Mixed hearing loss, bilateral BAHA cochlear implant bone infection (CMS/HCC) documented in this encounter [facility] Work Phone: Evaluation note* Diagnosis Postoperative visit documented in this encounter [facility] Work Phone: [phone] note* Diagnosis Mixed conductive and sensorineural hearing loss, bilateral- Primary Mixed hearing loss, bilateral documented in this encounter [facility] Work Phone: Evaluation note* Diagnosis Benign prostatic hyperplasia without lower urinary tract symptoms Elevated PSA Elevated prostate specific antigen (PSA) Nocturia documented in this encounter [facility] Work Phone: Evaluation note* Diagnosis Elevated PSA Elevated prostate specific antigen (PSA) documented in this encounter [facility] Work Phone: Evaluation note* Diagnosis Nocturia Benign prostatic hyperplasia without lower urinary tract symptoms Elevated PSA Elevated prostate specific antigen (PSA) documented in this encounter [facility] Work Phone: Evaluation note* Diagnosis BAHA cochlear implant bone infection (CMS-HCC)- Primary Mixed conductive and sensorineural hearing loss, bilateral Mixed hearing loss, bilateral documented in this encounter [facility] Work Phone: History of Present illness Narrative* Prior to seeing the patient we reviewed data faxed from his ENT physician in [facility]. As well as notes in HIE including labs cultures imaging family history social history and past medical history * Patient was referred for infection infection related to a BAHA procedure to enhance his hearing in his right ear * The procedure was done in June and has been associated with intermittent drainage and inflammation since that time. He has been on a number of antibiotics including cefdinir doxycycline clindamycin and 2 recent courses of levofloxacin. No antibiotics since November. The cyst the episodes are associate with headache and malaise but not fever or chills. No antibiotics for last couple months with small amounts of intermittent drainage but persistent soreness around the device on the right side of his skullA culture of drainage device November 20 grew coagulase-negative staph [facility] Work Phone: reason for referral (narrative)No reason for referral [facility] Work [facility]: Reason for visit Narrative* Imaging (Routine) - Authorized Specialty Diagnoses / Procedures Referred By Contteresa t Referred To Contact Radiology Diagnoses Elevated PSA Procedures MR prostate with jefe boundaries if pirads 3 or above Darrin Dubois MD [address] [place] [address] Phone: tel: fax: Referral ID Status Reason Start Date Expiration Date Visits Requested Visits Authorized [id number] Authorized Perform Procedure 4 05/07/2025 1 1 [facility] Work Phone: Chief Complaint and Reason for Visit Chief Complaint FASENRA R HAND MC SX ON 05/19/21 6 M FU DDD FASENRA FASENRA Reason for Visit CIERA (obstructive sle ep apnea) Severe persistent asthma, uncomplicated Chief Complaint R HAND MC SX ON 04/23 03/12 6 M FU DDD FASENRA FASENRA Reason for Visit CIERA (obstructive sle ep apnea) Severe persistent asthma, uncomplicated Chief Complaint FASENRA FASENRA 4 M FU FASENRA Reason for Visit CIERA (obstructive sle ep apnea) Severe persistent asthma, uncomplicated Chief Complaint FASENRA 4 M FU FASENRA CIERA Reason for Visit CIERA (obstructive sle ep apnea) Severe persistent asthma, uncomplicated Chief Complaint FASENRA 4 M FU FASENRA CIERA FASENRA Reason for Visit CIERA (obstructive sle ep apnea) Severe persistent asthma, uncomplicated Chief Complaint CIERA FASENRA 4 M FU FASENRA Reason for Visit Asthma CIERA (obstructive sleep apnea) Chief Complaint FASENRA 4 M FU FASENRA PREPROCEDURAL Reason for Visit Asthma CIERA (obstructive sleep apnea) Chief Complaint 4 M FU FASENRA PREPROCEDURAL 3 M FU FASENRA Reason for Visit Asthma CIERA (obstructive sleep apnea) CIERA (obstructive sleep apnea) Severe persistent asthma, uncomplicated Chief Complaint FASENRA PREPROCEDURAL PREPROCEDURAL 3 M FU FASENRA PAP MACHINE FASENRA Reason for Visit CIERA (obstructive sle ep apnea) Severe persistent asthma, uncomplicated Asthma CIERA (obstructive sleep apnea) Chief Complaint PREPROCEDURAL PREPROCEDURAL 3 M FU FASENRA PAP MACHINE FASENRA Reason for Visit CIERA (obstructive sle ep apnea) Severe persistent asthma, uncomplicated Asthma CIERA (obstructive sleep apnea) Chief Complaint PAP MACHINE FASENRA FASENRA Reason for Visit Asthma CIERA (obstructive sleep apnea) Chief Complaint FASENRA 6 M FU FASENRA Reason for Visit Asthma CIERA (obstructive sleep apnea) Chief Complaint FASENRA 6 M FU FASENRA FASENRA Reason for Visit Asthma CIERA (obstructive sleep apnea) Chief Complaint 6 M FU FASENRA FASENRA Reason for Visit Asthma CIERA (obstructive sleep apnea) Chief Complaint FASENRA FASENRA FASENRA Chief Complaint FASENRA FASENRA THROMBOSSED HEMORRHOIDS FASEN Reason for Visit Folliculitis Chief Complaint FASENRA THROMBOSSED HEMORRHOIDS FASENRA 6 M FU FASENRA Reason for Visit Folliculitis CIERA (obstructive sleep apnea) Severe persistent asthma, uncomplicated Chief Complaint FASENRA 6 M FU FASENRA FASENRA Reason for Visit CIERA (obstructive sle ep apnea) Severe persistent asthma, uncomplicated Chief Complaint Admit Date FASENJune 27, 2024 8 :55am FASENRA August 22, 2024 9 :01am FASENRA October 17, 2024 8:5 4am Chief Complaint Admit Date FASENRA August 22, 2024 9 :01am FASENRA October 17, 2024 8:5 4am FASTING November 07, 2024 8:4 6am Chief Complaint Admit Date FASENRA October 17, 2024 8:5 4am FASTING November 07, 2024 8:4 6am 6 M FU November 19, 2024 12: 28pm FASENRA December 12, 2024 8:47a m FASENRA February 06, 2025 8:56 am Reason for Visit Admit Date Asthma November 19, 2024 12: 28pm Obesity November 19, 2024 12: 28pm CIERA (obstructive sleep apnea) October 12:28pm Family History No Family History Records Found Relationship Condition Age at Onset Recorded Date/T kieran mother Hypertension Unknown Unknown father Unknown Alcoholism Unknown Unknown Family Member Name Dates Details Family history of emphysema: Mother, Father(V17.6, Z82.5) Status:Active : Mother, Father Status:Active Family history of cardiac di sorder: Brother(V17.49, Z82.49) Status:Active Family history of colon canc er: Sister(V16.0, Z80.0) Status:Active Unknown Family Member Name Dates Details Family history of emphysema: Mother, Father(V17.6, Z82.5) Status:Active : Mother, Father Status:Active Family history of cardiac di sorder: Brother(V17.49, Z82.49) Status:Active Family history of colon canc er: Sister(V16.0, Z80.0) Status:Active Unknown Family Member Name Dates Details Family history of emphysema: Mother, Father(V17.6, Z82.5) Status:Active : Mother, Father Status:Active Family history of cardiac di sorder: Brother(V17.49, Z82.49) Status:Active Family history of colon canc er: Sister(V16.0, Z80.0) Status:Active Advance Directives No Advanced Directives Records Found Advance Directive Response Recorded Date/ Time Advance Directives Yes August 27, 2014 7:50am Living Will Yes April 05, 2021 6:10pm Power of [employer]fg Ass[employer] Yes March 6:10pm Advance Directive Response Recorded Date/ Time Advance Directives Yes August 27, 2014 6:50am Living Will Yes April 05, 2021 5:10pm Power of [employer] Yes March 5:10pm Advance Directive Response Recorded Date/ Time Living Will Yes April 05, 2021 6:10pm Do you have a Healthcare Power of M[employer] Ass[employer]? Yes April 05, 2021 6:10pm Advance Directives Yes August 27, 2014 7:50am Advance Directive Response Recorded Date/ Time Advance Directives Yes August 27, 2014 7:50am Chief Complaint New patient visit s/p BAHA stud removal. Summary Purpose Additional Source Comments Goals (unrecognized section and content) Goals may be documented in a n alternate sectionGoals may be documented in an alternate sectionGoals may be documented in an alternate sectionGoals may be documented in an alternate sectionGoals may be documented in an alternate sectionGoals may be documented in an alternate sectionGoals may be documented in an alternate sectionGoals may be documented in an alternate sectionGoals may be documented in an alternate sectionGoals may be documented in an alternate sectionGoals may be documented in an alternate sectionGoals may be documented in an alternate sectionGoals may be documented in an alternate sectionGoals may be documented in an alternate sectionGoals may be documented in an alternate sectionGoals may be documented in an alternate sectionGoals may be documented in an alternate sectionGoals may be documented in an alternate sectionGoals may be documented in an alternate sectionGoals may be documented in an alternate sectionGoals may be documented in an alternate section Care Teams (unrecognized sec tion and content) Team Status: Active Member Role Status Dates Dr. Darrin Buck MD Family Provider Active Dr. Duarte Martin MD Primary Care Provider Active Team Status: Inactive Member Role Status Dates Dr. Duarte Martin MD Primary Care Provider, Referring Provider Active Dr. Norm Duenas MD Attending Provider Active Team Status: Inactive Member Role Status Dates Dr. Duarte Martin MD Primary Care Provider, Referring Provider Active Carolyn Ohara NP, [employer] FIELD SUPERVISOR-C Attending Provider Active Team Status: Active Member Role Status Dates Dr. Duarte Martin MD Primary Care Provider Active Dr. Kuldeep Lockwodo MD Attending Provider Active Dr. Vargas Romero MD Referring Provider Activ e Team Status: Inactive Member Role Status Dates Dr. Duarte Martin MD Primary Care Provider Active Dr. Norm Duenas MD Attending Provider, Referring Pr ovider Active Team Status: Inactive Member Role Status Dates Dr. Duarte Martin MD Primary Care Provider Active Dr. Vargas Romero MD Attending Provider Activ e Team Status: Inactive Member Role Status Dates Dr. Duarte Martin MD Primary Care Provider, Attending Provider Active Team Status: Inactive Member Role Status Dates Dr. Duarte Martin MD Primary Care Provider Active Dr. Vargas Romero MD Attending Provider, Refe rring Provider Active Director Dermatology Relationship Specialty Start Date End Date Duarte Martin MD [address] [place] [address] PCP - General Family Medicine 05/01/23 Director Dermatology Relationship Specialty Start Date End Date Duarte Martin MD [address] [place] [address] PCP - General Family Medicine 05/01/23 Director Dermatology Relationship Specialty Start Date End Date Duarte Martin MD PCP - General Family Medicine 05/01/23 Team Status: Inactive Member Role Status Dates Dr. Duarte Martin MD Primary Care Provider, Referring Provider Active Tiffani ROSS PAElaineC Attending Provider Active Director Dermatology Relationship Specialty Start Date End Date Duarte Martin MD PCP - General Family Medicine 05/01/23 Director Dermatology Relationship Specialty Start Date End Date Duarte Martin MD PCP - General Family Medicine 05/01/23 Director Dermatology Relationship Specialty Start Date End Date Duarte Martin MD PCP - General Family Medicine 05/01/23 Team Status: Inactive Member Role Status Dates Dr. Duarte Martin MD Primary Care Provider Active Carolyn hOara SE[employer] PRODUCTION FIELD SUPERVISOR, SE[employer]ODUCTION FIELD SUPERVISOR-C Attending Provider, Kathy granados Provider Active Director Dermatology Relationship Specialty Start Date End Date Duarte Martin MD PCP - General Family Medicine 05/01/23 Director Dermatology Relationship Specialty Start Date End Date Duarte Martin MD PCP - General Family Medicine 05/01/23 Director Dermatology Relationship Specialty Start Date End Date Duarte Martin MD [address] [place] [address] PCP - General Family Medicine 06/11/24 Director Dermatology Relationship Specialty Start Date End Date Duarte Martin MD PCP - General Family Medicine 05/01/23 Team Status: Active Member Role Status Dates Dr. Duarte Martin MD Primary Care Provider Active Team Status: Inactive Member Role Status Dates Dr. Duarte Martin MD Primary Care Provider Active Start: June 27, 2024 End: June 27, 2024 Dr. Gibson Torrez , Attending Provider Active S tart: June 27, 2024 End: June 27, 2024 Dr. Gibson Torrez , Referring Provider Active S tart: June 27, 2024 End: June 27, 2024 Team Status: Inactive Member Role Status Dates Dr. Duarte Martin MD Primary Care Provider Active Start: August 22, 2024 End: August 22, 2024 Dr. Gibson Torrez DO Attending Provider Active S tart: August 22, 2024 End: August 22, 2024 Dr. Gibson Torrez DO Referring Provider Active S tart: August 22, 2024 End: August 22, 2024 Team Status: Inactive Member Role Status Dates Dr. Duarte Martin MD Primary Care Provider Active Start: October 17, 2024 End: October 17, 2024 Dr. Gibson Torrez DO Attending Provider Active S tart: October 17, 2024 End: October 17, 2024 Dr. Gibson Torrez DO Referring Provider Active S tart: October 17, 2024 End: October 17, 2024 Team Status: Inactive Member Role Status Dates Dr. Duarte Martin MD Primary Care Provider Active Start: November 07, 2024 End: November 07, 2024 Dr. Duarte Martin MD Attending Provider Active Start: November 07, 2024 End: November 07, 2024 Dr. Duarte Martin MD Referring Provider Active Start: November 07, 2024 End: November 07, 2024 Team Status: Active Member Role/Relationship Status Dates Dr. Duarte Martin MD Primary Care Provider Active Team Status: Inactive Member Role/Relationship Status Dates Dr. Duarte Martin MD Primary Care Provider Active Start: October 17, 2024 End: October 17, 2024 Dr. Gibson Torrez DO Attending Provider Active S tart: October 17, 2024 End: October 17, 2024 Dr. Gibson Torrez DO Referring Provider Active S tart: October 17, 2024 End: October 17, 2024 Team Status: Inactive Member Role/Relationship Status Dates Dr. Duarte Martin MD Primary Care Provider Active Start: November 07, 2024 End: November 07, 2024 Dr. Duarte Martin MD Attending Provider Active Start: November 07, 2024 End: November 07, 2024 Dr. Duarte Martin MD Referring Provider Active Start: November 07, 2024 End: November 07, 2024 Team Status: Inactive Member Role/Relationship Status Dates Dr. Duarte Martin MD Primary Care Provider Active Start: November 19, 2024 End: November 19, 2024 Dr. Duarte Martin MD Referring Provider Active Start: November 19, 2024 End: November 19, 2024 Carolyn Ohara SEED PRODUCTION FIELD SUPERVISOR, SE[employer]ODUCTION FIELD SUPERVISOR-C Attending Provider Active Start: November 19, 2024 End: November 19, 2024 Team Status: Inactive Member Role/Relationship Status Dates Dr. Duarte Martin MD Primary Care Provider Active Start: December 12, 2024 End: December 12, 2024 Dr. Gibson Torrez , Attending Provider Active S tart: December 12, 2024 End: December 12, 2024 Dr. Gibson Torrez DO Referring Provider Active S tart: December 12, 2024 End: December 12, 2024 Team Status: Inactive Member Role/Relationship Status Dates Dr. Duarte Martin MD Primary Care Provider Active Start: February 06, 2025 End: February 06, 2025 Dr. Gibson Torrez DO Attending Provider Active S tart: February 06, 2025 End: February 06, 2025 Dr. Gibson Torrez DO Referring Provider Active S tart: February 06, 2025 End: February 06, 2025 (unrecognized sect ion and content) No Status Records FoundNo Status Records FoundNo Status Records FoundNo Status Records FoundNo Status Records FoundNo Status Records FoundNo Status Records Found INFORMATION SOURCE (unrecogn ized section and content) DATE CREATED AUTHOR 04/11/2023 [facility] DATE CREATED AUTHOR AUTHOR'S ORGANIZ ATION 04/12/2023 [facility] DATE CREATED AUTHOR AUTHOR'S ORGANIZ ATION 10/12/2023 [place] DATE CREATED AUTHOR AUTHOR'S ORGANIZ ATION 12/18/2023 [facility] DATE CREATED AUTHOR AUTHOR'S ORGANIZ ATION 06/07/2024 [facility] DATE CREATED AUTHOR AUTHOR'S ORGANIZ ATION 06/13/2024 [facility] DATE CREATED AUTHOR AUTHOR'S ORGANIZ ATION 02/07/2025 [facility] Reason for Visit (unrecogniz ed section and content) Specialty Diagnoses / Procedures Referred By Contteresa t Referred To Contact Diagnoses Preoperative testing Procedures ECG 12 Lead Gigi Gupta MD [address] [facility] [address] [place] [address] Referral ID Status Reason Start Date Expiration Date V isits Requested Visits Authorized [id number] Pending Review 05/17/2023 05/16/2024 1 1 Specialty Diagnoses / Procedures Referred By Cornelia harp Referred To Contact Diagnoses 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] Procedures PA RPLCMT OI IMPLT SKULL PERQ ATTACHMENT LAURA removal of abutment and placement of screw top cover Gigi Gupta MD [address] [place] [address] [facility] [address] [facility] [address] [place] [id number] Referral ID Status Reason Start Date Expiration Date Visits Re quested Visits Authorized [id number] 1 1 Specialty Diagnoses / Procedures Referred By Cornelia harp Referred To Contact Diagnoses Mixed conductive and sensorineural hearing loss, 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, 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] Procedures PA IMPL OI IMPLT SKULL MAG TC ATTACHMENT LAURA<100 right sided osia implant Gigi Gupta MD [address] [place] [address] [facility] [address] [id number] Referral ID Status Reason Start Date Expiration Date Visits Re quested Visits Authorized [id number] 1 Reason Comments Follow-up Stitch removal Reason Comments Post-op Visit Reason Comments Elevated PSA Reason Comments Prostate MRI results Reason Comments Follow-up Scheduled Active and Recently Administ ered Medications (unrecognized section and content) Medication Order 06/05/2023 06/06/2023 06/07/2023 lidocaine PF (Xylocaine) 10 mg/mL (1 %) injection 1 mg 1 mg (0.1 mL), subcutaneous, Once, On Estrella 06/07/23 at 1315, For 1 dose, Recovery (only), To be used for IV insertion ONLY 1315 (Due) Continuous Medication Order 06/05/2023 06/06/2023 06/07/2023 lactated Ringer's infusion 100 mL/hr, intravenous, Continuous, Starting on Estrella 06/07/23 at 1315, Recovery (only) 1303 (Continued from OR - Provider: Lian Bass RN)1400 (Stopped - Provider: Lian Bass RN) PRN Medication Order 06/05/2023 06/06/2023 06/07/2023 bacitracin ointment (CANCELED) As needed, Starting on Estrella 06/07/23 at 1316, Intraprocedure 1316 (Given - Provid er: Gigi Gupta MD) lidocaine-epinephrine (Xylocaine W/EPI) 1 %-1:100,000 injection (CANCELED) As needed, Starting on Estrella 06/07/23 at 1316, Intraprocedure 1316 (Given - Provid er: Gigi Gupta MD) ondansetron (Zofran) injection 4 mg 4 mg, intravenous, Once as needed, nausea/vomiting, first line, Starting on Estrella 06/07/23 at 1308, For 1 dose, Recovery (only), When administering via IV Push, administer over 3-5 minutes. oxygen (O2) therapy inhalation, at 2 mL/hr, Continuous PRN - O2/gases, other, Starting on Estrella 06/07/23 at 1308, Recovery (only), Titrate cannula versus simple face mask to O2 saturation , Device: Nasal Cannula, Rate in liters per minute: 2 LPM, Keep O2 Sat Above: 92%, Indications: invasive surgical procedure 1303 (Stopped - Prov ider: iLan Bass RN) polymyxin B injection (CANCELED) As needed, Starting on Estrella 06/07/23 at 1317, Intraprocedure 1317 (Given - Provid er: Gigi Gupta MD) sodium chloride 0.9 % irrigation solution (CANCELED) As needed, Starting on Estrella 06/07/23 at 1318, Intraprocedure 1318 (Given - Provid er: Gigi Gupta MD) Continuous Medication Order 09/30/2023 10/01/2023 10/02/2023 lactated Ringer's infusion (CANCELED) 100 mL/hr, intravenous, Continuous, Starting on Sun10/02/23 at 0945, Recovery (only) 0918 (Continued from OR - Provider: Sally Peña RN)1100 (Stopped - Provider: Sally Peña RN) PRN Medication Order 09/30/2023 10/01/2023 10/02/2023 bacitracin ointment (CANCELED) As needed, Starting on Tu10/02/23 at 0902, Intraprocedure 0902 (Given - Provid er: Gigi Gupta MD) lidocaine-epinephrine (Xylocaine W/EPI) 1 %-1:100,000 injection (CANCELED) As needed, Starting on Sun10/02/23 at 0810, Intraprocedure 0810 (Given - Provid er: Gigi Gupta MD - Comment: right side of the head behind the ear) polymyxin B injection (CANCELED) As needed, Starting on Sun10/02/23 at 0818, Intraprocedure 0818 (Given - Provid er: Gigi Gupta MD - Comment: right side of the head behind the earmixed with sodium chloride) sodium chloride 0.9 % irrigation solution (CANCELED) As needed, Starting on Sun10/02/23 at 0818, Intraprocedure 0818 (Given - Provid er: Gigi Gupta MD - Comment: right side of the head behind the ear) FOR RECORDS PERTAINING TO PATIENTS WHO ARE OR HAVE BEEN ENROLLED IN A CHEMICAL DEPENDENCY/SUBSTANCEABUSE PROGRAM, SOME INFORMATION MAY BE OMITTED. This clinical summary was aggregated from multiple sources. Caution should be exercised in using it in the provision of clinical care. This summary normalizes information from multiple sources, and as a consequence, information in this document may materially change the coding, format and clinical context of patient data. In addition, data may be omitted in some cases. CLINICAL DECISIONS SHOULD BE BASED ON THE PRIMARY CLINICAL RECORDS. [employer] [facility]. provides no warranty or guarantee of the accuracy or completeness of information in this document.
[2025-02-13] MEDS: 0.9% Normal Saline (1000mL) 1,000 ML 999 ML IV (06:54)
--- NOTE | 2025-02-13 06:57 | ED.VIS.GI ---
HPI HPI - GI History of Present Illness Chief Complaint: Constipation Informant: patient Narrative Narrative: History of constipation as needed Linzess. History of irritable bowel syndrome. Reported colonoscopy 2 and half years ago no acute findings. No chronic opiates. Cholecystectomy in the past. Typical bowel movements every 3 days. Last bowel movement was 5 days ago. He states at that time took a laxative and emptied his bowels. Since then none. He tried mag citrate yesterday no relief reports increasing abdominal distention and nausea. He took Zofran 2 days ago did help however nausea returned there is been no vomiting. No fever chills or sweats no urinary symptoms. Reports his spouse sent to the ED for evaluation for possible bowel obstruction. He has no bowel obstructions in the past. He has not had flatus. [facility] Medical History WEEMS (dyspnea on exertion) BAHA cochlear implant bone infection blood transfusion at Severe persistent asthma, uncomplicated Tinnitus, left ear HTN (hypertension) Hyperlipidemia CIERA (obstructive sleep apnea) nonhealing surgical wound right frontal temporal scalp Asthma Home Medications Medication Instructions Recorded Last Taken Type atorvastatin 10 mg tablet 10 mg PO QHS 04/24/13 08/26/14 History benralizumab 30 mg/mL subcutaneous 30 mg subcut Q8W 08/26/20 Unknown History syringe (Fasenra) linaclotide 290 mcg capsule 290 mcg PO DAILY PRN as needed 01/04/22 Unknown History (Linzess) spacer #1 ea 10/02/22 Unknown Rx amlodipine 10 mg tablet 10 mg PO QDAY 05/22/24 Unknown History lisinopril 40 mg tablet 40 mg PO QDAY 05/22/24 Unknown History albuterol sulfate 90 mcg/actuation 2 puff inhalation Q4H PRN 11/19/24 Unknown Rx aerosol inhaler (Ventolin HFA) shortness of breath or wheezing #18 grams mometasone-formoterol HFA 200 2 puff inhalation BID #13 grams 11/19/24 Unknown Rx mcg-5 mcg/actuation aerosol inhaler (Dulera) cefdinir 300 mg capsule 300 mg PO Q12H #14 caps 02/13/25 Unknown Rx metronidazole 500 mg tablet 500 mg PO Q8H 7 days #21 tabs 02/13/25 Unknown Rx ondansetron 4 mg disintegrating 4 mg PO Q8H PRN PRN Nausea #10 tabs 02/13/25 Unknown Rx tablet Allergy/AdvReac Type Severity Reaction Status Date / Time metoprolol tartrate (From Allergy Nausea Verified 02/13/25 06:13 Lopressor) propranolol HCl (From Allergy Nausea Verified 02/13/25 06:13 Inderal LA) venlafaxine HCl (From Allergy Unknown Verified 02/13/25 06:13 Effexor) fluticasone furoate (From AdvReac Other Verified 02/13/25 06:13 Breo Ellipta) paroxetine HCl (From Paxil) AdvReac Unknown Verified 02/13/25 06:13 vilanterol (From Breo AdvReac Other Verified 02/13/25 06:13 Ellipta) Family History Mother Hypertension emphysema Father emphysema Alcoholic Surgical History Uses hearing aid History of surgical removal of skin lesion History of carpal tunnel surgery of right wrist H/O inguinal hernia repair Bilateral ear tubes History of cholecystectomy cervical disectomy with bone graft Social History household members: spouse housing: house Smoking Status: Never smoker second hand exposure: Yes alcohol intake: never substance use type: does not use what type of physical activity do you participate in: walking frequency: 3-4 times per week do you feel safe at home: Yes ROS ROS ED Constitutional Constitutional ED: Denies chills, fever(s) or sweats ENT ENT ED: Denies sore throat Cardiovascular Cardiovascular: Denies chest pain, leg edema, palpitations or racing heartbeat Respiratory/Chest Respiratory/Chest: Denies cough, dyspnea or dyspnea on exertion Gastrointestinal Gastrointestinal: Reports abdominal pain, constipation and nausea; Denies diarrhea or vomiting Genitourinary Genitourinary ED: Denies dysuria, hematuria or urinary frequency Musculoskeletal Musculoskeletal: Denies back pain, extremity pain or neck pain Integumentary Denies rash or wounds Neurologic Neurologic: Denies headache(s), paresthesias or weakness EXAM Physical Exam Const Vital Signs: 02/13/25 06:07 02/13/25 08:06 Temperature 99.4 F H Temperature Source Oral Pulse Rate 65 58 L Respiratory Rate 18 16 Blood Pressure 175/96 H 137/74 H Blood Pressure Mean 122 95 Pulse Ox 99 97 Oxygen Delivery Method Room Air Room Air Positive well nourished and well developed General Appearance ED: well developed and NAD HEENT Reports moist mucous membranes normocephalic and atraumatic Eyes General Eye ED: Yes normal appearance of both eyes Neck full ROM Chest Wall Chest: Negative for tenderness Resp normal respiratory effort and normal air movement Effort and Inspection: symmetric chest movement; Negative for respiratory distress Cardio regular rate, regular rhythm and no murmurs Peripheral Pulses: pulses 2+ throughout GI GI Narrative: Abdominal distention did not appreciate any bowel sounds. There is no guarding or rebound. Palpation: Negative for guarding or rebound tenderness present Extremity normal to inspection General Extremety ED: Negative for edema or tenderness General Extremity: Negative for edema Neuro oriented x3 and no sensory deficits noted Sensorium / Orientation: awake and alert Skin no rashes or lesions noted and no wounds MDM MDM MDM Narrative Medical decision making narrative: Interventions / MDM: Differential diagnosis: Abdominal pain, constipation, bowel obstruction, diverticulitis Diagnosis considered but do not suspect: N/A My EKG interpretation: N/A Imaging independently reviewed and interpreted by myself: CT scan IV contrast of the abdomen pelvis: Colitis noted normal appendix no bowel obstruction. No significant stool seen on CT scan. Also read by radiology. External documents reviewed: N/A Test considered but not ordered:N/A ED course: Patient abdominal distention with nausea cholecystectomy in the past. No vomiting. He declines any pain medicines IV established for fluids Zofran. Abdominal labs ordered CT scan abdomen pelvis. Workup labs are stable CT scan with colitis finding on exam. Will no obstruction normal appendix. Discussed findings with the patient. Will place him on cefdinir and Flagyl. Continue oral fluids. Discussed low fiber diet. Zofran as needed. He will follow-up with his GI doctor. Return precautions. All questions were answered. Re-evaluation: stable Disposition discussed with patient/family/significant other: Patient Case discussed with consulting clinician: N/A This note was generated with [employer] dictation software. It may contain incorrect words, spelling, and punctuation that were not noted in checking the note before signing. Lab Data Attestation: I reviewed the patient's lab results. Labs: Laboratory Results - last 24 hr 02/13/25 02/13/25 02/13/25 06:54 06:57 07:35 WBC 6.1 RBC 4.91 Hgb 14.4 Hct 42.3 MCV 86.2 MCH 29.3 MCHC 34.0 RDW Std Deviation 38.5 RDW Coeff of Maribell 12.2 Plt Count 190 MPV 9.4 Immature Gran % (Auto) 0.300 Neut % (Auto) 68.4 Lymph % (Auto) 23.6 Johnson % (Auto) 7.5 Eos % (Auto) 0.0 Baso % (Auto) 0.2 Absolute Neuts (auto) 4.2 Absolute Lymphs (auto) 1.44 Nucleated RBC % 0 Sodium 138 Potassium 4.3 Chloride 106 Carbon Dioxide 20.1 L Anion Gap 12 BUN 19 Creatinine 0.87 Estim Creat Clear Calc 99.37 Est GFR (MDRD) Non-Af 92 BUN/Creatinine Ratio 21.6 H Glucose 97 Calcium 8.8 Total Bilirubin 0.70 Direct Bilirubin 0.15 AST 28 ALT 16 Alkaline Phosphatase 81 Total Protein 6.6 Albumin 4.1 Globulin 2.5 Lipase 26 Urine Color Yellow Urine Clarity Clear Urine pH 7.0 Ur Specific [place] 1.010 Urine Protein Negative Urine Glucose (UA) Normal Urine Ketones Negative Urine Occult Blood Negative Urine Nitrite Negative Urine Bilirubin Negative Urine Urobilinogen Normal Ur Leukocyte Esterase Negative Urine RBC 0 SEEN Urine WBC 0 SEEN Ur Squamous Epith Cells 0 SEEN Urine Bacteria 0 SEEN Urine Mucus 0 SEEN Radiography Diagnostic Testing: Clinical Impression(s) from Imaging Studies Abdomen/Pelvis CT 02/13/25 06:35 IMPRESSION: Diffuse colonic fluid inflammation may reflect colitis. No bowel obstruction. Prostatomegaly. Reading Location: [facility] Discharge Plan Triage Chief Complaint: Constipation ED Provider: Fili Black Dx/Rx/DC Orders Clinical Impression: Colitis, Abdominal pain Instructions: ED Understanding Colitis Prescriptions: New metronidazole 500 mg tablet 500 mg PO Q8H 7 Days Qty: 21 0RF ondansetron 4 mg tablet,disintegrating 4 mg PO Q8H PRN PRN (Reason: Nausea) Qty: 10 0RF cefdinir 300 mg capsule 300 mg PO Q12H Qty: 14 0RF No Action Fasenra 30 mg/mL syringe 30 mg SC Q8W Linzess 290 mcg capsule 290 mcg PO DAILY PRN (Reason: as needed) amlodipine 10 mg tablet 10 mg PO QDAY lisinopril 40 mg tablet 40 mg PO QDAY albuterol sulfate [Ventolin HFA] 90 mcg/actuation HFA aerosol inhaler 2 puff inhalation Q4H PRN (Reason: shortness of breath or wheezing) Qty: 18 6RF Dulera 200-5 mcg/actuation HFA aerosol inhaler 2 puff inhalation BID Qty: 13 11RF atorvastatin 10 MG tablet 10 mg PO QHS (DME) spacer See Rx Instructions .ROUTE .MEDSUPPLY Qty: 1 0RF Rx Instructions: As directed Primary Care Provider: Duarte Mitchell Referrals: Duarte Mitchell MD [Primary Care Provider] - Dakota Schaeffer MD [Non-Staff] - 1-2 Weeks Activity Restrictions/Additional Instructions: CT abdomen pelvis no obstruction normal appendix. You have colitis of the colon. White count normal at 6.1. Your urine negative for infection. Take antibiotic as prescribed. Continue oral fluids for hydration. Use nausea medicines as needed. Follow-up with your GI doctor for outpatient evaluation. Return to the ED if you have any worsening symptoms. Print Language: Georgian Disposition Disposition: Home, Self Care
[2025-02-13 07:10] LABS: Hematocrit 42.3 % (40-54); Hemoglobin 14.4 g/dL (13.0-16.5); Immature Granulocytes Count 0.020 X10^3/uL (0.0-0.0); Mean Corp Hgb Conc 34.0 g/dL (32-36); Mean Corpuscular Volume 86.2 fL (80-94); Mean Platelet Vol. 9.4 fl (6.2-12.0); NRBC Flagged by Analyzer 0 % (0-5); Platelet Count 190 K/mm3 (150-450); RBC Distribution Width CV 12.2 % (11.6-14.6); RBC Distribution Width SD 38.5 fl (35.1-43.9); Red Blood Count 4.91 M/mm3 (4.6-6.2); White Blood Count 6.1 K/mm3 (4.4-11.0)
[2025-02-13 07:24] LABS: Anion Gap 12 (5-15); BUN 19 mg/dL (4-19); BUN/Creat Ratio 21.6 RATIO (10-20); Calcium,Total 8.8 mg/dL (7.6-11.0); Carbon Dioxide 20.1 mmol/L (21.0-32.0); Chloride 106 mmol/L (98-108); Estimated Creatinine Clearance 99.37 ml/min (50-250); Glucose 97 mg/dL (70-99); Potassium 4.3 mmol/L (3.3-5.1)
[2025-02-13 07:50] LABS: Mucous, Urine 0 SEEN /hpf (<or=2+); Red Blood Cells-Urine 0 SEEN /hpf (0-5); Squamous Epithelial Cells - UA 0 SEEN /hpf (0-5)
[2025-02-13 07:59] LABS: Color, Urine Yellow (Yellow); Glucose, Dipstick Normal (Normal); Ketone-Dipstick Negative (Negative); Leukocyte Esterase-Dipstick Negative /ul (Negative); Nitrite-Dipstick Negative (Negative); Occult Blood-Urine Negative /ul (Negative); Protein-Dipstick Negative (Negative); Specific Gravity, Urine 1.010 (1.002-1.030); Urine Bilirubin Dipstick Negative (Negative)
[2025-02-13 08:04] LABS: Lipase 26 U/L (13-75)
[2025-02-13 08:06] VITALS: BP 137/74; PULSE 58; RESP 16; O2SAT 97
[2025-02-13 08:19] LABS: AST(SGOT) 28 U/L (<=37); Alanine Aminotransfer ALT/SGPT 16 U/L (<=46); Albumin, Serum 4.1 g/dL (3.4-4.8); Alkaline Phosphatase 81 U/L (40-129); Bilirubin, Direct 0.15 mg/dL (0.00-0.30); Globulin 2.5 g/dL (2.2-4.2)
[2025-02-13 08:36] VITALS: BP 137/74; PULSE 58; RESP 16; TEMP 36.6; O2SAT 97
== END 2025-02-13 09:21 | disposition home or self-care (01) ==
PROVIDERS: Emergency Provider Emergency Medicine; PCP Family Medicine; Visit Provider Emergency Medicine
DX: K52.9 Noninfective gastroenteritis and colitis, unspecified (principal); I10 Essential (primary) hypertension; E78.5 Hyperlipidemia, unspecified; J45.30 Mild persistent asthma, uncomplicated; G47.33 Obstructive sleep apnea (adult) (pediatric); Z90.49 Acquired absence of other specified parts of digestive tract
CPT/HCPCS: 74177; 80048; 80076; 81001; 83690; 85025; 96361; 96374; 99283; Q9967; A4216; J2405

== ENCOUNTER 2025-04-03 11:45 | Outpatient (CLI) | payer MEDICARE, OTHER, SELFPAY ==
[2016-10-19 14:48] VITALS: BMI 30.6
[2025-04-03 12:00] VITALS: BP 145/75; PULSE 69; RESP 16; O2SAT 98; BMI 30.3
== END 2025-04-03 23:59 | disposition home or self-care (01) ==
LOC: MEDOUTP 11:45
PROVIDERS: PCP Family Medicine; Referring Provider Internal Medicine Critical Care Medicine; Visit Provider Internal Medicine Critical Care Medicine
DX: J45.50 Severe persistent asthma, uncomplicated (principal)
CPT/HCPCS: 96372; J0517

== ENCOUNTER 2025-05-29 08:48 | Outpatient (CLI) | payer MEDICARE, OTHER, SELFPAY ==
[2016-10-19 14:48] VITALS: BMI 30.6
[2025-05-29 09:07] VITALS: BP 134/74; PULSE 64; RESP 16; TEMP 35.7; O2SAT 99; BMI 30.3
== END 2025-05-29 23:59 | disposition home or self-care (01) ==
LOC: MEDOUTP 08:48
PROVIDERS: PCP Family Medicine; Referring Provider Internal Medicine Critical Care Medicine; Visit Provider Internal Medicine Critical Care Medicine
DX: J45.50 Severe persistent asthma, uncomplicated (principal)
CPT/HCPCS: 96372; J0517